=== PATIENT | female | born 1930 | race Caucasian/White ===

== ENCOUNTER → 2016-08-21 | Outpatient (CLI) | payer OTHER, MEDICARE ==
[~2016-08-21] MED LIST: ACET325T96 PO; ALBINS/ INH; ALBU0.08 INH; CALC600T PO; CALC600T37 PO; CALCTAB5 PO; CALCTAB65 PO; CEPH500C PO; CEPH500C2 PO; CHOL100010 PO; CHOL1CAP95 PO; CHOL2000 PO; CLOP1TAB15 PO; CYAN10005 PO; DILT1TAB50 PO; DILT300C PO; FLUT0.15 NAE; FLUT1INH7 INH; GABA-112 PO; GABA-113 PO; GABA1CAP5 PO; HYZ/50125 PO; LOSA100T2 PO; LVQ500 PO; MAGN400T6 PO; MONT1TAB3 PO; NTRGSL/4 SL; OMEP20CA9 PO; OXYC1TAB3 PO; PHN/100 PO; POTA-74 PO; PRD10 PO; VNTHFA/IN INH
--- NOTE | 2016-08-21 13:59 | MAMMOGRAPHY REPORT ---
BILATERAL DIGITAL SCREENING MAMMOGRAM WITH CAD: 08/21/2016 CLINICAL HISTORY: Routine screening. Patient has no complaints. TECHNIQUE: Current study was also evaluated with a Computer Aided Detection (CAD) system. Bilatera l CC and MLO views were obtained. COMPARISON: Comparison is made to exams dated: 11/13/2011 mammogram - [facility], , and 01/06/2007. BREAST COMPOSITION: The tissue of both breasts is almost entirely fatty. FINDINGS: No suspicious masses, calcifications, or areas of architectural distortion are noted in e ither breast. There has been no significant interval change compared to prior exams. Bilateral niurka gn vascular calcifications are again noted. IMPRESSION: ACR BI-RADS CATEGORY 2: BENIGN There is no mammographic evidence of malignancy. A 1 year screening mammogram is recommended. The p atient will receive written notification of the results. Approximately 10% of breast cancers are not detected with mammography. A negative mammographic repor t should not delay biopsy if a clinically suggestive mass is present. Rosaura Lainez M.D. ah/:08/21/2016 12:49:39 Teacher'S Aide: Loren Ladd, [facility] letter sent: Normal 1/2 BI-RADS Code: ACR BI-RADS Category 2: Benign
== END | disposition home or self-care (01) ==
LOC: C.MAMM 10:33
PROVIDERS: ATTEND Internal Medicine
DX: Z12.31 Encounter for screening mammogram for malignant neoplasm of breast (principal)

== ENCOUNTER 2016-09-29 07:42 | Emergency (ER) | payer OTHER, MEDICARE ==
[~2016-09-29] VITALS: Ht 157.5 cm; Wt 73.8 kg
[~2016-09-29 07:42] MED LIST changes: -ALBINS/ INH; -CALC600T PO; -CALC600T37 PO; -CALCTAB65 PO; -CEPH500C PO; -CEPH500C2 PO; -CHOL1CAP95 PO; -CHOL2000 PO; -DILT1TAB50 PO; -GABA1CAP5 PO; -HYZ/50125 PO; -LVQ500 PO; -MAGN400T6 PO; -OXYC1TAB3 PO; -PRD10 PO
[2016-09-29 07:52] VITALS: TEMP 36.5; Ht 157.5 cm; Wt 73.8 kg
--- NOTE | 2016-09-29 07:56 | EMERGENCY ROOM VISIT NOTE ---
History Report prepared by Kathrine: Erwin Spivey Under the Supervision of: Dr. Nicolas Navarro M.D. First contact with patient: 07:46 Chief Complaint: CHEST PAIN Stated Complaint: CHEST PAIN History of Present Illness The patient is an 85 year old female with a history of hypertension who presents to the Emergency Room via ambulance with complaints of constant chest pain beginning one hour prior to arrival. She currently rates her discomfort as a 7/10 in severity, but notes it was an 8/10 when the chest pain began. The patient associates chest pain that radiates down the right arm, resolved shortness of breath, resolved chills, nausea, and two episodes of vomiting with today's symptoms. She states she was given four baby aspirin in the ambulance. The patient denies a fever. 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 Was 8/10. Timing: constant Associated Symptoms: + SOB (resolved), + chest pain, + chills (resolved), + nausea, + vomiting, No fevers Note: Associated symptoms: chest pain that radiates down the right arm. Review of Systems All systems have been listed, reviewed, and are negative other than those previously mentioned. Please see Additional Medical History Sheet. Past Medical & Surgical Medical Problems: (1) Asthma (2) Bronchitis (3) CVA (4) Diabetes mellitus type 2 (5) Emphysema (6) Heart disease (7) Hyperlipidemia (8) Hypertensive disorder, systemic arterial (9) ICH (intracerebral hemorrhage) (10) Kidney stones (11) Peripheral vascular disease (12) Pneumonia (13) Right sided weakness (14) Vascular dementia Family History Diabetes mellitus FH: cancer FH: heart disease FHx: gallbladder disease Hypertension Social History Smoking Status: Never Smoker Alcohol Use: none Drug Use: none Marital Status: Housing Status: lives alone Occupation Status: retired Current/Historical Medications Scheduled Calcium (Calcium), 600 MG PO BID Cholecalciferol (Vitamin D3), Unknown Dose PO FRIDAY Clopidogrel (Plavix), 75 MG PO QAM Cyanocobalamin (Vitamin B-12), 1,000 MCG PO BID Diltiazem HCl Coated Beads (Diltiazem HCl ER), 240 MG PO QAM Fluticasone Furoate-Vilanterol (Breo Ellipta 200-25 Mcg/INH), 1 PUFF INH QAM Fluticasone Propionate (Nasal) (Flonase Allergy Relief), 2 SPRAYS [place] DAILY Gabapentin (Neurontin), 400 MG PO BID Hctz/Losartan (Hyzaar 12.5MG/50MG), 1 TAB PO QAM Magnesium Oxide (Mag-Ox), 400 MG PO DAILY Montelukast Sodium (Singulair), 10 MG PO QAM Nitroglycerin (Nitrostat), 0.4 MG SL PRN/UD Omeprazole (Prilosec), 20 MG PO BID Phenytoin Sodium (Dilantin), 100 MG PO TID Potassium Chloride (Potassium Chloride Er), 20 MEQ PO QAM Scheduled PRN Acetaminophen Tab (Tylenol), 650 MG PO Q6 PRN for Pain or Fever Albuterol Hfa (Ventolin Hfa), 2-4 PUFFS INH Q6H PRN for Shortness of Breath Albuterol Sulf (Proventil 0.083% 2.5MG/3ML), 2.5 MG INH [id number] PRN for SOB/ Wheezing Allergies Coded Allergies: Atorvastatin (Verified Allergy, Mild, UNSURE, 09/29/16) Ezetimibe (Verified Allergy, Mild, UNSURE, 09/29/16) Alendronate (Verified Allergy, Unknown, UNKN, 09/29/16) Benazepril (Verified Allergy, Unknown, UNSURE, 09/29/16) Clonidine (Verified Allergy, Unknown, UNSURE, 09/29/16) Ibandronic Acid (Verified Allergy, Unknown, UNKN, 09/29/16) Simvastatin (Verified Allergy, Unknown, OK TO TRY CRESTOR PER [id number], ) Physical Exam Vital Signs Date Time Temp Pulse Resp B/P Pulse Ox O2 Delivery O2 Flow Rate FiO2 09/29/16 12:12 92 16 164/99 98 09/29/16 11:46 92 16 165/89 97 Room Air 09/29/16 10:52 92 18 162/67 98 Nasal Cannula 2.0 09/29/16 10:04 93 18 173/76 97 Nasal Cannula 2.0 09/29/16 09:33 80 126/94 09/29/16 08:55 86 09/29/16 08:33 91 16 185/87 94 Room Air 09/29/16 07:59 98 Room Air 09/29/16 07:52 36.5 96 18 205/83 97 Room Air Physical Exam GENERAL: Patient awake, alert, oriented x 3. Patient follows commands. Patient does not appear toxic. Patient is adequately hydrated and well- nourished. SKIN: No erythema, pallor, cyanosis or rash HEENT: Normal head, pupils equal, reactive to light and accommodation. Oral cavity and posterior pharynx appear normal. Neck: Without adenopathy, no neck vein distention. LUNGS: Clear to auscultation. No wheezes, no rales, no rhonchi. HEART: No murmurs. No gallops. No rubs ABDOMEN: Obese. No masses, no rebound, no hepatomegaly or splenomegaly. EXTREMITIES: No signs of trauma. No pedal or pretibial edema. No calf or thigh tenderness. NEUROLOGIC: Cranial nerves II-XII within normal limits. No gross motor sensory function deficits. Medical Decision & Procedures ER Provider Diagnostic Interpretation: X ray results are stated below per my interpretation and the radiologist's interpretation. CHEST ONE VIEW PORTABLE CLINICAL HISTORY: chest pain dyspnea COMPARISON STUDY: 04/18/2016 FINDINGS: The bones soft tissues and hemidiaphragms are normal. The cardiomediastinal silhouette is normal. The lungs are clear. The pulmonary vasculature is normal. IMPRESSION: Negative chest. Electronically signed by: Davonte Chilel M.D. 09/29/2016 8:05 AM Laboratory Results 09/29/16 08:20 09/29/16 08:20 Test 09/29/16 08:20 09/29/16 10:23 Red Blood Count 4.42 M/uL (4.2-5.4) Mean Corpuscular Volume 82.4 fL (80-100) Mean Corpuscular Hemoglobin 27.8 pg (25-34) Mean Corpuscular Hemoglobin Concent 33.8 g/dl (32-36) RDW Standard Deviation 43.5 fL (36.4-46.3) RDW Coefficient of Variation 14.5 % (11.5-14.5) Mean Platelet Volume 9.3 fL (7.4-10.4) Anion Gap 10.0 mmol/L (3-11) Est Creatinine Clear Calc Drug Dose 59.8 ml/min Estimated GFR () 94.2 Estimated GFR (Non- 81.3 BUN/Creatinine Ratio 17.2 (10-20) Calcium Level 8.8 mg/dl (8.5-10.1) Digoxin Level 0.1 ng/ml (0.8-2.0) Bedside Troponin I 0.000 ng/ml (0-0.045) Laboratory results as stated above per my review. Medications Administered Medications (Trade) Dose Ordered Sig/Flavio Route Start Time Stop Time Status Last Admin Dose Admin Ondansetron HCl (Zofran Inj) 4 mg Q1HWA PRN IV 09/29/16 08:00 09/29/16 12:27 DC 09/29/16 08:20 4 MG Phenytoin Sodium (Dilantin Er Cap) 100 mg NOW STAT PO 09/29/16 08:50 09/29/16 08:51 DC 09/29/16 08:56 100 MG Nitroglycerin (Nitrostat Tab) 0.4 mg PRN PRN SL 09/29/16 10:00 09/29/16 12:27 DC 09/29/16 10:04 0.4 MG ECG Indication: chest pain Rate (beats per minute): 94 Rhythm: sinus rhythm Findings: PAC, no acute ischemic change, other (normal axis) ED Course 0748: Past medical records reviewed. The patient was evaluated in room B7. A complete history and physical examination was performed. 0800: Ordered Zofran Inj 4 mg IV. 0850: Ordered Dilantin Er Cap 100 mg PO. 0953: Reevaluated and updated the patient at this time. 1000: Ordered Nitrostat Tab 0.4 mg SL. 1150: Upon reevaluation, the patient appeared to have improvement of her symptoms. She states the nitroglycerin did not have an affect on her chest pain. The patient notes she has been coughing and believes she may have pulled something in her chest. I discussed today's findings with her. She verbalized agreement of the treatment plan. The patient was discharged home. Medical Decision I considered multiple diagnoses including myocardial infarction, chest wall pain , pericarditis, myocarditis, aortic emergencies, pulmonary embolism, congestive heart failure, GI causes, and other significant cardiopulmonary disorders. Multiple labs, EKG, imaging were obtained. Please see above. The patient has no evidence of congestive failure. She has no EKG changes. Troponins are 02. The patient did not get relief with nitroglycerin but the pain did eventually resolve. The patient relates that she has been coughing and believes that she may have pulled some muscles in her chest. I agree. The patient is safe to return home. She will continue her current medications and follow-up with her family physician. Impression Primary Impression: Chest wall pain Scribe Attestation The scribe's documentation has been prepared under my direction and personally reviewed by me in its entirety. I confirm that the note above accurately reflects all work, treatment, procedures, and medical decision making performed by me. Departure Information Dispostion Home / Self-Care Referrals Scar Parker M.D. (PCP) Forms HOME CARE DOCUMENTATION FORM, IMPORTANT VISIT INFORMATION Patient Instructions My [facility] Additional Instructions Continue all of your current medications as prescribed. Follow-up with your family physician within the next 10 days.
[2016-09-29 07:59] VITALS: O2SAT 98
[2016-09-29] MEDS ORDERED: ONDANSETRON INJ 2 MG/ML 2 ML VIAL IV PRN (08:00)
--- NOTE | 2016-09-29 08:07 | DIAGNOSTIC IMAGING REPORT ---
CHEST ONE VIEW PORTABLE CLINICAL HISTORY: chest pain dyspnea COMPARISON STUDY: 04/18/2016 FINDINGS: The bones soft tissues and hemidiaphragms are normal. The cardiomediastinal silhouette is normal. The lungs are clear. The pulmonary vasculature is normal. IMPRESSION: Negative chest. Electronically signed by: Davonte Chilel M.D. 09/29/2016 8:05 AM Dictated Date/Time: 09/29/2016 8:04 AM
[2016-09-29 08:37] LABS: HEMATOCRIT 36.4 % (37-47); MEAN CELL VOLUME 82.4 fL (80-100); MEAN CORPUSCULAR HEMOGLOBIN 27.8 pg (25-34); MEAN CORPUSCULAR HGB CONC 33.8 g/dl (32-36); MEAN PLATELET VOLUME 9.3 fL (7.4-10.4); PLATELET COUNT 356 K/uL (130-400); RED BLOOD COUNT 4.42 M/uL (4.2-5.4)
[2016-09-29] MEDS ORDERED: GABA1CAP5 PO (08:43)
[2016-09-29] MEDS ORDERED: ALBINS/ INH (08:43)
[2016-09-29] MEDS ORDERED: CHOL1CAP95 PO (08:43)
[2016-09-29] MEDS ORDERED: CALC600T37 PO (08:43)
[2016-09-29] MEDS ORDERED: HYZ/50125 PO (08:44)
[2016-09-29] MEDS ORDERED: MAGN400T6 PO (08:48)
[2016-09-29] MEDS ORDERED: PHENYTOIN SODIUM ER 100 MG CAP PO STA (08:50)
[2016-09-29 08:51] LABS: BUN/CREATININE RATIO 17.2 (10-20); CALCIUM 8.8 mg/dl (8.5-10.1); CREATININE 0.67 mg/dl (0.60-1.20); POTASSIUM 3.7 mmol/L (3.5-5.1)
[2016-09-29] MEDS ORDERED: DILT1TAB50 PO (09:41)
[2016-09-29] MEDS: NITROGLYCERIN 0.4 MG SL PER TAB CHARGE SL PRN ×2 (10:03→10:04)
[2016-09-29 12:12] VITALS: BP 164/99; PULSE 92; O2SAT 98
[2017-03-16] MEDS ORDERED: CEPH500C2 PO (09:38)
== END 2016-09-29 12:13 | disposition home or self-care (01) ==
LOC: EDBD 07:42 → C.EDB 07:44
DX: R07.89 Other chest pain (principal); I10 Essential (primary) hypertension; E78.5 Hyperlipidemia, unspecified; E11.9 Type 2 diabetes mellitus without complications; J45.909 Unspecified asthma, uncomplicated; I51.9 Heart disease, unspecified; J43.9 Emphysema, unspecified; I73.9 Peripheral vascular disease, unspecified; Z86.73 Personal history of transient ischemic attack (TIA), and cerebral infarction without residual deficits; Z87.442 Personal history of urinary calculi; Z79.02 Long term (current) use of antithrombotics/antiplatelets; Z79.899 Other long term (current) drug therapy

== ENCOUNTER → 2016-10-29 | Outpatient (CLI) | payer OTHER, MEDICARE ==
[~2016-10-29] MED LIST changes: +ACET-1101 PO; +ALBINS/ INH; -ALBU0.08 INH; +CALC600T PO; +CALC600T37 PO; -CALCTAB5 PO; +CALCTAB65 PO; +CEPH500C PO; +CEPH500C2 PO; -CHOL100010 PO; +CHOL1CAP95 PO; +CHOL2000 PO; +DILT1TAB50 PO; -DILT300C PO; -GABA-112 PO; -GABA-113 PO; +GABA1CAP5 PO; +HYZ/50125 PO; -LOSA100T2 PO; +LVQ500 PO; +MAGN400T6 PO; +OXYC1TAB3 PO; +PRD10 PO
[2016-10-29 17:37] LABS: HEMATOCRIT 38.4 % (37-47); MEAN CELL VOLUME 83.8 fL (80-100); MEAN CORPUSCULAR HEMOGLOBIN 27.1 pg (25-34); MEAN CORPUSCULAR HGB CONC 32.3 g/dl (32-36); MEAN PLATELET VOLUME 9.6 fL (7.4-10.4); PLATELET COUNT 417 K/uL (130-400); RED BLOOD COUNT 4.58 M/uL (4.2-5.4); WHITE BLOOD COUNT 13.05 K/uL (4.8-10.8)
[2016-10-29 17:53] LABS: BLOOD UREA NITROGEN 17 mg/dl (7-18); BUN/CREATININE RATIO 21.5 (10-20); CARBON DIOXIDE 33 mmol/L (21-32); CHLORIDE 102 mmol/L (98-107); CHOLESTEROL 242 mg/dl (0-200); CHOLESTEROL/HDL RATIO 2.7; CREATININE 0.81 mg/dl (0.60-1.20); GLUCOSE 142 mg/dl (70-99); HDL CHOLESTEROL 89 mg/dl; POTASSIUM 4.5 mmol/L (3.5-5.1); SODIUM 142 mmol/L (136-145)
[2016-10-29 18:04] LABS: ALB/GLOB RATIO 0.9 (0.9-2); ALKALINE PHOSPHATASE 148 U/L (45-117); ALT/SGPT 22 U/L (12-78); AST/SGOT 16 U/L (15-37); LDL CHOLESTEROL CALCULATED 115 mg/dl; TRIGLYCERIDES 192 mg/dl (0-150); VERY LOW DENSITY LIPOPROT CALC 38 mg/dl
[2016-10-30 06:18] LABS: ESTIMATED AVERAGE GLUCOSE 157 mg/dl; HA1C FLAG Normal (Normal)
== END | disposition home or self-care (01) ==
LOC: C.LABBFT 13:21
PROVIDERS: ATTEND Physician Assistant Medical
DX: D64.9 Anemia, unspecified (principal); E11.9 Type 2 diabetes mellitus without complications; E78.5 Hyperlipidemia, unspecified

== ENCOUNTER → 2016-12-18 | Outpatient (CLI) | payer OTHER, MEDICARE | END | disposition home or self-care (01) | LOC: C.RDSM 12-17 12:46 | PROVIDERS: ATTEND Orthopaedic Surgery Sports Medicine | DX: M17.0 Bilateral primary osteoarthritis of knee (principal) ==

== ENCOUNTER 2017-01-22 09:30 | Emergency (ER) | payer OTHER, MEDICARE ==
[~2017-01-22] VITALS: Ht 160 cm; Wt 72.6 kg
[~2017-01-22 09:30] MED LIST changes: -ACET-1101 PO; -CALC600T PO; -CALCTAB65 PO; -CEPH500C PO; -CEPH500C2 PO; -CHOL2000 PO; -LVQ500 PO; -OXYC1TAB3 PO; -PRD10 PO
[2017-01-22 09:35] VITALS: TEMP 36.6; Ht 160 cm; Wt 72.6 kg
[2017-01-22] MEDS ORDERED: ONDANSETRON INJ 2 MG/ML 2 ML VIAL IV STA (09:41)
[2017-01-22] MEDS ORDERED: SODIUM CHLORIDE 0.9% 500ML 500 ML IV STA (09:41)
[2017-01-22] MEDS ORDERED: FENTANYL CITRATE INJ 50 MCG/1 ML 2 ML VIAL IV ONE (09:45)
[2017-01-22 10:06] LABS: BASO % 0.6 %; BASO ABS # 0.06 K/uL (0-0.2); COMPLETE YES; HEMATOCRIT 38.7 % (37-47); IG% 0.4 %; LYMPH % 25.2 %; MEAN CELL VOLUME 83.2 fL (80-100); MEAN CORPUSCULAR HEMOGLOBIN 27.5 pg (25-34); MEAN CORPUSCULAR HGB CONC 33.1 g/dl (32-36); MEAN PLATELET VOLUME 9.3 fL (7.4-10.4); MONO % 12.7 %; NEUT % 59.1 %; PLATELET COUNT 376 K/uL (130-400); RED BLOOD COUNT 4.65 M/uL (4.2-5.4); WHITE BLOOD COUNT 10.31 K/uL (4.8-10.8)
--- NOTE | 2017-01-22 10:35 | DIAGNOSTIC IMAGING REPORT ---
PELVIS 1 OR 2 VIEW ROUTINE CLINICAL HISTORY: Pelvic pain status post trauma COMPARISON STUDY: 08/24/2013 FINDINGS: No fractures are visualized. The joint space of each hip appears relatively well preserved for age. Vascular calcifications are evident. There is no SI joint diastases. There is no symphysis diastases. IMPRESSION: No fractures identified. Electronically signed by: Wes Zelaya M.D. 01/22/2017 10:34 AM Dictated Date/Time: 01/22/2017 10:34 AM
--- NOTE | 2017-01-22 10:42 | DIAGNOSTIC IMAGING REPORT ---
THORACIC SPINE 3 VIEWS, LUMBAR SPINE 3 VIEWS HISTORY: upper lumbar paraspinal pain COMPARISON: Thoracic spine CT 06/19/2015. FINDINGS: There is no fracture. No subluxation. Mild degenerative disease throughout the thoracic spine. There are small following osteophytes within the thoracic spine. Paraspinal soft tissues appear unremarkable. Stable T12 vertebral body hemangioma. 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 Disc spaces within the lumbar spine are relatively preserved. Minimal S-shaped scoliosis of the thoracolumbar spine. The sacrum appears intact. IMPRESSION: No fracture or subluxation within the thoracic or lumbar spine spine. Electronically signed by: Gregorio Jason M.D. 01/22/2017 10:41 AM Dictated Date/Time: 01/22/2017 10:33 AM
[2017-01-22 11:16] LABS: PARTIAL THROMBOPLASTIN RATIO 0.9; PROTHROMBIN TIME (PATIENT) 10.6 SECONDS (9.0-12.0)
[2017-01-22 11:25] LABS: ALKALINE PHOSPHATASE 150 U/L (45-117); ALT/SGPT 21 U/L (12-78); BLOOD UREA NITROGEN 13 mg/dl (7-18); BUN/CREATININE RATIO 19.7 (10-20); CALCIUM 8.3 mg/dl (8.5-10.1); CARBON DIOXIDE 31 mmol/L (21-32); CHLORIDE 106 mmol/L (98-107); CREATININE 0.68 mg/dl (0.60-1.20); GLUCOSE 112 mg/dl (70-99)
[2017-01-22 11:30] LABS: POTASSIUM 4.1 mmol/L (3.5-5.1); SODIUM 143 mmol/L (136-145)
[2017-01-22 11:33] LABS: URINE APPEARANCE CLOUDY (CLEAR); URINE BILIRUBIN NEG (NEG); URINE COLOR YELLOW; URINE EPITHELIAL CELL AUTO >30 /lpf (0-5); URINE NITRITE POS (NEG); URINE PH 7.5 (4.5-7.5); URINE SPECIFIC GRAVITY 1.019 (1.000-1.030); UROBILINOGEN NEG (NEG); ZZUR CULT IF INDIC CLEAN CATCH YES
[2017-01-22 11:36] LABS: MANUAL MICROSCOPIC REQUIRED? NO; REVIEW REQ? YES
[2017-01-22 11:36] LABS: AST/SGOT 15 U/L (15-37)
[2017-01-22] MEDS ORDERED: CEPHALEXIN MONOHYDRATE 250 MG CAP PO ONE (12:15)
[2017-01-22 12:27] VITALS: BP 144/68
[2017-01-22] MEDS ORDERED: CEPH500C PO (12:50)
[2017-01-22] MEDS ORDERED: OXYC1TAB3 PO (12:50)
[2017-01-22 13:10] VITALS: PULSE 92; O2SAT 95
--- NOTE | 2017-01-22 16:03 | EMERGENCY ROOM VISIT NOTE ---
History Report prepared by Kathrine: Janie Harvey Under the Supervision of: Dr. Justin Anderson D.O. 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 She was on the toilet this morning and tried to get into her lift chair. She went to sit in the chair, but slid forward out of it and landed on the floor. She hit her lower back on the chair and is complaining of bilateral lower back pain that is worsened with movement. The patient denies hitting her head, LOC, neck pain, chest pain, abdominal pain, and any other injury. She has bilateral knee pain, but states that this is chronic. The patient is on Plavix. She was brought to the ED by ambulance. 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 A total of 10 systems reviewed and were otherwise negative. Past Medical & Surgical Medical Problems: (1) Asthma (2) Bronchitis (3) CVA (4) Diabetes mellitus type 2 (5) Emphysema (6) Heart disease (7) Hyperlipidemia (8) Hypertensive disorder, systemic arterial (9) ICH (intracerebral hemorrhage) (10) Kidney stones (11) Peripheral vascular disease (12) Pneumonia (13) Right sided weakness (14) Vascular dementia Family History Diabetes mellitus FH: cancer FH: heart disease FHx: gallbladder disease Hypertension Social History Smoking Status: Never Smoker Alcohol Use: none Drug Use: none Marital Status: Housing Status: lives alone Occupation Status: retired Current/Historical Medications Scheduled Calcium (Calcium), 600 MG PO BID Cephalexin Monohydrate (Keflex), 500 MG PO TID Cholecalciferol (Vitamin D3), Unknown Dose PO FRIDAY Clopidogrel (Plavix), 75 MG PO QAM Cyanocobalamin (Vitamin B-12), 1,000 MCG PO BID Diltiazem HCl Coated Beads (Diltiazem HCl ER), 240 MG PO QAM Fluticasone Furoate-Vilanterol (Breo Ellipta 200-25 Mcg/INH), 1 PUFF INH QAM Fluticasone Propionate (Nasal) (Flonase Allergy Relief), 2 SPRAYS [place] DAILY Gabapentin (Neurontin), 400 MG PO BID Hctz/Losartan (Hyzaar 12.5MG/50MG), 1 TAB PO QAM Magnesium Oxide (Mag-Ox), 400 MG PO DAILY Montelukast Sodium (Singulair), 10 MG PO QAM Nitroglycerin (Nitrostat), 0.4 MG SL PRN/UD Omeprazole (Prilosec), 20 MG PO BID Phenytoin Sodium (Dilantin), 100 MG PO TID Potassium Chloride (Potassium Chloride Er), 20 MEQ PO QAM Scheduled PRN Acetaminophen Tab (Tylenol), 650 MG PO Q6 PRN for Pain or Fever Albuterol Hfa (Ventolin Hfa), 2-4 PUFFS INH Q6H PRN for Shortness of Breath Albuterol Sulf (Proventil 0.083% 2.5MG/3ML), 2.5 MG INH [id number] PRN for SOB/ Wheezing Oxycodone Immediate Rel Tab (Roxicodone Ir), 5 MG PO Q6H PRN for Pain Allergies Coded Allergies: Atorvastatin (Verified Allergy, Mild, UNSURE, 01/22/17) Ezetimibe (Verified Allergy, Mild, UNSURE, 01/22/17) Alendronate (Verified Allergy, Unknown, UNKN, 01/22/17) Benazepril (Verified Allergy, Unknown, UNSURE, 01/22/17) Clonidine (Verified Allergy, Unknown, UNSURE, 01/22/17) Ibandronic Acid (Verified Allergy, Unknown, UNKN, 01/22/17) Simvastatin (Verified Allergy, Unknown, OK TO TRY CRESTOR PER [id number], ) Physical Exam Vital Signs Date Time Temp Pulse Resp B/P (MAP) Pulse Ox O2 Delivery O2 Flow Rate FiO2 01/22/17 13:10 92 16 95 01/22/17 12:27 86 18 144/68 94 Room Air 01/22/17 10:47 90 16 153/71 93 Room Air 01/22/17 09:35 36.6 98 20 171/56 98 Room Air Physical Exam GENERAL: alert, sitting up in bed, disheveled, chronically ill appearing, well nourished, no distress, non-toxic, soft-spoken. HEAD: normal cephalic, atraumatic EYE EXAM: normal conjunctiva, PERRL and EOM's grossly intact OROPHARYNX: no exudate, no erythema, lips, buccal mucosa, and tongue normal and mucous membranes are moist EARS: TMs clear b/l NECK: supple, no nuchal rigidity, no adenopathy, non-tender CHEST: stable to compression anteriorly and posteriorly LUNGS: clear to auscultation. Normal chest wall mechanics HEART: systolic ejection murmur, S1 normal and S2 normal ABDOMEN: abdomen soft, non-tender, normo-active bowel sounds, no masses, no rebound or guarding. PELVIS: stable to compression anteriorly and posteriorly BACK: acute reproducible tenderness in upper lumbar and perispinal region, no bruising, no step-offs, skin is intact. UPPER EXTREMITIES: full active and passive range of motion of all joints without tenderness to palpation LOWER EXTREMITIES: flexion at the knees with minimal discomfort in the left, old per patient. All other joints are nontender with range of motion NEURO EXAM: Normal sensorium, cranial nerves II-XII grossly intact, normal speech, no gross weakness of arms, no gross weakness of legs. GCS: 15. Medical Decision & Procedures ER Provider Diagnostic Interpretation: Radiology results as stated below per my review and the radiologist's interpretation: THORACIC SPINE 3 VIEWS, LUMBAR SPINE 3 VIEWS HISTORY: upper lumbar paraspinal pain COMPARISON: Thoracic spine CT 06/19/2015. FINDINGS: There is no fracture. No subluxation. Mild degenerative disease throughout the thoracic spine. There are small following osteophytes within the thoracic spine. Paraspinal soft tissues appear unremarkable. Stable T12 vertebral body hemangioma. 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 Disc spaces within the lumbar spine are relatively preserved. Minimal S-shaped scoliosis of the thoracolumbar spine. The sacrum appears intact. IMPRESSION: No fracture or subluxation within the thoracic or lumbar spine spine. Electronically signed by: Gregorio Jason M.D. 01/22/2017 10:41 AM Dictated Date/Time: 01/22/2017 10:33 AM THORACIC SPINE 3 VIEWS, LUMBAR SPINE 3 VIEWS HISTORY: upper lumbar paraspinal pain COMPARISON: Thoracic spine CT 06/19/2015. FINDINGS: There is no fracture. No subluxation. Mild degenerative disease throughout the thoracic spine. There are small following osteophytes within the thoracic spine. Paraspinal soft tissues appear unremarkable. Stable T12 vertebral body hemangioma. 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 Disc spaces within the lumbar spine are relatively preserved. Minimal S-shaped scoliosis of the thoracolumbar spine. The sacrum appears intact. IMPRESSION: No fracture or subluxation within the thoracic or lumbar spine spine. Electronically signed by: Gregorio Jason M.D. 01/22/2017 10:41 AM Dictated Date/Time: 01/22/2017 10:33 AM PELVIS 1 OR 2 VIEW ROUTINE CLINICAL HISTORY: Pelvic pain status post trauma COMPARISON STUDY: 08/24/2013 FINDINGS: No fractures are visualized. The joint space of each hip appears relatively well preserved for age. Vascular calcifications are evident. There is no SI joint diastases. There is no symphysis diastases. IMPRESSION: No fractures identified. Electronically signed by: Wes Zelaya M.D. 01/22/2017 10:34 AM Dictated Date/Time: 01/22/2017 10:34 AM Laboratory Results 01/22/17 09:55 Red Blood Count 4.65, Mean Corpuscular Volume 83.2, Mean Corpuscular Hemoglobin 27.5, Mean Corpuscular Hemoglobin Concent 33.1, Mean Platelet Volume 9.3, Neutrophils (%) (Auto) 59.1, Lymphocytes (%) (Auto) 25.2, Monocytes (%) (Auto) 12.7, Eosinophils (%) (Auto) 2.0, Basophils (%) (Auto) 0.6, Neutrophils # (Auto ) 6.09, Lymphocytes # (Auto) 2.60, Monocytes # (Auto) 1.31, Eosinophils # (Auto ) 0.21, Basophils # (Auto) 0.06 01/22/17 10:45 Test 01/22/17 09:55 01/22/17 10:45 01/22/17 11:15 White Blood Count 10.31 K/uL (4.8-10.8) Red Blood Count 4.65 M/uL (4.2-5.4) Hemoglobin 12.8 g/dL (12.0-16.0) Hematocrit 38.7 % (37-47) Mean Corpuscular Volume 83.2 fL (80-100) Mean Corpuscular Hemoglobin 27.5 pg (25-34) Mean Corpuscular Hemoglobin Concent 33.1 g/dl (32-36) Platelet Count 376 K/uL (130-400) Mean Platelet Volume 9.3 fL (7.4-10.4) Neutrophils (%) (Auto) 59.1 % Lymphocytes (%) (Auto) 25.2 % Monocytes (%) (Auto) 12.7 % Eosinophils (%) (Auto) 2.0 % Basophils (%) (Auto) 0.6 % Neutrophils # (Auto) 6.09 K/uL (1.4-6.5) Lymphocytes # (Auto) 2.60 K/uL (1.2-3.4) Monocytes # (Auto) 1.31 K/uL (0.11-0.59) Eosinophils # (Auto) 0.21 K/uL (0-0.5) Basophils # (Auto) 0.06 K/uL (0-0.2) RDW Standard Deviation 42.1 fL (36.4-46.3) RDW Coefficient of Variation 13.9 % (11.5-14.5) Immature Granulocyte % (Auto) 0.4 % Immature Granulocyte # (Auto) 0.04 K/uL (0.00-0.02) Prothrombin Time 10.6 SECONDS (9.0-12.0) Prothromb Time International Ratio 1.0 (0.9-1.1) Activated Partial Thromboplast Time 23.3 SECONDS (21.0-31.0) Partial Thromboplastin Ratio 0.9 Anion Gap 6.0 mmol/L (3-11) Est Creatinine Clear Calc Drug Dose 58.8 ml/min Estimated GFR () 93.1 Estimated GFR (Non- 80.3 BUN/Creatinine Ratio 19.7 (10-20) Calcium Level 8.3 mg/dl (8.5-10.1) Total Bilirubin 0.2 mg/dl (0.2-1) Direct Bilirubin < 0.1 mg/dl (0-0.2) Aspartate Amino Transf (AST/SGOT) 15 U/L (15-37) Alanine Aminotransferase (ALT/SGPT) 21 U/L (12-78) Alkaline Phosphatase 150 U/L (45-117) Total Protein 6.3 gm/dl (6.4-8.2) Albumin 2.9 gm/dl (3.4-5.0) Lipase 99 U/L (73-393) Phenytoin (Dilantin) Level 15.4 mcg/mL (10-20) Urine Color YELLOW Urine Appearance CLOUDY (CLEAR) Urine pH 7.5 (4.5-7.5) Urine Specific [place] 1.019 (1.000-1.030) Urine Protein NEG (NEG) Urine Glucose (UA) NEG (NEG) Urine Ketones NEG (NEG) Urine Occult Blood NEG (NEG) Urine Nitrite POS (NEG) Urine Bilirubin NEG (NEG) Urine Urobilinogen NEG (NEG) Urine Leukocyte Esterase MODERATE (NEG) Urine WBC (Auto) 5-10 /hpf (0-5) Urine RBC (Auto) 0-4 /hpf (0-4) Urine Hyaline Casts (Auto) 10-30 /lpf (0-5) Urine Epithelial Cells (Auto) >30 /lpf (0-5) Urine Bacteria (Auto) 4+ (NEG) Urine Renal Epithelial Cells /lpf (0-5) Laboratory results per my review. Medications Administered Medications (Trade) Dose Ordered Sig/Flavio Route Start Time Stop Time Status Last Admin Dose Admin Sodium Chloride 500 ml @ 999 mls/hr Q31M STAT IV 01/22/17 09:41 01/22/17 10:11 DC 01/22/17 10:07 999 MLS/HR Ondansetron HCl (Zofran Inj) 4 mg NOW STAT IV 01/22/17 09:41 01/22/17 09:43 DC 01/22/17 10:07 4 MG Fentanyl Citrate (Fentanyl Inj) 25 mcg NOW ONCE IV 01/22/17 09:45 01/22/17 09:46 DC 01/22/17 10:08 25 MCG Cephalexin Monohydrate (Keflex Cap) 500 mg NOW ONCE PO 01/22/17 12:15 01/22/17 12:16 DC 01/22/17 12:12 500 MG ED Course ED COURSE: Vital signs were reviewed and showed hypertensive. The patients medical record was reviewed The above diagnostic studies were performed and reviewed. ED treatments and interventions as stated above. 0933: The patient was evaluated in room A2. A complete history and physical examination was performed. 0941: Zofran 4 mg IV, NSS 500 ml @ 999 mls/hr IV 0945: Fentanyl 25 mcg IV 1131: I updated the patient at this time and she is feeling better. 1215: Keflex Cap 500 mg PO 1228: Upon reevaluation, the patient is resting comfortably. I discussed my findings with the patient and she understands and agrees with the treatment plan. Based on the patients age, coexisting illnesses, exam and lab findings the decision to treat as an outpatient was made. The patient remained stable while under my care. The patient appeared well at the time of discharge. Medical Decision Differential diagnoses include major intracranial, cervical, spinal, thoracic, abdominal, pelvic and neurologic injury. Fracture, contusion, sprain, strain, laceration, abrasions included as well. Medication Reconciliation: I attest that I have personally reviewed the patient' s current medication list. Blood pressure screening: Patient was found to have an elevated blood pressure and was referred to their primary doctor for recheck and further treatment. Urine cultures reviewed susceptible to E. Coli previously. Patient is an 86-year-old female who presents the ER following sliding out of her chair. She is complaining of minimal lower back pain which is located in the left lower paraspinal region. She was hypertensive. No head trauma. She has no other complaints. CBC along with BMP, LFTs, bilirubin or unremarkable. Phenytoin was normal. INR was negative. UA shows a UTI with nitrates, leuks and white cells. Patient has no symptoms. She is completely neurologically intact. X-rays of her thoracic and lumbar spine were negative. There is no bruising. She was able to ambulate with her walker. She was discharged with Keflex to follow-up with her PCP. Discussed with Pt concerning signs and symptoms to watch out for. Pt was instructed to follow up with their PCP and discussed with the patient their option to return to the ED at anytime for persistent or worsening symptoms. The appropriate anticipatory guidance and out- patient management, including indications for return to the emergency department , were explained at length to the patient and understood. Impression Primary Impression: UTI (urinary tract infection) Additional Impression: Fall Scribe Attestation The scribe's documentation has been prepared under my direction and personally reviewed by me in its entirety. I confirm that the note above accurately reflects all work, treatment, procedures, and medical decision making performed by me. Departure Information Dispostion Home / Self-Care Prescriptions Cephalexin Monohydrate (Keflex) 500 Mg Cap 500 MG PO TID for 7 Days, CAP Prov: Justin Anderson, DO 01/22/17 Oxycodone Immediate Rel Tab (ROXICODONE IR) 5 Mg Tab 5 MG PO Q6H Y for Pain, #10 TAB Prov: Justin Anderson, DO 01/22/17 Referrals Scar Parker M.D. (PCP) Forms HOME CARE DOCUMENTATION FORM, IMPORTANT VISIT INFORMATION Patient Instructions Back Pain - [facility], ED UTI Cystitis Female, My [facility] Additional Instructions Please follow up with your primary care doctor with in the next 24 hours. Any worsening of your symptoms, please return to the ED immediately. This includes fevers grade and 100.4, confusion, worsening pain, passing out, or any other concerning signs or symptoms from your standpoint. Please take antibiotics as prescribed. You were given medications during this visit that will inhibit your ability to drive, operate machinery and work. Please do NOT drive, operate machinery or work for the next 12hrs. You were also given a prescription for a narcotic/Oxy IR. While taking this medication you should also not drive, operate machinery and or work. Problem Qualifiers Primary Impression: UTI (urinary tract infection) Urinary tract infection type: acute cystitis Hematuria presence: without hematuria Qualified Codes: N30.00 - Acute cystitis without hematuria Additional Impression: Fall Encounter type: initial encounter Qualified Codes: W19.XXXA - Unspecified fall, initial encounter
--- NOTE | 2017-01-24 12:41 | Pharmacy Progress Note ---
ED Pharmacist Culture FollowUp Date of Service: Jan 24, 2017. Patient was sent home with a prescription for Keflex 500mg PO TID x 7 days, which should cover the e coli growing from the patient's URINE culture.
[2017-03-16] MEDS ORDERED: CEPH500C2 PO (09:38)
== END 2017-01-22 13:13 | disposition home or self-care (01) ==
LOC: EDBD 09:30 → C.EDA 09:33
DX: N30.00 Acute cystitis without hematuria (principal); W07.XXXA Fall from chair, initial encounter; J45.909 Unspecified asthma, uncomplicated; E11.51 Type 2 diabetes mellitus with diabetic peripheral angiopathy without gangrene; I10 Essential (primary) hypertension; F01.50 Vascular dementia, unspecified severity, without behavioral disturbance, psychotic disturbance, mood disturbance, and anxiety; J43.9 Emphysema, unspecified; Z87.442 Personal history of urinary calculi; Z86.73 Personal history of transient ischemic attack (TIA), and cerebral infarction without residual deficits; Z87.01 Personal history of pneumonia (recurrent); Z83.3 Family history of diabetes mellitus; Z82.49 Family history of ischemic heart disease and other diseases of the circulatory system; Z79.02 Long term (current) use of antithrombotics/antiplatelets

== ENCOUNTER 2017-01-31 23:15 | Inpatient (IN) | payer OTHER, MEDICARE ==
[~2017-01-31] VITALS: Ht 160 cm; Wt 71.4 kg
[~2017-01-31 23:15] MED LIST changes: +OXYC1TAB3 PO
[2017-01-31] MEDS ORDERED: CHOL2000 PO (23:41)
[2017-01-31] MEDS ORDERED: ALBUT/IPRATROP 3MG/0.5MG NEB 3 ML VIAL INH ONE (23:45)
[2017-01-31] MEDS ORDERED: CALCTAB65 PO (23:52)
[2017-01-31] MEDS ORDERED: ALBUT/IPRATROP 3MG/0.5MG NEB 3 ML VIAL INH STA (23:56)
[2017-02-01] VITALS (11 sets, daily range): BP systolic 130–151; BP diastolic 66–72; PULSE 80–103; TEMP 36.3–36.9; O2SAT 92–97; Ht 160 cm; Wt 71.4 kg
--- NOTE | 2017-02-01 00:03 | DIAGNOSTIC IMAGING REPORT ---
SINGLE VIEW CHEST CLINICAL HISTORY: Cough. COPD. FINDINGS: An AP, portable, upright chest radiograph is compared to study dated 09/29/2016 and correlated with chest CT dated 11/27/2014. The examination is degraded by portable technique and patient rotation. The cardiomediastinal silhouette is unremarkable. There is atherosclerotic calcification of the thoracic aorta. Chronic interstitial thickening is unchanged. Patchy airspace consolidation is suspected at the left lung base in the retrocardiac region. The right lung appears clear. No large pleural effusion or pneumothorax is seen. The skeletal structures are osteopenic. The bony thorax is grossly intact. IMPRESSION: 1. Suspect developing patchy airspace consolidation at the left lung base. Correlate clinically for evidence of pneumonia. Radiographic follow-up to resolution is recommended. 2. The right lung appears clear. Electronically signed by: Karsten Mccormick M.D. 02/01/2017 12:01 AM Dictated Date/Time: 01/31/2017 11:59 PM
[2017-02-01 00:21] LABS: BASO % 0.3 %; BASO ABS # 0.04 K/uL (0-0.2); COMPLETE YES; EOS % 3.1 %; HEMATOCRIT 37.8 % (37-47); IG% 0.5 %; LYMPH % 39.3 %; LYMPH ABS # 4.84 K/uL (1.2-3.4); MEAN CELL VOLUME 83.1 fL (80-100); MEAN CORPUSCULAR HEMOGLOBIN 26.8 pg (25-34); MEAN CORPUSCULAR HGB CONC 32.3 g/dl (32-36); MEAN PLATELET VOLUME 9.5 fL (7.4-10.4); NEUT % 44.8 %; PLATELET COUNT 391 K/uL (130-400); RED BLOOD COUNT 4.55 M/uL (4.2-5.4); WHITE BLOOD COUNT 12.31 K/uL (4.8-10.8)
[2017-02-01] MEDS ORDERED: CEFTRIAXONE SOD INJ 1 GM ADDVIAL IV STA (00:26)
[2017-02-01 00:36] LABS: ALT/SGPT 25 U/L (12-78); BLOOD UREA NITROGEN 16 mg/dl (7-18); BUN/CREATININE RATIO 19.1 (10-20); CALCIUM 8.9 mg/dl (8.5-10.1); CARBON DIOXIDE 30 mmol/L (21-32); CHLORIDE 102 mmol/L (98-107); CREATININE 0.82 mg/dl (0.60-1.20); GLUCOSE 191 mg/dl (70-99); MAGNESIUM 1.9 mg/dl (1.8-2.4); POTASSIUM 3.4 mmol/L (3.5-5.1); SODIUM 141 mmol/L (136-145)
[2017-02-01 00:41] LABS: ALKALINE PHOSPHATASE 156 U/L (45-117); AST/SGOT 20 U/L (15-37)
[2017-02-01 00:58] LABS: URINE APPEARANCE CLOUDY (CLEAR); URINE BILIRUBIN NEG (NEG); URINE COLOR YELLOW; URINE EPITHELIAL CELL AUTO >30 /lpf (0-5); URINE NITRITE POS (NEG); URINE SPECIFIC GRAVITY 1.028 (1.000-1.030); UROBILINOGEN NEG (NEG); ZZUR CULT IF INDIC CLEAN CATCH YES
[2017-02-01 01:06] LABS: MANUAL MICROSCOPIC REQUIRED? NO; REVIEW REQ? NO
--- NOTE | 2017-02-01 01:58 | History and Physical ---
History & Physical Date & Time of Service: Feb 01, 2017 at 01:51 Chief Complaint: COPD Primary Care Physician: Scar Parker M.D. History of Present Illness Source: patient, family This is an 85-year-old female with a history of CVA and R sided weakness, hypertension, type 2 diabetes and COPD - Presents with progressive SOB and a few episodes of hemoptysis, coughing up blood streaked sputum. She denies fevers, CP, N/V/D or diarrhea. She recently completed a course of Keflex for a UTI. Her 02 saturation was in the mid 80s on arrival. A CXR is consistent with a LLL PNM. Past Medical/Surgical History PAST MEDICAL HISTORY: 1. CVA with baseline of left-sided weakness. 2. COPD. 3. Type 2 diabetes. 4. CAD. 5. Hypertension. 6. Hyperlipidemia. 7. History of renal calculi. 8. Peripheral vascular disease. 9. Mild vascular dementia. 10. Admitted with suspected ICH 05/08/16 - diagnosis was not definitive Family History Diabetes mellitus FH: cancer FH: heart disease FHx: gallbladder disease Hypertension Social History Smoking Status: Never Smoker Drug Use: none Marital Status: Housing status: lives alone Occupational Status: retired Immunizations History of Influenza Vaccine: N/A Influenza Vaccine Date: Apr 15, 2012 History of Tetanus Vaccine?: Yes Tetanus Immunization Date: Mar 31, 2009 History of Pneumococcal: Yes Pneumococcal Date: Jan 14, 2012 History of Hepatitis B Vaccine: No Multi-Drug Resistant Organisms History of MDRO: No Allergies Coded Allergies: Atorvastatin (Verified Allergy, Mild, UNSURE, 01/22/17) Ezetimibe (Verified Allergy, Mild, UNSURE, 01/22/17) Alendronate (Verified Allergy, Unknown, UNKN, 01/22/17) Benazepril (Verified Allergy, Unknown, UNSURE, 01/22/17) Clonidine (Verified Allergy, Unknown, UNSURE, 01/22/17) Ibandronic Acid (Verified Allergy, Unknown, UNKN, 01/22/17) Simvastatin (Verified Allergy, Unknown, OK TO TRY CRESTOR PER [id number], ) Home Medications Scheduled Calcium Carbonate-Vitamin D (Calcium 500 + D), 1 TAB PO BID Cholecalciferol (Vitamin D3), 2,000 CAP PO WK Clopidogrel (Plavix), 75 MG PO QAM Cyanocobalamin (Vitamin B-12), 1,000 MCG PO BID Diltiazem HCl Coated Beads (Diltiazem HCl ER), 240 MG PO QAM Fluticasone Furoate-Vilanterol (Breo Ellipta 200-25 Mcg/INH), 1 PUFF INH QAM Fluticasone Propionate (Nasal) (Flonase Allergy Relief), 2 SPRAYS [place] DAILY Gabapentin (Neurontin), 400 MG PO BID Hctz/Losartan (Hyzaar 12.5MG/50MG), 1 TAB PO QAM Magnesium Oxide (Mag-Ox), 400 MG PO DAILY Montelukast Sodium (Singulair), 10 MG PO QAM Nitroglycerin (Nitrostat), 0.4 MG SL PRN/UD Omeprazole (Prilosec), 20 MG PO BID Phenytoin Sodium (Dilantin), 100 MG PO TID Potassium Chloride (Potassium Chloride Er), 20 MEQ PO QAM Scheduled PRN Acetaminophen Tab (Tylenol), 650 MG PO Q6 PRN for Pain or Fever Albuterol Hfa (Ventolin Hfa), 2-4 PUFFS INH Q6H PRN for Shortness of Breath Albuterol Sulf (Proventil 0.083% 2.5MG/3ML), 2.5 MG INH [id number] PRN for SOB/ Wheezing Review of Systems Constitutional: No fever, No chills, No sweats Eyes: No worsening of vision, No eye pain ENT: + problem reported (Difficulty speeking - states this occurs whith COPD exacerbations), No hearing loss, No unusual epistaxis, No nasal symptoms Respiratory: + cough, + sputum, + shortness of breath, + hemoptysis Cardiovascular: No chest pain, No orthopnea, No PND Abdomen: No pain, No nausea, No vomiting Musculoskeletal: No joint pain Genitourinary - Female: No dysuria, No urinary frequency, No urinary urgency Neurologic: No memory loss Psychiatric: No depression symptoms Endocrine: No fatigue Hematologic / Lymphatic: + abnormal bleeding/bruising Integumentary: No rash Allergic / Immunologic: No environmental allergies Physical Exam Vital Signs Date Time Temp Pulse Resp B/P (MAP) Pulse Ox O2 Delivery O2 Flow Rate FiO2 02/01/17 01:26 94 Nasal Cannula 2.0 02/01/17 01:25 89 02/01/17 01:15 82 27 90 02/01/17 01:00 86 25 92 02/01/17 00:45 95 95 02/01/17 00:30 84 24 92 02/01/17 00:15 81 11 99 02/01/17 00:00 82 19 93 01/31/17 23:45 83 17 95 01/31/17 23:30 97 32 96 01/31/17 23:27 85 01/31/17 23:22 98 Room Air 01/31/17 23:22 36.7 86 18 166/61 98 Room Air 01/31/17 23:21 98 Room Air 01/31/17 23:20 166/61 General Appearance: + pertinent finding (Elderly female - AAO x 2 - no distress - difficult to understand as her voice is very horse) Head: normocephalic, atraumatic Eyes: normal inspection ENT: normal ENT inspection, pharynx normal Neck: supple, no JVD Respiratory/Chest: chest non-tender, + decreased breath sounds (Very poor air movement) Cardiovascular: regular rate, rhythm, no edema, no gallop, no JVD Abdomen/GI: normal bowel sounds, non tender, soft Back: normal inspection, no CVA tenderness Extremities/Musculoskelatal: normal inspection, no calf tenderness, normal capillary refill, no pedal edema Neurologic/Psych: cardio clinician II-XII nml as tested Skin: normal color Diagnostics Laboratory Results Results Past 24 Hours Test 01/31/17 23:00 01/31/17 23:59 02/01/17 00:45 Range/Units White Blood Count 12.31 4.8-10.8 K/uL Red Blood Count 4.55 4.2-5.4 M/uL Hemoglobin 12.2 12.0-16.0 g/dL Hematocrit 37.8 37-47 % Mean Corpuscular Volume 83.1 80-100 fL Mean Corpuscular Hemoglobin 26.8 25-34 pg Mean Corpuscular Hemoglobin Concent 32.3 32-36 g/dl Platelet Count 391 130-400 K/uL Mean Platelet Volume 9.5 7.4-10.4 fL Neutrophils (%) (Auto) 44.8 % Lymphocytes (%) (Auto) 39.3 % Monocytes (%) (Auto) 12.0 % Eosinophils (%) (Auto) 3.1 % Basophils (%) (Auto) 0.3 % Neutrophils # (Auto) 5.51 1.4-6.5 K/uL Lymphocytes # (Auto) 4.84 1.2-3.4 K/uL Monocytes # (Auto) 1.48 0.11-0.59 K/uL Eosinophils # (Auto) 0.38 0-0.5 K/uL Basophils # (Auto) 0.04 0-0.2 K/uL RDW Standard Deviation 41.7 36.4-46.3 fL RDW Coefficient of Variation 13.9 11.5-14.5 % Immature Granulocyte % (Auto) 0.5 % Immature Granulocyte # (Auto) 0.06 0.00-0.02 K/uL Sodium Level 141 136-145 mmol/L Potassium Level 3.4 3.5-5.1 mmol/L Chloride Level 102 98-107 mmol/L Carbon Dioxide Level 30 21-32 mmol/L Anion Gap 9.0 3-11 mmol/L Blood Urea Nitrogen 16 7-18 mg/dl Creatinine 0.82 0.60-1.20 mg/dl Est Creatinine Clear Calc Drug Dose 48.7 ml/min Estimated GFR () 76.2 Estimated GFR (Non- 65.7 BUN/Creatinine Ratio 19.1 10-20 Random Glucose 191 70-99 mg/dl Calcium Level 8.9 8.5-10.1 mg/dl Magnesium Level 1.9 1.8-2.4 mg/dl Total Bilirubin 0.1 0.2-1 mg/dl Direct Bilirubin < 0.1 0-0.2 mg/dl Aspartate Amino Transf (AST/SGOT) 20 15-37 U/L Alanine Aminotransferase (ALT/SGPT) 25 12-78 U/L Alkaline Phosphatase 156 45-117 U/L Total Creatine Kinase 131 26-192 U/L Creatine Kinase MB 2.6 0.5-3.6 ng/ml Creatine Kinase MB Ratio 2.0 0-3.0 Total Protein 6.8 6.4-8.2 gm/dl Albumin 3.2 3.4-5.0 gm/dl Bedside Troponin I < 0.030 0-0.045 ng/ml Urine Color YELLOW Urine Appearance CLOUDY CLEAR Urine pH 5.0 4.5-7.5 Urine Specific [place] 1.028 1.000-1.030 Urine Protein NEG NEG Urine Glucose (UA) 2+ NEG Urine Ketones NEG NEG Urine Occult Blood 1+ NEG Urine Nitrite POS NEG Urine Bilirubin NEG NEG Urine Urobilinogen NEG NEG Urine Leukocyte Esterase TRACE NEG Urine WBC (Auto) 5-10 0-5 /hpf Urine RBC (Auto) 0-4 0-4 /hpf Urine Hyaline Casts (Auto) 1-5 0-5 /lpf Urine Epithelial Cells (Auto) >30 0-5 /lpf Urine Bacteria (Auto) 4+ NEG Microbiology Results 02/01/17 Urine Culture, Received Pending Diagnostic Radiology CXR 1. Suspect developing patchy airspace consolidation at the left lung base. Correlate clinically for evidence of pneumonia. Radiographic follow-up to resolution is recommended. 2. The right lung appears clear. Impression Assessment and Plan This is an 85-year-old female with a history of CVA and R sided weakness, hypertension, type 2 diabetes and COPD - Presents with progressive SOB and a few episodes of hemoptysis, coughing up blood streaked sputum. She denies fevers, CP, N/V/D or diarrhea. Her 02 saturation was in the mid 80s on arrival. A CXR is consistent with a LLL PNM. 1) Pneumonia and COPD exacerbation - pt placed of Ceftriaxone, Zithromax, Duonebs/Albuterol, Solumedrol 2) Hemoptysis - voice is also very horse although she states this can happen when her lung disease acts up. May be due to coughing and irritation. We have held Plavix for one day and would consult Pulmonary if this persists 3) Hx CVA - restart Plavix if hemoptysis subsides - She is statin intolerant 4) DM 2 - placed on SS due to steroid use 5) HTN - Cont HCTZ/Losartan, Diltiazem Full code - SCDs due to hemoptysis Total time for this admit including review of labs, meds, records, imaging - discussion with pt and ER attending - 39 min Level of Care Telemetry Resuscitation Status FULL RESUSCITATION VTE Prophylaxis Given or contraindicated: SCD's
[2017-02-01] MEDS ORDERED: POLYETHYLENE (MIRALAX) 17 GM PACK PO PRN (02:15)
[2017-02-01] MEDS ORDERED: NITROGLYCERIN 0.4 MG SL PER TAB CHARGE SL PRN (02:15)
[2017-02-01] MEDS ORDERED: MAGNESIUM HYDROXIDE SUSP 30 ML UDC PO PRN (02:15)
[2017-02-01] MEDS ORDERED: ALBUTEROL 0.083% NEBU SOLN 3 ML VIAL INH PRN (02:15)
[2017-02-01] MEDS ORDERED: ALUMINUM/MAGNESIUM/SIMETH (MAALOX MAX) 30 ML UDC PO PRN (02:15)
--- NOTE | 2017-02-01 02:40 | EMERGENCY ROOM VISIT NOTE ---
History Report prepared by Yvetteibhosea: Salvador Elkins Under the Supervision of: Dr. Lesa Travis M.D. 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 Patient states, "I just couldn't breath." Hx: COPD. History of Present Illness The patient is an 86 year old female with a history of COPD who presents to the Emergency Room with complaints of persistent shortness of breath that started about 1 hour prior to arrival. The patient also experienced hemoptysis shortly after the onset of her shortness of breath. She coughed up a small amount of thick blood into a tissue. The patient is on Plavix. She has not noticed any blood in her stools or urine. She notes that she feels like she is experiencing exacerbation of her COPD. The patient has a nebulizer at home which she did use today. The patient was in the ED last week diagnosed with a UTI. She finished her course of Keflex. 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 A total of 10 systems reviewed and were otherwise negative. Past Medical & Surgical Medical Problems: (1) Asthma (2) Bronchitis (3) CVA (4) Diabetes mellitus type 2 (5) Emphysema (6) Heart disease (7) Hyperlipidemia (8) Hypertensive disorder, systemic arterial (9) ICH (intracerebral hemorrhage) (10) Kidney stones (11) Peripheral vascular disease (12) Pneumonia (13) Right sided weakness (14) Vascular dementia Family History Diabetes mellitus FH: cancer FH: heart disease FHx: gallbladder disease Hypertension Social History Smoking Status: Never Smoker Alcohol Use: none Drug Use: none Marital Status: Housing Status: lives alone Occupation Status: retired Current/Historical Medications Scheduled Calcium Carbonate-Vitamin D (Calcium 500 + D), 1 TAB PO BID Cholecalciferol (Vitamin D3), 2,000 CAP PO WK Clopidogrel (Plavix), 75 MG PO QAM Cyanocobalamin (Vitamin B-12), 1,000 MCG PO BID Diltiazem HCl Coated Beads (Diltiazem HCl ER), 240 MG PO QAM Fluticasone Furoate-Vilanterol (Breo Ellipta 200-25 Mcg/INH), 1 PUFF INH QAM Fluticasone Propionate (Nasal) (Flonase Allergy Relief), 2 SPRAYS [place] DAILY Gabapentin (Neurontin), 400 MG PO BID Hctz/Losartan (Hyzaar 12.5MG/50MG), 1 TAB PO QAM Magnesium Oxide (Mag-Ox), 400 MG PO DAILY Montelukast Sodium (Singulair), 10 MG PO QAM Nitroglycerin (Nitrostat), 0.4 MG SL PRN/UD Omeprazole (Prilosec), 20 MG PO BID Phenytoin Sodium (Dilantin), 100 MG PO TID Potassium Chloride (Potassium Chloride Er), 20 MEQ PO QAM Scheduled PRN Acetaminophen Tab (Tylenol), 650 MG PO Q6 PRN for Pain or Fever Albuterol Hfa (Ventolin Hfa), 2-4 PUFFS INH Q6H PRN for Shortness of Breath Albuterol Sulf (Proventil 0.083% 2.5MG/3ML), 2.5 MG INH [id number] PRN for SOB/ Wheezing Allergies Coded Allergies: Atorvastatin (Verified Allergy, Mild, UNSURE, 01/22/17) Ezetimibe (Verified Allergy, Mild, UNSURE, 01/22/17) Alendronate (Verified Allergy, Unknown, UNKN, 01/22/17) Benazepril (Verified Allergy, Unknown, UNSURE, 01/22/17) Clonidine (Verified Allergy, Unknown, UNSURE, 01/22/17) Ibandronic Acid (Verified Allergy, Unknown, UNKN, 01/22/17) Simvastatin (Verified Allergy, Unknown, OK TO TRY CRESTOR PER [id number], ) Physical Exam Vital Signs Date Time Temp Pulse Resp B/P (MAP) Pulse Ox O2 Delivery O2 Flow Rate FiO2 02/01/17 01:26 94 Nasal Cannula 2.0 02/01/17 01:25 89 02/01/17 01:15 82 27 90 02/01/17 01:00 86 25 92 02/01/17 00:45 95 95 02/01/17 00:30 84 24 92 02/01/17 00:15 81 11 99 02/01/17 00:00 82 19 93 01/31/17 23:45 83 17 95 01/31/17 23:30 97 32 96 01/31/17 23:27 85 01/31/17 23:22 98 Room Air 01/31/17 23:22 36.7 86 18 166/61 98 Room Air 01/31/17 23:21 98 Room Air 01/31/17 23:20 166/61 Physical Exam Vital signs reviewed. General: Elderly, well-appearing female, in no significant distress. HEENT: No scleral icterus, PERRLA, neck supple. Atraumatic. Cardiovascular: Regular rate and rhythm, no extra sounds. Pulmonary: Faint scattered wheezing. Abdomen: Soft, nontender, nondistended, positive bowel sounds. Musculoskeletal: Atraumatic, no peripheral edema. Neurologic: Patient awake alert and oriented x 3, full strength in all 4 extremities. Cranial nerves 2 through 12 grossly intact. Skin: Warm, dry, no rash Medical Decision & Procedures ER Provider Diagnostic Interpretation: X-ray results as stated below per interpretation by me and the radiologist: SINGLE VIEW CHEST CLINICAL HISTORY: Cough. COPD. FINDINGS: An AP, portable, upright chest radiograph is compared to study dated 09/29/2016 and correlated with chest CT dated 11/27/2014. The examination is degraded by portable technique and patient rotation. The cardiomediastinal silhouette is unremarkable. There is atherosclerotic calcification of the thoracic aorta. Chronic interstitial thickening is unchanged. Patchy airspace consolidation is suspected at the left lung base in the retrocardiac region. The right lung appears clear. No large pleural effusion or pneumothorax is seen. The skeletal structures are osteopenic. The bony thorax is grossly intact. IMPRESSION: 1. Suspect developing patchy airspace consolidation at the left lung base. Correlate clinically for evidence of pneumonia. Radiographic follow-up to resolution is recommended. 2. The right lung appears clear. Electronically signed by: Karsten Mccormick M.D. 02/01/2017 12:01 AM Dictated Date/Time: 01/31/2017 11:59 PM Laboratory Results 01/31/17 23:00 Red Blood Count 4.55, Mean Corpuscular Volume 83.1, Mean Corpuscular Hemoglobin 26.8, Mean Corpuscular Hemoglobin Concent 32.3, Mean Platelet Volume 9.5, Neutrophils (%) (Auto) 44.8, Lymphocytes (%) (Auto) 39.3, Monocytes (%) (Auto) 12.0, Eosinophils (%) (Auto) 3.1, Basophils (%) (Auto) 0.3, Neutrophils # (Auto ) 5.51, Lymphocytes # (Auto) 4.84, Monocytes # (Auto) 1.48, Eosinophils # (Auto ) 0.38, Basophils # (Auto) 0.04 01/31/17 23:00 Test 01/31/17 23:00 01/31/17 23:59 02/01/17 00:45 White Blood Count 12.31 K/uL (4.8-10.8) Red Blood Count 4.55 M/uL (4.2-5.4) Hemoglobin 12.2 g/dL (12.0-16.0) Hematocrit 37.8 % (37-47) Mean Corpuscular Volume 83.1 fL (80-100) Mean Corpuscular Hemoglobin 26.8 pg (25-34) Mean Corpuscular Hemoglobin Concent 32.3 g/dl (32-36) Platelet Count 391 K/uL (130-400) Mean Platelet Volume 9.5 fL (7.4-10.4) Neutrophils (%) (Auto) 44.8 % Lymphocytes (%) (Auto) 39.3 % Monocytes (%) (Auto) 12.0 % Eosinophils (%) (Auto) 3.1 % Basophils (%) (Auto) 0.3 % Neutrophils # (Auto) 5.51 K/uL (1.4-6.5) Lymphocytes # (Auto) 4.84 K/uL (1.2-3.4) Monocytes # (Auto) 1.48 K/uL (0.11-0.59) Eosinophils # (Auto) 0.38 K/uL (0-0.5) Basophils # (Auto) 0.04 K/uL (0-0.2) RDW Standard Deviation 41.7 fL (36.4-46.3) RDW Coefficient of Variation 13.9 % (11.5-14.5) Immature Granulocyte % (Auto) 0.5 % Immature Granulocyte # (Auto) 0.06 K/uL (0.00-0.02) Anion Gap 9.0 mmol/L (3-11) Est Creatinine Clear Calc Drug Dose 48.7 ml/min Estimated GFR () 76.2 Estimated GFR (Non- 65.7 BUN/Creatinine Ratio 19.1 (10-20) Calcium Level 8.9 mg/dl (8.5-10.1) Magnesium Level 1.9 mg/dl (1.8-2.4) Total Bilirubin 0.1 mg/dl (0.2-1) Direct Bilirubin < 0.1 mg/dl (0-0.2) Aspartate Amino Transf (AST/SGOT) 20 U/L (15-37) Alanine Aminotransferase (ALT/SGPT) 25 U/L (12-78) Alkaline Phosphatase 156 U/L (45-117) Total Creatine Kinase 131 U/L (26-192) Creatine Kinase MB 2.6 ng/ml (0.5-3.6) Creatine Kinase MB Ratio 2.0 (0-3.0) Total Protein 6.8 gm/dl (6.4-8.2) Albumin 3.2 gm/dl (3.4-5.0) Bedside Troponin I < 0.030 ng/ml (0-0.045) Urine Color YELLOW Urine Appearance CLOUDY (CLEAR) Urine pH 5.0 (4.5-7.5) Urine Specific [place] 1.028 (1.000-1.030) Urine Protein NEG (NEG) Urine Glucose (UA) 2+ (NEG) Urine Ketones NEG (NEG) Urine Occult Blood 1+ (NEG) Urine Nitrite POS (NEG) Urine Bilirubin NEG (NEG) Urine Urobilinogen NEG (NEG) Urine Leukocyte Esterase TRACE (NEG) Urine WBC (Auto) 5-10 /hpf (0-5) Urine RBC (Auto) 0-4 /hpf (0-4) Urine Hyaline Casts (Auto) 1-5 /lpf (0-5) Urine Epithelial Cells (Auto) >30 /lpf (0-5) Urine Bacteria (Auto) 4+ (NEG) Laboratory results per my review. Medications Administered Medications (Trade) Dose Ordered Sig/Flavio Route Start Time Stop Time Status Last Admin Dose Admin Albuterol/ Ipratropium (Duoneb) 3 ml NOW STAT INH 01/31/17 23:56 01/31/17 23:57 DC 02/01/17 00:03 3 ML Ceftriaxone Sodium (Rocephin Inj) 1 gm NOW STAT IV 02/01/17 00:26 02/01/17 00:28 DC 02/01/17 00:47 1 GM ECG Indication: SOB/dyspnea Rate (beats per minute): 85 Rhythm: sinus rhythm Findings: nonspecific-ST abn, PAC, no acute ischemic change, other (previous inferior infarct) ED Course 234: Past medical records reviewed. The patient was evaluated in room C6. A complete history and physical examination was performed. 2345: DuoNeb 12 ml INH. 2356: DuoNeb 3 ml INH. 0026: Rocephin 1 gm IV. 0136: Discussed the findings with the patient. 0235: Discussed the case with Dr. Fitzpatrick, [facility] Hospitalist. The patient will be evaluated. Medical Decision Differential diagnosis: Etiologies such as infections, reactive airway disease, pneumonia, pneumothorax , COPD, CHF, cardiac ischemia, pulmonary embolism, musculoskeletal, gastrointestinal, as well as others were entertained. Blood Pressure Screening: Patient was found to have a slightly elevated blood pressure due to circumstances. Referred to hospitalist for further hypertension monitoring. Medication Reconciliation: I attest that I have personally reviewed the patient' s current medication list. Consults Time Called: 1400 Consulting Physician: Dr. Fitzpatrick, [facility] Hospitalist. Returned Call: [phone] The patient will be evaluated. Impression Primary Impression: Pneumonia Additional Impressions: COPD exacerbation Hemoptysis Scribe Attestation The scribe's documentation has been prepared under my direction and personally reviewed by me in its entirety. I confirm that the note above accurately reflects all work, treatment, procedures, and medical decision making performed by me. Departure Information Dispostion Being Evaluated By Hospitalist Referrals Scar Parker M.D. (PCP) Patient Instructions My [facility] Problem Qualifiers
[2017-02-01] MEDS: ALBUT/IPRATROP 3MG/0.5MG NEB 3 ML VIAL INH SCH ×4 (03:19→19:00)
[2017-02-01] MEDS ORDERED: GLUCOSE 40% GEL 15 GM TUBE PO PRN (05:15)
[2017-02-01] MEDS ORDERED: DEXTROSE 50% 50 ML SYR IV PRN (05:15)
[2017-02-01] MEDS ORDERED: GLUCOSE 10 TABS/TUBE PO PRN (05:15)
[2017-02-01] MEDS ORDERED: GLUCAGON FOR INJ 1 MG VIAL SQ PRN (05:15)
[2017-02-01] MEDS: AZITHROMYCIN IV 500 MG in DEXTROSE 5% 250ML 250 ML IV SCH (06:05)
[2017-02-01] MEDS: METHYLPREDNISOLONE IV 60 MG in SYRINGE 0 ML IV SCH ×4 (06:05→23:16)
[2017-02-01] MEDS: PANTOprazole SOD 40 MG TAB PO SCH ×2 (08:13→19:55)
[2017-02-01] MEDS: CALCIUM 600MG + VIT D 400 IU TAB PO SCH ×2 (08:13→19:54)
[2017-02-01] MEDS: LOSARTAN/HCTZ 50-12.5 EA TAB PO SCH (08:13)
[2017-02-01] MEDS: MAGNESIUM OXIDE 400 MG TAB PO SCH (08:14)
[2017-02-01] MEDS: PHENYTOIN SODIUM ER 100 MG CAP PO SCH ×3 (08:14→19:54)
[2017-02-01] MEDS: POTASSIUM CHLORIDE 20 MEQ TABCR PO SCH (08:14)
[2017-02-01] MEDS: MONTELUKAST SOD 10 MG TAB PO SCH (08:14)
[2017-02-01] MEDS: GABAPENTIN 400 MG CAP PO SCH ×2 (08:14→19:53)
[2017-02-01] MEDS: DILTIAZEM HCL 240 MG CAPCR PO SCH (08:20)
[2017-02-01] MEDS: INSULIN ASPART 100 UNITS/ML 3 ML PEN SC SCH ×4 (08:23→21:11)
[2017-02-01] MEDS ORDERED: FLUTICASONE PROPIONATE NA SPR 16 GM BTL NAE SCH (09:00)
[2017-02-01] MEDS: ACETAMINOPHEN 325 MG TAB PO PRN ×2 (09:38→19:54)
[2017-02-01] MEDS ORDERED: OPTIRAY 320 IV PRN (16:00)
--- NOTE | 2017-02-01 16:03 | Pulmonary Consultation ---
History General Date of Service: Feb 01, 2017. Stated Complaint: Copd Exacerbation, Pneumonia HPI The patient is a 86 year old female who presents to [facility] with complaints of Copd Exacerbation, Pneumonia. The patient's primary care provider is Scar Parker M.D.. The patient was admitted with the impression of pneumonia leading to hemoptysis. She says she had been feeling unwell yesterday but no fevers, no chills and no chest pain, then in the evening as she was preparing to go to bed she started coughing and then gave her pain in between her shoulder blades and in her chest and started coughing up then she saw blood about 2 teaspoonfuls of blood. She denies this ever happening to her before. She says she does have epistaxis at times but not this much and she has not had bloody vomitus or dark stools. The patient was on room air speaking in full sentences. She denies ever smoking but is an extensive second hand smpoke: parents and kids smoke. At this point in time she is no longer coughing or bringing up phlegm but there is some 'soreness in her back between the shoulder blades. She has been admitted with CX suggesting possible infiltrates in the LLL field. The patient had a CVA in the past and she ambulates some with a walker. She had no other complaints except for LE pain which is chronic no sweeling no muscle cramps no erythema in the joints. Review of Systems as per HPI no other complaints on 10 point ROS. Past Medical History Past Medical History: PAST MEDICAL HISTORY: 1. CVA with baseline of left-sided weakness. 2. COPD. 3. Type 2 diabetes. 4. CAD. 5. Hypertension. 6. Hyperlipidemia. 7. History of renal calculi. 8. Peripheral vascular disease. 9. Mild vascular dementia. 10. Admitted with suspected ICH 05/08/16 - diagnosis was not definitive Family History Diabetes mellitus FH: cancer FH: heart disease FHx: gallbladder disease Hypertension Social History Hx Tobacco Use In Past Year?: No Smoking Status: Never Smoker Marital status: Housing status: lives alone Occupational Status: retired Immunizations History of Influenza Vaccine: N/A Influenza Vaccine Date: Apr 15, 2012 History of Tetanus Vaccine?: Yes Tetanus Immunization Date: Mar 31, 2009 History of Pneumococcal: Yes Pneumococcal Date: Jan 14, 2012 History of Hepatitis B Vaccine: No History of MDRO History of MDRO: No Allergies Coded Allergies: Atorvastatin (Verified Allergy, Mild, UNSURE, 01/22/17) Ezetimibe (Verified Allergy, Mild, UNSURE, 01/22/17) Alendronate (Verified Allergy, Unknown, UNKN, 01/22/17) Benazepril (Verified Allergy, Unknown, UNSURE, 01/22/17) Clonidine (Verified Allergy, Unknown, UNSURE, 01/22/17) Ibandronic Acid (Verified Allergy, Unknown, UNKN, 01/22/17) Simvastatin (Verified Allergy, Unknown, OK TO TRY CRESTOR PER [id number], ) Current Medications Reported Home Medications Medications Dose Route/Sig Max Daily Dose Days Date Category Dose Instructions Calcium 500 + D (Calcium Carbonate-Vitamin D) 1 Tab Tab 1 Tab PO BID 01/31/17 Reported TAKE THIS MED EVERY FRIDAY//FRIDAY Vitamin D3 (Cholecalciferol) 2,000 Unit Cap 2,000 Cap PO WK 01/31/17 Reported EVERY FRIDAY Diltiazem HCl ER (Diltiazem HCl Coated Beads) 240 Mg Tab 240 Mg PO QAM 09/29/16 Reported Mag-Ox (Magnesium Oxide) 400 Mg Tab 400 Mg PO DAILY 09/29/16 Reported Hyzaar 12.5MG/50MG (HCTZ/Losartan Potassium) Tab 1 Tab PO QAM 09/29/16 Reported Neurontin (Gabapentin) 400 Mg Cap 400 Mg PO BID 09/29/16 Reported Proventil 0.083% 2.5MG/3ML (Albuterol Sulf) 2.5 Mg/3 Ml Nebu 2.5 Mg INH T2H-E5B PRN 09/29/16 Reported Ventolin Hfa (Albuterol) 200 Puffs/60159 Mcg Aers 2-4 Puffs INH Q6H PRN 07/01/16 Reported Breo Ellipta 200-25 Mcg/INH (Fluticasone Furoate-Vilanterol) 1 Inh Inh 1 Puff INH QAM 04/18/16 Reported Flonase Allergy Relief (Fluticasone Propionate (Nasal)) 50 Mcg/Act Spr 2 Sprays [place] DAILY 04/18/16 Reported Nitrostat (Nitroglycerin) 0.4 Mg Tab 0.4 Mg SL PRN/UD 04/18/16 Reported NEEDED FOR CHEST PAIN : ONE TABLET UNDER THE TONGUE EVERY 5 MINUTES UP TO 3 DOSES. Vitamin B-12 (Cyanocobalamin) 1,000 Mcg Tab 1,000 Mcg PO BID 10/17/15 Reported Tylenol (Acetaminophen) 325 Mg Tab 650 Mg PO Q6 PRN 07/11/15 Reported Dilantin (Phenytoin Sodium) 100 Mg Cap 100 Mg PO TID 03/21/14 Reported Prilosec (Omeprazole) 20 Mg Cap 20 Mg PO BID 03/21/14 Reported Singulair (Montelukast Sodium) 10 Mg Tab 10 Mg PO QAM 12/03/13 Reported Potassium Chloride Er (Potassium Chloride) 10 Meq Tab 20 Meq PO QAM 12/03/13 Reported Plavix (Clopidogrel Bisulfate) 75 Mg Tab 75 Mg PO QAM 03/31/11 Reported Physical Physical Exam Vital Signs: Date Time Temp Pulse Resp B/P (MAP) Pulse Ox O2 Delivery O2 Flow Rate FiO2 02/01/17 15:19 36.3 91 16 139/72 (94) 94 Room Air 02/01/17 14:13 80 16 97 Room Air 02/01/17 12:00 Room Air 02/01/17 11:43 36.4 103 20 151/72 (98) 95 02/01/17 08:00 Room Air 02/01/17 07:59 36.5 98 22 146/66 (92) 97 Room Air 02/01/17 07:20 88 16 97 Room Air 02/01/17 05:17 36.9 88 20 130/72 (91) 94 Room Air 02/01/17 04:40 96 Room Air 02/01/17 04:40 36.6 84 18 148/72 Room Air 02/01/17 03:19 99 18 94 Room Air 02/01/17 03:07 36.6 84 18 148/72 (97) 96 Nasal Cannula 2.0 02/01/17 02:33 82 23 149/62 95 02/01/17 02:15 89 23 149/58 96 Nasal Cannula 2.0 02/01/17 01:26 94 Nasal Cannula 2.0 02/01/17 01:25 89 02/01/17 01:15 82 27 90 02/01/17 01:00 86 25 92 02/01/17 00:45 95 95 02/01/17 00:30 84 24 92 02/01/17 00:15 81 11 99 02/01/17 00:00 82 19 93 01/31/17 23:45 83 17 95 01/31/17 23:30 97 32 96 01/31/17 23:27 85 01/31/17 23:22 98 Room Air 01/31/17 23:22 36.7 86 18 166/61 98 Room Air 01/31/17 23:21 98 Room Air 01/31/17 23:20 166/61 General Appearance: other (elderl lade but oriented and speaks in full coherent sentences) Head: NORMOCEPHALIC, ATRAUMATIC Eyes: PERRLA, SCLERAE NORMAL ENT: NORMAL THROAT EXAM Neck: NORMAL RANGE OF MOTION, NO TENDERNESS, TRACHEA MIDLINE, NO STRIDOR, SUPPLE Respiratory: BREATH SOUNDS NORMAL, other (no wheezes rhales crackles ronchi) Cardiovasular: REGULAR RATE/RHYTHM, NORMAL S1S2, NO MURMUR, other ( ) Abdomen: NON TENDER, NORMAL BOWEL SOUNDS, NO MASSES, NO GUARDING Back: NORMAL INSPECTION Upper Extremities: NO EDEMA Lower Extremities: NO EDEMA Pulses: carotid (R) (2+), carotid (L) (2+), dorsalis pedis (R) (1+), dorsalis pedis (L) (1+) Neuro: ALERT, ORIENTED x 3, other (RUE weakness at 4/5 and bilateral mild leg weakness at 4/5) Psychiatric: NORMAL AFFECT Diagnostics Labs Results Past 24 Hours Test 01/31/17 23:00 01/31/17 23:59 02/01/17 00:45 02/01/17 07:40 Range/Units White Blood Count 12.31 4.8-10.8 K/uL Red Blood Count 4.55 4.2-5.4 M/uL Hemoglobin 12.2 12.0-16.0 g/dL Hematocrit 37.8 37-47 % Mean Corpuscular Volume 83.1 80-100 fL Mean Corpuscular Hemoglobin 26.8 25-34 pg Mean Corpuscular Hemoglobin Concent 32.3 32-36 g/dl Platelet Count 391 130-400 K/uL Mean Platelet Volume 9.5 7.4-10.4 fL Neutrophils (%) (Auto) 44.8 % Lymphocytes (%) (Auto) 39.3 % Monocytes (%) (Auto) 12.0 % Eosinophils (%) (Auto) 3.1 % Basophils (%) (Auto) 0.3 % Neutrophils # (Auto) 5.51 1.4-6.5 K/uL Lymphocytes # (Auto) 4.84 1.2-3.4 K/uL Monocytes # (Auto) 1.48 0.11-0.59 K/uL Eosinophils # (Auto) 0.38 0-0.5 K/uL Basophils # (Auto) 0.04 0-0.2 K/uL RDW Standard Deviation 41.7 36.4-46.3 fL RDW Coefficient of Variation 13.9 11.5-14.5 % Immature Granulocyte % (Auto) 0.5 % Immature Granulocyte # (Auto) 0.06 0.00-0.02 K/uL Sodium Level 141 136-145 mmol/L Potassium Level 3.4 3.5-5.1 mmol/L Chloride Level 102 98-107 mmol/L Carbon Dioxide Level 30 21-32 mmol/L Anion Gap 9.0 3-11 mmol/L Blood Urea Nitrogen 16 7-18 mg/dl Creatinine 0.82 0.60-1.20 mg/dl Est Creatinine Clear Calc Drug Dose 48.7 ml/min Estimated GFR () 76.2 Estimated GFR (Non- 65.7 BUN/Creatinine Ratio 19.1 10-20 Random Glucose 191 70-99 mg/dl Calcium Level 8.9 8.5-10.1 mg/dl Magnesium Level 1.9 1.8-2.4 mg/dl Total Bilirubin 0.1 0.2-1 mg/dl Direct Bilirubin < 0.1 0-0.2 mg/dl Aspartate Amino Transf (AST/SGOT) 20 15-37 U/L Alanine Aminotransferase (ALT/SGPT) 25 12-78 U/L Alkaline Phosphatase 156 45-117 U/L Total Creatine Kinase 131 26-192 U/L Creatine Kinase MB 2.6 0.5-3.6 ng/ml Creatine Kinase MB Ratio 2.0 0-3.0 Total Protein 6.8 6.4-8.2 gm/dl Albumin 3.2 3.4-5.0 gm/dl Bedside Troponin I < 0.030 0-0.045 ng/ml Urine Color YELLOW Urine Appearance CLOUDY CLEAR Urine pH 5.0 4.5-7.5 Urine Specific [place] 1.028 1.000-1.030 Urine Protein NEG NEG Urine Glucose (UA) 2+ NEG Urine Ketones NEG NEG Urine Occult Blood 1+ NEG Urine Nitrite POS NEG Urine Bilirubin NEG NEG Urine Urobilinogen NEG NEG Urine Leukocyte Esterase TRACE NEG Urine WBC (Auto) 5-10 0-5 /hpf Urine RBC (Auto) 0-4 0-4 /hpf Urine Hyaline Casts (Auto) 1-5 0-5 /lpf Urine Epithelial Cells (Auto) >30 0-5 /lpf Urine Bacteria (Auto) 4+ NEG Bedside Glucose 299 70-90 mg/dl Test 02/01/17 11:40 Range/Units Bedside Glucose 245 70-90 mg/dl Microbiology Results 02/01/17 Urine Culture, Received Pending Diagnostic Radiology 1. Suspect developing patchy airspace consolidation at the left lung base. Correlate clinically for evidence of pneumonia. Radiographic follow-up to resolution is recommended. 2. The right lung appears clear. Impression Assessment and Plan 86 yo ladey with history of DM, CAD, HTN reported to have COPD (from second hand smoke!) the patient and her son say she has had asthma since age 22 and this may be fixed asthma at this point. She is admitted with hemoptysis possible pneumonia and shortness of breath likely due to COPD exacerbation. Patient feels better with inhalers, IV steroids and ceftriaxone with zithromax however, she is poorly ambulatory (uses walker) and the findings on the CXR do not suggest large lobar pneumonia or masses, The amount of hemoptysis she describes appears a little larger than what one could get from hacking to bronchitis or small pneumonia Would recommend to obtain a CT angiogram to rule out PE, this would also give us an idea on the parenchyma and whether there are lung lesions missed by CXR. Agree with ceftriaxone, zithromax, duoneb, solumedrol and singular for now. DV prophylaxis with SCD, If she continues to be hemoptysis free would recommend starting pharmacologic prophylaxis tomorrow. Defer non respiratory medical management to the primary team Thank you for this consult
--- NOTE | 2017-02-01 16:09 | Hospitalist Progress Note ---
Hospitalist Progress Note Date of Service Feb 01, 2017. (Aric Vazquez,P.A.) Subjective Pt evaluation today including: conversation w/ patient, physical exam, chart review, lab review, review of studies Pain: None PO Intake: Normal Voiding: no voiding problems Mrs. Gleason is an 86 year old white female with a history of Type 2 DM, prior CVA, CAD, HTN, Dyslipidemia, PAD, and COPD who was admitted acutely yesterday after presenting with Cough, Shortness of Breath, Wheezing, Sputum Production over the preceding 4 days followed by the development of Hemoptysis. CXR on admission confirms a LLL infiltrate consistent with pneumonia. Thus far she has been treated with IV Rocephin, IV Azithromycin, IV Solumedrol, and nebulizers -- and has had a good clinical response. She has less dyspnea and less wheezing. She is still coughing, but no further hemoptysis. She still has some pleuritic chest and posterior thoracic soreness -- likely secondary to cough and accessory muscle use. She denies any fever, chills, SHEPHERD, or stiff neck. She denies any angina pectoris. Additionally her SpO2 levels have stayed above 90%. (Aric Vazquez,P.A.) Medications Current Inpatient Medications Medications (Trade) Dose Ordered Sig/Flavio Route Start Time Stop Time Status Last Admin Dose Admin Azithromycin 500 mg/Dextrose 255 ml @ 125 mls/hr Q24H IV 02/01/17 06:00 02/08/17 05:59 02/01/17 06:05 125 MLS/HR Acetaminophen (Tylenol Tab) 650 mg Q4H PRN PO 02/01/17 02:15 03/03/17 02:14 02/01/17 09:38 650 MG Al Hydrox/Mg Hydrox/Simethicone (Maalox Max Susp) 15 ml Q4H PRN PO 02/01/17 02:15 03/03/17 02:14 Magnesium Hydroxide (Milk Of Magnesia Susp) 30 ml Q12H PRN PO 02/01/17 02:15 03/03/17 02:14 Ondansetron HCl (Zofran Inj) 4 mg Q6H PRN IV 02/01/17 02:15 03/03/17 02:14 Polyethylene (Miralax Powder Packet) 17 gm DAILY PRN PO 02/01/17 02:15 03/03/17 02:14 Albuterol/ Ipratropium (Duoneb) 3 ml Q6R INH 02/01/17 03:00 03/03/17 02:59 02/01/17 14:13 3 ML Albuterol Sulfate (Ventolin 0.083% 2.5MG/3ML Neb) 2.5 mg Q4H PRN INH 02/01/17 02:15 03/03/17 02:14 Ceftriaxone Sodium 1 gm/ Dextrose 50 ml @ 100 mls/hr Q24H IV 02/01/17 22:00 02/07/17 21:59 Fluticasone Propionate (Flonase Nasal [place]) 2 sprays DAILY [place] 02/01/17 09:00 03/03/17 08:59 02/01/17 08:16 2 SPRAYS Gabapentin (Neurontin Cap) 400 mg BID PO 02/01/17 09:00 03/03/17 08:59 02/01/17 08:14 400 MG HCTZ/Losartan Potassium (Hyzaar 50-12.5 Tab) 1 tab QAM PO 02/01/17 09:00 03/03/17 08:59 02/01/17 08:13 1 TAB Magnesium Oxide (Mag-Ox Tab) 400 mg DAILY PO 02/01/17 09:00 03/03/17 08:59 02/01/17 08:14 400 MG Montelukast Sodium (Singulair Tab) 10 mg QAM PO 02/01/17 09:00 03/03/17 08:59 02/01/17 08:14 10 MG Nitroglycerin (Nitrostat Tab) 0.4 mg Q5M PRN SL 02/01/17 02:15 03/03/17 02:14 Phenytoin Sodium (Dilantin Er Cap) 100 mg TID PO 02/01/17 09:00 03/03/17 08:59 02/01/17 15:03 100 MG Calcium/Vitamin D (Caltrate Plus Tab) 1 tab BID PO 02/01/17 09:00 03/03/17 08:59 02/01/17 08:13 1 TAB Cholecalciferol (Vitamin D Tab) 2,000 inter.unit Mo@0900 PO 02/03/17 09:00 03/05/17 08:59 Diltiazem HCl (Cardizem Cd Cap) 240 mg QAM PO 02/01/17 09:00 03/03/17 08:59 02/01/17 08:20 240 MG Miscellaneous Information (Order Awaiting Action) 1 ea QS N/A 02/01/17 08:00 03/03/17 07:59 Pantoprazole Sodium (Protonix Tab) 40 mg BID PO 02/01/17 09:00 03/03/17 08:59 02/01/17 08:13 40 MG Potassium Chloride (Klor-Con Tab) 20 meq QAM PO 02/01/17 09:00 03/03/17 08:59 02/01/17 08:14 20 MEQ Insulin Aspart (novoLOG ASPART) SLIDING SCALE G... ACHS SC 02/01/17 07:00 03/03/17 06:59 02/01/17 12:36 3 UNITS Methylprednisolone Sodium Succinate 60 mg/Syringe 0.96 ml @ 1.5 mls/min Q6H IV 02/01/17 06:00 03/03/17 05:59 02/01/17 12:33 1.5 MLS/MIN Glucose (Glucose 40% Gel) 15-30 GRAMS 15 GRAMS... UD PRN PO 02/01/17 05:15 03/03/17 05:14 Glucose (Glucose Chew Tab) 4-8 Tablets 4 Tabl... UD PRN PO 02/01/17 05:15 03/03/17 05:14 Dextrose (Dextrose 50% 50ML Syringe) 25-50ML OF 50% DW IV FOR... UD PRN IV 02/01/17 05:15 03/03/17 05:14 Glucagon (Glucagon Inj) 1 mg UD PRN SQ 02/01/17 05:15 03/03/17 05:14 (Aric Vazquez.,P.A.) Objective Vital Signs Date Time Temp Pulse Resp B/P (MAP) Pulse Ox O2 Delivery O2 Flow Rate FiO2 02/01/17 15:19 36.3 91 16 139/72 (94) 94 Room Air 02/01/17 14:13 80 16 97 Room Air 02/01/17 12:00 Room Air 02/01/17 11:43 36.4 103 20 151/72 (98) 95 02/01/17 08:00 Room Air 02/01/17 07:59 36.5 98 22 146/66 (92) 97 Room Air 02/01/17 07:20 88 16 97 Room Air 02/01/17 05:17 36.9 88 20 130/72 (91) 94 Room Air 02/01/17 04:40 96 Room Air 02/01/17 04:40 36.6 84 18 148/72 Room Air 02/01/17 03:19 99 18 94 Room Air 02/01/17 03:07 36.6 84 18 148/72 (97) 96 Nasal Cannula 2.0 02/01/17 02:33 82 23 149/62 95 02/01/17 02:15 89 23 149/58 96 Nasal Cannula 2.0 02/01/17 01:26 94 Nasal Cannula 2.0 02/01/17 01:25 89 02/01/17 01:15 82 27 90 02/01/17 01:00 86 25 92 02/01/17 00:45 95 95 02/01/17 00:30 84 24 92 02/01/17 00:15 81 11 99 02/01/17 00:00 82 19 93 01/31/17 23:45 83 17 95 01/31/17 23:30 97 32 96 01/31/17 23:27 85 01/31/17 23:22 98 Room Air 01/31/17 23:22 36.7 86 18 166/61 98 Room Air 01/31/17 23:21 98 Room Air 01/31/17 23:20 166/61 (Aric Vazquez.,P.A.) Physical Exam General Appearance: no apparent distress Eyes: PERRL, EOMI, sclerae normal Neck: supple, no adenopathy, no JVD, no carotid bruits Respiratory/Chest: no respiratory distress, + rales (Rales in left lower lung [place], otherwise there are scattered expiratory wheezes.) Cardiovascular: regular rate, rhythm, no edema, no gallop, no JVD, no murmur Abdomen: normal bowel sounds Extremities: non-tender, no pedal edema, no calf tenderness Neurologic/Psychiatric: alert, normal mood/affect, oriented x 3 Skin: warm/dry Lymphatic: no adenopathy (Aric Vazquez.,P.A.) Laboratory Results Last 24 Hours Test 01/31/17 23:00 01/31/17 23:59 02/01/17 00:45 02/01/17 07:40 White Blood Count 12.31 K/uL Red Blood Count 4.55 M/uL Hemoglobin 12.2 g/dL Hematocrit 37.8 % Mean Corpuscular Volume 83.1 fL Mean Corpuscular Hemoglobin 26.8 pg Mean Corpuscular Hemoglobin Concent 32.3 g/dl Platelet Count 391 K/uL Mean Platelet Volume 9.5 fL Neutrophils (%) (Auto) 44.8 % Lymphocytes (%) (Auto) 39.3 % Monocytes (%) (Auto) 12.0 % Eosinophils (%) (Auto) 3.1 % Basophils (%) (Auto) 0.3 % Neutrophils # (Auto) 5.51 K/uL Lymphocytes # (Auto) 4.84 K/uL Monocytes # (Auto) 1.48 K/uL Eosinophils # (Auto) 0.38 K/uL Basophils # (Auto) 0.04 K/uL RDW Standard Deviation 41.7 fL RDW Coefficient of Variation 13.9 % Immature Granulocyte % (Auto) 0.5 % Immature Granulocyte # (Auto) 0.06 K/uL Sodium Level 141 mmol/L Potassium Level 3.4 mmol/L Chloride Level 102 mmol/L Carbon Dioxide Level 30 mmol/L Anion Gap 9.0 mmol/L Blood Urea Nitrogen 16 mg/dl Creatinine 0.82 mg/dl Est Creatinine Clear Calc Drug Dose 48.7 ml/min Estimated GFR () 76.2 Estimated GFR (Non- 65.7 BUN/Creatinine Ratio 19.1 Random Glucose 191 mg/dl Calcium Level 8.9 mg/dl Magnesium Level 1.9 mg/dl Total Bilirubin 0.1 mg/dl Direct Bilirubin < 0.1 mg/dl Aspartate Amino Transf (AST/SGOT) 20 U/L Alanine Aminotransferase (ALT/SGPT) 25 U/L Alkaline Phosphatase 156 U/L Total Creatine Kinase 131 U/L Creatine Kinase MB 2.6 ng/ml Creatine Kinase MB Ratio 2.0 Total Protein 6.8 gm/dl Albumin 3.2 gm/dl Bedside Troponin I < 0.030 ng/ml Urine Color YELLOW Urine Appearance CLOUDY Urine pH 5.0 Urine Specific [place] 1.028 Urine Protein NEG Urine Glucose (UA) 2+ Urine Ketones NEG Urine Occult Blood 1+ Urine Nitrite POS Urine Bilirubin NEG Urine Urobilinogen NEG Urine Leukocyte Esterase TRACE Urine WBC (Auto) 5-10 /hpf Urine RBC (Auto) 0-4 /hpf Urine Hyaline Casts (Auto) 1-5 /lpf Urine Epithelial Cells (Auto) >30 /lpf Urine Bacteria (Auto) 4+ Bedside Glucose 299 mg/dl Test 02/01/17 11:40 Bedside Glucose 245 mg/dl (Aric Vazquez,P.A.) Assessment and Plan 1. COPD exacerbation, LLL Pneumonia -- Continue IV Rocephin. -- IV Azithromycin. -- IV Solumedrol. -- Continue nebulizer treatments. -- CT Scan has been ordered to r/o PE in light of hemoptysis. 2. CAD - Asx - continue current cardiac regimen. 3. HTN -- Continue same. 4. Dyslipidemia -- Continue statin therapy. 5. Type 2 DM -- Continue BSG checks, Novolog SSI. 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 Discussed with JUNIOR Vazquez and agree with findings and plan as documented in the note. Any exceptions or clarifications are listed here: Pt reports feeling much better than on admission. She had her CTA chest which was neg for dissection or PE, no PNA, but saw chronic peribronchial thickening consistent with reactive airway disease. She tells me that shortly before she coughed up the blood, she developed a bloody nose that was dripping onto her hands. This happens to her sometimes when she uses Flonase which she has recently gone back to using. VSS, NAD HEENT-no clot in nose, OP clear, no thrush RRR no mgr Lungs fairly clear but slightly diminished throughout Abd soft NT ND Ext no edema It seems she likely coughed up blood that dripped down into the posterior pharynx from her epistaxis. May have asymptomatic bacteriuria as well. Will continue abx for acute bronchitis given cough and symptoms. Continue IV steroids, nebs for asthma and COPD exacerbation But can likely discharge to home tomorrow. Will discuss with Pulmonology Documented By: Lisette Kaiser (Lisette Kaiser MD)
--- NOTE | 2017-02-01 18:51 | DIAGNOSTIC IMAGING REPORT ---
CT ANGIOGRAM OF THE CHEST CLINICAL HISTORY: Atypical chest pain. Back pain. COMPARISON STUDY: Chest x-ray dated 01/31/2017. Chest CT scans dated 11/27/2014 and 02/23/2008. TECHNIQUE: Following the IV administration of 94 cc of Optiray 320, CT angiogram of the chest was performed from the upper abdomen to the thoracic inlet utilizing the pulmonary embolus protocol. Images are reviewed in the axial, sagittal, and coronal planes. 3-D MIPS images are created and assessed. IV contrast was administered without complication. CT DOSE: 279.58 mGy.cm FINDINGS: Thyroid: Imaged portions of the thyroid gland are normal in size and attenuation. A 1.2 cm low-attenuation nodule is present in the right lobe. Thoracic aorta: There is atherosclerotic calcification of the thoracic aorta, which is normal in caliber and demonstrates standard 3-vessel arch anatomy. No dissection is seen. Pulmonary vasculature: The main pulmonary arteries are mildly dilated suggesting pulmonary artery hypertension. There are no filling defects identified in main, lobar, or segmental pulmonary branches to suggest pulmonary embolus. Heart: The heart is mildly enlarged and without pericardial effusion. The coronary arteries are densely calcified. Lungs and pleural spaces: There is no airspace consolidation or pleural effusion. Scarring versus atelectasis is present at both lung bases. There are scattered tiny calcified granulomas. Mild diffuse peribronchial thickening suggests reactive airway disease. The trachea and central airways are clear. A 4 mm groundglass nodule in the left lower lobe seen on image #112 is unchanged from 2008 and of doubtful significance. Mediastinum: There is no mediastinal lymphadenopathy. [place]: Clear. Axillae: There is no axillary lymphadenopathy. Upper abdomen: There is a small hiatal hernia. A 1.3 cm right adrenal adenoma is unchanged from studies. A large duodenal diverticulum is partially imaged. Calcified gallstones are noted. Skeletal structures: The skeletal structures are osteopenic. Degenerative change is seen throughout the thoracic spine. No lytic or blastic bony lesions are seen. A large hemangioma is noted in the body of T12. IMPRESSION: 1. There is no evidence of pulmonary embolus in the main, lobar, or segmental pulmonary arteries. 2. There is no airspace consolidation or pleural effusion. Mild diffuse peribronchial thickening suggests reactive airway disease. Clinical correlation will be required. 3. Cardiomegaly with evidence of pulmonary artery hypertension. 4. Additional findings as above. Electronically signed by: Karsten Mccormick M.D. 02/01/2017 6:50 PM Dictated Date/Time: 02/01/2017 6:43 PM
[2017-02-01] MEDS ORDERED: CEFTRIAXONE SOD INJ 1 GM in DEXTROSE 5% ADD-VANTAGE 50ML 50 ML IV SCH (22:00)
[2017-02-01] MEDS: ONDANSETRON INJ 2 MG/ML 2 ML VIAL IV PRN (23:15)
[2017-02-02] VITALS (14 sets, daily range): BP systolic 110–169; BP diastolic 57–81; PULSE 79–100; TEMP 36.3–36.9; O2SAT 91–97
[2017-02-02] MEDS: ALBUT/IPRATROP 3MG/0.5MG NEB 3 ML VIAL INH SCH ×4 (01:41→18:55)
[2017-02-02] MEDS: METHYLPREDNISOLONE IV 60 MG in SYRINGE 0 ML IV SCH (06:03)
[2017-02-02] MEDS: AZITHROMYCIN IV 500 MG in DEXTROSE 5% 250ML 250 ML IV SCH (06:04)
[2017-02-02 06:59] LABS: BASO ABS # 0.01 K/uL (0-0.2); COMPLETE YES; HEMATOCRIT 36.6 % (37-47); IG% 0.7 %; LYMPH % 9.8 %; LYMPH ABS # 2.26 K/uL (1.2-3.4); MEAN CELL VOLUME 82.8 fL (80-100); MEAN CORPUSCULAR HEMOGLOBIN 26.9 pg (25-34); MEAN CORPUSCULAR HGB CONC 32.5 g/dl (32-36); MEAN PLATELET VOLUME 9.4 fL (7.4-10.4); MONO % 6.7 %; NEUT % 82.8 %; PLATELET COUNT 390 K/uL (130-400); RED BLOOD COUNT 4.42 M/uL (4.2-5.4); WHITE BLOOD COUNT 23.06 K/uL (4.8-10.8)
[2017-02-02] MEDS: ONDANSETRON INJ 2 MG/ML 2 ML VIAL IV PRN ×2 (07:02→23:19)
[2017-02-02 07:17] LABS: BUN/CREATININE RATIO 25.8 (10-20); CREATININE 0.82 mg/dl (0.60-1.20); MAGNESIUM 2.2 mg/dl (1.8-2.4); POTASSIUM 3.7 mmol/L (3.5-5.1)
[2017-02-02 07:49] LABS: CALCIUM 9.3 mg/dl (8.5-10.1)
[2017-02-02] MEDS: ACETAMINOPHEN 325 MG TAB PO PRN (08:02)
[2017-02-02] MEDS: LOSARTAN/HCTZ 50-12.5 EA TAB PO SCH (08:03)
[2017-02-02] MEDS: PANTOprazole SOD 40 MG TAB PO SCH ×2 (08:04→21:04)
[2017-02-02] MEDS: DILTIAZEM HCL 240 MG CAPCR PO SCH (08:04)
[2017-02-02] MEDS: MONTELUKAST SOD 10 MG TAB PO SCH (08:05)
[2017-02-02] MEDS: GABAPENTIN 400 MG CAP PO SCH ×2 (08:05→21:04)
[2017-02-02] MEDS: MAGNESIUM OXIDE 400 MG TAB PO SCH (08:05)
[2017-02-02] MEDS: PHENYTOIN SODIUM ER 100 MG CAP PO SCH ×3 (08:05→21:04)
[2017-02-02] MEDS: CALCIUM 600MG + VIT D 400 IU TAB PO SCH ×2 (08:06→21:04)
[2017-02-02] MEDS: POTASSIUM CHLORIDE 20 MEQ TABCR PO SCH (08:27)
[2017-02-02] MEDS: INSULIN ASPART 100 UNITS/ML 3 ML PEN SC SCH ×4 (09:19→21:00)
[2017-02-02] MEDS ORDERED: ALUMINUM/MAGNESIUM SUSP 30 ML UDC PO PRN (10:15)
--- NOTE | 2017-02-02 10:45 | Hospitalist Progress Note ---
Hospitalist Progress Note Date of Service Feb 02, 2017. Subjective Pt evaluation today including: conversation w/ patient Pt said she was nauseated all night long, then this morning had fairly quick onset of a pounding headache. She was given some gingerale and then vomited a small amount. She was then given Zofran and felt better but still a little nauseated although then she ate breakfast. No further vomiting. She then took a Tylenol and said the headache is better but still a 5/10 in severity. No previous h/o headaches except she said when she is in the hospital she sometimes gets them. She usually tolerates po steroids but is unsure if she has had problems with IV steroids in the past. Denies chest pain or heartburn. Is still having some of the upper back midline pain but it is improved from yesterday. No hematemesis, no further hemoptysis, no epistaxis Says she is not ready to go home yet All Other Systems: Reviewed and Negative Objective Vital Signs Date Time Temp Pulse Resp B/P (MAP) Pulse Ox O2 Delivery O2 Flow Rate FiO2 02/02/17 07:55 36.5 100 20 133/66 (88) 91 Room Air 02/02/17 07:03 96 18 93 Room Air 02/02/17 04:00 Room Air 02/02/17 04:00 36.9 88 20 125/62 (83) 91 Room Air 02/02/17 01:41 84 14 94 Room Air 02/02/17 00:16 36.5 98 18 169/81 (110) 93 Room Air 02/02/17 00:01 Room Air 02/01/17 20:12 36.4 96 20 135/67 (89) 92 Room Air 02/01/17 20:00 Room Air 02/01/17 19:00 82 16 95 Room Air 02/01/17 16:00 Room Air 02/01/17 15:19 36.3 91 16 139/72 (94) 94 Room Air 02/01/17 14:13 80 16 97 Room Air 02/01/17 12:00 Room Air 02/01/17 11:43 36.4 103 20 151/72 (98) 95 Physical Exam General Appearance: WD/WN, no apparent distress Eyes: normal inspection, PERRL, EOMI, sclerae normal ENT: hearing grossly normal Neck: trachea midline Respiratory/Chest: lungs clear, normal breath sounds, no respiratory distress, no accessory muscle use Cardiovascular: regular rate, rhythm, no edema, no gallop, no murmur Abdomen: normal bowel sounds, non tender, soft Extremities: non-tender, normal inspection, no pedal edema, no calf tenderness Neurologic/Psychiatric: alert, normal mood/affect, oriented x 3 Skin: normal color, warm/dry, no rash Laboratory Results Last 24 Hours Test 02/01/17 11:40 02/01/17 16:54 02/01/17 20:28 02/02/17 06:16 Bedside Glucose 245 mg/dl 189 mg/dl 276 mg/dl White Blood Count 23.06 K/uL Red Blood Count 4.42 M/uL Hemoglobin 11.9 g/dL Hematocrit 36.6 % Mean Corpuscular Volume 82.8 fL Mean Corpuscular Hemoglobin 26.9 pg Mean Corpuscular Hemoglobin Concent 32.5 g/dl Platelet Count 390 K/uL Mean Platelet Volume 9.4 fL Neutrophils (%) (Auto) 82.8 % Lymphocytes (%) (Auto) 9.8 % Monocytes (%) (Auto) 6.7 % Eosinophils (%) (Auto) 0.0 % Basophils (%) (Auto) 0.0 % Neutrophils # (Auto) 19.09 K/uL Lymphocytes # (Auto) 2.26 K/uL Monocytes # (Auto) 1.55 K/uL Eosinophils # (Auto) 0.00 K/uL Basophils # (Auto) 0.01 K/uL RDW Standard Deviation 43.5 fL RDW Coefficient of Variation 14.3 % Immature Granulocyte % (Auto) 0.7 % Immature Granulocyte # (Auto) 0.15 K/uL Sodium Level 139 mmol/L Potassium Level 3.7 mmol/L Chloride Level 102 mmol/L Carbon Dioxide Level 29 mmol/L Anion Gap 8.0 mmol/L Blood Urea Nitrogen 21 mg/dl Creatinine 0.82 mg/dl Est Creatinine Clear Calc Drug Dose 48.4 ml/min Estimated GFR () 76.2 Estimated GFR (Non- 65.7 BUN/Creatinine Ratio 25.8 Random Glucose 226 mg/dl Calcium Level 9.3 mg/dl Magnesium Level 2.2 mg/dl Test 02/02/17 07:27 Bedside Glucose 250 mg/dl Assessment and Plan This is an 85-year-old female with a history of CVA and R sided weakness, hypertension, type 2 diabetes and asthma/COPD - Presents with progressive SOB and a few episodes of hemoptysis, coughing up blood streaked sputum. She denies fevers, CP, N/V/D or diarrhea. She c/o upper back midline pain and some chest pain. Her 02 saturation was in the mid 80s on arrival. A CXR is initially consistent with a LLL PNM. Acute bronchitis, Hemoptysis, Upper back pain, Pneumonia ruled out on CTA Chest , COPD/asthma exacerbation - pt placed of Ceftriaxone, Zithromax, Duonebs/ Albuterol,IV Solumedrol initially. CTA Chest neg for PE,dissection, no PNA but showed signs consistent with RAD, peribronchial cuffing. Hemoptysis likely related to epistaxis (from Flonase use) that occurred just prior to hemoptysis -- discontinue IV Rocephin and azithro due to absence of PNA -start Levaquin for acute bronchitis but also for UTI as below -- dc IV Solumedrol as lungs sound clear and may be contributing to shakiness and nausea/vomiting, start po prednisone tomorrow and taper down quickly -- Continue nebulizer treatments -dc'd Flonase -Plavix on hold but can likely restart if CT head negative and no further hemoptysis or epistaxis -appreciate any further Pulmonology recommendations N/V, Headache--> could be related to medication SE (IV steroids, azithro, Rocephin), but has h/o abnormality on MRI brain in past, h/o CVA. With new onset SHEPHERD, need to r/o ICH. Is resolving though with tylenol and Zofran but still concerning. No focal neuro deficits on exam -check CT head noncon now -antiemetics -continue PPI, add H2 jason -Maalox prn as most likely GI related Hx CVA - restart Plavix in future as above - She is statin intolerant DM 2 - HgbA1C 7.1% in 10/2016, pending this admission. -placed on SS due to steroid use but not on meds at home HTN - controlled here -Cont HCTZ/Losartan, Diltiazem UTI- unclear if asymptomatic bacteriuria, but given host of vague symptoms, should probably treat it. Will start Levaquin to cover for UTI and bronchitis as above. E. coli on Ur cx,sensitivity pending -complete 7 day course of Levaquin -f/u Ur cx sensitivity Proph- SCDs due to hemoptysis, new onset headache Dispo-Full Code Lives home alone PT/OT
[2017-02-02] MEDS: RANITIDINE IV 50 MG in DEXTROSE 5% 100ML 100 ML IV SCH ×2 (10:56→18:02)
--- NOTE | 2017-02-02 11:03 | DIAGNOSTIC IMAGING REPORT ---
HEAD CT NONCONTRAST CT DOSE: 537.48 mGy.cm HISTORY: Mental status change r/o ICH TECHNIQUE: Multiaxial CT images of the head were performed without the use of intravenous contrast. Comparison: 05/08/2016 Findings: The paranasal sinuses and mastoid air cells are clear. Chronic and age-related change. Linear calcification left cerebellum as well as right paraventricular region unaltered from the prior study. These are considered benign findings. No acute or interval process. No acute intracranial hemorrhage. Impression: Chronic and age-related change. No acute process. Electronically signed by: Davonte Chilel M.D. 02/02/2017 11:01 AM Dictated Date/Time: 02/02/2017 10:58 AM
[2017-02-02] MEDS: LEVOFLOXACIN / D5W 500 MG in PREMIXED IN D5W 100 ML IV SCH (12:29)
[2017-02-02] MEDS ORDERED: METHYLPREDNISOLONE IV 60 MG in SYRINGE 0 ML IV SCH (14:00)
--- NOTE | 2017-02-02 14:35 | Pulmonology Progress Note ---
Pulmonary Progress Note Date of Service Feb 02, 2017. Attending Dr. Yogesh Sotomayor The patient is a 86 year old female who presents to [facility] with complaints of Copd Exacerbation, Pneumonia. The patient's primary care provider is Scar Parker M.D.. The patient was admitted with the impression of pneumonia leading to hemoptysis. I asked for a CT angiogram as the infiltrative findings on the CXr really did not suggest she has a large pneumonia which would lead to hemoptysis. The CT showed no PE, no infiltrates or consolidations but findings of bronchitis. Her hemoptysis may either be due to that or to epistaxis which she gets every now and then. She says she is breathing well and is on RA. no further hemoptysis. Objective General Appearance: other (elderly lady but oriented and speaks in full coherent sentences) Head: NORMOCEPHALIC, ATRAUMATIC Eyes: PERRLA, SCLERAE NORMAL ENT: NORMAL THROAT EXAM Neck: NORMAL RANGE OF MOTION, NO TENDERNESS, TRACHEA MIDLINE, NO STRIDOR, SUPPLE Respiratory: no wheezes rhales crackles ronchi. CTA bilaterally. Cardiovasular: REGULAR RATE/RHYTHM, NORMAL S1S2, NO MURMUR, other ( ) Abdomen: NON TENDER, NORMAL BOWEL SOUNDS, NO MASSES, NO GUARDING Back: NORMAL INSPECTION Upper Extremities: NO EDEMA Lower Extremities: NO EDEMA Pulses: carotid (R) (2+), carotid (L) (2+), dorsalis pedis (R) (1+), dorsalis pedis (L) (1+) Neuro: ALERT, ORIENTED x 3, other (RUE weakness at 4/5 and bilateral mild leg weakness at 4/5) Psychiatric: NORMAL AFFECT Assessment & Plan 86 yo female with mild dementia admitted with hemoptysis likely related to epistaxis or bronchitis. In addition UA suggests UTI. Now she has leukocytosis which may be due to the steroids. Agree with NINO solumedrol and I would rapidly taper oral steroids off. Levaquin would cover both UTI and bronchitis unless UTI is due to ESBL E coli but she has no clear urinary symptoms and she has not behaved as septic. Would FU the urine culture and change antibiotics accordingly DVT prophylaxis with SC lovenox 30 mg a day. She is elderly and BW is 71 Kg. I would use the 30 mg SC daily. Alternatively heparin can be used. agree with gagandeep for now. Would suggest outpatient PFT. For someone who has not smoked it is unlikely to have COPD. She did have asthma since age 22 per her son and she may have chronic asthma or RAD. The she would need longterm inahled steroids and PRN IZABEL. Would defer further medical management at this point to the primary medical team. Please recall pulm PRN should there be any additional concerns. Data Medications: Current Inpatient Medications Medications (Trade) Dose Ordered Sig/Flavio Route Start Time Stop Time Status Last Admin Dose Admin Acetaminophen (Tylenol Tab) 650 mg Q4H PRN PO 02/01/17 02:15 03/03/17 02:14 02/02/17 08:02 650 MG Magnesium Hydroxide (Milk Of Magnesia Susp) 30 ml Q12H PRN PO 02/01/17 02:15 03/03/17 02:14 Ondansetron HCl (Zofran Inj) 4 mg Q6H PRN IV 02/01/17 02:15 03/03/17 02:14 02/02/17 07:02 4 MG Polyethylene (Miralax Powder Packet) 17 gm DAILY PRN PO 02/01/17 02:15 03/03/17 02:14 02/02/17 08:23 17 GM Albuterol/ Ipratropium (Duoneb) 3 ml Q6R INH 02/01/17 03:00 03/03/17 02:59 02/02/17 14:18 3 ML Albuterol Sulfate (Ventolin 0.083% 2.5MG/3ML Neb) 2.5 mg Q4H PRN INH 02/01/17 02:15 03/03/17 02:14 Gabapentin (Neurontin Cap) 400 mg BID PO 02/01/17 09:00 03/03/17 08:59 02/02/17 08:05 400 MG HCTZ/Losartan Potassium (Hyzaar 50-12.5 Tab) 1 tab QAM PO 02/01/17 09:00 03/03/17 08:59 02/02/17 08:03 1 TAB Magnesium Oxide (Mag-Ox Tab) 400 mg DAILY PO 02/01/17 09:00 03/03/17 08:59 02/02/17 08:05 400 MG Montelukast Sodium (Singulair Tab) 10 mg QAM PO 02/01/17 09:00 03/03/17 08:59 02/02/17 08:05 10 MG Nitroglycerin (Nitrostat Tab) 0.4 mg Q5M PRN SL 02/01/17 02:15 03/03/17 02:14 Phenytoin Sodium (Dilantin Er Cap) 100 mg TID PO 02/01/17 09:00 03/03/17 08:59 02/02/17 14:11 100 MG Calcium/Vitamin D (Caltrate Plus Tab) 1 tab BID PO 02/01/17 09:00 03/03/17 08:59 02/02/17 08:06 1 TAB Cholecalciferol (Vitamin D Tab) 2,000 inter.unit Mo@0900 PO 02/03/17 09:00 03/05/17 08:59 Diltiazem HCl (Cardizem Cd Cap) 240 mg QAM PO 02/01/17 09:00 03/03/17 08:59 02/02/17 08:04 240 MG Miscellaneous Information (Order Awaiting Action) 1 ea QS N/A 02/01/17 08:00 03/03/17 07:59 Pantoprazole Sodium (Protonix Tab) 40 mg BID PO 02/01/17 09:00 03/03/17 08:59 02/02/17 08:04 40 MG Potassium Chloride (Klor-Con Tab) 20 meq QAM PO 02/01/17 09:00 03/03/17 08:59 02/02/17 08:27 20 MEQ Insulin Aspart (novoLOG ASPART) SLIDING SCALE G... ACHS SC 02/01/17 07:00 03/03/17 06:59 02/02/17 12:42 10 UNITS Glucose (Glucose 40% Gel) 15-30 GRAMS 15 GRAMS... UD PRN PO 02/01/17 05:15 03/03/17 05:14 Glucose (Glucose Chew Tab) 4-8 Tablets 4 Tabl... UD PRN PO 02/01/17 05:15 03/03/17 05:14 Dextrose (Dextrose 50% 50ML Syringe) 25-50ML OF 50% DW IV FOR... UD PRN IV 02/01/17 05:15 03/03/17 05:14 Glucagon (Glucagon Inj) 1 mg UD PRN SQ 02/01/17 05:15 03/03/17 05:14 Ioversol (Optiray 320) 100 ml UD PRN IV 02/01/17 16:00 02/05/17 15:59 Ranitidine HCl 50 mg/Dextrose 102 ml @ 200 mls/hr Q8@0200,1000,1800 IV 02/02/17 10:30 03/04/17 10:29 02/02/17 10:56 200 MLS/HR Al Hydroxide/Mg Hydroxide (Maalox Susp) 30 ml Q6H PRN PO 02/02/17 10:15 03/04/17 10:14 Prednisone (PredniSONE TAB) 40 mg DAILY PO 02/03/17 09:00 03/05/17 08:59 Levofloxacin 500 mg/Prmx 100 ml @ 100 mls/hr DAILY@1200 IV 02/02/17 12:00 02/07/17 11:59 02/02/17 12:29 100 MLS/HR I & O: 24-Hour Column 02/03/17 08:00 Intake Total 630 ml Balance 630 ml Vital Signs: Date Time Temp Pulse Resp B/P (MAP) Pulse Ox O2 Delivery O2 Flow Rate FiO2 02/02/17 14:18 79 18 95 Room Air 02/02/17 11:56 36.5 88 20 110/57 (74) 97 Room Air 02/02/17 08:00 91 Room Air 02/02/17 08:00 Room Air 02/02/17 07:55 36.5 100 20 133/66 (88) 91 Room Air 02/02/17 07:03 96 18 93 Room Air 02/02/17 04:00 Room Air 02/02/17 04:00 36.9 88 20 125/62 (83) 91 Room Air 02/02/17 01:41 84 14 94 Room Air 02/02/17 00:16 36.5 98 18 169/81 (110) 93 Room Air 02/02/17 00:01 Room Air 02/01/17 20:12 36.4 96 20 135/67 (89) 92 Room Air 02/01/17 20:00 Room Air 02/01/17 19:00 82 16 95 Room Air 02/01/17 16:00 Room Air 02/01/17 15:19 36.3 91 16 139/72 (94) 94 Room Air Laboratory Results: Last 24 Hours Test 02/01/17 16:54 02/01/17 20:28 02/02/17 06:16 02/02/17 07:27 Bedside Glucose 189 mg/dl 276 mg/dl 250 mg/dl White Blood Count 23.06 K/uL Red Blood Count 4.42 M/uL Hemoglobin 11.9 g/dL Hematocrit 36.6 % Mean Corpuscular Volume 82.8 fL Mean Corpuscular Hemoglobin 26.9 pg Mean Corpuscular Hemoglobin Concent 32.5 g/dl Platelet Count 390 K/uL Mean Platelet Volume 9.4 fL Neutrophils (%) (Auto) 82.8 % Lymphocytes (%) (Auto) 9.8 % Monocytes (%) (Auto) 6.7 % Eosinophils (%) (Auto) 0.0 % Basophils (%) (Auto) 0.0 % Neutrophils # (Auto) 19.09 K/uL Lymphocytes # (Auto) 2.26 K/uL Monocytes # (Auto) 1.55 K/uL Eosinophils # (Auto) 0.00 K/uL Basophils # (Auto) 0.01 K/uL RDW Standard Deviation 43.5 fL RDW Coefficient of Variation 14.3 % Immature Granulocyte % (Auto) 0.7 % Immature Granulocyte # (Auto) 0.15 K/uL Sodium Level 139 mmol/L Potassium Level 3.7 mmol/L Chloride Level 102 mmol/L Carbon Dioxide Level 29 mmol/L Anion Gap 8.0 mmol/L Blood Urea Nitrogen 21 mg/dl Creatinine 0.82 mg/dl Est Creatinine Clear Calc Drug Dose 48.4 ml/min Estimated GFR () 76.2 Estimated GFR (Non- 65.7 BUN/Creatinine Ratio 25.8 Random Glucose 226 mg/dl Calcium Level 9.3 mg/dl Magnesium Level 2.2 mg/dl Test 02/02/17 11:32 Bedside Glucose 260 mg/dl
[2017-02-02] MEDS: ENOXAPARIN 30 MG/0.3 ML SYR SQ SCH (16:09)
[2017-02-03] VITALS (13 sets, daily range): BP systolic 114–166; BP diastolic 62–82; PULSE 70–96; TEMP 36.3–37; O2SAT 90–96
[2017-02-03] MEDS: ALBUT/IPRATROP 3MG/0.5MG NEB 3 ML VIAL INH SCH ×4 (02:02→20:18)
[2017-02-03] MEDS: RANITIDINE IV 50 MG in DEXTROSE 5% 100ML 100 ML IV SCH ×3 (02:08→17:29)
[2017-02-03] MEDS ORDERED: COUGH DROP (SUGAR FREE) LOZ 24 LOZ/1 BOX ONE (02:27)
[2017-02-03] MEDS ORDERED: NURSING DECISION MEDICATION ORDER SCH (02:30)
[2017-02-03] MEDS ORDERED: COUGH DROP (SUGAR FREE) LOZ 24 LOZ/1 BOX PO PRN (03:15)
[2017-02-03 07:17] LABS: ESTIMATED AVERAGE GLUCOSE 151 mg/dl; HA1C FLAG Normal (Normal)
[2017-02-03 07:25] LABS: BASO % 0.1 %; BASO ABS # 0.01 K/uL (0-0.2); COMPLETE YES; EOS % 0.1 %; HEMATOCRIT 37.7 % (37-47); IG% 0.8 %; LYMPH % 22.5 %; LYMPH ABS # 4.19 K/uL (1.2-3.4); MEAN CELL VOLUME 83.8 fL (80-100); MEAN CORPUSCULAR HEMOGLOBIN 27.6 pg (25-34); MEAN CORPUSCULAR HGB CONC 32.9 g/dl (32-36); MEAN PLATELET VOLUME 9.1 fL (7.4-10.4); MONO % 10.3 %; NEUT % 66.2 %; PLATELET COUNT 355 K/uL (130-400); WHITE BLOOD COUNT 18.63 K/uL (4.8-10.8)
[2017-02-03] MEDS: ONDANSETRON INJ 2 MG/ML 2 ML VIAL IV PRN ×3 (07:42→18:17)
[2017-02-03 08:03] LABS: CALCIUM 9.3 mg/dl (8.5-10.1); MAGNESIUM 2.1 mg/dl (1.8-2.4); POTASSIUM 3.8 mmol/L (3.5-5.1)
[2017-02-03] MEDS: POTASSIUM CHLORIDE 20 MEQ TABCR PO SCH (08:05)
[2017-02-03] MEDS: CALCIUM 600MG + VIT D 400 IU TAB PO SCH ×3 (08:05→21:10)
[2017-02-03] MEDS: LOSARTAN/HCTZ 50-12.5 EA TAB PO SCH (08:05)
[2017-02-03] MEDS: PHENYTOIN SODIUM ER 100 MG CAP PO SCH ×4 (08:05→21:11)
[2017-02-03] MEDS: MAGNESIUM OXIDE 400 MG TAB PO SCH (08:05)
[2017-02-03] MEDS: DILTIAZEM HCL 240 MG CAPCR PO SCH (08:06)
[2017-02-03] MEDS: PANTOprazole SOD 40 MG TAB PO SCH ×3 (08:06→21:12)
[2017-02-03] MEDS: MONTELUKAST SOD 10 MG TAB PO SCH (08:06)
[2017-02-03] MEDS: GABAPENTIN 400 MG CAP PO SCH ×3 (08:06→21:11)
[2017-02-03] MEDS: INSULIN ASPART 100 UNITS/ML 3 ML PEN SC SCH ×4 (08:42→21:00)
[2017-02-03] MEDS ORDERED: CHOLECALCIFEROL 1000 INTER.UNIT TAB PO SCH (09:00)
[2017-02-03] MEDS: LEVOFLOXACIN / D5W 500 MG in PREMIXED IN D5W 100 ML IV SCH (13:16)
[2017-02-03] MEDS: ENOXAPARIN 30 MG/0.3 ML SYR SQ SCH (15:43)
[2017-02-03] MEDS ORDERED: NURSING VERBAL MED ORDER ONE (18:15)
[2017-02-03] MEDS ORDERED: MILK AND MOLASSES ENEMA PR SCH (18:30)
--- NOTE | 2017-02-03 20:54 | Family Medicine Progress Note ---
Progress Note Date of Service Feb 03, 2017. Subjective Pt evaluation today including: conversation w/ patient, physical exam, chart review, lab review Pain: Denies Voiding: no voiding problems Patient was seen at the bed side. No acute event overnight. Patient continues to complain of nausea and vomiting. She is also constipated. Stated that she usually gets constipated whenever comes to the hospital. At home she has regular BM and denies taking any medicine. She said Zofran helped this morning with the nausea. Denies any other complaints. Constitutional: No fever, No weight loss Respiratory: No cough, No shortness of breath Cardiovascular: No chest pain Abdomen: + nausea, + vomiting, + constipation, No pain, No diarrhea Musculoskeletal: No muscle pain Skin: No rash Medications Current Inpatient Medications Medications (Trade) Dose Ordered Sig/Flavio Route Start Time Stop Time Status Last Admin Dose Admin Acetaminophen (Tylenol Tab) 650 mg Q4H PRN PO 02/01/17 02:15 03/03/17 02:14 02/02/17 08:02 650 MG Magnesium Hydroxide (Milk Of Magnesia Susp) 30 ml Q12H PRN PO 02/01/17 02:15 03/03/17 02:14 02/03/17 07:48 30 ML Ondansetron HCl (Zofran Inj) 4 mg Q6H PRN IV 02/01/17 02:15 03/03/17 02:14 02/03/17 18:17 4 MG Polyethylene (Miralax Powder Packet) 17 gm DAILY PRN PO 02/01/17 02:15 03/03/17 02:14 02/02/17 08:23 17 GM Albuterol/ Ipratropium (Duoneb) 3 ml Q6R INH 02/01/17 03:00 03/03/17 02:59 02/03/17 07:28 3 ML Albuterol Sulfate (Ventolin 0.083% 2.5MG/3ML Neb) 2.5 mg Q4H PRN INH 02/01/17 02:15 03/03/17 02:14 Gabapentin (Neurontin Cap) 400 mg BID PO 02/01/17 09:00 03/03/17 08:59 02/03/17 08:06 400 MG HCTZ/Losartan Potassium (Hyzaar 50-12.5 Tab) 1 tab QAM PO 02/01/17 09:00 03/03/17 08:59 02/03/17 08:05 1 TAB Magnesium Oxide (Mag-Ox Tab) 400 mg DAILY PO 02/01/17 09:00 03/03/17 08:59 02/03/17 08:05 400 MG Montelukast Sodium (Singulair Tab) 10 mg QAM PO 02/01/17 09:00 03/03/17 08:59 02/03/17 08:06 10 MG Nitroglycerin (Nitrostat Tab) 0.4 mg Q5M PRN SL 02/01/17 02:15 03/03/17 02:14 Phenytoin Sodium (Dilantin Er Cap) 100 mg TID PO 02/01/17 09:00 03/03/17 08:59 02/03/17 13:16 100 MG Calcium/Vitamin D (Caltrate Plus Tab) 1 tab BID PO 02/01/17 09:00 03/03/17 08:59 02/03/17 08:05 1 TAB Cholecalciferol (Vitamin D Tab) 2,000 inter.unit Mo@0900 PO 02/03/17 09:00 03/05/17 08:59 02/03/17 08:06 2,000 INTER.UNIT Diltiazem HCl (Cardizem Cd Cap) 240 mg QAM PO 02/01/17 09:00 03/03/17 08:59 02/03/17 08:06 240 MG Miscellaneous Information (Order Awaiting Action) 1 ea QS N/A 02/01/17 08:00 03/03/17 07:59 Pantoprazole Sodium (Protonix Tab) 40 mg BID PO 02/01/17 09:00 03/03/17 08:59 02/03/17 08:06 40 MG Potassium Chloride (Klor-Con Tab) 20 meq QAM PO 02/01/17 09:00 03/03/17 08:59 02/03/17 08:05 20 MEQ Insulin Aspart (novoLOG ASPART) SLIDING SCALE G... ACHS SC 02/01/17 07:00 03/03/17 06:59 02/03/17 17:37 2 UNITS Glucose (Glucose 40% Gel) 15-30 GRAMS 15 GRAMS... UD PRN PO 02/01/17 05:15 03/03/17 05:14 Glucose (Glucose Chew Tab) 4-8 Tablets 4 Tabl... UD PRN PO 02/01/17 05:15 03/03/17 05:14 Dextrose (Dextrose 50% 50ML Syringe) 25-50ML OF 50% DW IV FOR... UD PRN IV 02/01/17 05:15 03/03/17 05:14 Glucagon (Glucagon Inj) 1 mg UD PRN SQ 02/01/17 05:15 03/03/17 05:14 Ioversol (Optiray 320) 100 ml UD PRN IV 02/01/17 16:00 02/05/17 15:59 Ranitidine HCl 50 mg/Dextrose 102 ml @ 200 mls/hr Q8@0200,1000,1800 IV 02/02/17 10:30 03/04/17 10:29 02/03/17 17:29 200 MLS/HR Al Hydroxide/Mg Hydroxide (Maalox Susp) 30 ml Q6H PRN PO 02/02/17 10:15 03/04/17 10:14 02/03/17 19:42 30 ML Prednisone (PredniSONE TAB) 40 mg DAILY PO 02/03/17 09:00 03/05/17 08:59 02/03/17 08:05 40 MG Levofloxacin 500 mg/Prmx 100 ml @ 100 mls/hr DAILY@1200 IV 02/02/17 12:00 02/07/17 11:59 02/03/17 13:16 100 MLS/HR Enoxaparin Sodium (Lovenox Inj) 30 mg DAILY@1600 SQ 02/02/17 16:00 03/04/17 15:59 02/03/17 15:43 30 MG Menthol (Nice Christiano) 1 christiano PRN PRN PO 02/03/17 03:15 03/05/17 03:14 Clopidogrel Bisulfate (plAVix TAB) 75 mg QAM PO 02/04/17 09:00 03/06/17 08:59 Objective Vital Signs Date Time Temp Pulse Resp B/P (MAP) Pulse Ox O2 Delivery O2 Flow Rate FiO2 02/03/17 19:31 36.9 96 16 166/80 (108) 91 Room Air 02/03/17 19:15 37.0 70 18 162/82 (108) 95 Room Air 02/03/17 16:03 36.6 84 18 129/76 (93) 93 Room Air 02/03/17 16:00 95 Room Air 02/03/17 12:33 Room Air 02/03/17 11:42 36.3 82 18 135/62 (86) 95 Room Air 02/03/17 09:55 90 94 02/03/17 08:00 Room Air 02/03/17 07:46 36.3 79 18 114/68 (83) 95 Room Air 02/03/17 07:28 80 14 96 Room Air 02/03/17 04:00 91 Room Air 02/03/17 04:00 Room Air 02/03/17 04:00 36.4 86 16 119/68 (85) 91 Room Air 02/03/17 02:02 90 14 90 Room Air 02/03/17 00:01 Room Air 02/02/17 23:13 36.6 92 18 150/69 (96) 92 Room Air Physical Exam General Appearance: WD/WN, no apparent distress Neck: supple, trachea midline Respiratory/Chest: chest non-tender, lungs clear, normal breath sounds, no respiratory distress, no accessory muscle use Cardiovascular: regular rate, rhythm, no edema Abdomen: normal bowel sounds, non tender, soft Extremities: non-tender, no pedal edema Neurologic/Psychiatric: alert, normal mood/affect, oriented x 3 Skin: normal color, warm/dry, no rash Laboratory Results Results Past 24 Hours Test 02/02/17 21:00 02/03/17 07:15 02/03/17 07:16 02/03/17 08:01 Range/Units Bedside Glucose 136 115 70-90 mg/dl Sodium Level 140 136-145 mmol/L Potassium Level 3.8 3.5-5.1 mmol/L Chloride Level 103 98-107 mmol/L Carbon Dioxide Level 29 21-32 mmol/L Anion Gap 8.0 3-11 mmol/L Blood Urea Nitrogen 22 7-18 mg/dl Creatinine 1.00 0.60-1.20 mg/dl Est Creatinine Clear Calc Drug Dose 39.8 ml/min Estimated GFR () 59.9 Estimated GFR (Non- 51.7 BUN/Creatinine Ratio 22.0 10-20 Random Glucose 139 70-99 mg/dl Calcium Level 9.3 8.5-10.1 mg/dl Magnesium Level 2.1 1.8-2.4 mg/dl White Blood Count 18.63 4.8-10.8 K/uL Red Blood Count 4.50 4.2-5.4 M/uL Hemoglobin 12.4 12.0-16.0 g/dL Hematocrit 37.7 37-47 % Mean Corpuscular Volume 83.8 80-100 fL Mean Corpuscular Hemoglobin 27.6 25-34 pg Mean Corpuscular Hemoglobin Concent 32.9 32-36 g/dl Platelet Count 355 130-400 K/uL Mean Platelet Volume 9.1 7.4-10.4 fL Neutrophils (%) (Auto) 66.2 % Lymphocytes (%) (Auto) 22.5 % Monocytes (%) (Auto) 10.3 % Eosinophils (%) (Auto) 0.1 % Basophils (%) (Auto) 0.1 % Neutrophils # (Auto) 12.35 1.4-6.5 K/uL Lymphocytes # (Auto) 4.19 1.2-3.4 K/uL Monocytes # (Auto) 1.91 0.11-0.59 K/uL Eosinophils # (Auto) 0.02 0-0.5 K/uL Basophils # (Auto) 0.01 0-0.2 K/uL RDW Standard Deviation 44.1 36.4-46.3 fL RDW Coefficient of Variation 14.4 11.5-14.5 % Immature Granulocyte % (Auto) 0.8 % Immature Granulocyte # (Auto) 0.15 0.00-0.02 K/uL Test 02/03/17 11:54 02/03/17 16:51 02/03/17 20:39 Range/Units Bedside Glucose 157 194 150 70-90 mg/dl Assessment and Plan This is an 85-year-old female with a history of CVA and R sided weakness, hypertension, type 2 diabetes and asthma presents with progressive SOB and a few episodes of hemoptysis, coughing up blood streaked sputum. She denies fevers, CP, N/V/D or diarrhea. She c/o upper back midline pain and some chest pain. Her 02 saturation was in the mid 80s on arrival. A CXR is initially consistent with a LLL pneumonia but on chest CTA ruled out pneumonia. * Hemoptysis - Most likely 2/2 to bronchitis and/or epistaxis (from Flonase use) - Ruled out pneumonia on chest CTA. Also negative for PE and aortic dissection. 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 - Continue to appreciate pulmonology recommendation * Progressive SOB - resolved - Most likely 2/2 to acute bronchitis/asthma (hx of asthma)/component of RAD as shown in CTA. Patient very less likely has COPD given no hx of smoking. - Currently on RA, maintaining O2 and denies any SOB - Continue duoneb and albuterol prn - Dc IV solumedrol and started on PO prednisone on taper dose, decrease by 10mg daily - Continue with Levaquin 500mg - Pulmonology on board and continue to appreciate their recommendation * Acute Bronchitis - Patient was initially started on IV Rocephin and azithromycin but dc after confirming absence of pneumonia - Currently on taper dose of prednisone - Continue with Levaquin 500mg - Continue with neb treatment * Nausea/Vomiting/Constipation - CT of head is unremarkable - Patient states that she is usually constipated whenever she is in hospital and have BM when she goes home. N/V could be 2/2 constipation - Miralax and milk of mag for constipation. Consider enema if no success with the these medications. - Continue with Zofran 4mg q6h as needed - Continue with Protonix 40mg * Hx of CVA - restarted Plavix given normal CT of head - Statin intolerant * DM 2 - not on medication at home - HgbA1C 7.1% in 10/2016, this admission 6.9 - C/w SS due to steroid use but not on meds at home * HTN - Controlled - Cont HCTZ/Losartan, Diltiazem * UTI - Patient is asymptomatic - UCx grow E.Coli - Continue with Levaquin for today 7 days which will cover both UTI and bronchitis * DVT prophylaxis - Lovenox 30mg Code Status: Full code Dispo: Case management was consulted. Patient lives alone. PT/OT consulted. Reviewed: Pt Seen/Exam by Me History feeling nauseous. gets this way whenever constipated Constitutional: denies: fever Respiratory: negative: short of breath Cardiovascular: denies chest pain General Appearance: moderate distress (from nausea) Respiratory: lungs clear, no respiratory distress Cardiovascular: regular rate, rhythm Gastrointestinal: normal bowel sounds, non tender, soft Neurologic/Psychiatric: alert, oriented x 3 Skin Characteristics: warm/dry Assessment/Plan Resident Physician Supervision Note: I was present with Dr. Mackay in bedside. I verified the bowers history and physical, reviewed labs and image studies, discussed the case with the resident and agree with the findings and care plan.
[2017-02-04] VITALS (10 sets, daily range): BP systolic 95–155; BP diastolic 60–71; PULSE 70–85; TEMP 36.3–37.1; O2SAT 92–96
[2017-02-04] MEDS: RANITIDINE IV 50 MG in DEXTROSE 5% 100ML 100 ML IV SCH ×3 (02:09→17:38)
[2017-02-04] MEDS: ALBUT/IPRATROP 3MG/0.5MG NEB 3 ML VIAL INH SCH ×4 (02:15→19:05)
[2017-02-04 07:27] LABS: HEMATOCRIT 39.5 % (37-47); MEAN CELL VOLUME 83.9 fL (80-100); MEAN CORPUSCULAR HEMOGLOBIN 27.4 pg (25-34); MEAN CORPUSCULAR HGB CONC 32.7 g/dl (32-36); MEAN PLATELET VOLUME 9.3 fL (7.4-10.4); PLATELET COUNT 386 K/uL (130-400); RED BLOOD COUNT 4.71 M/uL (4.2-5.4); WHITE BLOOD COUNT 15.81 K/uL (4.8-10.8)
[2017-02-04 07:57] LABS: BUN/CREATININE RATIO 22.7 (10-20); CREATININE 0.85 mg/dl (0.60-1.20); POTASSIUM 3.7 mmol/L (3.5-5.1)
[2017-02-04] MEDS: INSULIN ASPART 100 UNITS/ML 3 ML PEN SC SCH ×4 (08:02→21:00)
[2017-02-04] MEDS: PHENYTOIN SODIUM ER 100 MG CAP PO SCH ×3 (08:03→21:07)
[2017-02-04] MEDS: CLOPIDOGREL BISULFATE 75 MG TAB PO SCH (08:03)
[2017-02-04] MEDS: MAGNESIUM OXIDE 400 MG TAB PO SCH (08:04)
[2017-02-04] MEDS: POTASSIUM CHLORIDE 20 MEQ TABCR PO SCH (08:05)
[2017-02-04] MEDS: MONTELUKAST SOD 10 MG TAB PO SCH (08:05)
[2017-02-04] MEDS: PANTOprazole SOD 40 MG TAB PO SCH ×2 (08:06→21:07)
[2017-02-04] MEDS: GABAPENTIN 400 MG CAP PO SCH ×2 (08:06→21:07)
[2017-02-04] MEDS: CALCIUM 600MG + VIT D 400 IU TAB PO SCH ×2 (08:07→21:08)
[2017-02-04] MEDS: LOSARTAN/HCTZ 50-12.5 EA TAB PO SCH (08:09)
[2017-02-04] MEDS: DILTIAZEM HCL 240 MG CAPCR PO SCH (08:09)
[2017-02-04] MEDS: LEVOFLOXACIN / D5W 500 MG in PREMIXED IN D5W 100 ML IV SCH (11:49)
[2017-02-04 13:03] LABS: CALCIUM 8.5 mg/dl (8.5-10.1)
[2017-02-04] MEDS: ENOXAPARIN 30 MG/0.3 ML SYR SQ SCH (16:29)
--- NOTE | 2017-02-04 19:19 | Family Medicine Progress Note ---
Progress Note Date of Service Feb 04, 2017. Subjective Pt evaluation today including: conversation w/ patient, physical exam, chart review, lab review Voiding: no voiding problems Patient was seen at the bedside. No acute event overnight. She was comfortably sitting on her chair. She states that she is feeling good today. Had BM, denies N/V, or abdominal pain. Constitutional: No fever, No weight loss Respiratory: No cough, No sputum, No wheezing, No shortness of breath, No dyspnea on exertion, No dyspnea at rest Cardiovascular: No chest pain, No edema Abdomen: No pain, No nausea, No vomiting, No diarrhea, No constipation, No GI bleeding Female : No dysuria Skin: No rash Medications Current Inpatient Medications Medications (Trade) Dose Ordered Sig/Flavio Route Start Time Stop Time Status Last Admin Dose Admin Acetaminophen (Tylenol Tab) 650 mg Q4H PRN PO 02/01/17 02:15 03/03/17 02:14 02/02/17 08:02 650 MG Magnesium Hydroxide (Milk Of Magnesia Susp) 30 ml Q12H PRN PO 02/01/17 02:15 03/03/17 02:14 02/03/17 07:48 30 ML Ondansetron HCl (Zofran Inj) 4 mg Q6H PRN IV 02/01/17 02:15 03/03/17 02:14 02/03/17 18:17 4 MG Polyethylene (Miralax Powder Packet) 17 gm DAILY PRN PO 02/01/17 02:15 03/03/17 02:14 02/02/17 08:23 17 GM Albuterol/ Ipratropium (Duoneb) 3 ml Q6R INH 02/01/17 03:00 03/03/17 02:59 02/04/17 14:20 3 ML Albuterol Sulfate (Ventolin 0.083% 2.5MG/3ML Neb) 2.5 mg Q4H PRN INH 02/01/17 02:15 03/03/17 02:14 Gabapentin (Neurontin Cap) 400 mg BID PO 02/01/17 09:00 03/03/17 08:59 02/04/17 08:06 400 MG HCTZ/Losartan Potassium (Hyzaar 50-12.5 Tab) 1 tab QAM PO 02/01/17 09:00 03/03/17 08:59 02/04/17 08:09 1 TAB Magnesium Oxide (Mag-Ox Tab) 400 mg DAILY PO 02/01/17 09:00 03/03/17 08:59 02/04/17 08:04 400 MG Montelukast Sodium (Singulair Tab) 10 mg QAM PO 02/01/17 09:00 03/03/17 08:59 02/04/17 08:05 10 MG Nitroglycerin (Nitrostat Tab) 0.4 mg Q5M PRN SL 02/01/17 02:15 03/03/17 02:14 Phenytoin Sodium (Dilantin Er Cap) 100 mg TID PO 02/01/17 09:00 03/03/17 08:59 02/04/17 14:05 100 MG Calcium/Vitamin D (Caltrate Plus Tab) 1 tab BID PO 02/01/17 09:00 03/03/17 08:59 02/04/17 08:07 1 TAB Cholecalciferol (Vitamin D Tab) 2,000 inter.unit Mo@0900 PO 02/03/17 09:00 03/05/17 08:59 02/03/17 08:06 2,000 INTER.UNIT Diltiazem HCl (Cardizem Cd Cap) 240 mg QAM PO 02/01/17 09:00 03/03/17 08:59 02/04/17 08:09 240 MG Miscellaneous Information (Order Awaiting Action) 1 ea QS N/A 02/01/17 08:00 03/03/17 07:59 Pantoprazole Sodium (Protonix Tab) 40 mg BID PO 02/01/17 09:00 03/03/17 08:59 02/04/17 08:06 40 MG Potassium Chloride (Klor-Con Tab) 20 meq QAM PO 02/01/17 09:00 03/03/17 08:59 02/04/17 08:05 20 MEQ Insulin Aspart (novoLOG ASPART) SLIDING SCALE G... ACHS SC 02/01/17 07:00 03/03/17 06:59 02/04/17 17:38 6 UNITS Glucose (Glucose 40% Gel) 15-30 GRAMS 15 GRAMS... UD PRN PO 02/01/17 05:15 03/03/17 05:14 Glucose (Glucose Chew Tab) 4-8 Tablets 4 Tabl... UD PRN PO 02/01/17 05:15 03/03/17 05:14 Dextrose (Dextrose 50% 50ML Syringe) 25-50ML OF 50% DW IV FOR... UD PRN IV 02/01/17 05:15 03/03/17 05:14 Glucagon (Glucagon Inj) 1 mg UD PRN SQ 02/01/17 05:15 03/03/17 05:14 Ioversol (Optiray 320) 100 ml UD PRN IV 02/01/17 16:00 02/05/17 15:59 Ranitidine HCl 50 mg/Dextrose 102 ml @ 200 mls/hr Q8@0200,1000,1800 IV 02/02/17 10:30 03/04/17 10:29 02/04/17 17:38 200 MLS/HR Al Hydroxide/Mg Hydroxide (Maalox Susp) 30 ml Q6H PRN PO 02/02/17 10:15 03/04/17 10:14 02/03/17 19:42 30 ML Levofloxacin 500 mg/Prmx 100 ml @ 100 mls/hr DAILY@1200 IV 02/02/17 12:00 02/07/17 11:59 02/04/17 11:49 100 MLS/HR Enoxaparin Sodium (Lovenox Inj) 30 mg DAILY@1600 SQ 02/02/17 16:00 03/04/17 15:59 02/04/17 16:29 30 MG Menthol (Nice Christiano) 1 christiano PRN PRN PO 02/03/17 03:15 03/05/17 03:14 Clopidogrel Bisulfate (plAVix TAB) 75 mg QAM PO 02/04/17 09:00 03/06/17 08:59 02/04/17 08:03 75 MG Prednisone (PredniSONE TAB) 30 mg Taper DAILY PO 02/04/17 09:00 02/07/17 08:59 02/04/17 08:03 30 MG Objective Vital Signs Date Time Temp Pulse Resp B/P (MAP) Pulse Ox O2 Delivery O2 Flow Rate FiO2 02/04/17 16:00 Room Air 02/04/17 15:11 36.5 83 16 102/60 (74) 93 Room Air 02/04/17 14:20 70 12 95 Room Air 02/04/17 12:00 Room Air 02/04/17 11:39 37.1 79 16 127/71 (89) 92 Room Air 02/04/17 07:37 Room Air 02/04/17 07:20 73 16 95 Room Air 02/04/17 07:04 36.6 81 16 95/61 (72) 95 Room Air 02/04/17 04:00 Room Air 02/04/17 03:05 36.8 80 18 155/71 (99) 93 Room Air 02/04/17 00:00 Room Air 02/03/17 23:41 37.0 92 18 144/78 (100) 92 Room Air 02/03/17 20:18 92 14 91 Room Air 02/03/17 20:00 96 Room Air 02/03/17 19:31 36.9 96 16 166/80 (108) 91 Room Air Physical Exam General Appearance: WD/WN, no apparent distress Neck: supple, trachea midline Respiratory/Chest: chest non-tender, lungs clear, normal breath sounds, no respiratory distress, no accessory muscle use Cardiovascular: regular rate, rhythm, no edema Abdomen: normal bowel sounds, non tender, soft Extremities: non-tender, no pedal edema, no calf tenderness Neurologic/Psychiatric: alert, normal mood/affect, oriented x 3 Skin: normal color, warm/dry, no rash Laboratory Results Results Past 24 Hours Test 02/03/17 20:39 02/04/17 06:37 02/04/17 07:39 02/04/17 11:25 Range/Units Bedside Glucose 150 122 219 70-90 mg/dl White Blood Count 15.81 4.8-10.8 K/uL Red Blood Count 4.71 4.2-5.4 M/uL Hemoglobin 12.9 12.0-16.0 g/dL Hematocrit 39.5 37-47 % Mean Corpuscular Volume 83.9 80-100 fL Mean Corpuscular Hemoglobin 27.4 25-34 pg Mean Corpuscular Hemoglobin Concent 32.7 32-36 g/dl RDW Standard Deviation 44.0 36.4-46.3 fL RDW Coefficient of Variation 14.2 11.5-14.5 % Platelet Count 386 130-400 K/uL Mean Platelet Volume 9.3 7.4-10.4 fL Sodium Level 140 136-145 mmol/L Potassium Level 3.7 3.5-5.1 mmol/L Chloride Level 102 98-107 mmol/L Carbon Dioxide Level 30 21-32 mmol/L Anion Gap 8.0 3-11 mmol/L Blood Urea Nitrogen 19 7-18 mg/dl Creatinine 0.85 0.60-1.20 mg/dl Est Creatinine Clear Calc Drug Dose 46.8 ml/min Estimated GFR () 72.9 Estimated GFR (Non- 62.9 BUN/Creatinine Ratio 22.7 10-20 Random Glucose 127 70-99 mg/dl Calcium Level 8.5 8.5-10.1 mg/dl Test 02/04/17 16:14 Range/Units Bedside Glucose 180 70-90 mg/dl Assessment and Plan This is an 85-year-old female with a history of CVA and R sided weakness, hypertension, type 2 diabetes and asthma presents with progressive SOB and a few episodes of hemoptysis, coughing up blood streaked sputum. A CXR is initially consistent with a LLL pneumonia but chest CTA ruled out pneumonia. She is clinically stable. * Hemoptysis - resolved - Most likely 2/2 to bronchitis and/or epistaxis (from Flonase use) - Ruled out pneumonia on chest CTA. Also negative for PE and aortic dissection. 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 - Continue to appreciate pulmonology recommendation * Progressive SOB - resolved - Most likely 2/2 to acute bronchitis/asthma (hx of asthma)/component of RAD as shown in CTA. Patient very less likely has COPD given no hx of smoking. - Currently on RA, maintaining O2 and denies any SOB - Continue duoneb and albuterol prn - Dc IV solumedrol and started on PO prednisone on taper dose, decrease by 10mg daily - Continue with Levaquin 500mg - Pulmonology on board and continue to appreciate their recommendation * Acute Bronchitis - Patient was initially started on IV Rocephin and azithromycin but dc after confirming absence of pneumonia - Currently on taper dose of prednisone - Continue with Levaquin 500mg, changed to PO (for total 7 days) - Continue with neb treatment * Nausea/Vomiting/Constipation - Resolved - CT of head is unremarkable - Patient had a BM and denies any N/V today - Miralax and milk of mag for constipation. Consider enema if no success with the these medications. - Continue with Zofran 4mg q6h as needed - Continue with Protonix 40mg, d/mark IV Ranitidine * Hx of CVA - restarted Plavix given normal CT of head - Statin intolerant * DM 2 - not on medication at home - HgbA1C 7.1% in 10/2016, this admission 6.9 - C/w SS due to steroid use but not on meds at home * HTN - Controlled - Cont HCTZ/Losartan, Diltiazem * UTI - Patient is asymptomatic - UCx grow E.Coli - Continue with Levaquin X7 days which will cover both UTI and bronchitis * DVT prophylaxis - Lovenox 30mg Code Status: Full code Dispo: Case management was consulted. Patient lives alone. PT/OT consulted. Plan to discharge tomorrow. Reviewed: Pt Seen/Exam by Me History had bowel movement last night. no further nausea. Constitutional: denies: fever Respiratory: negative: short of breath Cardiovascular: denies chest pain Gastrointestinal/Abdominal: negative: abdominal pain General Appearance: no apparent distress (sitting in chair and having lunch) Respiratory: lungs clear, no respiratory distress Cardiovascular: regular rate, rhythm Neurologic/Psychiatric: alert, oriented x 3 Skin Characteristics: warm/dry Assessment/Plan Resident Physician Supervision Note: I was present with Dr. Mackay in bedside. I verified the bowers history and physical, reviewed labs and image studies, discussed the case with the resident and agree with the findings and care plan.
[2017-02-05] VITALS: O2SAT 95
[2017-02-05 02:07] VITALS: PULSE 73; O2SAT 92
[2017-02-05] MEDS: ALBUT/IPRATROP 3MG/0.5MG NEB 3 ML VIAL INH SCH ×2 (02:07→07:35)
[2017-02-05 04:00] VITALS: BP 129/61; PULSE 77; TEMP 36.6; O2SAT 93; O2SAT 95
[2017-02-05 05:56] LABS: HEMATOCRIT 36.5 % (37-47); MEAN CELL VOLUME 83.3 fL (80-100); MEAN CORPUSCULAR HEMOGLOBIN 27.2 pg (25-34); MEAN CORPUSCULAR HGB CONC 32.6 g/dl (32-36); MEAN PLATELET VOLUME 9.1 fL (7.4-10.4); PLATELET COUNT 324 K/uL (130-400); RED BLOOD COUNT 4.38 M/uL (4.2-5.4); WHITE BLOOD COUNT 12.88 K/uL (4.8-10.8)
[2017-02-05 06:33] LABS: BUN/CREATININE RATIO 24.4 (10-20); CALCIUM 8.4 mg/dl (8.5-10.1); CREATININE 0.88 mg/dl (0.60-1.20); POTASSIUM 3.5 mmol/L (3.5-5.1)
[2017-02-05 07:35] VITALS: BP 113/67; PULSE 73; PULSE 81; TEMP 36.4; O2SAT 92; O2SAT 93
--- NOTE | 2017-02-05 07:42 | Discharge Instructions ---
Discharge Instructions Date of Service Feb 05, 2017. Admission Reason for Admission: Copd Exacerbation, Pneumonia Discharge Discharge Diagnosis / Problem: bronchitis Discharge Goals Goal(s): Decrease discomfort, Increase independence, Improve disease control Activity Recommendations Activity Limitations: resume your previous activity . Instructions / Follow-Up Instructions / Follow-Up Take the antibiotics Levaquin 500mg daily for 3 days Take Prednisone 10mg 1tab tomorrow Follow up with your primary doctor in 1-2 weeks. Current Hospital Diet Patient's current hospital diet: AHA Diet (Heart Healthy), Diabetes Type 2 Diet Discharge Diet Recommended Diet: Regular Diet Pending Studies Studies pending at discharge: no Laboratory Results Hemoglobin A1c Test 02/02/17 06:16 Range/Units Estimated Average Glucose 151 mg/dl Hemoglobin A1c 6.9 H 4.5-5.6 % Medical Emergencies . Who to Call and When: Medical Emergencies: If at any time you feel your situation is an emergency, please call 911 immediately. . Non-Emergent Contact Non-Emergency issues call your: Primary Care Provider . . "Provider Documentation" section prepared by Perry Mackay. . VTE Core Measure Inpt VTE Proph given/why not?: SCD's
[2017-02-05] MEDS: CALCIUM 600MG + VIT D 400 IU TAB PO SCH (07:52)
[2017-02-05] MEDS: POTASSIUM CHLORIDE 20 MEQ TABCR PO SCH (07:53)
[2017-02-05] MEDS: PHENYTOIN SODIUM ER 100 MG CAP PO SCH (07:53)
[2017-02-05] MEDS: PANTOprazole SOD 40 MG TAB PO SCH (07:53)
[2017-02-05] MEDS: DILTIAZEM HCL 240 MG CAPCR PO SCH (07:53)
[2017-02-05] MEDS: MAGNESIUM OXIDE 400 MG TAB PO SCH (07:53)
[2017-02-05] MEDS: GABAPENTIN 400 MG CAP PO SCH (07:53)
[2017-02-05] MEDS: LOSARTAN/HCTZ 50-12.5 EA TAB PO SCH (07:53)
[2017-02-05] MEDS: CLOPIDOGREL BISULFATE 75 MG TAB PO SCH (07:54)
[2017-02-05] MEDS: MONTELUKAST SOD 10 MG TAB PO SCH (07:54)
[2017-02-05] MEDS: INSULIN ASPART 100 UNITS/ML 3 ML PEN SC SCH (08:02)
[2017-02-05] MEDS ORDERED: PRD10 PO (08:21)
[2017-02-05] MEDS ORDERED: LVQ500 PO (08:21)
[2017-02-05 09:19] VITALS: BP 113/67; PULSE 73; TEMP 36.4; O2SAT 93
[2017-02-05] MEDS ORDERED: LEVOFLOXACIN 500 MG TAB PO SCH (11:00)
--- NOTE | 2017-02-05 12:30 | Discharge Summary ---
Discharge Summary Date of Service Feb 05, 2017. (Perry Mackay MD) Discharge Summary Admission Date: Feb 01, 2017 at 02:08 Discharge Date: Feb 05, 2017 Discharge Disposition: Home Principal Diagnosis: bronchitis Problems/Secondary Diagnoses: Reactive airway disease, UTI Immunizations: Have You Had Influenza Vaccine: N/A Influenza Vaccine Date: Apr 15, 2012 History of Tetanus Vaccine?: Yes Tetanus Immunization Date: Mar 31, 2009 History of Pneumococcal: Yes Pneumococcal Date: Jan 14, 2012 History of Hepatitis B Vaccine: No (Perry Mackay MD) Medication Reconciliation New Medications: Levofloxacin (Levofloxacin) 500 Mg Tab 500 MG PO DAILY@11 for 3 Days, #3 TAB Prednisone (Prednisone) 10 Mg Tab 10 MG PO DAILY for 1 Day, #1 TAB Continued Medications: Acetaminophen Tab (Tylenol) 325 Mg Tab 650 MG PO Q6 PRN for Pain or Fever, TAB Albuterol Hfa (Ventolin Hfa) 200 Puffs/66659 Mcg Aers 2-4 PUFFS INH Q6H PRN for Shortness of Breath, #1 INHALER Albuterol Sulf (Proventil 0.083% 2.5MG/3ML) 2.5 Mg/3 Ml Nebu 2.5 MG INH [id number] PRN for SOB/Wheezing, EA Calcium Carbonate-Vitamin D (Calcium 500 + D) 1 Tab Tab 1 TAB PO BID TAKE THIS MED EVERY FRIDAY//FRIDAY Cholecalciferol (Vitamin D3) 2,000 Unit Cap 2000 CAP PO WK, CAP EVERY FRIDAY Clopidogrel (Plavix) 75 Mg Tab 75 MG PO QAM Cyanocobalamin (Vitamin B-12) 1,000 Mcg Tab 1000 MCG PO BID Diltiazem HCl Coated Beads (Diltiazem HCl ER) 240 Mg Tab 240 MG PO QAM Fluticasone Furoate-Vilanterol (Breo Ellipta 200-25 Mcg/INH) 1 Inh Inh 1 PUFF INH QAM Fluticasone Propionate (Nasal) (Flonase Allergy Relief) 50 Mcg/Act Spr 2 SPRAYS [place] DAILY Gabapentin (Neurontin) 400 Mg Cap 400 MG PO BID, CAP Hctz/Losartan (Hyzaar 12.5MG/50MG) Tab 1 TAB PO QAM, TAB Magnesium Oxide (Mag-Ox) 400 Mg Tab 400 MG PO DAILY, TAB Montelukast Sodium (Singulair) 10 Mg Tab 10 MG PO QAM Nitroglycerin (Nitrostat) 0.4 Mg Tab 0.4 MG SL PRN/UD, #100 TAB 3 Refills NEEDED FOR CHEST PAIN : ONE TABLET UNDER THE TONGUE EVERY 5 MINUTES UP TO 3 DOSES. Omeprazole (Prilosec) 20 Mg Cap 20 MG PO BID Phenytoin Sodium (Dilantin) 100 Mg Cap 100 MG PO TID Potassium Chloride (Potassium Chloride Er) 10 Meq Tab 20 MEQ PO QAM Discharge Exam Review of Systems: Constitutional: No fever, No chills Respiratory: No cough, No sputum, No shortness of breath, No dyspnea on exertion Cardiovascular: No chest pain Abdomen: No pain, No nausea, No vomiting, No diarrhea, No constipation Musculoskeletal: No muscle pain Genitourinary - Female: No dysuria Integumentary: No rash Physical Exam: General Appearance: WD/WN, no apparent distress Neck: supple, trachea midline Respiratory/Chest: chest non-tender, lungs clear, normal breath sounds, no respiratory distress, no accessory muscle use Cardiovascular: regular rate, rhythm, no edema Abdomen / GI: normal bowel sounds, non tender, soft Extremities: no calf tenderness, no pedal edema Neurologic/Psychiatric: alert, normal mood/affect, oriented x 3 Skin: normal color, warm/dry, no rash (Perry Mackay MD) Review of Systems: Constitutional: No fever Respiratory: No shortness of breath, No hemoptysis Cardiovascular: No chest pain Abdomen: No pain, No nausea, No vomiting Physical Exam: General Appearance: no apparent distress Respiratory/Chest: lungs clear, no respiratory distress Cardiovascular: regular rate, rhythm Abdomen / GI: normal bowel sounds, non tender, soft Neurologic/Psychiatric: alert, oriented x 3 Skin: warm/dry (Brooklyn Maxwell M.D.) Hospital Course This is an 85-year-old female with a history of CVA and R sided weakness, hypertension, type 2 diabetes and asthma presents with progressive SOB and a few episodes of hemoptysis, coughing up blood streaked sputum. A CXR is initially consistent with a LLL pneumonia but chest CTA ruled out pneumonia. Patient was admitted on the Tele for further workup. * Hemoptysis - It is most likely secondary to bronchitis and/or epistaxis (from the Flonase use). Ruled out pneumonia on chest CTA. Also negative for PE and aortic dissection. 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 On discharge she denied hemoptysis. Patient has hx of asthma (RAD), which most likely contributed to her increased SOB along with bronchitis. Pulmonology was consulted. Patient was initially started on IV Rocephin and azithromycin but dc after confirming absence of pneumonia on CTA. She is very less likely has COPD given no smoking history per Pulmonology. Patient was started on duoneb treatment and albuterol as needed. Initially was started on IV steroid and then switched to PO steroid as her symptoms improved. She was also started on Levaquin for 7 days, which would cover both UTI and bronchitis. Also started on Protonix and ranitidine. Patient symptoms improved. On discharge she was given 3 days of Levaquin to complete the 7 days course. Patient had nausea and vomiting. CT of head was unremarkable. This was most likely secondary to constipation. She was given enema and after having BM her N/ V resolved. Total Time Spent: Less than 30 minutes This includes examination of the patient, discharge planning, medication reconciliation, and communication with other providers. (Perry Mackay MD) Resident Physician Supervision Note: I was present with Dr. Mackay in bedside. I verified the bowers history and physical , reviewed labs and image studies, discussed the case with the resident and agree with the findings and care plan. Total Time Spent: Greater than 30 minutes (35) (Brooklyn Maxwell M.D.) Discharge Instructions Please refer to the electronic Patient Visit Report (Discharge Instructions) for additional information. (Perry Mackay MD) Additional Copies To Scar Parker M.D.
[2017-03-16] MEDS ORDERED: CEPH500C2 PO (09:38)
== END 2017-02-05 11:47 | disposition home or self-care (01) | DRG 191 ==
LOC: EDBD 23:15 → C.EDC 23:16 → C.MED 02-01 02:08 → ENRESERV 02-01 02:26 → CANRESERV 02-01 02:26 → ENRESERV 02-01 02:29
PROVIDERS: ADMIT Internal Medicine; ATTEND Family Medicine
DX: J44.1 Chronic obstructive pulmonary disease with (acute) exacerbation (principal); N39.0 Urinary tract infection, site not specified; R04.2 Hemoptysis; E11.9 Type 2 diabetes mellitus without complications; E78.5 Hyperlipidemia, unspecified; A49.8 Other bacterial infections of unspecified site; I73.9 Peripheral vascular disease, unspecified; J45.909 Unspecified asthma, uncomplicated; Z86.73 Personal history of transient ischemic attack (TIA), and cerebral infarction without residual deficits

== ENCOUNTER → 2017-03-03 | Outpatient (CLI) | payer OTHER, MEDICARE ==
[~2017-03-03] MED LIST changes: +ACET-1101 PO; +CALC600T PO; -CALC600T37 PO; +CALCTAB65 PO; +CEPH500C2 PO; -CHOL1CAP95 PO; +CHOL2000 PO; +LVQ500 PO; -OXYC1TAB3 PO; +PRD10 PO
[2017-03-03 17:30] LABS: BASO % 0.4 %; BASO ABS # 0.04 K/uL (0-0.2); COMPLETE YES; EOS % 1.3 %; HEMATOCRIT 39.2 % (37-47); IG% 0.6 %; LYMPH % 28.3 %; LYMPH ABS # 3.15 K/uL (1.2-3.4); MEAN CELL VOLUME 83.6 fL (80-100); MEAN CORPUSCULAR HEMOGLOBIN 26.4 pg (25-34); MEAN CORPUSCULAR HGB CONC 31.6 g/dl (32-36); MEAN PLATELET VOLUME 9.2 fL (7.4-10.4); MONO % 13.6 %; NEUT % 55.8 %; PLATELET COUNT 478 K/uL (130-400); RED BLOOD COUNT 4.69 M/uL (4.2-5.4); WHITE BLOOD COUNT 11.14 K/uL (4.8-10.8)
[2017-03-03 17:42] LABS: ALT/SGPT 24 U/L (12-78); AST/SGOT 20 U/L (15-37); BLOOD UREA NITROGEN 12 mg/dl (7-18); BUN/CREATININE RATIO 17.2 (10-20); CALCIUM 9.8 mg/dl (8.5-10.1); CARBON DIOXIDE 29 mmol/L (21-32); CHLORIDE 101 mmol/L (98-107); CREATININE 0.71 mg/dl (0.60-1.20); GLUCOSE 96 mg/dl (70-99); POTASSIUM 3.4 mmol/L (3.5-5.1); SODIUM 139 mmol/L (136-145)
[2017-03-03 17:44] LABS: ALB/GLOB RATIO 0.9 (0.9-2); ALKALINE PHOSPHATASE 155 U/L (45-117)
[2017-03-04 06:03] LABS: ESTIMATED AVERAGE GLUCOSE 154 mg/dl; HA1C FLAG Normal (Normal)
== END | disposition home or self-care (01) ==
LOC: C.LABBFT 12:37
PROVIDERS: ATTEND Internal Medicine
DX: G62.9 Polyneuropathy, unspecified (principal); E55.9 Vitamin D deficiency, unspecified; E11.9 Type 2 diabetes mellitus without complications

== ENCOUNTER 2017-03-14 16:40 | Observation (INO) | payer OTHER, MEDICARE ==
[~2017-03-14] VITALS: Ht 160 cm; Wt 72.1 kg
[~2017-03-14 16:40] MED LIST changes: -ACET-1101 PO; -CALC600T PO; -CEPH500C2 PO
--- NOTE | 2017-03-14 17:12 | EMERGENCY ROOM VISIT NOTE ---
History Report prepared by Kathrine: Cheng Hussein Under the Supervision of: Dr. Jake Patel D.O. First contact with patient: 16:54 Chief Complaint: STROKE SYMPTOMS Stated Complaint: STROKE SX History of Present Illness The patient is a 86 year old female who presents to the Emergency Room with complaints of stroke like symptoms that began this morning. At this time, the patient began to feel weak. She had more weakness on her right side than her left side. Her weakness has resolved at this time. However, the patient states she cannot turn her head to the left secondary to her left sided neck and shoulder pain. She rates her pain an 8/10 in severity. She denies any chest pain , abdominal pain, and leg pain. She denies any falls or trauma. Source of History: patient Onset: This morning Position: other (global) Symptom Intensity: minimal Quality: other (Weakness) Timing: resolved Associated Symptoms: + neck pain, No chest pain, No abdominal pain Note: She is having left shoulder pain. She denies any leg pain. Review of Systems See HPI for pertinent positives & negatives. A total of 10 systems reviewed and were otherwise negative. Past Medical & Surgical Medical Problems: (1) Asthma (2) Bronchitis (3) CVA (4) Diabetes mellitus type 2 (5) Emphysema (6) Heart disease (7) Hyperlipidemia (8) Hypertensive disorder, systemic arterial (9) ICH (intracerebral hemorrhage) (10) Kidney stones (11) Peripheral vascular disease (12) Pneumonia (13) Right sided weakness (14) Vascular dementia Family History Diabetes mellitus FH: cancer FH: heart disease FHx: gallbladder disease Hypertension Social History Smoking Status: Never Smoker Alcohol Use: none Drug Use: none Marital Status: Housing Status: lives alone Occupation Status: retired Current/Historical Medications Scheduled Calcium Carbonate (Calcium 600), 1 TAB PO TID Cholecalciferol (Vitamin D3), 2,000 CAP PO WK Clopidogrel (Plavix), 75 MG PO QAM Cyanocobalamin (Vitamin B-12), 1,000 MCG PO BID Diltiazem HCl Coated Beads (Diltiazem HCl ER), 240 MG PO QAM Fluticasone Furoate-Vilanterol (Breo Ellipta 200-25 Mcg/INH), 1 PUFF INH QAM Fluticasone Propionate (Nasal) (Flonase Allergy Relief), 2 SPRAYS [place] DAILY Gabapentin (Neurontin), 400 MG PO BID Hctz/Losartan (Hyzaar 12.5MG/50MG), 1 TAB PO QAM Levofloxacin (Levofloxacin), 500 MG PO DAILY@11 Magnesium Oxide (Mag-Ox), 400 MG PO DAILY Montelukast Sodium (Singulair), 10 MG PO QAM Nitroglycerin (Nitrostat), 0.4 MG SL PRN/UD Omeprazole (Prilosec), 20 MG PO BID Phenytoin Sodium (Dilantin), 100 MG PO TID Potassium Chloride (Potassium Chloride Er), 20 MEQ PO QAM Prednisone (Prednisone), 10 MG PO DAILY Scheduled PRN Acetaminophen Tab (Tylenol), 650 MG PO Q6 PRN for Pain or Fever Albuterol Hfa (Ventolin Hfa), 2-4 PUFFS INH Q6H PRN for Shortness of Breath Albuterol Sulf (Proventil 0.083% 2.5MG/3ML), 2.5 MG INH [id number] PRN for SOB/ Wheezing Allergies Coded Allergies: Atorvastatin (Verified Allergy, Mild, UNSURE, 03/14/17) Ezetimibe (Verified Allergy, Mild, UNSURE, 03/14/17) Alendronate (Verified Allergy, Unknown, UNKN, 03/14/17) Benazepril (Verified Allergy, Unknown, UNSURE, 03/14/17) Clonidine (Verified Allergy, Unknown, UNSURE, 03/14/17) Ibandronic Acid (Verified Allergy, Unknown, UNKN, 03/14/17) Simvastatin (Verified Allergy, Unknown, OK TO TRY CRESTOR PER [id number], ) Physical Exam Vital Signs Date Time Temp Pulse Resp B/P (MAP) Pulse Ox O2 Delivery O2 Flow Rate FiO2 03/14/17 20:00 76 16 108/52 96 Room Air 03/14/17 19:00 66 16 130/58 96 Nasal Cannula 2.0 03/14/17 18:21 80 14 143/83 95 Room Air 03/14/17 16:50 79 03/14/17 16:49 94 Room Air 03/14/17 16:49 36.8 90 18 147/67 95 Room Air Physical Exam GENERAL: Patient is awake, alert, and in no acute distress. Patient is resting comfortably and showing no signs of anxiety. Voice is quiet but speech was understandable. EYES: The conjunctivae are clear. The pupils are round and reactive. EARS, NOSE, MOUTH AND THROAT: The nose is without any evidence of any deformity. Mucous membranes are moist tongue is midline NECK: Tenderness in the left trapezius muscle. ROM limited secondary to pain in the area. No anterior or posterior tenderness. RESPIRATORY: Normal respiratory effort is noted there is no evidence of wheezing rhonchi or rales CARDIOVASCULAR: Regular rate and rhythm noted there no murmurs rubs or gallops normal S1 normal S2 GASTROINTESTINAL: The abdomen is soft. Bowel sounds are present in all quadrants. Abdomen is nontender MUSCULOSKELETAL/EXTREMITIES: There is no evidence of gross deformity full range of motion is noted in the hips and shoulders SKIN: There is no obvious evidence of any rash. There are no petechiae, pallor or cyanosis noted. NEUROLOGIC: Patient is awake alert and oriented x3. Strength is diminished but symmetric. Medical Decision & Procedures ER Provider Diagnostic Interpretation: Radiology results as stated below per my review and radiologist interpretation: HEAD CT NONCONTRAST CT DOSE: 922.74 mGy.cm HISTORY: EVALUATE ALTERED MENTAL STATUS/WEAKNESS TECHNIQUE: Multiaxial CT images of the head were performed without the use of intravenous contrast. Automated exposure control was utilized for this study. A dose lowering technique was utilized adhering to the principles of ALARA. Comparison: Head CT 02/02/2017. Findings: The paranasal sinuses and mastoid air cells are clear. The calvarium and skull base are intact. There is no mass, hematoma, midline shift, acute infarct. White matter hypodensity is nonspecific but suggestive of microvascular ischemic change. The ventricles and sulci demonstrate mild age-related involutional changes. Old bilateral basal ganglia lacunar infarcts are again noted. Impression: No significant change compared to the prior study. No acute intracranial abnormality. Electronically signed by: Gregorio Jason M.D. 03/14/2017 5:48 PM Dictated Date/Time: 03/14/2017 5:45 PM CHEST ONE VIEW PORTABLE HISTORY: EVALUATE ALTERED MENTAL STATUS/WEAKNESS COMPARISON: Chest 01/31/2017. FINDINGS: The right lung remains clear. The heart is normal in size. No pleural effusions. No pneumothorax. Linear density at the left lung base persist. IMPRESSION: No change in the left basilar linear densities. This favors atelectasis. However, a pneumonia could also have a similar appearance. Electronically signed by: Gregorio Jason M.D. 03/14/2017 5:39 PM Dictated Date/Time: 03/14/2017 5:[address] DOSE: HISTORY: Left-sided neck pain. TECHNIQUE: Multiaxial CT images of the cervical spine were performed and reformatted in the sagittal and coronal plane without the use of contrast. A dose lowering technique was utilized adhering to the principles of ALARA. COMPARISON: Cervical spine CT 10/24/2015. FINDINGS: No fractures. No subluxation. Prevertebral soft tissues and the C1-C2 interval are intact. No pneumothorax. The C2-C3 facets remain fused. IMPRESSION: No fractures within the cervical spine. Electronically signed by: Gregorio Jason M.D. 03/14/2017 6:01 PM Dictated Date/Time: 03/14/2017 5:57 PM Laboratory Results 03/14/17 18:23 Red Blood Count 4.50, Mean Corpuscular Volume 81.3, Mean Corpuscular Hemoglobin 27.1, Mean Corpuscular Hemoglobin Concent 33.3, Mean Platelet Volume 9.0, Neutrophils (%) (Auto) 63.7, Lymphocytes (%) (Auto) 21.7, Monocytes (%) (Auto) 13.1, Eosinophils (%) (Auto) 0.7, Basophils (%) (Auto) 0.3, Neutrophils # (Auto ) 10.10, Lymphocytes # (Auto) 3.43, Monocytes # (Auto) 2.07, Eosinophils # (Auto ) 0.11, Basophils # (Auto) 0.04 03/14/17 18:23 Test 03/14/17 17:05 03/14/17 17:35 03/14/17 18:23 Bedside Glucose 125 mg/dl (70-90) Urine Color YELLOW Urine Appearance CLEAR (CLEAR) Urine pH 8.0 (4.5-7.5) Urine Specific [place] 1.012 (1.000-1.030) Urine Protein NEG (NEG) Urine Glucose (UA) NEG (NEG) Urine Ketones NEG (NEG) Urine Occult Blood TRACE (NEG) Urine Nitrite NEG (NEG) Urine Bilirubin NEG (NEG) Urine Urobilinogen NEG (NEG) Urine Leukocyte Esterase MODERATE (NEG) Urine WBC (Auto) >30 /hpf (0-5) Urine RBC (Auto) 0-4 /hpf (0-4) Urine Hyaline Casts (Auto) 1-5 /lpf (0-5) Urine Epithelial Cells (Auto) 20-30 /lpf (0-5) Urine Bacteria (Auto) 4+ (NEG) White Blood Count 15.83 K/uL (4.8-10.8) Red Blood Count 4.50 M/uL (4.2-5.4) Hemoglobin 12.2 g/dL (12.0-16.0) Hematocrit 36.6 % (37-47) Mean Corpuscular Volume 81.3 fL (80-100) Mean Corpuscular Hemoglobin 27.1 pg (25-34) Mean Corpuscular Hemoglobin Concent 33.3 g/dl (32-36) Platelet Count 417 K/uL (130-400) Mean Platelet Volume 9.0 fL (7.4-10.4) Neutrophils (%) (Auto) 63.7 % Lymphocytes (%) (Auto) 21.7 % Monocytes (%) (Auto) 13.1 % Eosinophils (%) (Auto) 0.7 % Basophils (%) (Auto) 0.3 % Neutrophils # (Auto) 10.10 K/uL (1.4-6.5) Lymphocytes # (Auto) 3.43 K/uL (1.2-3.4) Monocytes # (Auto) 2.07 K/uL (0.11-0.59) Eosinophils # (Auto) 0.11 K/uL (0-0.5) Basophils # (Auto) 0.04 K/uL (0-0.2) RDW Standard Deviation 42.0 fL (36.4-46.3) RDW Coefficient of Variation 14.1 % (11.5-14.5) Immature Granulocyte % (Auto) 0.5 % Immature Granulocyte # (Auto) 0.08 K/uL (0.00-0.02) Prothrombin Time 10.6 SECONDS (9.0-12.0) Prothromb Time International Ratio 1.0 (0.9-1.1) Activated Partial Thromboplast Time 24.8 SECONDS (21.0-31.0) Partial Thromboplastin Ratio 1.0 Anion Gap 8.0 mmol/L (3-11) Est Creatinine Clear Calc Drug Dose 66.4 ml/min Estimated GFR () 97.0 Estimated GFR (Non- 83.7 BUN/Creatinine Ratio 16.6 (10-20) Calcium Level 8.9 mg/dl (8.5-10.1) Phosphorus Level 3.0 mg/dl (2.5-4.9) Magnesium Level 1.9 mg/dl (1.8-2.4) Total Bilirubin 0.3 mg/dl (0.2-1) Direct Bilirubin < 0.1 mg/dl (0-0.2) Aspartate Amino Transf (AST/SGOT) 12 U/L (15-37) Alanine Aminotransferase (ALT/SGPT) 19 U/L (12-78) Alkaline Phosphatase 150 U/L (45-117) Total Creatine Kinase 65 U/L (26-192) Creatine Kinase MB 1.1 ng/ml (0.5-3.6) Creatine Kinase MB Ratio 1.7 (0-3.0) Troponin I < 0.015 ng/ml (0-0.045) Total Protein 6.4 gm/dl (6.4-8.2) Albumin 2.9 gm/dl (3.4-5.0) Thyroid Stimulating Hormone (TSH) 0.531 uIu/ml (0.300-4.500) Phenytoin (Dilantin) Level 16.3 mcg/mL (10-20) Laboratory results per my review. Medications Administered Medications (Trade) Dose Ordered Sig/Flavio Route Start Time Stop Time Status Last Admin Dose Admin Ceftriaxone Sodium (Rocephin Inj) 1 gm NOW STAT IV 03/14/17 18:01 03/14/17 18:02 DC 03/14/17 18:23 1 GM Morphine Sulfate (MoRPHine SULFATE INJ) 4 mg Q15M PRN IV 03/14/17 18:15 03/28/17 18:14 03/14/17 18:23 4 MG Ondansetron HCl (Zofran Inj) 4 mg NOW STAT IV 03/14/17 18:15 03/14/17 18:16 DC 03/14/17 18:23 4 MG ECG Indication: weakness Rate (beats per minute): 84 Rhythm: normal sinus Findings: no ectopy, other (No acute ST segment abnormalities) Comparison ECG Date: 11 January 2017 Change: no significant change ED Course 1654: The patient was evaluated in room A2. A complete history and physical examination were performed. 1800: Ordered Rocephin Inj 1 gm IV 1814: Ordered Zofran Inj 4 mg IV, Morphine Sulfate 4 mg IV 2019: Upon reevaluation, the patient is resting. I discussed results and treatment plan with her. She verbalizes agreement and understanding. I spoke with Dr. Fitzpatrick of the [facility]. The patient will be evaluated for further management and care. Medical Decision Differential diagnosis: Etiologies such as metabolic, infection, hypo/hyperglycemia, electrolyte abnormalities, cardiac sources, intracerebral event, toxicologic, neurologic, as well as others were entertained. Nursing notes reviewed. The patient is an 86-year-old female who presented to the emergency department for possible stroke. The patient describes unilateral weakness which began earlier in the day. The symptoms resolved. The patient continues to have left neck and upper back pain but also feels that she has generalized weakness. I discussed the patient's laboratory and radiographic studies with her. She appears to have signs of urinary tract infection on urinalysis. She was treated with IV fluids IV antibiotics. I discussed her case with the on-call [facility] hospitalist. They've agreed to evaluate the patient in the emergency apartment for further management and disposition. Medication Reconcilliation Current Medication List: was personally reviewed by me Blood Pressure Screening Patient's blood pressure: Elevated blood pressure Blood pressure disposition: Elevated BP felt to be situational Consults Time Called: 2014 Consulting Physician: Dr. Fitzpatrick - [facility] Returned Call: 2019 I discussed the patient's case with him. The patient will be evaluated for further management. Impression Primary Impression: TIA (transient ischemic attack) Additional Impressions: Weakness UTI (urinary tract infection) Neck pain Elevated WBC count Scribe Attestation The scribe's documentation has been prepared under my direction and personally reviewed by me in its entirety. I confirm that the note above accurately reflects all work, treatment, procedures, and medical decision making performed by me. Departure Information Dispostion Being Evaluated By Hospitalist Scar Monterroso M.D. (PCP) Patient Instructions My [facility] Problem Qualifiers Primary Impression: TIA (transient ischemic attack) Transient cerebral ischemia type: unspecified Qualified Codes: G45.9 - Transient cerebral ischemic attack, unspecified
--- NOTE | 2017-03-14 17:40 | DIAGNOSTIC IMAGING REPORT ---
CHEST ONE VIEW PORTABLE HISTORY: EVALUATE ALTERED MENTAL STATUS/WEAKNESS COMPARISON: Chest 01/31/2017. FINDINGS: The right lung remains clear. The heart is normal in size. No pleural effusions. No pneumothorax. Linear density at the left lung base persist. IMPRESSION: No change in the left basilar linear densities. This favors atelectasis. However, a pneumonia could also have a similar appearance. Electronically signed by: Gregorio Jason M.D. 03/14/2017 5:39 PM Dictated Date/Time: 03/14/2017 5:37 PM
[2017-03-14 17:47] LABS: URINE APPEARANCE CLEAR (CLEAR); URINE BILIRUBIN NEG (NEG); URINE COLOR YELLOW; URINE EPITHELIAL CELL AUTO 20-30 /lpf (0-5); URINE NITRITE NEG (NEG); URINE SPECIFIC GRAVITY 1.012 (1.000-1.030); UROBILINOGEN NEG (NEG)
--- NOTE | 2017-03-14 17:49 | DIAGNOSTIC IMAGING REPORT ---
HEAD CT NONCONTRAST CT DOSE: 922.74 mGy.cm HISTORY: EVALUATE ALTERED MENTAL STATUS/WEAKNESS TECHNIQUE: Multiaxial CT images of the head were performed without the use of intravenous contrast. Automated exposure control was utilized for this study. A dose lowering technique was utilized adhering to the principles of ALARA. Comparison: Head CT 02/02/2017. Findings: The paranasal sinuses and mastoid air cells are clear. The calvarium and skull base are intact. There is no mass, hematoma, midline shift, acute infarct. White matter hypodensity is nonspecific but suggestive of microvascular ischemic change. The ventricles and sulci demonstrate mild age-related involutional changes. Old bilateral basal ganglia lacunar infarcts are again noted. Impression: No significant change compared to the prior study. No acute intracranial abnormality. Electronically signed by: Gregorio Jason M.D. 03/14/2017 5:48 PM Dictated Date/Time: 03/14/2017 5:45 PM
[2017-03-14] MEDS ORDERED: CALC600T PO (17:50)
[2017-03-14 17:51] LABS: MANUAL MICROSCOPIC REQUIRED? NO; REVIEW REQ? NO
[2017-03-14] MEDS ORDERED: CEFTRIAXONE SOD INJ 1 GM ADDVIAL IV STA (18:01)
--- NOTE | 2017-03-14 18:02 | DIAGNOSTIC IMAGING REPORT ---
CERVICAL SPINE CT CT DOSE: HISTORY: Left-sided neck pain. TECHNIQUE: Multiaxial CT images of the cervical spine were performed and reformatted in the sagittal and coronal plane without the use of contrast. A dose lowering technique was utilized adhering to the principles of ALARA. COMPARISON: Cervical spine CT 10/24/2015. FINDINGS: No fractures. No subluxation. Prevertebral soft tissues and the C1-C2 interval are intact. No pneumothorax. The C2-C3 facets remain fused. IMPRESSION: No fractures within the cervical spine. Electronically signed by: Gregorio Jason M.D. 03/14/2017 6:01 PM Dictated Date/Time: 03/14/2017 5:57 PM
[2017-03-14] MEDS ORDERED: ONDANSETRON INJ 2 MG/ML 2 ML VIAL IV STA (18:15)
[2017-03-14] MEDS: MoRPHine SULFATE 4 MG/ML 1 ML CARP\\VIAL IV PRN ×2 (18:23→21:12)
[2017-03-14 18:44] LABS: PROTHROMBIN TIME (PATIENT) 10.6 SECONDS (9.0-12.0)
[2017-03-14 18:52] LABS: ALT/SGPT 19 U/L (12-78); AST/SGOT 12 U/L (15-37); BLOOD UREA NITROGEN 10 mg/dl (7-18); BUN/CREATININE RATIO 16.6 (10-20); CALCIUM 8.9 mg/dl (8.5-10.1); CARBON DIOXIDE 27 mmol/L (21-32); CHLORIDE 104 mmol/L (98-107); GLUCOSE 130 mg/dl (70-99); MAGNESIUM 1.9 mg/dl (1.8-2.4); POTASSIUM 3.9 mmol/L (3.5-5.1); SODIUM 139 mmol/L (136-145)
[2017-03-14 19:00] LABS: ALKALINE PHOSPHATASE 150 U/L (45-117); CKMB/CK RATIO 1.7 (0-3.0); THYROID STIMULATING HORMONE 0.531 uIu/ml (0.300-4.500)
[2017-03-14 19:04] LABS: BASO % 0.3 %; BASO ABS # 0.04 K/uL (0-0.2); COMPLETE YES; EOS % 0.7 %; HEMATOCRIT 36.6 % (37-47); IG% 0.5 %; LYMPH % 21.7 %; LYMPH ABS # 3.43 K/uL (1.2-3.4); MEAN CELL VOLUME 81.3 fL (80-100); MEAN CORPUSCULAR HEMOGLOBIN 27.1 pg (25-34); MEAN CORPUSCULAR HGB CONC 33.3 g/dl (32-36); MONO % 13.1 %; NEUT % 63.7 %; PLATELET COUNT 417 K/uL (130-400); WHITE BLOOD COUNT 15.83 K/uL (4.8-10.8)
[2017-03-14] MEDS ORDERED: SODIUM CHLORIDE 0.9% 500ML 500 ML IV STA (20:36)
[2017-03-14] MEDS ORDERED: ALUMINUM/MAGNESIUM/SIMETH (MAALOX MAX) 30 ML UDC PO PRN (22:30)
[2017-03-14] MEDS ORDERED: MAGNESIUM HYDROXIDE SUSP 30 ML UDC PO PRN (22:30)
[2017-03-14] MEDS ORDERED: ONDANSETRON INJ 2 MG/ML 2 ML VIAL IV PRN (22:30)
[2017-03-14] MEDS ORDERED: ALBUTEROL HFA 8 GM INHALER INH PRN (22:30)
[2017-03-14] MEDS ORDERED: POLYETHYLENE (MIRALAX) 17 GM PACK PO PRN (22:30)
[2017-03-14] MEDS ORDERED: ALBUTEROL 0.083% NEBU SOLN 3 ML VIAL INH PRN (22:30)
--- NOTE | 2017-03-14 23:12 | History and Physical ---
History & Physical Date & Time of Service: Mar 14, 2017 at 22:51 Chief Complaint: Stroke Sx Primary Care Physician: Scar Parker M.D. History of Present Illness Source: patient The patient is an 86 year old female with a previous history of TIA, COPD, Type 2 Diabetes and Seizure disorder otherwise unspecified, who presents today ED for neck pain and weakness. She states that she woke up this morning and noted a left neck pain and radiated to her shoulder. She describes it as an aching pain, worse with turning her neck to the left. She denies any falls or hurting her neck while sleeping. She also reports a generalized sense of weakness but feels it may have been worse on the left side as well. She denies aphasia or difficulty with comprehension. She has no new symptoms of numbness or paresthesia in the extremities. In addition, she reports having urinary frequency without dysuria. She reports that her appetite has been slightly down. However, she reports no other worsening symptoms. She has had no fevers, chills or sweats, and she has not had any chest pain or shortness of breath (beyond her usual COPD). She had a CT of her head in the ED which was negative. She also had a CT of her neck which was negative for acute fracture. She was seen in April 2016 for waxing/waning right-sided weakness that was though to not be stroke-related. Past Medical/Surgical History Medical Problems: (1) Asthma Status: Chronic (2) Bronchitis Status: Resolved (3) CVA Status: Chronic (4) Diabetes mellitus type 2 Status: Chronic (5) Emphysema Status: Chronic (6) Heart disease Status: Chronic (7) Hyperlipidemia Status: Chronic (8) Hypertensive disorder, systemic arterial Status: Chronic (9) Kidney stones Status: Chronic (10) Peripheral vascular disease Status: Chronic (11) Pneumonia Status: Resolved (12) Vascular dementia Status: Chronic Family History Diabetes mellitus FH: cancer FH: heart disease FHx: gallbladder disease Hypertension Social History Smoking Status: Never Smoker Smokeless Tobacco Use: No Alcohol Use: none Drug Use: none Marital Status: Housing status: lives alone Occupational Status: retired Immunizations History of Influenza Vaccine: N/A Influenza Vaccine Date: Apr 15, 2012 History of Tetanus Vaccine?: Yes Tetanus Immunization Date: Mar 31, 2009 History of Pneumococcal: Yes Pneumococcal Date: Jan 14, 2012 History of Hepatitis B Vaccine: No Multi-Drug Resistant Organisms History of MDRO: No Allergies Coded Allergies: Atorvastatin (Verified Allergy, Mild, UNSURE, 03/14/17) Ezetimibe (Verified Allergy, Mild, UNSURE, 03/14/17) Alendronate (Verified Allergy, Unknown, UNKN, 03/14/17) Benazepril (Verified Allergy, Unknown, UNSURE, 03/14/17) Clonidine (Verified Allergy, Unknown, UNSURE, 03/14/17) Ibandronic Acid (Verified Allergy, Unknown, UNKN, 03/14/17) Simvastatin (Verified Allergy, Unknown, OK TO TRY CRESTOR PER [id number], ) Home Medications Scheduled Calcium Carbonate (Calcium 600), 1 TAB PO TID Cholecalciferol (Vitamin D3), 2,000 CAP PO WK Clopidogrel (Plavix), 75 MG PO QAM Cyanocobalamin (Vitamin B-12), 1,000 MCG PO BID Diltiazem HCl Coated Beads (Diltiazem HCl ER), 240 MG PO QAM Fluticasone Furoate-Vilanterol (Breo Ellipta 200-25 Mcg/INH), 1 PUFF INH QAM Fluticasone Propionate (Nasal) (Flonase Allergy Relief), 2 SPRAYS [place] DAILY Gabapentin (Neurontin), 400 MG PO BID Hctz/Losartan (Hyzaar 12.5MG/50MG), 1 TAB PO QAM Levofloxacin (Levofloxacin), 500 MG PO DAILY@11 Magnesium Oxide (Mag-Ox), 400 MG PO DAILY Montelukast Sodium (Singulair), 10 MG PO QAM Nitroglycerin (Nitrostat), 0.4 MG SL PRN/UD Omeprazole (Prilosec), 20 MG PO BID Phenytoin Sodium (Dilantin), 100 MG PO TID Potassium Chloride (Potassium Chloride Er), 20 MEQ PO QAM Prednisone (Prednisone), 10 MG PO DAILY Scheduled PRN Acetaminophen Tab (Tylenol), 650 MG PO Q6 PRN for Pain or Fever Albuterol Hfa (Ventolin Hfa), 2-4 PUFFS INH Q6H PRN for Shortness of Breath Albuterol Sulf (Proventil 0.083% 2.5MG/3ML), 2.5 MG INH [id number] PRN for SOB/ Wheezing Review of Systems A 10 point review of systems was negative unless stated above. Physical Exam Vital Signs Date Time Temp Pulse Resp B/P (MAP) Pulse Ox O2 Delivery O2 Flow Rate FiO2 03/14/17 22:15 65 16 140/66 96 Nasal Cannula 2.0 03/14/17 21:35 74 03/14/17 21:13 74 18 111/72 97 Nasal Cannula 2.0 03/14/17 20:00 76 16 108/52 96 Room Air 03/14/17 19:00 66 16 130/58 96 Nasal Cannula 2.0 03/14/17 18:21 80 14 143/83 95 Room Air 03/14/17 16:50 79 03/14/17 16:49 94 Room Air 03/14/17 16:49 36.8 90 18 147/67 95 Room Air General Appearance: WD/WN, no apparent distress Head: normocephalic, atraumatic Eyes: normal inspection, EOMI ENT: hearing grossly normal, pharynx normal Neck: + pertinent finding (left paraspinal cervical spine tenderness with reduce left sided ROM) Respiratory/Chest: lungs clear, no respiratory distress Cardiovascular: regular rate, rhythm, no gallop, no murmur Abdomen/GI: normal bowel sounds, non tender, soft Back: no CVA tenderness, no muscle spasm Extremities/Musculoskelatal: no calf tenderness, no pedal edema Neurologic/Psych: alert, normal mood/affect, oriented x 3 Skin: normal color, warm/dry, no rash Lymphatic: no adenopathy Diagnostics Laboratory Results Results Past 24 Hours Test 03/14/17 17:05 03/14/17 17:35 03/14/17 18:23 Range/Units Bedside Glucose 125 70-90 mg/dl Urine Color YELLOW Urine Appearance CLEAR CLEAR Urine pH 8.0 4.5-7.5 Urine Specific [place] 1.012 1.000-1.030 Urine Protein NEG NEG Urine Glucose (UA) NEG NEG Urine Ketones NEG NEG Urine Occult Blood TRACE NEG Urine Nitrite NEG NEG Urine Bilirubin NEG NEG Urine Urobilinogen NEG NEG Urine Leukocyte Esterase MODERATE NEG Urine WBC (Auto) >30 0-5 /hpf Urine RBC (Auto) 0-4 0-4 /hpf Urine Hyaline Casts (Auto) 1-5 0-5 /lpf Urine Epithelial Cells (Auto) 20-30 0-5 /lpf Urine Bacteria (Auto) 4+ NEG White Blood Count 15.83 4.8-10.8 K/uL Red Blood Count 4.50 4.2-5.4 M/uL Hemoglobin 12.2 12.0-16.0 g/dL Hematocrit 36.6 37-47 % Mean Corpuscular Volume 81.3 80-100 fL Mean Corpuscular Hemoglobin 27.1 25-34 pg Mean Corpuscular Hemoglobin Concent 33.3 32-36 g/dl Platelet Count 417 130-400 K/uL Mean Platelet Volume 9.0 7.4-10.4 fL Neutrophils (%) (Auto) 63.7 % Lymphocytes (%) (Auto) 21.7 % Monocytes (%) (Auto) 13.1 % Eosinophils (%) (Auto) 0.7 % Basophils (%) (Auto) 0.3 % Neutrophils # (Auto) 10.10 1.4-6.5 K/uL Lymphocytes # (Auto) 3.43 1.2-3.4 K/uL Monocytes # (Auto) 2.07 0.11-0.59 K/uL Eosinophils # (Auto) 0.11 0-0.5 K/uL Basophils # (Auto) 0.04 0-0.2 K/uL RDW Standard Deviation 42.0 36.4-46.3 fL RDW Coefficient of Variation 14.1 11.5-14.5 % Immature Granulocyte % (Auto) 0.5 % Immature Granulocyte # (Auto) 0.08 0.00-0.02 K/uL Prothrombin Time 10.6 9.0-12.0 SECONDS Prothromb Time International Ratio 1.0 0.9-1.1 Activated Partial Thromboplast Time 24.8 21.0-31.0 SECONDS Partial Thromboplastin Ratio 1.0 Sodium Level 139 136-145 mmol/L Potassium Level 3.9 3.5-5.1 mmol/L Chloride Level 104 98-107 mmol/L Carbon Dioxide Level 27 21-32 mmol/L Anion Gap 8.0 3-11 mmol/L Blood Urea Nitrogen 10 7-18 mg/dl Creatinine 0.60 0.60-1.20 mg/dl Est Creatinine Clear Calc Drug Dose 66.4 ml/min Estimated GFR () 97.0 Estimated GFR (Non- 83.7 BUN/Creatinine Ratio 16.6 10-20 Random Glucose 130 70-99 mg/dl Calcium Level 8.9 8.5-10.1 mg/dl Phosphorus Level 3.0 2.5-4.9 mg/dl Magnesium Level 1.9 1.8-2.4 mg/dl Total Bilirubin 0.3 0.2-1 mg/dl Direct Bilirubin < 0.1 0-0.2 mg/dl Aspartate Amino Transf (AST/SGOT) 12 15-37 U/L Alanine Aminotransferase (ALT/SGPT) 19 12-78 U/L Alkaline Phosphatase 150 45-117 U/L Total Creatine Kinase 65 26-192 U/L Creatine Kinase MB 1.1 0.5-3.6 ng/ml Creatine Kinase MB Ratio 1.7 0-3.0 Troponin I < 0.015 0-0.045 ng/ml Total Protein 6.4 6.4-8.2 gm/dl Albumin 2.9 3.4-5.0 gm/dl Thyroid Stimulating Hormone (TSH) 0.531 0.300-4.500 uIu/ml Phenytoin (Dilantin) Level 16.3 10-20 mcg/mL Microbiology Results 03/14/17 Urine Culture, Received Pending Diagnostic Radiology [~ rep ct add3]] HEAD CT NONCONTRAST CT DOSE: 922.74 mGy.cm HISTORY: EVALUATE ALTERED MENTAL STATUS/WEAKNESS TECHNIQUE: Multiaxial CT images of the head were performed without the use of intravenous contrast. Automated exposure control was utilized for this study. A dose lowering technique was utilized adhering to the principles of ALARA. Comparison: Head CT 02/02/2017. Findings: The paranasal sinuses and mastoid air cells are clear. The calvarium and skull base are intact. There is no mass, hematoma, midline shift, acute infarct. White matter hypodensity is nonspecific but suggestive of microvascular ischemic change. The ventricles and sulci demonstrate mild age-related involutional changes. Old bilateral basal ganglia lacunar infarcts are again noted. Impression: No significant change compared to the prior study. No acute intracranial abnormality. [~ rep ct add3]] CERVICAL SPINE CT CT DOSE: HISTORY: Left-sided neck pain. TECHNIQUE: Multiaxial CT images of the cervical spine were performed and reformatted in the sagittal and coronal plane without the use of contrast. A dose lowering technique was utilized adhering to the principles of ALARA. COMPARISON: Cervical spine CT 10/24/2015. FINDINGS: No fractures. No subluxation. Prevertebral soft tissues and the C1-C2 interval are intact. No pneumothorax. The C2-C3 facets remain fused. IMPRESSION: No fractures within the cervical spine. Electronically signed by: Gregorio Jason M.D. 03/14/2017 6:01 PM CHEST ONE VIEW PORTABLE HISTORY: EVALUATE ALTERED MENTAL STATUS/WEAKNESS COMPARISON: Chest 01/31/2017. FINDINGS: The right lung remains clear. The heart is normal in size. No pleural effusions. No pneumothorax. Linear density at the left lung base persist. IMPRESSION: No change in the left basilar linear densities. This favors atelectasis. However, a pneumonia could also have a similar appearance. EKG Poor data quality, interpretation may be adversely affected Normal sinus rhythm Normal ECG When compared with ECG of 31-JAN-2017 23:21, Premature atrial complexes are no longer Present Confirmed by HERON SHRESTHA ([id number]) on 03/14/2017 5:17:32 PM Impression Assessment and Plan 86 year old female with generalized weakness and history of urinary frequency. It is unlikely that this is a CVA-related phenomena in my opinion so we will not pursue additional work-up at this time. Our plan for her is as follows Urinary Tract Infection - Urine culture pending Has previously grown pensensitive E. coli on cultures - Start Rocephin IV daily - Will begin hydrating the patient with NSS at 100 ml/hr Left Cervical Neck Sprain - CT negative for acute fracture of c-spine - Heat and cold packs - Tylenol PRN Weakness - Likely related to UTI; will treat as above - OT and PT evaluations ordered COPD - No acute hypoxia - Continue Breo - Continue Montelukast - Continue Prednisone tabs - Continue Ventolin inhaler and nebs PRN for SOB/Wheezing Type 2 Diabetes Mellitus - Insulin SSI - AC/HS Seizure Disorder Otherwise unspecified - Continue Dilantin History of TIA - Continue Clopidogrel DVT Prophylaxis - SCD - Lovenox Code Status - DNR - Son is patient's substitute decision-maker Disposition - Med/Surg - OT/PT orders placed Resident Physician Supervision Note: I was present with Dr. Remy during the history and exam. I discussed the case with the resident and agree with the findings and plan as documented in the note. Any exceptions or clarifications are listed here: 86 y/o F Hx TIA, DM2, seizures - presenting with gen weakness and neck/back pain - weakness is generalized although she stated to the ER MD that she may have been weaker on the L AM There is no clear description of CVA-like symptoms OE AAO x 2.5 S1,2 R CTAB NT, ND No CCE P: Pt will be provided with IVF - treated with antbiotics for a UTI and will assess for DC AM with PT/OT Above discussed with pt and resident Documented By: Sudarshan Fitzpatrick Level of Care Med/Surg VTE Prophylaxis VTE Risk Assessment Done? Y/N: Yes Risk Level: Moderate Given or contraindicated: Enoxaparin (Lovenox)SQ
[2017-03-14] MEDS ORDERED: GLUCAGON FOR INJ 1 MG VIAL SQ PRN (23:15)
[2017-03-14] MEDS ORDERED: DEXTROSE 50% 50 ML SYR IV PRN (23:15)
[2017-03-14] MEDS ORDERED: GLUCOSE 10 TABS/TUBE PO PRN (23:15)
[2017-03-14] MEDS ORDERED: GLUCOSE 40% GEL 15 GM TUBE PO PRN (23:15)
[2017-03-14 23:45] VITALS: BP 180/73; PULSE 89; TEMP 36.9; O2SAT 98; Ht 160 cm; Wt 72.1 kg
[2017-03-14] MEDS: SODIUM CHLORIDE 0.9% 1000ML 1,000 ML IV SCH (23:48)
[2017-03-15] VITALS (9 sets, daily range): BP systolic 117–135; BP diastolic 57–71; PULSE 70–87; TEMP 36.4–37; O2SAT 94–98
[2017-03-15] MEDS: ACETAMINOPHEN 325 MG TAB PO PRN ×2 (03:11→13:00)
[2017-03-15] MEDS ORDERED: IV FLUIDS COMPLETED PRN (04:15)
[2017-03-15 06:29] LABS: HEMATOCRIT 35.5 % (37-47); MEAN CELL VOLUME 83.1 fL (80-100); MEAN CORPUSCULAR HEMOGLOBIN 26.2 pg (25-34); MEAN CORPUSCULAR HGB CONC 31.5 g/dl (32-36); MEAN PLATELET VOLUME 8.7 fL (7.4-10.4); PLATELET COUNT 359 K/uL (130-400); RED BLOOD COUNT 4.27 M/uL (4.2-5.4); WHITE BLOOD COUNT 11.23 K/uL (4.8-10.8)
[2017-03-15 07:06] LABS: BUN/CREATININE RATIO 18.5 (10-20); CALCIUM 8.2 mg/dl (8.5-10.1); CREATININE 0.71 mg/dl (0.60-1.20); POTASSIUM 3.8 mmol/L (3.5-5.1)
[2017-03-15] MEDS: PHENYTOIN SODIUM ER 100 MG CAP PO SCH ×3 (09:02→21:18)
[2017-03-15] MEDS: MAGNESIUM OXIDE 400 MG TAB PO SCH (09:02)
[2017-03-15] MEDS: CYANOCOBALAMIN 500 MCG TAB (VIT B-12) PO SCH ×2 (09:02→21:18)
[2017-03-15] MEDS: CLOPIDOGREL BISULFATE 75 MG TAB PO SCH (09:03)
[2017-03-15] MEDS: POTASSIUM CHLORIDE 20 MEQ TABCR PO SCH (09:03)
[2017-03-15] MEDS: GABAPENTIN 400 MG CAP PO SCH ×2 (09:03→21:17)
[2017-03-15] MEDS: CALCIUM 600MG + VIT D 400 IU TAB PO SCH ×3 (09:04→21:17)
[2017-03-15] MEDS: DILTIAZEM HCL 240 MG CAPCR PO SCH (09:04)
[2017-03-15] MEDS: LOSARTAN/HCTZ 50-12.5 EA TAB PO SCH (09:04)
[2017-03-15] MEDS: PANTOprazole SOD 40 MG TAB PO SCH ×2 (09:04→21:17)
[2017-03-15] MEDS: ENOXAPARIN 40 MG/0.4 ML SYR SQ SCH (09:05)
[2017-03-15] MEDS: FLUTICASONE PROPIONATE NA SPR 16 GM BTL NAE SCH (09:05)
[2017-03-15] MEDS: INSULIN ASPART 100 UNITS/ML 3 ML PEN SC SCH ×4 (09:07→21:00)
[2017-03-15] MEDS: SODIUM CHLORIDE 0.9% 1000ML 1,000 ML IV SCH (09:16)
--- NOTE | 2017-03-15 10:30 | Progress Note ---
Subjective Date of Service: Mar 15, 2017. Subjective Pt evaluation today including: conversation w/ patient, physical exam, chart review, lab review, review of inpatient medication list neck feeling better urinary sx feeling better still fairly weak, notes taht family not home today awaiting PT/OT assessments as well notes no sob, doesn't normally wear O2 Problem List Medical Problems: (1) Abdominal pain Status: Acute (2) Chest wall pain Status: Acute (3) Elevated WBC count Status: Acute (4) Fecal retention Status: Acute (5) Headache Status: Acute (6) Hemoptysis Status: Acute (7) Hypertension Status: Acute (8) Hypomagnesemia Status: Acute (9) Intracranial hemorrhage Status: Acute (10) Neck pain Status: Acute (11) Neck pain Status: Acute (12) Neck pain Status: Acute (13) Right upper quadrant abdominal pain Status: Acute (14) Seizure Status: Acute (15) TIA (transient ischemic attack) Status: Acute (16) UTI (urinary tract infection) Status: Acute (17) UTI (urinary tract infection) Status: Acute (18) UTI (urinary tract infection) Status: Acute (19) Weakness Status: Acute (20) Weakness Status: Acute Review of Systems all other ROS otherwise negative except for as above Objective Vital Signs Date Time Temp Pulse Resp B/P (MAP) Pulse Ox O2 Delivery O2 Flow Rate FiO2 03/15/17 09:20 76 121/67 (85) 03/15/17 08:01 36.8 70 18 117/66 (83) 98 Nasal Cannula 2.0 03/15/17 04:32 36.8 71 18 133/67 (89) 96 2.0 03/14/17 23:45 36.9 89 20 180/73 98 Nasal Cannula 2.0 03/14/17 22:15 65 16 140/66 96 Nasal Cannula 2.0 03/14/17 21:35 74 03/14/17 21:13 74 18 111/72 97 Nasal Cannula 2.0 03/14/17 20:00 76 16 108/52 96 Room Air 03/14/17 19:00 66 16 130/58 96 Nasal Cannula 2.0 03/14/17 18:21 80 14 143/83 95 Room Air 03/14/17 16:50 79 03/14/17 16:49 94 Room Air 03/14/17 16:49 36.8 90 18 147/67 95 Room Air Physical Exam General Appearance: no apparent distress Eyes: EOMI ENT: hearing grossly normal Neck: trachea midline Respiratory/Chest: no respiratory distress, no accessory muscle use Extremities: normal range of motion Neurologic/Psychiatric: automatic blocker II-XII nml as tested, alert, normal mood/affect Skin: normal color, warm/dry Laboratory Results Last 24 Hours Test 03/14/17 17:05 03/14/17 17:35 03/14/17 18:23 03/15/17 06:04 Bedside Glucose 125 mg/dl Urine Color YELLOW Urine Appearance CLEAR Urine pH 8.0 Urine Specific [place] 1.012 Urine Protein NEG Urine Glucose (UA) NEG Urine Ketones NEG Urine Occult Blood TRACE Urine Nitrite NEG Urine Bilirubin NEG Urine Urobilinogen NEG Urine Leukocyte Esterase MODERATE Urine WBC (Auto) >30 /hpf Urine RBC (Auto) 0-4 /hpf Urine Hyaline Casts (Auto) 1-5 /lpf Urine Epithelial Cells (Auto) 20-30 /lpf Urine Bacteria (Auto) 4+ White Blood Count 15.83 K/uL 11.23 K/uL Red Blood Count 4.50 M/uL 4.27 M/uL Hemoglobin 12.2 g/dL 11.2 g/dL Hematocrit 36.6 % 35.5 % Mean Corpuscular Volume 81.3 fL 83.1 fL Mean Corpuscular Hemoglobin 27.1 pg 26.2 pg Mean Corpuscular Hemoglobin Concent 33.3 g/dl 31.5 g/dl Platelet Count 417 K/uL 359 K/uL Mean Platelet Volume 9.0 fL 8.7 fL Neutrophils (%) (Auto) 63.7 % Lymphocytes (%) (Auto) 21.7 % Monocytes (%) (Auto) 13.1 % Eosinophils (%) (Auto) 0.7 % Basophils (%) (Auto) 0.3 % Neutrophils # (Auto) 10.10 K/uL Lymphocytes # (Auto) 3.43 K/uL Monocytes # (Auto) 2.07 K/uL Eosinophils # (Auto) 0.11 K/uL Basophils # (Auto) 0.04 K/uL RDW Standard Deviation 42.0 fL 43.3 fL RDW Coefficient of Variation 14.1 % 14.2 % Immature Granulocyte % (Auto) 0.5 % Immature Granulocyte # (Auto) 0.08 K/uL Prothrombin Time 10.6 SECONDS Prothromb Time International Ratio 1.0 Activated Partial Thromboplast Time 24.8 SECONDS Partial Thromboplastin Ratio 1.0 Sodium Level 139 mmol/L 141 mmol/L Potassium Level 3.9 mmol/L 3.8 mmol/L Chloride Level 104 mmol/L 106 mmol/L Carbon Dioxide Level 27 mmol/L 28 mmol/L Anion Gap 8.0 mmol/L 7.0 mmol/L Blood Urea Nitrogen 10 mg/dl 13 mg/dl Creatinine 0.60 mg/dl 0.71 mg/dl Est Creatinine Clear Calc Drug Dose 66.4 ml/min 56.1 ml/min Estimated GFR () 97.0 90.7 Estimated GFR (Non- 83.7 78.2 BUN/Creatinine Ratio 16.6 18.5 Random Glucose 130 mg/dl 132 mg/dl Calcium Level 8.9 mg/dl 8.2 mg/dl Phosphorus Level 3.0 mg/dl Magnesium Level 1.9 mg/dl Total Bilirubin 0.3 mg/dl Direct Bilirubin < 0.1 mg/dl Aspartate Amino Transf (AST/SGOT) 12 U/L Alanine Aminotransferase (ALT/SGPT) 19 U/L Alkaline Phosphatase 150 U/L Total Creatine Kinase 65 U/L Creatine Kinase MB 1.1 ng/ml Creatine Kinase MB Ratio 1.7 Troponin I < 0.015 ng/ml Total Protein 6.4 gm/dl Albumin 2.9 gm/dl Thyroid Stimulating Hormone (TSH) 0.531 uIu/ml Phenytoin (Dilantin) Level 16.3 mcg/mL Test 03/15/17 07:48 Bedside Glucose 104 mg/dl Assessment and Plan Urinary Tract Infection - culture growing gram negative rods - continue ceftriaxone pending final ID&S Left Cervical Neck Sprain - improved - no specific treatment further - given reassuring bone/disc w/u if recurs would eval for benefit of OMT Weakness - UTI related, ?other - encourage activity as tolerated, PT/OT evals pending - lives at home alone but sounds like she has supportive family COPD - doesn't wear home O2, no sx today - if can't wean O2 then may need to eval/manage for mild exacerbation as cause of weakness, but seems unlikely - Continue Breo - Continue Montelukast - Continue Prednisone tabs as per home regimen - Continue Ventolin inhaler and nebs PRN for SOB/Wheezing Type 2 Diabetes Mellitus - Insulin SSI - AC/HS - sugars thus far reasoanble Seizure Disorder Otherwise unspecified - Continue Dilantin History of TIA - Continue Clopidogrel DVT Prophylaxis - SCD - Lovenox Code Status - DNR - Son is patient's substitute decision-maker Disposition - pending further progress and input from PT/OT, hopefully home
[2017-03-15] MEDS ORDERED: CEFTRIAXONE SOD INJ 1 GM in DEXTROSE 5% ADD-VANTAGE 50ML 50 ML IV SCH (18:00)
[2017-03-15] MEDS ORDERED: MONTELUKAST SOD 10 MG TAB PO SCH (21:00)
[2017-03-16 06:39] LABS: HEMATOCRIT 33.4 % (37-47); MEAN CELL VOLUME 82.3 fL (80-100); MEAN CORPUSCULAR HEMOGLOBIN 26.4 pg (25-34); PLATELET COUNT 314 K/uL (130-400); RED BLOOD COUNT 4.06 M/uL (4.2-5.4); WHITE BLOOD COUNT 9.18 K/uL (4.8-10.8)
[2017-03-16 07:14] LABS: BUN/CREATININE RATIO 16.9 (10-20); CALCIUM 8.9 mg/dl (8.5-10.1); CREATININE 0.64 mg/dl (0.60-1.20); POTASSIUM 3.7 mmol/L (3.5-5.1)
[2017-03-16 07:30] VITALS: BP 129/65; PULSE 69; TEMP 36.5; O2SAT 93
[2017-03-16] MEDS: GABAPENTIN 400 MG CAP PO SCH (08:33)
[2017-03-16] MEDS: PANTOprazole SOD 40 MG TAB PO SCH (08:33)
[2017-03-16] MEDS: PHENYTOIN SODIUM ER 100 MG CAP PO SCH (08:33)
[2017-03-16] MEDS: CYANOCOBALAMIN 500 MCG TAB (VIT B-12) PO SCH (08:33)
[2017-03-16] MEDS: CLOPIDOGREL BISULFATE 75 MG TAB PO SCH (08:33)
[2017-03-16] MEDS: CALCIUM 600MG + VIT D 400 IU TAB PO SCH (08:33)
[2017-03-16] MEDS: MAGNESIUM OXIDE 400 MG TAB PO SCH (08:34)
[2017-03-16] MEDS: DILTIAZEM HCL 240 MG CAPCR PO SCH (08:34)
[2017-03-16] MEDS: POTASSIUM CHLORIDE 20 MEQ TABCR PO SCH (08:34)
[2017-03-16] MEDS: LOSARTAN/HCTZ 50-12.5 EA TAB PO SCH (08:34)
[2017-03-16] MEDS: ENOXAPARIN 40 MG/0.4 ML SYR SQ SCH (08:34)
[2017-03-16] MEDS: FLUTICASONE PROPIONATE NA SPR 16 GM BTL NAE SCH (08:37)
[2017-03-16] MEDS: INSULIN ASPART 100 UNITS/ML 3 ML PEN SC SCH ×2 (08:40→11:00)
[2017-03-16] MEDS: ACETAMINOPHEN 325 MG TAB PO PRN (08:58)
[2017-03-16] MEDS ORDERED: CEPH500C2 PO (09:38)
--- NOTE | 2017-03-16 09:41 | Discharge Instructions ---
Discharge Instructions Date of Service Mar 16, 2017. Admission Reason for Admission: Generalized Weakness, Uti Discharge Discharge Diagnosis / Problem: weakness, urinary tract infection Discharge Goals Goal(s): Diagnostic testing, Therapeutic intervention Activity Recommendations Activity Limitations: resume your previous activity . Instructions / Follow-Up Instructions / Follow-Up your urine culture showed a bacteria called klebsiella. while common for urinary tract infections, it is known for being a bit of a nasty bug - so it's likely that the UTI is a big reason for why you were feeling so weak. fortunately it's sensitive to all antibiotics, so while it can be nasty, it should be easy to treat. we'll finish out a course of treatment with keflex ( cephalexin) for 12 more doses - your next dose should be afternoon today, then again at bedtime tonight. it has been sent electronically to your pharmacy -we'll ask our team to get you set up with Dr Parker or one of the PA's at his office for this coming week as a recheck Current Hospital Diet Patient's current hospital diet: Diabetes Type 2 Diet Discharge Diet Recommended Diet: Diabetes Type 2 Diet Pending Studies Studies pending at discharge: no Laboratory Results Hemoglobin A1c Test 03/03/17 12:44 Range/Units Estimated Average Glucose 154 mg/dl Hemoglobin A1c 7.0 H 4.5-5.6 % Medical Emergencies . Who to Call and When: Medical Emergencies: If at any time you feel your situation is an emergency, please call 911 immediately. . Non-Emergent Contact Non-Emergency issues call your: Primary Care Provider . . "Provider Documentation" section prepared by Justin Inman. . VTE Core Measure Inpt VTE Proph given/why not?: Enoxaparin (Lovenox)SQ
[2017-03-16 10:34] VITALS: BP 129/65; PULSE 69; TEMP 36.5; O2SAT 93
--- NOTE | 2017-03-16 17:12 | Discharge Summary ---
Discharge Summary Date of Service Mar 16, 2017. Discharge Summary Admission Date: Mar 14, 2017 at 22:25 Discharge Date: Mar 16, 2017 Discharge Disposition: Home Principal Diagnosis: UTI, weakness Immunizations: Have You Had Influenza Vaccine: N/A Influenza Vaccine Date: Apr 15, 2012 History of Tetanus Vaccine?: Yes Tetanus Immunization Date: Mar 31, 2009 History of Pneumococcal: Yes Pneumococcal Date: Jan 14, 2012 History of Hepatitis B Vaccine: No Procedures: CERVICAL SPINE CT CT DOSE: HISTORY: Left-sided neck pain. TECHNIQUE: Multiaxial CT images of the cervical spine were performed and reformatted in the sagittal and coronal plane without the use of contrast. A dose lowering technique was utilized adhering to the principles of ALARA. COMPARISON: Cervical spine CT 10/24/2015. FINDINGS: No fractures. No subluxation. Prevertebral soft tissues and the C1-C2 interval are intact. No pneumothorax. The C2-C3 facets remain fused. IMPRESSION: No fractures within the cervical spine. Electronically signed by: Gregorio Jason M.D. 03/14/2017 6:01 PM Dictated Date/Time: 03/14/2017 5:57 PM CHEST ONE VIEW PORTABLE HISTORY: EVALUATE ALTERED MENTAL STATUS/WEAKNESS COMPARISON: Chest 01/31/2017. FINDINGS: The right lung remains clear. The heart is normal in size. No pleural effusions. No pneumothorax. Linear density at the left lung base persist. IMPRESSION: No change in the left basilar linear densities. This favors atelectasis. However, a pneumonia could also have a similar appearance. Electronically signed by: Gregorio Jason M.D. 03/14/2017 5:39 PM Dictated Date/Time: 03/14/2017 5:[address] NONCONTRAST CT DOSE: 922.74 mGy.cm HISTORY: EVALUATE ALTERED MENTAL STATUS/WEAKNESS TECHNIQUE: Multiaxial CT images of the head were performed without the use of intravenous contrast. Automated exposure control was utilized for this study. A dose lowering technique was utilized adhering to the principles of ALARA. Comparison: Head CT 02/02/2017. Findings: The paranasal sinuses and mastoid air cells are clear. The calvarium and skull base are intact. There is no mass, hematoma, midline shift, acute infarct. White matter hypodensity is nonspecific but suggestive of microvascular ischemic change. The ventricles and sulci demonstrate mild age-related involutional changes. Old bilateral basal ganglia lacunar infarcts are again noted. Impression: No significant change compared to the prior study. No acute intracranial abnormality. Electronically signed by: Gregorio Jason M.D. 03/14/2017 5:48 PM Last Resulted CBC 03/16/17 06:07 Last Resulted BMP 03/16/17 06:07 Medication Reconciliation New Medications: Cephalexin Monohydrate (Keflex) 500 Mg Cap 500 MG PO TID, #12 CAP Continued Medications: Acetaminophen Tab (Tylenol) 325 Mg Tab 650 MG PO Q6 PRN for Pain or Fever, TAB Albuterol Hfa (Ventolin Hfa) 200 Puffs/39574 Mcg Aers 2-4 PUFFS INH Q6H PRN for Shortness of Breath, #1 INHALER Albuterol Sulf (Proventil 0.083% 2.5MG/3ML) 2.5 Mg/3 Ml Nebu 2.5 MG INH [id number] PRN for SOB/Wheezing, EA Calcium Carbonate (Calcium 600) 600 Mg Tab 1 TAB PO TID Cholecalciferol (Vitamin D3) 2,000 Unit Cap 2000 CAP PO WK, CAP EVERY FRIDAY Clopidogrel (Plavix) 75 Mg Tab 75 MG PO QAM Cyanocobalamin (Vitamin B-12) 1,000 Mcg Tab 1000 MCG PO BID Diltiazem HCl Coated Beads (Diltiazem HCl ER) 240 Mg Tab 240 MG PO QAM Fluticasone Furoate-Vilanterol (Breo Ellipta 200-25 Mcg/INH) 1 Inh Inh 1 PUFF INH QAM Fluticasone Propionate (Nasal) (Flonase Allergy Relief) 50 Mcg/Act Spr 2 SPRAYS [place] DAILY Gabapentin (Neurontin) 400 Mg Cap 400 MG PO BID, CAP Hctz/Losartan (Hyzaar 12.5MG/50MG) Tab 1 TAB PO QAM, TAB Magnesium Oxide (Mag-Ox) 400 Mg Tab 400 MG PO DAILY, TAB Montelukast Sodium (Singulair) 10 Mg Tab 10 MG PO QAM Nitroglycerin (Nitrostat) 0.4 Mg Tab 0.4 MG SL PRN/UD, #100 TAB 3 Refills NEEDED FOR CHEST PAIN : ONE TABLET UNDER THE TONGUE EVERY 5 MINUTES UP TO 3 DOSES. 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 she declines any further evaluation/PT/OT as she would decline SNF/rehab - home w family support COPD - Continue Breo - Continue Montelukast - Continue Prednisone tabs as per home regimen - Continue Ventolin inhaler and nebs PRN for SOB/Wheezing Type 2 Diabetes Mellitus - home regimen Seizure Disorder Otherwise unspecified - Continue Dilantin History of TIA - Continue Clopidogrel DVT Prophylaxis - SCD - Lovenox Code Status - DNR - Son is patient's substitute decision-maker Disposition - stable for home Total Time Spent: Less than 30 minutes This includes examination of the patient, discharge planning, medication reconciliation, and communication with other providers. Discharge Instructions Please refer to the electronic Patient Visit Report (Discharge Instructions) for additional information. Follow-Up PCP later this week Additional Copies To Scar Parker M.D.
[2017-03-17] MEDS ORDERED: CHOLECALCIFEROL 1000 INTER.UNIT TAB PO SCH (09:00)
== END 2017-03-16 11:15 | disposition home or self-care (01) ==
LOC: EDBD 16:40 → C.EDA 16:41 → C.MED 22:25 → ENRESERV 22:32
PROVIDERS: ADMIT Student in an Organized Health Care Education/Training Program; ATTEND Family Medicine
DX: N39.0 Urinary tract infection, site not specified (principal); R53.1 Weakness; M54.2 Cervicalgia; Z86.73 Personal history of transient ischemic attack (TIA), and cerebral infarction without residual deficits; J44.9 Chronic obstructive pulmonary disease, unspecified; E11.9 Type 2 diabetes mellitus without complications; R56.9 Unspecified convulsions; F01.50 Vascular dementia, unspecified severity, without behavioral disturbance, psychotic disturbance, mood disturbance, and anxiety; E78.5 Hyperlipidemia, unspecified; I10 Essential (primary) hypertension; Z87.442 Personal history of urinary calculi; Z87.01 Personal history of pneumonia (recurrent); Z83.3 Family history of diabetes mellitus; Z82.49 Family history of ischemic heart disease and other diseases of the circulatory system; Z79.02 Long term (current) use of antithrombotics/antiplatelets; Z79.52 Long term (current) use of systemic steroids; S13.9XXA Sprain of joints and ligaments of unspecified parts of neck, initial encounter; X58.XXXA Exposure to other specified factors, initial encounter; Z66 Do not resuscitate

== ENCOUNTER 2017-03-25 21:51 | Emergency (ER) | payer OTHER, MEDICARE ==
[~2017-03-25] VITALS: Ht 160 cm; Wt 73.1 kg
[~2017-03-25 21:51] MED LIST changes: +CALC600T PO; -CALCTAB65 PO; +CEPH500C2 PO; -LVQ500 PO
[2017-03-25 21:55] VITALS: TEMP 36.9; Ht 160 cm; Wt 73.1 kg
[2017-03-25] MEDS ORDERED: ONDANSETRON INJ 2 MG/ML 2 ML VIAL IV STA (22:02)
[2017-03-25] MEDS ORDERED: MoRPHine SULFATE 4 MG/ML 1 ML CARP\\VIAL IV STA (22:02)
[2017-03-25 22:09] LABS: BASO % 0.2 %; BASO ABS # 0.03 K/uL (0-0.2); COMPLETE YES; EOS % 2.7 %; HEMATOCRIT 36.2 % (37-47); IG% 0.7 %; LYMPH % 34.3 %; LYMPH ABS # 4.52 K/uL (1.2-3.4); MEAN CELL VOLUME 83.6 fL (80-100); MEAN CORPUSCULAR HGB CONC 32.3 g/dl (32-36); MEAN PLATELET VOLUME 8.8 fL (7.4-10.4); MONO % 11.3 %; NEUT % 50.8 %; PLATELET COUNT 440 K/uL (130-400); RED BLOOD COUNT 4.33 M/uL (4.2-5.4); WHITE BLOOD COUNT 13.18 K/uL (4.8-10.8)
[2017-03-25 22:11] VITALS: O2SAT 94
[2017-03-25 22:16] LABS: BUN/CREATININE RATIO 19.5 (10-20); CALCIUM 9.1 mg/dl (8.5-10.1); CREATININE 0.75 mg/dl (0.60-1.20); POTASSIUM 3.9 mmol/L (3.5-5.1)
[2017-03-25 22:20] LABS: INR 0.9 (0.9-1.1); PARTIAL THROMBOPLASTIN RATIO 0.9
[2017-03-26] MEDS ORDERED: OPTIRAY 320 IV PRN (00:30)
[2017-03-26 01:30] VITALS: BP 124/63
--- NOTE | 2017-03-26 01:40 | EMERGENCY ROOM VISIT NOTE ---
History Report prepared by Kathrine: Cheng Hussein Under the Supervision of: Dr. Raji Zambrano M.D. First contact with patient: 21:55 Stated Complaint: AB PAIN History of Present Illness The patient is a 86 year old female who presents to the Emergency Room with complaints of sharp left sided chest pain that began this morning, 12 hours ago. She rates her pain an 8/10 in severity. At this time, she saw her PCP for a faint pain in the same area. She was told that if it got any worse, she should call for an ambulance. Her pain was faint most of the day, but recently worsened. She is short of breath secondary to the pain. She has a nonproductive cough as well. She denies any fevers, back pain, swelling in her legs, or pain in her legs. She has never had a pulmonary embolism. She does have a cardiac history. Source of History: patient Onset: 12 hours ago Position: chest (left) Symptom Intensity: 8/10 Quality: sharp Timing: worsening Associated Symptoms: + cough, + SOB, No fevers, No back pain Note: She denies any swelling in her legs or pain in her legs. Review of Systems See HPI for pertinent positives & negatives. A total of 10 systems reviewed and were otherwise negative. Past Medical & Surgical Medical Problems: (1) Asthma (2) Bronchitis (3) CVA (4) Diabetes mellitus type 2 (5) Emphysema (6) Generalized weakness (7) Heart disease (8) Hyperlipidemia (9) Hypertensive disorder, systemic arterial (10) ICH (intracerebral hemorrhage) (11) Kidney stones (12) Peripheral vascular disease (13) Pneumonia (14) Right sided weakness (15) Vascular dementia Family History Diabetes mellitus FH: cancer FH: heart disease FHx: gallbladder disease Hypertension Social History Smoking Status: Never Smoker Alcohol Use: none Drug Use: none Marital Status: Housing Status: lives alone Occupation Status: retired Current/Historical Medications Scheduled Calcium Carbonate (Calcium 600), 1 TAB PO TID Cephalexin Monohydrate (Keflex), 500 MG PO TID Cholecalciferol (Vitamin D3), 2,000 CAP PO WK Clopidogrel (Plavix), 75 MG PO QAM Cyanocobalamin (Vitamin B-12), 1,000 MCG PO BID Diltiazem HCl Coated Beads (Diltiazem HCl ER), 240 MG PO QAM Fluticasone Furoate-Vilanterol (Breo Ellipta 200-25 Mcg/INH), 1 PUFF INH QAM Fluticasone Propionate (Nasal) (Flonase Allergy Relief), 2 SPRAYS [place] DAILY Gabapentin (Neurontin), 400 MG PO BID Hctz/Losartan (Hyzaar 12.5MG/50MG), 1 TAB PO QAM Magnesium Oxide (Mag-Ox), 400 MG PO DAILY Montelukast Sodium (Singulair), 10 MG PO QAM Nitroglycerin (Nitrostat), 0.4 MG SL PRN/UD Omeprazole (Prilosec), 20 MG PO BID Phenytoin Sodium (Dilantin), 100 MG PO TID Potassium Chloride (Potassium Chloride Er), 20 MEQ PO QAM Prednisone (Prednisone), 10 MG PO DAILY Scheduled PRN Acetaminophen Tab (Tylenol), 650 MG PO Q6 PRN for Pain or Fever Albuterol Hfa (Ventolin Hfa), 2-4 PUFFS INH Q6H PRN for Shortness of Breath Albuterol Sulf (Proventil 0.083% 2.5MG/3ML), 2.5 MG INH [id number] PRN for SOB/ Wheezing Allergies Coded Allergies: Atorvastatin (Verified Allergy, Mild, UNSURE, 03/25/17) Ezetimibe (Verified Allergy, Mild, UNSURE, 03/25/17) Alendronate (Verified Allergy, Unknown, UNKN, 03/25/17) Benazepril (Verified Allergy, Unknown, UNSURE, 03/25/17) Clonidine (Verified Allergy, Unknown, UNSURE, 03/25/17) Ibandronic Acid (Verified Allergy, Unknown, UNKN, 03/25/17) Simvastatin (Verified Allergy, Unknown, OK TO TRY CRESTOR PER [id number], ) Physical Exam Vital Signs Date Time Temp Pulse Resp B/P (MAP) Pulse Ox O2 Delivery O2 Flow Rate FiO2 03/26/17 00:37 81 18 130/59 92 Room Air 03/25/17 22:41 72 18 134/66 94 Room Air 03/25/17 22:11 94 Room Air 03/25/17 22:03 87 03/25/17 21:55 36.9 97 18 158/83 95 Room Air Physical Exam Constitutional: Vital signs reviewed. Eyes: Pupils are equal round reactive to light. Conjunctiva are noninjected. ENT: Pharynx is clear without erythema or exudate. Mucous membranes are moist. Neck supple without meningeal signs. Respiratory: Clear to auscultation bilaterally. Breath sounds are equal bilaterally. Cardiovascular: Regular rate and rhythm. No rubs or gallops. GI: Soft, nondistended and nontender. Bowel sounds are present. Musculoskeletal: No peripheral edema. No lower extremity tenderness. Left sided rib tenderness. No crepitus. Integumentary: No cyanosis. Neurological: The patient is awake and alert. No focal deficits. Psychiatric: Normal affect. Medical Decision & Procedures ER Provider Diagnostic Interpretation: Radiology results as stated below per my review and the radiologist's interpretation: Chest and rib x-rays per my interpretation shows no evidence of pneumothorax, infiltrate or pneumonia. No rib fractures are noted. CT CHEST With Contrast: Comparison: 02/01/17 No evidence of pulmonary embolism. No thoracic aortic aneurysm or dissection. Peripheral, subsegmental groundglass and linear lung densities, likely representing atelectasis. Stable 4 mm groundglass nodule left lower lobe. Atherosclerotic calcifications. Heart is not enlarged. Osseous structures are stable. Radiologist: Manuel Montes De Oca MD Laboratory Results 03/25/17 21:42 Red Blood Count 4.33, Mean Corpuscular Volume 83.6, Mean Corpuscular Hemoglobin 27.0, Mean Corpuscular Hemoglobin Concent 32.3, Mean Platelet Volume 8.8, Neutrophils (%) (Auto) 50.8, Lymphocytes (%) (Auto) 34.3, Monocytes (%) (Auto) 11.3, Eosinophils (%) (Auto) 2.7, Basophils (%) (Auto) 0.2, Neutrophils # (Auto ) 6.70, Lymphocytes # (Auto) 4.52, Monocytes # (Auto) 1.49, Eosinophils # (Auto ) 0.35, Basophils # (Auto) 0.03 03/25/17 21:42 Test 03/25/17 21:42 03/25/17 22:15 White Blood Count 13.18 K/uL (4.8-10.8) Red Blood Count 4.33 M/uL (4.2-5.4) Hemoglobin 11.7 g/dL (12.0-16.0) Hematocrit 36.2 % (37-47) Mean Corpuscular Volume 83.6 fL (80-100) Mean Corpuscular Hemoglobin 27.0 pg (25-34) Mean Corpuscular Hemoglobin Concent 32.3 g/dl (32-36) Platelet Count 440 K/uL (130-400) Mean Platelet Volume 8.8 fL (7.4-10.4) Neutrophils (%) (Auto) 50.8 % Lymphocytes (%) (Auto) 34.3 % Monocytes (%) (Auto) 11.3 % Eosinophils (%) (Auto) 2.7 % Basophils (%) (Auto) 0.2 % Neutrophils # (Auto) 6.70 K/uL (1.4-6.5) Lymphocytes # (Auto) 4.52 K/uL (1.2-3.4) Monocytes # (Auto) 1.49 K/uL (0.11-0.59) Eosinophils # (Auto) 0.35 K/uL (0-0.5) Basophils # (Auto) 0.03 K/uL (0-0.2) RDW Standard Deviation 44.8 fL (36.4-46.3) RDW Coefficient of Variation 14.6 % (11.5-14.5) Immature Granulocyte % (Auto) 0.7 % Immature Granulocyte # (Auto) 0.09 K/uL (0.00-0.02) Prothrombin Time 10.0 SECONDS (9.0-12.0) Prothromb Time International Ratio 0.9 (0.9-1.1) Activated Partial Thromboplast Time 22.9 SECONDS (21.0-31.0) Partial Thromboplastin Ratio 0.9 Anion Gap 6.0 mmol/L (3-11) Est Creatinine Clear Calc Drug Dose 53.5 ml/min Estimated GFR () 84.8 Estimated GFR (Non- 73.2 BUN/Creatinine Ratio 19.5 (10-20) Calcium Level 9.1 mg/dl (8.5-10.1) Bedside Troponin I < 0.030 ng/ml (0-0.045) Laboratory results as reviewed by me. Medications Administered Medications (Trade) Dose Ordered Sig/Flavio Route Start Time Stop Time Status Last Admin Dose Admin Morphine Sulfate (MoRPHine SULFATE INJ) 4 mg NOW STAT IV 03/25/17 22:02 03/25/17 22:03 DC 03/25/17 22:37 4 MG Ondansetron HCl (Zofran Inj) 4 mg NOW STAT IV 03/25/17 22:02 03/25/17 22:03 DC 03/25/17 22:37 4 MG ECG Indication: chest pain Rate (beats per minute): 81 Rhythm: normal sinus Findings: no acute ischemic change, no ectopy, other (Low voltage QRS) Comparison ECG Date: 14 Mar 2017 Change: no significant change (Other than the low voltage QRS) ED Course 2154: The patient was evaluated in room B3. A complete history and physical exam was performed. 2201: Ordered Zofran Inj 4 mg IV, Morphine Sulfate 4 mg IV 2356: The patient is feeling much better. She agrees to a CT chest to rule out a PE. 0131: Upon reevaluation, the patient appeared to have improvement of her symptoms. I discussed tonight's findings with her. She verbalized agreement of the treatment plan. She was discharged home. Medical Decision This is an 86-year-old female presents with left-sided chest pain. Differential diagnosis includes pneumonia, pneumothorax, rib fracture, pulmonary embolism, cardiac, strain, pleurisy. I did perform a limited focused review of portions of the patient's old chart on the electronic medical record. The patient was treated as an inpatient on March 14 for a UTI and weakness. She was discharged on Keflex. I did evaluate the patient as noted above. The patient is presenting with left- sided chest pain starting this morning. She states it is sharp and worse with movement. Her chest pain is reproducible on palpation. She does complain of some shortness of breath. She was just recently hospitalized. IV access was established. The patient was placed on a continuous childcare administrator. I did treat her with IV morphine and Zofran. I did order and personally review the patient's 12-lead EKG and chest/rib x-ray as described above. I did order and review the patient's blood work as noted in the electronic medical record. Troponin is negative. I did reassess patient. Her chest pain is significantly improved. I was concerned about PE given her chest pain, shortness breath and recent hospitalization. She did agree to a CT scan. I did order a CT of the chest. I did review the images myself as well as the radiology report as described above. This CT did not demonstrate any evidence of pulmonary embolism. The patient is comfortable at this time. She was advised follow closely with her doctor. She was discharged in good condition. Medication Reconcilliation Current Medication List: was personally reviewed by me Blood Pressure Screening Patient's blood pressure: Elevated blood pressure Blood pressure disposition: Elevated BP felt to be situational Impression Primary Impression: Left sided chest pain Scribe Attestation The scribe's documentation has been prepared under my direct and personally reviewed by me in its entirety. I confirm that the note above accurately reflects all work, treatment, procedures, and medical decision making performed by me. Departure Information Dispostion Home / Self-Care Referrals Scar Parker M.D. (PCP) Forms HOME CARE DOCUMENTATION FORM, IMPORTANT VISIT INFORMATION Patient Instructions ED Chest Pain Atypical Unkn Cause, My [facility] Additional Instructions You have been examined and treated today on an emergency basis only. This is not a substitute for, or an effort to provide, complete comprehensive medical care. It is impossible to recognize and treat all injuries or illnesses in a single emergency department visit. It is therefore important that you follow up closely with your physician. Call as soon as possible for an appointment. Return for worsening symptoms or if you develop fever, vomiting, profuse sweating, difficulty breathing or any other concerning symptoms.
[2017-03-26 02:14] VITALS: PULSE 71; O2SAT 93
--- NOTE | 2017-03-26 07:10 | DIAGNOSTIC IMAGING REPORT ---
AP CHEST WITH LEFT-SIDED RIB SERIES CLINICAL HISTORY: Left-sided chest wall pain. FINDINGS: An AP upright chest radiograph with 4 additional views from a left-sided rib series is compared to study dated 03/14/2017. The AP view is significantly degraded by patient rotation. The heart is mildly enlarged and there is atherosclerotic calcification of the thoracic aorta. The pulmonary vasculature is noncongested. Chronic interstitial thickening is similar to previous. Bibasilar atelectasis is noted. There is no airspace consolidation typical for pneumonia. No large pleural effusion or pneumothorax is seen. The skeletal structures are osteopenic. There is no radiographic evidence of left-sided rib fracture on the rib series. The remainder of the bony thorax is grossly intact. Degenerative changes noted in the thoracic spine. IMPRESSION: 1. No acute cardiopulmonary abnormality. 2. There is no radiographic evidence of left-sided rib fracture as clinically queried. Electronically signed by: Karsten Mccormick M.D. 03/26/2017 7:08 AM Dictated Date/Time: 03/26/2017 7:06 AM
--- NOTE | 2017-03-26 07:23 | DIAGNOSTIC IMAGING REPORT ---
(CHEST FOR PE) ANGIO WITH CLINICAL HISTORY: 86 years-old Female presenting with chest pain, clinical concern for pulmonary embolus. TECHNIQUE: Multidetector CT angiography of the chest was performed after administration of intravenous contrast. 3-D volumetric and maximum intensity projection (MIP) images were subsequently reconstructed for review. IV contrast: 85 mL of Optiray 320. A dose lowering technique was used consistent with the principles of ALARA (as low as reasonably achievable). COMPARISON: 02/01/2017. CT DOSE (mGy.cm): The estimated cumulative dose is 272.71 mGy.cm. FINDINGS: Manager Customer Service topogram: Unremarkable. Pulmonary vasculature: The study is adequate for assessment of the pulmonary vascular tree. No filling defect within the pulmonary arteries to suggest embolus. Main pulmonary artery not enlarged. No flattening of the interventricular septum. No intracardiac filling defect. Remaining chest: On soft tissue windows, normal thyroid and thoracic inlet. Enlarged low density left axillary nodule measuring 19 x 11 mm, previously 18 x 11 mm, not significantly changed, possibly lymph node or cyst. No other enlarged lymph nodes. Atherosclerosis of the aortic arch and descending thoracic aorta. Heart top normal in size. Aortic valve and coronary artery calcification. No pericardial or pleural effusion. Few gallstones may be present. On lung windows, dependent groundglass opacities likely atelectasis. Left upper lobe groundglass nodule measuring 8 mm (series 4 image 155), new from prior. Additional smaller groundglass nodule adjacent to the left major fissure in the left lower lobe again measures 3 to 4 mm (series 4 image 105). Mild bronchial wall thickening most pronounced in the lower lobes. On bone windows, degenerative changes of the thoracic spine. IMPRESSION: 1. No evidence of pulmonary embolus. 2. Minimal dependent atelectasis. 3. Mild bronchial wall thickening possibly representing bronchitis/bronchiolitis. 4. Interval development of an 8 mm groundglass nodule in the left upper lobe. Follow-up per Fleischner Society 2017 recommendations below. Please refer to below summary of Fleischner Society 2017 recommendations for follow-up of incidental CT nodules (Bryon Rosales et al. Guidelines for management of incidental pulmonary nodules detected on CT images: From the Fleischner Society 2017. Radiology 2017; 284: 228-243.) SOLID NODULES Single nodule; size <6 mm * Low risk patients: No routine follow-up * High risk patients: Optional CT at 12 months Single nodule; size 6-8 mm * Low risk patients: CT at 6-12 months, then consider CT at 18-24 months * High risk patients: CT at 6-12 months, then at 18-24 months Single nodule; size >8 mm * Either low or high risk patients: Considered CT at 3 months, PET/CT, or tissue sampling Multiple nodules; size <6 mm * Low risk patients: No routine follow up * High risk patients: Optional CT at 12 months Multiple nodules; size 6-8 mm * Low risk patients: CT at 3-6 months, then consider CT at 18-24 months * High risk patients: CT at 3-6 months, then at 18-24 months Multiple nodules; size >8 mm * Low risk patients: CT at 3-6 months, then consider at 18-24 months * High risk patients: CT at 3-6 months, then at 18-24 months Note: These guidelines apply to incidental nodules. These guidelines did not apply to patients younger than 35 years, immunocompromised patients, or patients with cancer. * Low risk patients: Minimal or absent history of smoking and/or other known risk factors * High risk patients: History of smoking, exposure to other carcinogens, emphysema, fibrosis, upper lobe location, family history of lung cancer, etc. * If a nodule up to 8 mm is partly solid or is ground glass further follow-up is required after 24 months to exclude possible slow growing adenocarcinoma SUBSOLID NODULES Single ground-glass nodule * Nodule size < 6 mm: No routine follow-up * Nodule size > or = 6 mm: CT at 6-12 months to confirm persistence, then CT every 2 years until 5 years Single part-solid nodule * Nodule size < 6 mm: No routine follow-up * Nodules size > or = 6 mm: CT at 3-6 months to confirm persistence. If unchanged and solid component remains < 6 mm, annual CT should be performed for 5 years Multiple nodules * Nodule size < 6 mm: CT at 3-6 months. If stable, consider CT at 2 and 4 years. * Nodules size > or = 6 mm: CT at 3-6 months. Subsequent management based on the most suspicious nodule(s) Electronically signed by: Ryne Toledo M.D. 03/26/2017 7:21 AM Dictated Date/Time: 03/26/2017 7:13 AM
== END 2017-03-26 02:10 | disposition home or self-care (01) ==
LOC: EDBD 21:51 → C.EDB 21:52
DX: R07.9 Chest pain, unspecified (principal); R06.02 Shortness of breath; R05 Cough; J45.909 Unspecified asthma, uncomplicated; E11.9 Type 2 diabetes mellitus without complications; E78.5 Hyperlipidemia, unspecified; I10 Essential (primary) hypertension; I73.9 Peripheral vascular disease, unspecified; F01.50 Vascular dementia, unspecified severity, without behavioral disturbance, psychotic disturbance, mood disturbance, and anxiety; Z86.73 Personal history of transient ischemic attack (TIA), and cerebral infarction without residual deficits; Z87.442 Personal history of urinary calculi; Z83.3 Family history of diabetes mellitus; Z82.49 Family history of ischemic heart disease and other diseases of the circulatory system

== ENCOUNTER → 2017-05-15 | Day surgery (SDC) | payer OTHER, MEDICARE ==
[2017-04-24 08:19] VITALS: Ht 160 cm; Wt 71.8 kg
[~2017-05-15] VITALS: Ht 160 cm; Wt 71.8 kg
[~2017-05-15] MED LIST changes: -CEPH500C2 PO; +LIDOCAINE HCL 1% MPF 5 ML VIAL ONE; -PRD10 PO; +SODIUM CHLORIDE 0.9% INJ 10 ML VIAL ONE
--- NOTE | 2017-05-15 13:58 | History & Physical Bridge - SC ---
H&P Re-Evaluation Bridge Note: I have examined the patient, reviewed the History & Physical and in the interval since the performance of the History & Physical I have noted the following changes of clinical significance: No changes noted
[2017-05-15 14:30] VITALS: TEMP 37.2
--- NOTE | 2017-05-15 14:38 | Discharge Instructions ---
Discharge Instructions Date of Service May 15, 2017. Visit Reason for Visit: Lumbar Radiculopathy Discharge Discharge Diagnosis / Problem: low back and leg pain Discharge Goals Goal(s): Decrease discomfort, Improve function Activity Recommendations Activity Limitations: resume your previous activity Anesthesia . Post Anesthesia Instructions: If you have had General Anesthesia or IV Sedation: * Do not drive today. * Resume driving when surgeon permits. * Do not make important decisions or sign legal documents today. * Call surgeon for: 1. Temperature elevations greater than 101 degrees F. 2. Uncontrollable pain. 3. Excessive bleeding. 4. Persistent nausea and vomiting. 5. Medication intolerance (nausea, vomiting or rash). * For nausea and vomiting use only clear liquids such as: tea, soda, bouillon until nausea subsides, then gradually increase diet as tolerated. * If you have any concerns or questions, call your surgeon's office. If physician is unavailable and it is an emergency, call 911 or go to the nearest emergency room. . Diet Recommendations Recommended Home Diet: resume previous diet Procedures Procedures Performed: Caudal Epidural Sterid Injection Pending Studies Studies pending at discharge: no Medical Emergencies . Who to Call and When: Medical Emergencies: If at any time you feel your situation is an emergency, please call 911 immediately. . Non-Emergent Contact Non-Emergency issues call your: Specialist . . "Provider Documentation" section prepared by Bronson Ferrer. .
[2017-05-15 14:47] VITALS: BP 129/80; PULSE 86; O2SAT 98
--- NOTE | 2017-05-15 14:49 | OPERATIVE REPORT ---
DATE OF OPERATION: 05/15/2017 PREOPERATIVE DIAGNOSIS: Lumbar spinal stenosis with neurogenic claudication. POSTOPERATIVE DIAGNOSIS: Same. PROCEDURE: Caudal epidural steroid injection under fluoroscopic guidance. INDICATIONS: The patient is an 86-year-old white female who has had bilateral lower extremity radiculopathy that has been responsive to caudal epidural injections, most recently done in July 2016, was 9 months ago; however, her pain is starting to return and become problematic to her. She presents today for a caudal epidural steroid injection to provide her with improvement of the radicular pain down both legs. PHYSICAL EXAMINATION: Pleasant female seated comfortably. She has no focal motor or sensory deficits of her lower extremities. Negative seated straight leg raises. CONSENT: Verbal and written consent was obtained from the patient and risks include, but are not limited to epidural abscess and allergic reaction. The patient wishes to proceed. DESCRIPTION OF PROCEDURE: The patient was taken back to the special procedures room of the [facility]. She was maintained in a prone position. Backside was cleansed with Betadine x3 and a dry sterile dressing was applied. Fluoroscope was used to identify sacral hiatus and overlying skin was anesthetized with 2.5 mL of lidocaine 1% with a 25-gauge 1-1/2 inch needle. A 25-gauge 3-1/2 inch spinal needle was then directed under fluoroscopic guidance into the sacral hiatus and into the canal. She then underwent injection after negative aspiration of 40 mg of Depo-Medrol and 4 mL of preservative free sodium chloride. Injection was well tolerated. DISPOSITION: 1. The patient was taken out into the discharge recovery area, where she will be discharged home once discharge criteria have been met. 2. Follow up in the [facility] office in 2-4 weeks. I attest to the content of the Intraoperative Record and any orders documented therein. Any exception s are noted below.
== END | disposition home or self-care (01) ==
LOC: X.SURG 13:22
PROVIDERS: ATTEND Physical Medicine & Rehabilitation
DX: M48.062 Spinal stenosis, lumbar region with neurogenic claudication (principal); Z79.02 Long term (current) use of antithrombotics/antiplatelets

== ENCOUNTER 2017-05-22 08:05 | Emergency (ER) | payer OTHER, MEDICARE ==
[~2017-05-22] VITALS: Ht 160 cm; Wt 72.0 kg
[~2017-05-22 08:05] MED LIST changes: -LIDOCAINE HCL 1% MPF 5 ML VIAL ONE; -SODIUM CHLORIDE 0.9% INJ 10 ML VIAL ONE
[2017-05-22 08:10] VITALS: Ht 160 cm; Wt 72.0 kg
[2017-05-22] MEDS ORDERED: HYDROmorphone INJ 0.5 MG/0.5 ML SYR IV STA (08:15)
[2017-05-22] MEDS ORDERED: ONDANSETRON INJ 2 MG/ML 2 ML VIAL IV STA (08:15)
[2017-05-22 08:19] VITALS: O2SAT 96
--- NOTE | 2017-05-22 08:31 | EMERGENCY ROOM VISIT NOTE ---
History Report prepared by Kathrine: Janie Harvey Under the Supervision of: Dr. Hayden Merritt M.D. First contact with patient: 08:08 Chief Complaint: BACK PAIN Stated Complaint: BACK PAIN History of Present Illness The patient is a 86 year old female who presents to the Emergency Room with complaints of constant lower back pain secondary to a fall occurring [employer]. The patient was standing at her kitchen sink and fell, hitting her right lower back. She is now experiencing pain that she rates as an 8/10 is severity. The patient denies hitting her head or LOC. She does have a headache. She has been experiencing blurry vision since her fall. She was brought to the ED by ambulance for further evaluation. She denies hip pain and abdominal pain. The patient had an epidural in her lower back on 05/15/17. Source of History: patient Onset: [employer] Position: back (lower) Symptom Intensity: 8/10 Timing: constant Modifying Factors (Worsening): other (fall) Associated Symptoms: + headache, No LOC, No abdominal pain Note: Pt has blurry vision. Review of Systems See HPI for pertinent positives & negatives. A total of 10 systems reviewed and were otherwise negative. Past Medical & Surgical Medical Problems: (1) Asthma (2) Bronchitis (3) CVA (4) Diabetes mellitus type 2 (5) Emphysema (6) Generalized weakness (7) Heart disease (8) Hyperlipidemia (9) Hypertensive disorder, systemic arterial (10) ICH (intracerebral hemorrhage) (11) Kidney stones (12) Peripheral vascular disease (13) Pneumonia (14) Right sided weakness (15) Vascular dementia Family History Diabetes mellitus FH: cancer FH: heart disease FHx: gallbladder disease Hypertension Social History Smoking Status: Never Smoker Alcohol Use: none Drug Use: none Marital Status: Housing Status: lives alone Occupation Status: retired Current/Historical Medications Scheduled Calcium Carbonate (Calcium 600), 1 TAB PO TID Cholecalciferol (Vitamin D3), 2,000 CAP PO WK Clopidogrel (Plavix), 75 MG PO QAM Cyanocobalamin (Vitamin B-12), 1,000 MCG PO BID Diltiazem HCl Coated Beads (Diltiazem HCl ER), 240 MG PO QAM Fluticasone Furoate-Vilanterol (Breo Ellipta 200-25 Mcg/INH), 1 PUFF INH QAM Fluticasone Propionate (Nasal) (Flonase Allergy Relief), 2 SPRAYS [place] DAILY Gabapentin (Neurontin), 400 MG PO BID Hctz/Losartan (Hyzaar 12.5MG/50MG), 1 TAB PO QAM Magnesium Oxide (Mag-Ox), 400 MG PO QAM Montelukast Sodium (Singulair), 10 MG PO QAM Nitroglycerin (Nitrostat), 0.4 MG SL PRN/UD Omeprazole (Prilosec), 20 MG PO BID Phenytoin Sodium (Dilantin), 100 MG PO TID Potassium Chloride (Potassium Chloride Er), 20 MEQ PO QAM Scheduled PRN Acetaminophen Tab (Tylenol), 650 MG PO Q6 PRN for Pain or Fever Acetaminophen W/ Codeine (Tylenol W/Codeine #3), 1 TAB PO Q6H PRN for Pain Albuterol Hfa (Ventolin Hfa), 2-4 PUFFS INH Q6H PRN for Shortness of Breath Albuterol Sulf (Proventil 0.083% 2.5MG/3ML), 2.5 MG INH [id number] PRN for SOB/ Wheezing Allergies Coded Allergies: Atorvastatin (Verified Allergy, Mild, UNSURE, 05/22/17) Ezetimibe (Verified Allergy, Mild, UNSURE, 05/22/17) Alendronate (Verified Allergy, Unknown, UNKN, 05/22/17) Benazepril (Verified Allergy, Unknown, UNSURE, 05/22/17) Clonidine (Verified Allergy, Unknown, UNSURE, 05/22/17) Ibandronic Acid (Verified Allergy, Unknown, UNKN, 05/22/17) Simvastatin (Verified Allergy, Unknown, OK TO TRY CRESTOR PER [id number], 05/22/17) Physical Exam Vital Signs Date Time Temp Pulse Resp B/P (MAP) Pulse Ox O2 Delivery O2 Flow Rate FiO2 05/22/17 10:39 84 16 152/80 98 Room Air 05/22/17 09:30 79 18 150/91 95 Room Air 05/22/17 09:13 80 05/22/17 08:19 96 Room Air 05/22/17 08:10 36.9 84 20 169/66 96 Room Air Physical Exam GENERAL: Patient is a healthy-appearing well-nourished 86 year old female HEAD: Normocephalic atraumatic EYES: Ocular movements intact pupils equal and react to light OROPHARYNX mucous membranes are moist no exudates present no erythema or edema present NECK: Supple no nuchal rigidity CHEST: Good equal expansion LUNGS: Clear and equal to auscultation CARDIAC: Normal S1 and S2 ABDOMEN: Soft nontender no guarding BACK: No CVA tenderness. Patient is c/o at the L5/S1 area. PELVIS: Good ROM of the left hip and right hip, free from pain. EXTREMITIES: No pain upon palpation normal muscle strength in all groups no clubbing cyanosis or edema NEURO: Patient is following commands and answering questions appropriately. Alert and oriented x3 Cranial Nerves 2-12 grossly intact Medical Decision & Procedures ER Provider Diagnostic Interpretation: Radiology results as stated below per my review and radiologist interpretation: CT SCAN OF THE BONY PELVIS WITHOUT IV CONTRAST CLINICAL HISTORY: Fall from standing. COMPARISON STUDY: Pelvic CT dated 03/11/2016 and pelvic x-ray dated 01/22/2017. TECHNIQUE: CT scan of the bony pelvis is performed from the pelvic inlet to the proximal femora. Images are reviewed in the axial, sagittal, coronal planes. IV contrast was not administered for this examination. A dose lowering technique was utilized adhering to the principles of ALARA. FINDINGS: The skeletal structures are osteopenic. No fracture is seen in the hips or bony pelvis. There is arthritic change present in the hips. Sclerotic degenerative change with vacuum phenomenon is seen in the sacroiliac joints. Lumbosacral spondylosis is partially imaged. There is a hemangioma noted in the body of L3. No lytic or blastic lesions are seen. There is generalized atrophy of the regional musculature. No soft tissue or intramuscular hematoma is identified. There is advanced atherosclerotic calcification of the iliac and common femoral arteries. The bladder is decompressed and grossly unremarkable. The uterus is surgically absent. No adnexal lesion is seen. There is no pelvic sidewall or inguinal lymphadenopathy. The visualized loops of small bowel and colon are normal in appearance. A normal appendix is identified. IMPRESSION: 1. No fracture is seen involving the hips or bony pelvis. 2. Osteopenia and arthritic change as above Electronically signed by: Karsten Mccormick M.D. 05/22/2017 10:28 AM Dictated Date/Time: 05/22/2017 9:[address] DOSE: 2688.08 mGy.cm HISTORY: Pt c/o L5 pain s/p fall TECHNIQUE: Multiaxial CT images of the lumbar spine were performed and reformatted in the sagittal and coronal plane without the use of contrast. A dose lowering technique was utilized adhering to the principles of ALARA. COMPARISON: Lumbar spine 01/22/2017. Lumbar spine CT 06/19/2015. FINDINGS: No fractures. No subluxation. Paraspinal soft tissues are unremarkable. Mild central canal narrowing at L4-L5 and L5-S1 due to small disc bulges and ligamentum and facet hypertrophy. Mild to moderate facet degenerative changes within the lower lumbar spine. The visualized sacrum appears intact. Vertebral body hemangioma at T12. Disc spaces are preserved for age. IMPRESSION: No fractures within the lumbar spine. Electronically signed by: Gregorio Jason M.D. 05/22/2017 9:09 AM Dictated Date/Time: 05/22/2017 9:[address] HEAD WITHOUT CONTRAST (CT) CLINICAL HISTORY: Head pain. Head trauma. COMPARISON STUDY: March 14, 2017 TECHNIQUE: Axial CT of the brain is performed from the vertex to the skull base. IV contrast was not administered for this examination. A dose lowering technique was utilized adhering to the principles of ALARA. CT DOSE: FINDINGS: No intra or extra-axial mass lesions are visualized. There is no CT evidence of acute cortical infarction. There is no evidence of midline shift. There is no acute hemorrhage. No calvarial fractures are visualized. There are patchy white matter hypodensities likely on a small vessel basis. Old lacunar infarcts are again evident. There is no evidence of pathologic ventricular dilatation. There is no evidence of acute sinusitis IMPRESSION: No acute intracranial findings Electronically signed by: Wes Zelaya M.D. 05/22/2017 9:02 AM Dictated Date/Time: 05/22/2017 9:[address] OF THE CERVICAL SPINE CLINICAL HISTORY: Neck pain status post trauma COMPARISON STUDY: 03/14/2017 CT DOSE: 235.97 mGy.cm TECHNIQUE: CT scan of the cervical spine was performed from the skull base to the thoracic inlet. Images are reviewed in the axial, sagittal, and coronal planes. IV contrast was not administered for this examination. A dose lowering technique was utilized adhering to the principles of ALARA. FINDINGS: The visualized portions of the lung apices reveal no evidence of pneumothorax. The prevertebral soft tissues are normal. No fractures or subluxations are visualized. There are multilevel degenerative changes IMPRESSION: No evidence of acute fracture or traumatic subluxation. Electronically signed by: Wes Zelaya M.D. 05/22/2017 9:04 AM Dictated Date/Time: 05/22/2017 9:02 AM Laboratory Results 05/22/17 08:30 Red Blood Count 4.45, Mean Corpuscular Volume 81.8, Mean Corpuscular Hemoglobin 26.5, Mean Corpuscular Hemoglobin Concent 32.4, Mean Platelet Volume 8.9, Neutrophils (%) (Auto) 56.4, Lymphocytes (%) (Auto) 30.0, Monocytes (%) (Auto) 11.0, Eosinophils (%) (Auto) 1.5, Basophils (%) (Auto) 0.5, Neutrophils # (Auto ) 5.87, Lymphocytes # (Auto) 3.12, Monocytes # (Auto) 1.14, Eosinophils # (Auto ) 0.16, Basophils # (Auto) 0.05 05/22/17 08:30 Test 05/22/17 08:30 05/22/17 08:34 05/22/17 09:25 White Blood Count 10.40 K/uL (4.8-10.8) Red Blood Count 4.45 M/uL (4.2-5.4) Hemoglobin 11.8 g/dL (12.0-16.0) Hematocrit 36.4 % (37-47) Mean Corpuscular Volume 81.8 fL (80-100) Mean Corpuscular Hemoglobin 26.5 pg (25-34) Mean Corpuscular Hemoglobin Concent 32.4 g/dl (32-36) Platelet Count 379 K/uL (130-400) Mean Platelet Volume 8.9 fL (7.4-10.4) Neutrophils (%) (Auto) 56.4 % Lymphocytes (%) (Auto) 30.0 % Monocytes (%) (Auto) 11.0 % Eosinophils (%) (Auto) 1.5 % Basophils (%) (Auto) 0.5 % Neutrophils # (Auto) 5.87 K/uL (1.4-6.5) Lymphocytes # (Auto) 3.12 K/uL (1.2-3.4) Monocytes # (Auto) 1.14 K/uL (0.11-0.59) Eosinophils # (Auto) 0.16 K/uL (0-0.5) Basophils # (Auto) 0.05 K/uL (0-0.2) RDW Standard Deviation 43.0 fL (36.4-46.3) RDW Coefficient of Variation 14.3 % (11.5-14.5) Immature Granulocyte % (Auto) 0.6 % Immature Granulocyte # (Auto) 0.06 K/uL (0.00-0.02) Prothrombin Time 10.6 SECONDS (9.0-12.0) Prothromb Time International Ratio 1.0 (0.9-1.1) Anion Gap 7.0 mmol/L (3-11) Est Creatinine Clear Calc Drug Dose 54.5 ml/min Estimated GFR () 87.7 Estimated GFR (Non- 75.6 BUN/Creatinine Ratio 24.4 (10-20) Calcium Level 9.0 mg/dl (8.5-10.1) Total Bilirubin 0.2 mg/dl (0.2-1) Direct Bilirubin < 0.1 mg/dl (0-0.2) Aspartate Amino Transf (AST/SGOT) 16 U/L (15-37) Alanine Aminotransferase (ALT/SGPT) 22 U/L (12-78) Alkaline Phosphatase 158 U/L (45-117) Total Protein 7.0 gm/dl (6.4-8.2) Albumin 3.3 gm/dl (3.4-5.0) Bedside Glucose 116 mg/dl (70-90) Urine Color YELLOW Urine Appearance TURBID (CLEAR) Urine pH 8.0 (4.5-7.5) Urine Specific [place] 1.020 (1.000-1.030) Urine Protein NEG (NEG) Urine Glucose (UA) NEG (NEG) Urine Ketones NEG (NEG) Urine Occult Blood NEG (NEG) Urine Nitrite NEG (NEG) Urine Bilirubin NEG (NEG) Urine Urobilinogen NEG (NEG) Urine Leukocyte Esterase MODERATE (NEG) Urine WBC (Auto) >30 /hpf (0-5) Urine RBC (Auto) 0-4 /hpf (0-4) Urine Hyaline Casts (Auto) 1-5 /lpf (0-5) Urine Epithelial Cells (Auto) >30 /lpf (0-5) Urine Bacteria (Auto) NEG (NEG) Labs reviewed by ED physician. Medications Administered Medications (Trade) Dose Ordered Sig/Flavio Route Start Time Stop Time Status Last Admin Dose Admin Hydromorphone HCl (Dilaudid Inj) 0.25 mg NOW STAT IV 05/22/17 08:15 05/22/17 08:18 DC 05/22/17 08:35 0.25 MG Ondansetron HCl (Zofran Inj) 4 mg NOW STAT IV 05/22/17 08:15 05/22/17 08:18 DC 05/22/17 08:34 4 MG ED Course 0808: Past medical records reviewed. The patient was evaluated in room A12B. A complete history and physical examination was performed. 0815: Zofran 4 mg IV, Dilaudid 0.25 mg IV 1029: I reassessed the patient at this time. She is feeling better and resting comfortably. I discussed the results and treatment plan with the patient. I answered all pertaining questions that she had. She expressed understanding and verbalized agreement. The patient will be discharged home. Medical Decision Differential diagnosis: Etiologies such as musculoskeletal, disc herniation, fracture, aortic disease, metastatic disease, cord compression, discitis, infection, renal colic, gastrointestinal, acute exacerbation of chronic back pain, sciatica, cauda equina, as well as others were entertained. This is an 86-year-old female who presents emergency department complaining of low back pain after a fall. The patient has had similar back pain in the past. Based on the patient's complaint she was sent for CAT scan of the head as well as spine as well as lower spine and pelvis. The patient does not have any evidence of fracture. The patient was given Dilaudid for her pain. Based on the findings I felt that the patient can be ablated around the emergency department. She did this well and I feel can be safely discharged home. Patient was in agreement with the treatment plan. Medication Reconcilliation Current Medication List: was personally reviewed by me Blood Pressure Screening Patient's blood pressure: Elevated blood pressure Blood pressure disposition: Referred to PCP Impression Primary Impression: Fall Additional Impression: Back pain Scribe Attestation The scribe's documentation has been prepared under my direction and personally reviewed by me in its entirety. I confirm that the note above accurately reflects all work, treatment, procedures, and medical decision making performed by me. Departure Information Dispostion Home / Self-Care Prescriptions Acetaminophen W/ Codeine (TYLENOL W/CODEINE #3) 1 Tab Tab 1 TAB PO Q6H Y for Pain for 7 Days, #14 TAB Prov: Hayden Merritt MD 05/22/17 Referrals Scar Parker M.D. (PCP) Bronson Patiño D.O. Forms HOME CARE DOCUMENTATION FORM, IMPORTANT VISIT INFORMATION Patient Instructions Back Pain - [facility], ED Fall Dizziness Weakn Balance, ED Low Back Pain Injury, My [facility] Additional Instructions Follow up with DR Patiño's office for continued pain You were found to have an elevated blood pressure today (>120 sytolic or >90 diastolic). Per medicare guidelines, you need to follow up with this blood pressure screening with your Primary Care Physician (PCP). For a new PCP call [phone]. You received narcotic or benzodiazepene medication while in the emergency room today. This is an addictive medication that may cause drowziness as well as constipation. Do not drive, operate heavy machinery, or drink alcohol under the influence of this medication. Take 600 mg Ibuprofen every 6 hours Take Tylenol 3 for breakthrough pain You have been examined and treated today on an emergency basis only. This is not a substitute for, or an effort to provide, complete comprehensive medical care. It is impossible to recognize and treat all injuries or illnesses in a single emergency department visit. It is therefore important that you follow up closely with Dr Parker. Call as soon as possible for an appointment. Thank you for your time and consideration. I look forward to speaking with you again soon. Please don't hesitate to call us if you have any questions. Problem Qualifiers Primary Impression: Fall Encounter type: initial encounter Qualified Codes: W19.XXXA - Unspecified fall, initial encounter Additional Impression: Back pain Back pain location: low back pain Chronicity: acute Back pain laterality: midline Sciatica presence: without sciatica Qualified Codes: M54.5 - Low back pain
[2017-05-22 08:55] LABS: BASO % 0.5 %; BASO ABS # 0.05 K/uL (0-0.2); COMPLETE YES; EOS % 1.5 %; HEMATOCRIT 36.4 % (37-47); IG% 0.6 %; LYMPH ABS # 3.12 K/uL (1.2-3.4); MEAN CELL VOLUME 81.8 fL (80-100); MEAN CORPUSCULAR HEMOGLOBIN 26.5 pg (25-34); MEAN CORPUSCULAR HGB CONC 32.4 g/dl (32-36); MEAN PLATELET VOLUME 8.9 fL (7.4-10.4); NEUT % 56.4 %; PLATELET COUNT 379 K/uL (130-400); RED BLOOD COUNT 4.45 M/uL (4.2-5.4)
--- NOTE | 2017-05-22 09:04 | DIAGNOSTIC IMAGING REPORT ---
CT HEAD WITHOUT CONTRAST (CT) CLINICAL HISTORY: Head pain. Head trauma. COMPARISON STUDY: March 14, 2017 TECHNIQUE: Axial CT of the brain is performed from the vertex to the skull base. IV contrast was not administered for this examination. A dose lowering technique was utilized adhering to the principles of ALARA. CT DOSE: FINDINGS: No intra or extra-axial mass lesions are visualized. There is no CT evidence of acute cortical infarction. There is no evidence of midline shift. There is no acute hemorrhage. No calvarial fractures are visualized. There are patchy white matter hypodensities likely on a small vessel basis. Old lacunar infarcts are again evident. There is no evidence of pathologic ventricular dilatation. There is no evidence of acute sinusitis IMPRESSION: No acute intracranial findings Electronically signed by: Wes Zelaya M.D. 05/22/2017 9:02 AM Dictated Date/Time: 05/22/2017 9:01 AM
[2017-05-22 09:05] LABS: PROTHROMBIN TIME (PATIENT) 10.6 SECONDS (9.0-12.0)
--- NOTE | 2017-05-22 09:05 | DIAGNOSTIC IMAGING REPORT ---
CT OF THE CERVICAL SPINE CLINICAL HISTORY: Neck pain status post trauma COMPARISON STUDY: 03/14/2017 CT DOSE: 235.97 mGy.cm TECHNIQUE: CT scan of the cervical spine was performed from the skull base to the thoracic inlet. Images are reviewed in the axial, sagittal, and coronal planes. IV contrast was not administered for this examination. A dose lowering technique was utilized adhering to the principles of ALARA. FINDINGS: The visualized portions of the lung apices reveal no evidence of pneumothorax. The prevertebral soft tissues are normal. No fractures or subluxations are visualized. There are multilevel degenerative changes IMPRESSION: No evidence of acute fracture or traumatic subluxation. Electronically signed by: Wes Zelaya M.D. 05/22/2017 9:04 AM Dictated Date/Time: 05/22/2017 9:02 AM
--- NOTE | 2017-05-22 09:11 | DIAGNOSTIC IMAGING REPORT ---
LUMBAR SPINE CT CT DOSE: 2688.08 mGy.cm HISTORY: Pt c/o L5 pain s/p fall TECHNIQUE: Multiaxial CT images of the lumbar spine were performed and reformatted in the sagittal and coronal plane without the use of contrast. A dose lowering technique was utilized adhering to the principles of ALARA. COMPARISON: Lumbar spine 01/22/2017. Lumbar spine CT 06/19/2015. FINDINGS: No fractures. No subluxation. Paraspinal soft tissues are unremarkable. Mild central canal narrowing at L4-L5 and L5-S1 due to small disc bulges and ligamentum and facet hypertrophy. Mild to moderate facet degenerative changes within the lower lumbar spine. The visualized sacrum appears intact. Vertebral body hemangioma at T12. Disc spaces are preserved for age. IMPRESSION: No fractures within the lumbar spine. Electronically signed by: Gregorio Jason M.D. 05/22/2017 9:09 AM Dictated Date/Time: 05/22/2017 9:03 AM
[2017-05-22 09:16] LABS: ALT/SGPT 22 U/L (12-78); BLOOD UREA NITROGEN 18 mg/dl (7-18); BUN/CREATININE RATIO 24.4 (10-20); CARBON DIOXIDE 30 mmol/L (21-32); CHLORIDE 104 mmol/L (98-107); CREATININE 0.73 mg/dl (0.60-1.20); GLUCOSE 119 mg/dl (70-99); POTASSIUM 3.6 mmol/L (3.5-5.1); SODIUM 140 mmol/L (136-145)
[2017-05-22 09:18] LABS: ALKALINE PHOSPHATASE 158 U/L (45-117); AST/SGOT 16 U/L (15-37)
[2017-05-22 09:52] LABS: URINE APPEARANCE TURBID (CLEAR); URINE BILIRUBIN NEG (NEG); URINE COLOR YELLOW; URINE EPITHELIAL CELL AUTO >30 /lpf (0-5); URINE NITRITE NEG (NEG); UROBILINOGEN NEG (NEG)
[2017-05-22 09:54] LABS: MANUAL MICROSCOPIC REQUIRED? NO; REVIEW REQ? NO
--- NOTE | 2017-05-22 10:29 | DIAGNOSTIC IMAGING REPORT ---
CT SCAN OF THE BONY PELVIS WITHOUT IV CONTRAST CLINICAL HISTORY: Fall from standing. COMPARISON STUDY: Pelvic CT dated 03/11/2016 and pelvic x-ray dated 01/22/2017. TECHNIQUE: CT scan of the bony pelvis is performed from the pelvic inlet to the proximal femora. Images are reviewed in the axial, sagittal, coronal planes. IV contrast was not administered for this examination. A dose lowering technique was utilized adhering to the principles of ALARA. FINDINGS: The skeletal structures are osteopenic. No fracture is seen in the hips or bony pelvis. There is arthritic change present in the hips. Sclerotic degenerative change with vacuum phenomenon is seen in the sacroiliac joints. Lumbosacral spondylosis is partially imaged. There is a hemangioma noted in the body of L3. No lytic or blastic lesions are seen. There is generalized atrophy of the regional musculature. No soft tissue or intramuscular hematoma is identified. There is advanced atherosclerotic calcification of the iliac and common femoral arteries. The bladder is decompressed and grossly unremarkable. The uterus is surgically absent. No adnexal lesion is seen. There is no pelvic sidewall or inguinal lymphadenopathy. The visualized loops of small bowel and colon are normal in appearance. A normal appendix is identified. IMPRESSION: 1. No fracture is seen involving the hips or bony pelvis. 2. Osteopenia and arthritic change as above Electronically signed by: Karsten Mccormick M.D. 05/22/2017 10:28 AM Dictated Date/Time: 05/22/2017 9:03 AM
[2017-05-22] MEDS ORDERED: ACET-1101 PO (10:36)
[2017-05-22 12:17] VITALS: BP 152/80; PULSE 84; TEMP 36.9; O2SAT 98
== END 2017-05-22 12:18 | disposition home or self-care (01) ==
LOC: EDBD 08:05 → C.EDA 08:07
DX: M54.5 Low back pain (principal); W18.09XA Striking against other object with subsequent fall, initial encounter; I10 Essential (primary) hypertension; E78.5 Hyperlipidemia, unspecified; E11.9 Type 2 diabetes mellitus without complications; I51.9 Heart disease, unspecified; I73.9 Peripheral vascular disease, unspecified; J45.909 Unspecified asthma, uncomplicated; J43.9 Emphysema, unspecified; Z87.440 Personal history of urinary (tract) infections; Z86.73 Personal history of transient ischemic attack (TIA), and cerebral infarction without residual deficits; Z79.899 Other long term (current) drug therapy; Z83.3 Family history of diabetes mellitus; Z80.9 Family history of malignant neoplasm, unspecified; Z82.49 Family history of ischemic heart disease and other diseases of the circulatory system; Z83.79 Family history of other diseases of the digestive system

== ENCOUNTER → 2017-07-22 | Outpatient (CLI) | payer OTHER, MEDICARE ==
[2017-07-22 17:46] LABS: URINE APPEARANCE CLOUDY (CLEAR); URINE BILIRUBIN NEG (NEG); URINE COLOR YELLOW; URINE NITRITE POS (NEG); URINE PH 6.5 (4.5-7.5); URINE SPECIFIC GRAVITY 1.022 (1.000-1.030); UROBILINOGEN NEG (NEG)
[2017-07-22 18:10] LABS: MANUAL MICROSCOPIC REQUIRED? NO; REVIEW REQ? YES
== END | disposition home or self-care (01) ==
LOC: C.LABBFT 13:31
PROVIDERS: ATTEND Physician Assistant Medical
DX: R31.9 Hematuria, unspecified (principal)

== ENCOUNTER 2017-07-27 04:15 | Emergency (ER) | payer OTHER, MEDICARE ==
[~2017-07-27] VITALS: Ht 160 cm; Wt 72.7 kg
[2017-07-27 04:18] VITALS: TEMP 36.4; Ht 160 cm; Wt 72.7 kg
--- NOTE | 2017-07-27 04:33 | EMERGENCY ROOM VISIT NOTE ---
History Report prepared by Kathrine: Mela Chua Under the Supervision of: Dr. Zulay West D.O. First contact with patient: 04:18 Chief Complaint: SHORTNESS OF BREATH Stated Complaint: Sob, Back pain Nursing Triage Summary: Pt c/o waking up this morning with SOB, wheezing and cough. Pt arrives via ALS with duoneb done. Pt states she feels better since nebulizer. History of Present Illness The patient is a 86 year old female who presents to the Emergency Room with complaints of shortness of breath beginning this morning. The patient also reports having a cough, sore throat, and back pain beginning this morning . The patient denies having fevers, lower extremity swelling, nausea, vomiting, diarrhea, and chest pain. She denies being around anyone sick. She also denies any recent falls or injuries. The patient reports a history of walking pneumonia and states that she got her flu shot this year. The patient denies a history of heart problems. The patient states that she has COPD and that she uses breathing treatments. She states that she did use them today but that they did not help her too much. Source of History: patient Onset: this morning Position: other (global) Quality: other (shortness of breath ) Associated Symptoms: + sorethroat, + cough, + back pain, No fevers, No chest pain, No nausea, No vomiting, No diarrhea Review of Systems See HPI for pertinent positives & negatives. A total of 10 systems reviewed and were otherwise negative. Past Medical & Surgical Medical Problems: (1) Asthma (2) Bronchitis (3) CVA (4) Diabetes mellitus type 2 (5) Emphysema (6) Generalized weakness (7) Heart disease (8) Hyperlipidemia (9) Hypertensive disorder, systemic arterial (10) ICH (intracerebral hemorrhage) (11) Kidney stones (12) Peripheral vascular disease (13) Pneumonia (14) Right sided weakness (15) Vascular dementia Family History Diabetes mellitus FH: cancer FH: heart disease FHx: gallbladder disease Hypertension Social History Smoking Status: Never Smoker Alcohol Use: none Drug Use: none Marital Status: Housing Status: lives alone Occupation Status: retired Current/Historical Medications Scheduled Benzonatate (Tessalon Perles), 100 MG PO Q8 Calcium Carbonate (Calcium 600), 1 TAB PO TID Cholecalciferol (Vitamin D3), 2,000 CAP PO WK Clopidogrel (Plavix), 75 MG PO QAM Cyanocobalamin (Vitamin B-12), 1,000 MCG PO BID Diltiazem HCl Coated Beads (Diltiazem HCl ER), 240 MG PO QAM Fluticasone Furoate-Vilanterol (Breo Ellipta 200-25 Mcg/INH), 1 PUFF INH QAM Fluticasone Propionate (Nasal) (Flonase Allergy Relief), 2 SPRAYS [place] DAILY Gabapentin (Neurontin), 400 MG PO BID Hctz/Losartan (Hyzaar 12.5MG/50MG), 1 TAB PO QAM Levofloxacin (Levaquin), 1 TAB PO DAILY Lidocaine (Lidoderm Patch 5%), 1 PATCH TD DAILY Magnesium Oxide (Mag-Ox), 400 MG PO QAM Montelukast Sodium (Singulair), 10 MG PO QAM Nitroglycerin (Nitrostat), 0.4 MG SL PRN/UD Omeprazole (Prilosec), 20 MG PO BID Phenytoin Sodium (Dilantin), 100 MG PO TID Potassium Chloride (Potassium Chloride Er), 20 MEQ PO QAM Prednisone (Prednisone Tab), 0 PO DAILY Scheduled PRN Acetaminophen Tab (Tylenol), 650 MG PO Q6 PRN for Pain or Fever Albuterol Hfa (Ventolin Hfa), 2-4 PUFFS INH Q6H PRN for Shortness of Breath Albuterol Sulf (Proventil 0.083% 2.5MG/3ML), 2.5 MG INH [id number] PRN for SOB/ Wheezing Allergies Coded Allergies: Atorvastatin (Verified Allergy, Mild, UNSURE, 05/22/17) Ezetimibe (Verified Allergy, Mild, UNSURE, 05/22/17) Alendronate (Verified Allergy, Unknown, UNKN, 05/22/17) Benazepril (Verified Allergy, Unknown, UNSURE, 05/22/17) Clonidine (Verified Allergy, Unknown, UNSURE, 05/22/17) Ibandronic Acid (Verified Allergy, Unknown, UNKN, 05/22/17) Simvastatin (Verified Allergy, Unknown, OK TO TRY CRESTOR PER [id number], 05/22/17) Physical Exam Vital Signs Date Time Temp Pulse Resp B/P (MAP) Pulse Ox O2 Delivery O2 Flow Rate FiO2 07/27/17 08:59 20 172/98 95 07/27/17 07:49 95 07/27/17 07:42 95 20 138/93 95 Room Air 07/27/17 06:17 94 Room Air 07/27/17 06:17 96 22 140/76 94 Room Air 07/27/17 05:15 99 25 139/70 95 Room Air 07/27/17 04:45 107 26 143/112 93 Room Air 07/27/17 04:23 95 Room Air 07/27/17 04:23 101 07/27/17 04:18 36.4 102 20 175/91 98 Nebulizer Physical Exam GENERAL: alert, uncomfortable appearing, well nourished, no distress, non-toxic EYE EXAM: normal conjunctiva, PERRL and EOM's grossly intact OROPHARYNX: no exudate, no erythema, lips, buccal mucosa, and tongue normal and mucous membranes are moist. Edentulous NECK: supple, no nuchal rigidity, no adenopathy, non-tender LUNGS: Decreased breath sounds bilaterally. No wheezes, rhonchi, or rales. HEART: no murmurs, S1 normal and S2 normal ABDOMEN: abdomen soft, non-tender, normo-active bowel sounds, no masses, no rebound or guarding. BACK: Back is symmetrical on inspection and there is no deformity, no CVA tenderness. Tenderness to palpation along thoracic spine. Obvious kyphosis. SKIN: no rashes and no bruising UPPER EXTREMITIES: upper extremities are grossly normal. LOWER EXTREMITIES: No pitting edema. NEURO EXAM: Normal sensorium, cranial nerves II-XII grossly intact, normal speech, no gross weakness of arms, no gross weakness of legs. Medical Decision & Procedures ER Provider Diagnostic Interpretation: Radiology results have been interpreted by the radiologist and reviewed by me. THORACIC SPINE 3 VIEWS ROUTINE CLINICAL HISTORY: 86 years-old Female presenting with back pain. TECHNIQUE: 3 views of the thoracic spine were obtained. COMPARISON: 01/22/2017. FINDINGS: Mild right dextrocurvature of the thoracic spine similar to prior exam. Multilevel degenerative changes. Allowing for scoliosis, no convincing evidence of vertebral body height loss. Heterogeneity of the lower thoracic vertebral bodies similar to prior exam and may relate to the presence of degenerative change. Vertebral bodies overall maintain grossly normal height and alignment. Intervertebral discs with degenerative change and somewhat calcification. The lower cervical spine is grossly normal. Atherosclerosis. IMPRESSION: No convincing evidence of an acute compression deformity in the thoracic spine. Multilevel degenerative change. If there is continuing clinical concern for acute osseous injury, cross-sectional imaging could be obtained. Electronically signed by: Ryne Toledo M.D. 07/27/2017 5:55 AM Dictated Date/Time: 07/27/2017 5:52 AM CHEST 2 VIEWS ROUTINE CLINICAL HISTORY: 86 years-old Female presenting with cough. TECHNIQUE: PA and lateral views of the chest were obtained. COMPARISON: 03/14/[address] from 03/26/2017. FINDINGS: Atherosclerosis of aortic arch. Cardiac silhouette normal in size. Minimal left basilar opacity decreased from prior. No new focal infiltrate. The previously noted groundglass nodule on CT from 03/26/2017 is not radiographically apparent in the left upper lobe. No pleural effusion or pneumothorax. Degenerative changes of the thoracic spine. Upper abdomen normal. IMPRESSION: 1. Improved aeration at the left lung base. No acute cardiopulmonary disease. Electronically signed by: Ryne Toledo M.D. 07/27/2017 5:56 AM Dictated Date/Time: 07/27/2017 5:55 AM THORACIC SPINE WITHOUT CLINICAL HISTORY: 86 years-old Female presenting with back pain and shortness of breath. TECHNIQUE: Multidetector CT of the thoracic spine was performed without the use of intravenous contrast. IV contrast: None. A dose lowering technique was used consistent with the principles of ALARA (as low as reasonably achievable). COMPARISON: 06/19/2015. CT DOSE (mGy.cm): The estimated cumulative dose is 643.61 mGy.cm. FINDINGS: [employer] topogram: Unremarkable. Mild dextrocurvature of the thoracic spine. Slightly exaggerated thoracic kyphosis. Vertebral bodies otherwise maintain normal height and alignment. Intervertebral disc height loss maintained although multiple disc osteophyte complexes are noted most prominently at T3-4 with posterior bony spurring mildly narrowing the spinal canal at this level. No significant osseous neural foraminal narrowing. Lucent lesion in the C7 vertebral body most likely represents a hemangioma. Similar lesion noted at T2, T3, and elsewhere. No acute fracture or subluxation. Paraspinal soft tissues normal. Atherosclerosis, aortic valve and coronary artery calcification and mild cardiomegaly noted. Visualized portion of the lungs clear. Duodenal diverticulum also noted. IMPRESSION: No acute osseous injury of the thoracic spine. Focal degenerative change at T3-4 resulting in mild narrowing of the spinal canal. No neural foraminal narrowing. Electronically signed by: Ryne Toledo M.D. 07/27/2017 7:24 AM Dictated Date/Time: 07/27/2017 7:20 AM Laboratory Results 07/27/17 05:16 Red Blood Count 4.35, Mean Corpuscular Volume 82.3, Mean Corpuscular Hemoglobin 27.1, Mean Corpuscular Hemoglobin Concent 33.0, Mean Platelet Volume 8.6, Neutrophils (%) (Auto) 42.9, Lymphocytes (%) (Auto) 33.0, Monocytes (%) (Auto) 20.4, Eosinophils (%) (Auto) 2.6, Basophils (%) (Auto) 0.6, Neutrophils # (Auto ) 4.21, Lymphocytes # (Auto) 3.24, Monocytes # (Auto) 2.01, Eosinophils # (Auto ) 0.26, Basophils # (Auto) 0.06 07/27/17 05:16 Test 07/27/17 05:16 07/27/17 05:42 07/27/17 05:55 White Blood Count 9.83 K/uL (4.8-10.8) Red Blood Count 4.35 M/uL (4.2-5.4) Hemoglobin 11.8 g/dL (12.0-16.0) Hematocrit 35.8 % (37-47) Mean Corpuscular Volume 82.3 fL (80-100) Mean Corpuscular Hemoglobin 27.1 pg (25-34) Mean Corpuscular Hemoglobin Concent 33.0 g/dl (32-36) Platelet Count 306 K/uL (130-400) Mean Platelet Volume 8.6 fL (7.4-10.4) Neutrophils (%) (Auto) 42.9 % Lymphocytes (%) (Auto) 33.0 % Monocytes (%) (Auto) 20.4 % Eosinophils (%) (Auto) 2.6 % Basophils (%) (Auto) 0.6 % Neutrophils # (Auto) 4.21 K/uL (1.4-6.5) Lymphocytes # (Auto) 3.24 K/uL (1.2-3.4) Monocytes # (Auto) 2.01 K/uL (0.11-0.59) Eosinophils # (Auto) 0.26 K/uL (0-0.5) Basophils # (Auto) 0.06 K/uL (0-0.2) RDW Standard Deviation 43.3 fL (36.4-46.3) RDW Coefficient of Variation 14.4 % (11.5-14.5) Immature Granulocyte % (Auto) 0.5 % Immature Granulocyte # (Auto) 0.05 K/uL (0.00-0.02) Prothrombin Time 10.7 SECONDS (9.0-12.0) Prothromb Time International Ratio 1.0 (0.9-1.1) D-Dimer 490 ug/L FEU (0-500) Anion Gap 6.0 mmol/L (3-11) Est Creatinine Clear Calc Drug Dose 58.8 ml/min Estimated GFR () 93.1 Estimated GFR (Non- 80.3 BUN/Creatinine Ratio 14.7 (10-20) Lactic Acid Level 1.5 mmol/L (0.4-2.0) Calcium Level 8.3 mg/dl (8.5-10.1) Total Bilirubin 0.2 mg/dl (0.2-1) Aspartate Amino Transf (AST/SGOT) 12 U/L (15-37) Alanine Aminotransferase (ALT/SGPT) 17 U/L (12-78) Alkaline Phosphatase 138 U/L (45-117) Troponin I < 0.015 ng/ml (0-0.045) Pro-B-Type Natriuretic Peptide 170 pg/ml (0-1800) Total Protein 6.4 gm/dl (6.4-8.2) Albumin 2.8 gm/dl (3.4-5.0) Globulin 3.6 gm/dl (2.5-4.0) Albumin/Globulin Ratio 0.8 (0.9-2) Influenza Type A Antigen Neg for Influ A (NEG) Influenza Type B Antigen Neg for Influ B (NEG) Urine Color YELLOW Urine Appearance CLEAR (CLEAR) Urine pH 5.0 (4.5-7.5) Urine Specific [place] 1.018 (1.000-1.030) Urine Protein NEG (NEG) Urine Glucose (UA) NEG (NEG) Urine Ketones NEG (NEG) Urine Occult Blood 1+ (NEG) Urine Nitrite NEG (NEG) Urine Bilirubin NEG (NEG) Urine Urobilinogen NEG (NEG) Urine Leukocyte Esterase MODERATE (NEG) Urine WBC (Auto) 10-30 /hpf (0-5) Urine RBC (Auto) 0-4 /hpf (0-4) Urine Hyaline Casts (Auto) 1-5 /lpf (0-5) Urine Epithelial Cells (Auto) >30 /lpf (0-5) Urine Bacteria (Auto) NEG (NEG) Date/Time Source Procedure Growth Status 07/27/17 05:55 Urine , Clean Catch Urine Culture - Final THREE TYPES OF ORGANSIMS PRESENT, ALL... Complete Laboratory results per my review. Medications Administered Medications (Trade) Dose Ordered Sig/Flavio Route Start Time Stop Time Status Last Admin Dose Admin Lidocaine (Lidoderm Patch 5%) 1 patch NOW STAT TD 07/27/17 04:57 07/27/17 05:00 DC 07/27/17 06:58 1 PATCH Fentanyl Citrate (Fentanyl Inj) 50 mcg NOW STAT IV 07/27/17 04:57 07/27/17 05:00 DC 07/27/17 05:16 50 MCG Benzonatate (Tessalon Perles Cap) 100 mg NOW ONCE PO 07/27/17 05:00 07/27/17 05:01 DC 07/27/17 05:15 100 MG Levofloxacin (Levaquin Tab) 750 mg NOW STAT PO 07/27/17 07:31 07/27/17 07:32 DC 07/27/17 07:41 750 MG Methylprednisolone Sodium Succinate (Solu-Medrol IV) 40 mg STK-MED ONCE .ROUTE 07/27/17 07:32 07/27/17 07:33 DC 07/27/17 07:34 60 MG Ondansetron HCl (Zofran Inj) 4 mg NOW STAT IV 07/27/17 08:13 07/27/17 08:14 DC 07/27/17 08:21 4 MG ECG Indication: SOB/dyspnea Rate (beats per minute): 100 Rhythm: sinus tachycardia Findings: nonspecific-ST abn (V4, V5), no ectopy, other (normal axis, normal intervals, no acute elevation, artifact noted) ED Course 0430: The patient was evaluated in room A2. A complete history and physical exam was performed. 0457: Ordered Fentanyl Inj 50 mcg IV, Lidocaine 1 patch TD. 0500: Ordered Benzonatate 100 mg PO. 0706: I reassessed the patient and she is feeling much better. Medical Decision Differential diagnosis: Etiologies such as musculoskeletal, disc herniation, fracture, aortic disease, metastatic disease, cord compression, discitis, infection, renal colic, gastrointestinal, acute exacerbation of chronic back pain, sciatica, cauda equina, as well as others were entertained. Pt well appearing here despite complaints. Likely COPD exacerbation, no evidence of focal infiltrate, not hypoxic, VS stable. Back pain chronic, however exacerbated by coughing. Findings on imaging likely chronic. No evidence of cardiac etiology, trop negative after >8 hours of pain/sob. Doubt dissection, pe, tamponade, effusion, pneumothorax. No evidence of neuro deficits or weakness related to back pain. Pt ambulated here with steady gait and no hypoxia. Tolerated po well and stated she felt improved. Discussed f/u with PCP, sx to watch/return for, she verbalized understanding and was agreeable with plan. UA suboptimal specimen, antibiotic would hopefully cover if evolving infection. Medication Reconcilliation Current Medication List: was personally reviewed by me Blood Pressure Screening Patient's blood pressure: Elevated blood pressure Blood pressure disposition: Elevated BP felt to be situational Impression Primary Impression: Bronchitis Additional Impressions: COPD exacerbation Back pain Scribe Attestation The scribe's documentation has been prepared under my direction and personally reviewed by me in its entirety. I confirm that the note above accurately reflects all work, treatment, procedures, and medical decision making performed by me. Departure Information Dispostion Home / Self-Care Prescriptions Prednisone (Prednisone Tab) 20 Mg Tab 0 PO DAILY, #7 TAB 2 TABS DAILY FOR 2 DAYS, THEN 1 TAB DAILY FOR 2 DAYS, THEN 1/2 TAB DAILY FOR 2 DAYS. Prov: Zulay West, DO 07/27/17 Levofloxacin (LEVAQUIN) 750 Mg Tab 1 TAB PO DAILY for 5 Days, #4 TAB Prov: Zulay West, DO 07/27/17 Lidocaine (Lidoderm Patch 5%) 1 Ea Tdsy 1 PATCH TD DAILY for Pain, #1 BOX Prov: Zulay West, DO 07/27/17 Benzonatate (Tessalon Perles) 100 Mg Cap 100 MG PO Q8 for Cough, #30 CAP Prov: Zulay West, DO 07/27/17 Referrals Scar Parker M.D. (PCP) Patient Instructions My [facility] Additional Instructions Please take your regular medications as prescribed. You may use the pain patch daily and remove it in the evening. You may otherwise use tylenol or ibuprofen for pain. Please take the antibiotics and steroids as prescribed. Please use your inhaler or nebulizer up to every 4 hours as needed for shortness of breath/ wheezing. If you feel it doesn't help, you feel you need to use it more than every 4 hours, or you have worsening trouble breathing, develop fevers, are coughing up blood, develop chest pain, vomiting, or you have any other new or concerning symptoms, please return to the emergency room. Problem Qualifiers Additional Impressions: Back pain Back pain location: thoracic back pain Chronicity: acute Back pain laterality: midline Qualified Codes: M54.6 - Pain in thoracic spine
[2017-07-27] MEDS ORDERED: FENTANYL CITRATE INJ 50 MCG/1 ML 2 ML VIAL IV STA (04:57)
[2017-07-27] MEDS ORDERED: LIDODERM (LIDOCAINE) PATCH 5% TD STA (04:57)
[2017-07-27] MEDS ORDERED: BENZONATATE 100MG CAP PO ONE (05:00)
[2017-07-27 05:25] LABS: BASO % 0.6 %; BASO ABS # 0.06 K/uL (0-0.2); COMPLETE YES; EOS % 2.6 %; HEMATOCRIT 35.8 % (37-47); IG% 0.5 %; LYMPH ABS # 3.24 K/uL (1.2-3.4); MEAN CELL VOLUME 82.3 fL (80-100); MEAN CORPUSCULAR HEMOGLOBIN 27.1 pg (25-34); MEAN PLATELET VOLUME 8.6 fL (7.4-10.4); MONO % 20.4 %; NEUT % 42.9 %; PLATELET COUNT 306 K/uL (130-400); RED BLOOD COUNT 4.35 M/uL (4.2-5.4); WHITE BLOOD COUNT 9.83 K/uL (4.8-10.8)
[2017-07-27 05:43] LABS: ALT/SGPT 17 U/L (12-78); AST/SGOT 12 U/L (15-37); BLOOD UREA NITROGEN 10 mg/dl (7-18); BUN/CREATININE RATIO 14.7 (10-20); CALCIUM 8.3 mg/dl (8.5-10.1); CARBON DIOXIDE 26 mmol/L (21-32); CHLORIDE 103 mmol/L (98-107); CREATININE 0.68 mg/dl (0.60-1.20); GLUCOSE 157 mg/dl (70-99); POTASSIUM 3.4 mmol/L (3.5-5.1); SODIUM 135 mmol/L (136-145)
[2017-07-27 05:48] LABS: ALB/GLOB RATIO 0.8 (0.9-2); ALKALINE PHOSPHATASE 138 U/L (45-117)
[2017-07-27 05:54] LABS: PROTHROMBIN TIME (PATIENT) 10.7 SECONDS (9.0-12.0)
--- NOTE | 2017-07-27 05:56 | DIAGNOSTIC IMAGING REPORT ---
THORACIC SPINE 3 VIEWS ROUTINE CLINICAL HISTORY: 86 years-old Female presenting with back pain. TECHNIQUE: 3 views of the thoracic spine were obtained. COMPARISON: 01/22/2017. FINDINGS: Mild right dextrocurvature of the thoracic spine similar to prior exam. Multilevel degenerative changes. Allowing for scoliosis, no convincing evidence of vertebral body height loss. Heterogeneity of the lower thoracic vertebral bodies similar to prior exam and may relate to the presence of degenerative change. Vertebral bodies overall maintain grossly normal height and alignment. Intervertebral discs with degenerative change and somewhat calcification. The lower cervical spine is grossly normal. Atherosclerosis. IMPRESSION: No convincing evidence of an acute compression deformity in the thoracic spine. Multilevel degenerative change. If there is continuing clinical concern for acute osseous injury, cross-sectional imaging could be obtained. Electronically signed by: Ryne Toledo M.D. 07/27/2017 5:55 AM Dictated Date/Time: 07/27/2017 5:52 AM
--- NOTE | 2017-07-27 05:58 | DIAGNOSTIC IMAGING REPORT ---
CHEST 2 VIEWS ROUTINE CLINICAL HISTORY: 86 years-old Female presenting with cough. TECHNIQUE: PA and lateral views of the chest were obtained. COMPARISON: 03/14/[address] from 03/26/2017. FINDINGS: Atherosclerosis of aortic arch. Cardiac silhouette normal in size. Minimal left basilar opacity decreased from prior. No new focal infiltrate. The previously noted groundglass nodule on CT from 03/26/2017 is not radiographically apparent in the left upper lobe. No pleural effusion or pneumothorax. Degenerative changes of the thoracic spine. Upper abdomen normal. IMPRESSION: 1. Improved aeration at the left lung base. No acute cardiopulmonary disease. Electronically signed by: Ryne Toledo M.D. 07/27/2017 5:56 AM Dictated Date/Time: 07/27/2017 5:55 AM
[2017-07-27 06:17] VITALS: O2SAT 94
[2017-07-27] MEDS ORDERED: METHYLPREDNISOLONE IV 60 MG in SYRINGE 0 ML IV STA (07:23)
--- NOTE | 2017-07-27 07:26 | DIAGNOSTIC IMAGING REPORT ---
THORACIC SPINE WITHOUT CLINICAL HISTORY: 86 years-old Female presenting with back pain and shortness of breath. TECHNIQUE: Multidetector CT of the thoracic spine was performed without the use of intravenous contrast. IV contrast: None. A dose lowering technique was used consistent with the principles of ALARA (as low as reasonably achievable). COMPARISON: 06/19/2015. CT DOSE (mGy.cm): The estimated cumulative dose is 643.61 mGy.cm. FINDINGS: [employer] topogram: Unremarkable. Mild dextrocurvature of the thoracic spine. Slightly exaggerated thoracic kyphosis. Vertebral bodies otherwise maintain normal height and alignment. Intervertebral disc height loss maintained although multiple disc osteophyte complexes are noted most prominently at T3-4 with posterior bony spurring mildly narrowing the spinal canal at this level. No significant osseous neural foraminal narrowing. Lucent lesion in the C7 vertebral body most likely represents a hemangioma. Similar lesion noted at T2, T3, and elsewhere. No acute fracture or subluxation. Paraspinal soft tissues normal. Atherosclerosis, aortic valve and coronary artery calcification and mild cardiomegaly noted. Visualized portion of the lungs clear. Duodenal diverticulum also noted. IMPRESSION: No acute osseous injury of the thoracic spine. Focal degenerative change at T3-4 resulting in mild narrowing of the spinal canal. No neural foraminal narrowing. Electronically signed by: Ryne Toledo M.D. 07/27/2017 7:24 AM Dictated Date/Time: 07/27/2017 7:20 AM
[2017-07-27] MEDS ORDERED: LEVOFLOXACIN 250 MG TAB PO STA (07:31)
[2017-07-27 07:42] VITALS: PULSE 95
[2017-07-27] MEDS ORDERED: PRED20TA2 PO (08:00)
[2017-07-27] MEDS ORDERED: BENZ100C84 PO (08:00)
[2017-07-27] MEDS ORDERED: LEVO750T23 PO (08:00)
[2017-07-27] MEDS ORDERED: NF656 TD (08:00)
[2017-07-27] MEDS ORDERED: ONDANSETRON INJ 2 MG/ML 2 ML VIAL IV STA (08:13)
[2017-07-27 08:59] VITALS: BP 172/98; O2SAT 95
[2017-07-27 11:00] LABS: URINE APPEARANCE CLEAR (CLEAR); URINE BILIRUBIN NEG (NEG); URINE COLOR YELLOW; URINE EPITHELIAL CELL AUTO >30 /lpf (0-5); URINE NITRITE NEG (NEG); URINE SPECIFIC GRAVITY 1.018 (1.000-1.030); UROBILINOGEN NEG (NEG); ZZUR CULT IF INDIC CLEAN CATCH YES
[2017-07-27 11:01] LABS: MANUAL MICROSCOPIC REQUIRED? NO; REVIEW REQ? NO
== END 2017-07-27 09:00 | disposition home or self-care (01) ==
LOC: EDBD 04:15 → C.EDA 04:17
DX: J44.1 Chronic obstructive pulmonary disease with (acute) exacerbation (principal); J40 Bronchitis, not specified as acute or chronic; M54.9 Dorsalgia, unspecified; J45.909 Unspecified asthma, uncomplicated; E11.9 Type 2 diabetes mellitus without complications; E78.5 Hyperlipidemia, unspecified; I10 Essential (primary) hypertension; I73.9 Peripheral vascular disease, unspecified; Z86.73 Personal history of transient ischemic attack (TIA), and cerebral infarction without residual deficits; Z87.442 Personal history of urinary calculi; Z79.899 Other long term (current) drug therapy; Z88.8 Allergy status to other drugs, medicaments and biological substances; Z83.3 Family history of diabetes mellitus; Z80.9 Family history of malignant neoplasm, unspecified; Z82.49 Family history of ischemic heart disease and other diseases of the circulatory system; Z83.79 Family history of other diseases of the digestive system

== ENCOUNTER 2017-07-29 16:06 | Inpatient (IN) | payer OTHER, MEDICARE ==
[~2017-07-29] VITALS: Ht 160 cm; Wt 70.4 kg
[~2017-07-29 16:06] MED LIST changes: +BENZ100C84 PO; +LEVO750T23 PO; +NF656 TD; +PRED20TA2 PO
[2017-07-29 17:38] VITALS: BP 150/71; PULSE 94; TEMP 36.6; O2SAT 96
[2017-07-29] MEDS ORDERED: ONDANSETRON INJ 2 MG/ML 2 ML VIAL IV PRN (17:45)
[2017-07-29] MEDS ORDERED: ACETAMINOPHEN 325 MG TAB PO PRN (17:45)
[2017-07-29 17:46] VITALS: O2SAT 96; Ht 160 cm; Wt 70.4 kg
[2017-07-29] MEDS ORDERED: AZITHROMYCIN 250 MG TAB PO ONE (18:00)
[2017-07-29 18:18] LABS: MEAN CORPUSCULAR HEMOGLOBIN 27.1 pg (25-34); MEAN PLATELET VOLUME 8.6 fL (7.4-10.4); PLATELET COUNT 313 K/uL (130-400); RED BLOOD COUNT 4.39 M/uL (4.2-5.4); WHITE BLOOD COUNT 7.79 K/uL (4.8-10.8)
--- NOTE | 2017-07-29 18:19 | DIAGNOSTIC IMAGING REPORT ---
CHEST ONE VIEW PORTABLE CLINICAL HISTORY: Dyspnea, COPD exacerbation. COMPARISON STUDY: Chest CT March 26, 2017 and chest radiograph July 27, 2017. FINDINGS: Lung volumes are normal. There is no pneumothorax or pleural effusion. Pulmonary vascularity is normal. Mild left basilar opacity likely reflects atelectasis. There is no consolidation to suggest pneumonia. Cardiomediastinal silhouette is stable. The appearance of the chest is unchanged. IMPRESSION: No acute cardiopulmonary findings. Electronically signed by: Mahesh Chew M.D. 07/29/2017 6:18 PM Dictated Date/Time: 07/29/2017 6:17 PM
[2017-07-29 18:56] LABS: BLOOD UREA NITROGEN 15 mg/dl (7-18); BUN/CREATININE RATIO 18.8 (10-20); CALCIUM 8.5 mg/dl (8.5-10.1); CARBON DIOXIDE 28 mmol/L (21-32); CHLORIDE 105 mmol/L (98-107); GLUCOSE 133 mg/dl (70-99); POTASSIUM 3.9 mmol/L (3.5-5.1); SODIUM 139 mmol/L (136-145)
[2017-07-29] MEDS ORDERED: GUAIFENESIN/CODEINE 200MG/20MG 10ML UDC PO PRN (19:15)
--- NOTE | 2017-07-29 19:22 | History and Physical ---
History & Physical Date & Time of Service: Jul 29, 2017 at 18:55 Chief Complaint: Copd Exacerbation Primary Care Physician: Scar Parker M.D. History of Present Illness Ms. Gleason presents today for failed treatment of COPD exacerbation. She had been to the emergency department over a week ago for complaints of sob and was sent home with antibiotics however she continued to worsen and presented to her pcp today who sent her here as a direct admission. She has been wheezing with a non productive cough, sob, and pain across her mid chest when she coughs. She denies n/v/d, she has been eating and drinking well. ROS Constitutional: no chills, aches, sweats, febrile briefly a few days ago Respiratory: see HPI Cardiac: no palpitations, edema, orthopnea or lightheadedness GI: no abdominal pain, nausea, vomiting, diarrhea or constipation : no dysuria or hesitancy Extremities: no joint pain or weakness Skin: no rash All other systems reviewed and negative Past Medical/Surgical History Medical Problems: (1) Asthma Status: Chronic (2) Bronchitis Status: Resolved (3) CVA Status: Chronic (4) Diabetes mellitus type 2 Status: Chronic (5) Emphysema Status: Chronic (6) Heart disease Status: Chronic (7) Hyperlipidemia Status: Chronic (8) Hypertensive disorder, systemic arterial Status: Chronic (9) Kidney stones Status: Chronic (10) Peripheral vascular disease Status: Chronic (11) Pneumonia Status: Resolved (12) Vascular dementia Status: Chronic Family History Diabetes mellitus FH: cancer FH: heart disease FHx: gallbladder disease Hypertension Social History Smoking Status: Never Smoker Smokeless Tobacco Use: No Alcohol Use: none Drug Use: none Marital Status: Housing status: lives alone Occupational Status: retired Immunizations History of Influenza Vaccine: Yes Influenza Vaccine Date: Apr 15, 2012 History of Tetanus Vaccine?: Yes Tetanus Immunization Date: Mar 31, 2009 History of Pneumococcal: Yes Pneumococcal Date: Jan 14, 2012 History of Hepatitis B Vaccine: No Multi-Drug Resistant Organisms History of MDRO: No Allergies Coded Allergies: Atorvastatin (Verified Allergy, Mild, UNSURE, 05/22/17) Ezetimibe (Verified Allergy, Mild, UNSURE, 05/22/17) Alendronate (Verified Allergy, Unknown, UNKN, 05/22/17) Benazepril (Verified Allergy, Unknown, UNSURE, 05/22/17) Clonidine (Verified Allergy, Unknown, UNSURE, 05/22/17) Ibandronic Acid (Verified Allergy, Unknown, UNKN, 05/22/17) Simvastatin (Verified Allergy, Unknown, OK TO TRY CRESTOR PER [id number], 05/22/17) Home Medications Scheduled Benzonatate (Tessalon Perles), 100 MG PO Q8 Calcium Carbonate (Calcium 600), 1 TAB PO TID Cholecalciferol (Vitamin D3), 2,000 CAP PO WK Clopidogrel (Plavix), 75 MG PO QAM Cyanocobalamin (Vitamin B-12), 1,000 MCG PO BID Diltiazem HCl Coated Beads (Diltiazem HCl ER), 240 MG PO QAM Fluticasone Furoate-Vilanterol (Breo Ellipta 200-25 Mcg/INH), 1 PUFF INH QAM Fluticasone Propionate (Nasal) (Flonase Allergy Relief), 2 SPRAYS [place] DAILY Gabapentin (Neurontin), 400 MG PO BID Hctz/Losartan (Hyzaar 12.5MG/50MG), 1 TAB PO QAM Levofloxacin (Levaquin), 1 TAB PO DAILY Lidocaine (Lidoderm Patch 5%), 1 PATCH TD DAILY Magnesium Oxide (Mag-Ox), 400 MG PO QAM Montelukast Sodium (Singulair), 10 MG PO QAM Nitroglycerin (Nitrostat), 0.4 MG SL PRN/UD Omeprazole (Prilosec), 20 MG PO BID Phenytoin Sodium (Dilantin), 100 MG PO TID Potassium Chloride (Potassium Chloride Er), 20 MEQ PO QAM Scheduled PRN Acetaminophen Tab (Tylenol), 650 MG PO Q6 PRN for Pain or Fever Albuterol Hfa (Ventolin Hfa), 2-4 PUFFS INH Q6H PRN for Shortness of Breath Albuterol Sulf (Proventil 0.083% 2.5MG/3ML), 2.5 MG INH P2G-[id number] PRN for SOB/ Wheezing Physical Exam Vital Signs Date Time Temp Pulse Resp B/P (MAP) Pulse Ox O2 Delivery O2 Flow Rate FiO2 07/29/17 17:46 96 Room Air 07/29/17 17:38 36.6 94 20 150/71 (97) 96 Room Air General: no distress Eyes: normal inspection, PERLL Respiratory: chest non tender, expiratory wheezes bilaterally throughout, no respiratory distress, no accessory muscle use Cardiac: regular rate and rhythm, no rub or gallop, no murmur, no edema, no jvd GI/: active bowel sounds, no abd pain or tenderness, soft, non distended Extremities: normal range of motion, normal strength, non tender Neuro/Psych: alert and oriented x 3, normal mood and affect Skin: normal color, dry Diagnostics Laboratory Results Results Past 24 Hours Test 07/29/17 18:01 Range/Units White Blood Count 7.79 4.8-10.8 K/uL Red Blood Count 4.39 4.2-5.4 M/uL Hemoglobin 11.9 12.0-16.0 g/dL Hematocrit 36.0 37-47 % Mean Corpuscular Volume 82.0 80-100 fL Mean Corpuscular Hemoglobin 27.1 25-34 pg Platelet Count 313 130-400 K/uL Mean Platelet Volume 8.6 7.4-10.4 fL RDW Standard Deviation 43.1 36.4-46.3 fL RDW Coefficient of Variation 14.5 11.5-14.5 % Diagnostic Radiology CHEST ONE VIEW PORTABLE CLINICAL HISTORY: Dyspnea, COPD exacerbation. COMPARISON STUDY: Chest CT March 26, 2017 and chest radiograph July 27, 2017. FINDINGS: Lung volumes are normal. There is no pneumothorax or pleural effusion. Pulmonary vascularity is normal. Mild left basilar opacity likely reflects atelectasis. There is no consolidation to suggest pneumonia. Cardiomediastinal silhouette is stable. The appearance of the chest is unchanged. IMPRESSION: No acute cardiopulmonary findings. Impression Assessment and Plan Ms. Gleason is an 86 year old woman here for COPD exacerbation COPD exacerbation - admit med/surg - failed Levaquin outpatient - start azithromycin and Rocephin - 40 mg iv solumedrol bid - duonebs qid - Robitussin AC for cough - patient has been unable to sleep due to coughing - continue Singulair DM II - ss to cover for sugars while on Solu-medrol - bsgs ac&hs HTN - continue Hyzaar, diltiazem Hx CVA - continue plavix Seizure history - continue gabapentin, Dilantin Advanced Directives Existing Living Will: No Existing Power of Wad Blanking Press Adjuster: No Resuscitation Status FULL NO MECH VENTILATION VTE Prophylaxis VTE Risk Assessment Done? Y/N: Yes Risk Level: High Given or contraindicated: Enoxaparin (Lovenox)SQ Social Service Consult >80 yr.& Lives Alone
[2017-07-29 19:30] VITALS: PULSE 81; O2SAT 94
[2017-07-29] MEDS: ALBUT/IPRATROP 3MG/0.5MG NEB 3 ML VIAL INH SCH (19:30)
[2017-07-29] MEDS ORDERED: DEXTROSE 50% 50 ML SYR IV PRN (19:45)
[2017-07-29] MEDS ORDERED: GLUCAGON FOR INJ 1 MG VIAL SQ PRN (19:45)
[2017-07-29] MEDS ORDERED: GLUCOSE 10 TABS/TUBE PO PRN (19:45)
[2017-07-29] MEDS ORDERED: GLUCOSE 40% GEL 15 GM TUBE PO PRN (19:45)
[2017-07-29] MEDS: METHYLPREDNISOLONE IV 40 MG in SYRINGE 0 ML IV SCH (19:47)
[2017-07-29] MEDS: CEFTRIAXONE SOD INJ 1,000 MG in DEXTROSE 5% 50ML 50 ML IV SCH (19:47)
[2017-07-29 20:23] LABS: MEAN CORPUSCULAR HGB CONC 33.1 g/dl (32-36)
[2017-07-29 20:25] LABS: BASO ABS # 0.13 K/uL (0-0.2); BASOPHIL % 1.7 %; COMPLETE YES; EOSINOPHIL % 3.5 %; LYMPHOCYTE % 53.9 %; NEUTROPHILS % 29.6 %
[2017-07-29] MEDS: ENOXAPARIN 40 MG/0.4 ML SYR SQ SCH (20:55)
[2017-07-29] MEDS: CALCIUM 600MG + VIT D 400 IU TAB PO SCH (20:56)
[2017-07-29] MEDS: CYANOCOBALAMIN 500 MCG TAB (VIT B-12) PO SCH (20:56)
[2017-07-29] MEDS: GABAPENTIN 400 MG CAP PO SCH (20:56)
[2017-07-29] MEDS: PANTOprazole SOD 40 MG TAB PO SCH (20:57)
[2017-07-29] MEDS: PHENYTOIN SODIUM ER 100 MG CAP PO SCH (20:57)
[2017-07-29] MEDS: INSULIN ASPART 100 UNITS/ML 3 ML PEN SC SCH (21:07)
[2017-07-29 23:37] VITALS: BP 141/59; PULSE 86; TEMP 36.9; O2SAT 93
[2017-07-30] VITALS (7 sets, daily range): BP systolic 123–127; BP diastolic 67–68; PULSE 80–88; TEMP 36.4–36.5; O2SAT 95–98
[2017-07-30 06:27] LABS: BASO % 0.2 %; BASO ABS # 0.02 K/uL (0-0.2); COMPLETE YES; HEMATOCRIT 36.5 % (37-47); LYMPH % 31.2 %; MEAN CELL VOLUME 81.7 fL (80-100); MEAN CORPUSCULAR HEMOGLOBIN 26.8 pg (25-34); MEAN CORPUSCULAR HGB CONC 32.9 g/dl (32-36); MEAN PLATELET VOLUME 8.5 fL (7.4-10.4); MONO % 12.2 %; NEUT % 55.4 %; PLATELET COUNT 357 K/uL (130-400); RED BLOOD COUNT 4.47 M/uL (4.2-5.4); WHITE BLOOD COUNT 8.01 K/uL (4.8-10.8)
[2017-07-30] MEDS: INSULIN ASPART 100 UNITS/ML 3 ML PEN SC SCH ×4 (06:30→20:53)
[2017-07-30 06:43] LABS: BUN/CREATININE RATIO 18.1 (10-20); CALCIUM 8.3 mg/dl (8.5-10.1); CREATININE 0.77 mg/dl (0.60-1.20); MAGNESIUM 2.1 mg/dl (1.8-2.4); POTASSIUM 4.2 mmol/L (3.5-5.1)
[2017-07-30] MEDS: ALBUT/IPRATROP 3MG/0.5MG NEB 3 ML VIAL INH SCH ×4 (07:22→19:22)
[2017-07-30] MEDS: PHENYTOIN SODIUM ER 100 MG CAP PO SCH ×3 (07:51→20:49)
[2017-07-30] MEDS: METHYLPREDNISOLONE IV 40 MG in SYRINGE 0 ML IV SCH ×2 (07:51→20:47)
[2017-07-30] MEDS: LOSARTAN/HCTZ 50-12.5 EA TAB PO SCH (07:52)
[2017-07-30] MEDS: MAGNESIUM OXIDE 400 MG TAB PO SCH (07:52)
[2017-07-30] MEDS: CALCIUM 600MG + VIT D 400 IU TAB PO SCH ×3 (07:53→20:47)
[2017-07-30] MEDS: MONTELUKAST SOD 10 MG TAB PO SCH (07:53)
[2017-07-30] MEDS: POTASSIUM CHLORIDE 20 MEQ TABCR PO SCH (07:53)
[2017-07-30] MEDS: PANTOprazole SOD 40 MG TAB PO SCH ×2 (07:54→20:48)
[2017-07-30] MEDS: AZITHROMYCIN 250 MG TAB PO SCH (07:54)
[2017-07-30] MEDS: GABAPENTIN 400 MG CAP PO SCH ×2 (07:54→20:48)
[2017-07-30] MEDS: CYANOCOBALAMIN 500 MCG TAB (VIT B-12) PO SCH ×2 (07:54→20:47)
[2017-07-30] MEDS: DILTIAZEM HCL 120 MG ER CAP PO SCH (07:55)
[2017-07-30] MEDS: CLOPIDOGREL BISULFATE 75 MG TAB PO SCH (08:01)
--- NOTE | 2017-07-30 08:32 | Hospitalist Progress Note ---
Hospitalist Progress Note Date of Service Jul 30, 2017. Subjective Pt evaluation today including: conversation w/ patient, physical exam, chart review, lab review, review of studies Pain: None PO Intake: Good Voiding: no voiding problems The patient was seen and examined this morning. Pt reports doing much better this morning, she got adequate sleep last night since taking the Robitussin with codeine in it. She reports her cough is much improved and her breathing is nearly back to 100% normal. She reports having lost a bit of weight within the past year and that her PCP noted she should not loose any more; current weight =151 lbs. Denies knowing how much weight she has lost overall. Her appetite has decreased. She admits to early satiety. No issues with swallowing, food getting stuck or indigestion with eating. Pt is requesting something for her bowels during admission because she has gotten constipated during admissions in the past. ROS: 6 point ROS reviewed, all others reviewed and negative. Objective Vital Signs Date Time Temp Pulse Resp B/P (MAP) Pulse Ox O2 Delivery O2 Flow Rate FiO2 07/30/17 07:42 36.5 88 20 127/68 (87) 95 Room Air 07/30/17 07:22 81 18 96 Room Air 07/30/17 00:00 Room Air 07/29/17 23:37 36.9 86 18 141/59 (86) 93 Room Air 07/29/17 20:00 Room Air 07/29/17 19:30 81 18 94 Room Air 07/29/17 17:46 96 Room Air 07/29/17 17:38 36.6 94 20 150/71 (97) 96 Room Air Physical Exam General Appearance: WD/WN, no apparent distress Eyes: PERRL, EOMI ENT: hearing grossly normal, pharynx normal, + pertinent finding (MMM) Neck: supple, no JVD Respiratory/Chest: chest non-tender, no respiratory distress, no accessory muscle use, + pertinent finding (+ expiratory wheeze heard best in the LLL and RML, on RA) Cardiovascular: regular rate, rhythm, no murmur Abdomen: normal bowel sounds, non tender, soft Extremities: non-tender, no pedal edema, no calf tenderness Neurologic/Psychiatric: alert, normal mood/affect, oriented x 3 Skin: normal color, warm/dry Laboratory Results Last 24 Hours Test 07/29/17 18:01 07/29/17 21:04 07/30/17 06:10 07/30/17 07:18 White Blood Count 7.79 K/uL 8.01 K/uL Red Blood Count 4.39 M/uL 4.47 M/uL Hemoglobin 11.9 g/dL 12.0 g/dL Hematocrit 36.0 % 36.5 % Mean Corpuscular Volume 82.0 fL 81.7 fL Mean Corpuscular Hemoglobin 27.1 pg 26.8 pg Mean Corpuscular Hemoglobin Concent 33.1 g/dl 32.9 g/dl Platelet Count 313 K/uL 357 K/uL Mean Platelet Volume 8.6 fL 8.5 fL RDW Standard Deviation 43.1 fL 42.7 fL RDW Coefficient of Variation 14.5 % 14.3 % Neutrophils % (Manual) 29.6 % Lymphocytes % (Manual) 53.9 % Monocytes % (Manual) 11.3 % Eosinophils % (Manual) 3.5 % Basophils % (Manual) 1.7 % Neutrophils # (Manual) 2.31 K/uL Total Absolute Neutrophils 2.31 K/uL Lymphocytes # (Manual) 4.20 K/uL Total Absolute Lymphocytes 4.20 K/uL Monocytes # (Manual) 0.88 K/uL Eosinophils # (Manual) 0.27 K/uL Basophils # (Manual) 0.13 K/uL Red Blood Cell Morphology Unremarkable Sodium Level 139 mmol/L 137 mmol/L Potassium Level 3.9 mmol/L 4.2 mmol/L Chloride Level 105 mmol/L 104 mmol/L Carbon Dioxide Level 28 mmol/L 27 mmol/L Anion Gap 6.0 mmol/L 6.0 mmol/L Blood Urea Nitrogen 15 mg/dl 14 mg/dl Creatinine 0.80 mg/dl 0.77 mg/dl Estimated GFR () 78.5 82.2 Estimated GFR (Non- 67.7 70.9 BUN/Creatinine Ratio 18.8 18.1 Random Glucose 133 mg/dl 139 mg/dl Calcium Level 8.5 mg/dl 8.3 mg/dl Bedside Glucose 176 mg/dl 125 mg/dl Neutrophils (%) (Auto) 55.4 % Lymphocytes (%) (Auto) 31.2 % Monocytes (%) (Auto) 12.2 % Eosinophils (%) (Auto) 0.0 % Basophils (%) (Auto) 0.2 % Neutrophils # (Auto) 4.43 K/uL Lymphocytes # (Auto) 2.50 K/uL Monocytes # (Auto) 0.98 K/uL Eosinophils # (Auto) 0.00 K/uL Basophils # (Auto) 0.02 K/uL Immature Granulocyte % (Auto) 1.0 % Immature Granulocyte # (Auto) 0.08 K/uL Est Creatinine Clear Calc Drug Dose 51.2 ml/min Magnesium Level 2.1 mg/dl Assessment and Plan Ms. Gleason is an 86 year old woman here for COPD exacerbation COPD exacerbation - admit med[facility]surg [facility] start azithromycin and Rocephin - day # 2 - 40 mg iv solumedrol bid - continue for now - can decrease tomorrow - duonebs qid - Robitussin AC for cough - patient had great relief from this overnight - continue - continue Singulair DM II - ss to cover for sugars while on Solu-medrol - bsgs ac&hs HTN - continue Hyzaar, diltiazem Hx CVA - continue plavix Seizure history - continue gabapentin, Dilantin Hx of constipation - Daily bowel regimen ordered CODE STATUS: Full, no mechanical ventilation Disposition: From home, lives alone, has an adopted daughter who spends most of the day with her. PT/OT to see
[2017-07-30] MEDS: POLYETHYLENE (MIRALAX) 17 GM PACK PO SCH (10:30)
[2017-07-30] MEDS ORDERED: POLYETHYLENE (MIRALAX) 17 GM PACK ONE (11:20)
[2017-07-30] MEDS: BISACODYL 5 MG TABEC PO SCH (11:23)
[2017-07-30 12:39] LABS: ESTIMATED AVERAGE GLUCOSE 148 mg/dl; HA1C FLAG Normal (Normal)
[2017-07-30] MEDS: CEFTRIAXONE SOD INJ 1,000 MG in DEXTROSE 5% 50ML 50 ML IV SCH (20:47)
[2017-07-30] MEDS: ENOXAPARIN 40 MG/0.4 ML SYR SQ SCH (20:50)
[2017-07-31] MEDS: ALBUT/IPRATROP 3MG/0.5MG NEB 3 ML VIAL INH SCH ×2 (07:03→11:18)
[2017-07-31 07:04] VITALS: PULSE 76; O2SAT 97
[2017-07-31 07:14] LABS: BASO % 0.2 %; BASO ABS # 0.02 K/uL (0-0.2); COMPLETE YES; HEMATOCRIT 38.6 % (37-47); IG% 1.3 %; LYMPH % 21.1 %; LYMPH ABS # 2.47 K/uL (1.2-3.4); MEAN CELL VOLUME 81.1 fL (80-100); MEAN CORPUSCULAR HEMOGLOBIN 26.9 pg (25-34); MEAN CORPUSCULAR HGB CONC 33.2 g/dl (32-36); MEAN PLATELET VOLUME 8.8 fL (7.4-10.4); MONO % 7.7 %; NEUT % 69.7 %; PLATELET COUNT 433 K/uL (130-400); RED BLOOD COUNT 4.76 M/uL (4.2-5.4)
[2017-07-31 07:36] VITALS: BP 118/66; PULSE 92; TEMP 36.4; O2SAT 96
[2017-07-31 07:42] LABS: BUN/CREATININE RATIO 23.2 (10-20); CALCIUM 9.4 mg/dl (8.5-10.1); CREATININE 0.84 mg/dl (0.60-1.20); POTASSIUM 4.1 mmol/L (3.5-5.1)
[2017-07-31] MEDS: PHENYTOIN SODIUM ER 100 MG CAP PO SCH ×2 (08:11→13:13)
[2017-07-31] MEDS: METHYLPREDNISOLONE IV 40 MG in SYRINGE 0 ML IV SCH (08:11)
[2017-07-31] MEDS: GABAPENTIN 400 MG CAP PO SCH (08:12)
[2017-07-31] MEDS: POLYETHYLENE (MIRALAX) 17 GM PACK PO SCH (08:12)
[2017-07-31] MEDS: CALCIUM 600MG + VIT D 400 IU TAB PO SCH ×2 (08:12→13:13)
[2017-07-31] MEDS: MONTELUKAST SOD 10 MG TAB PO SCH (08:12)
[2017-07-31] MEDS: CLOPIDOGREL BISULFATE 75 MG TAB PO SCH (08:12)
[2017-07-31] MEDS: CYANOCOBALAMIN 500 MCG TAB (VIT B-12) PO SCH (08:12)
[2017-07-31] MEDS: PANTOprazole SOD 40 MG TAB PO SCH (08:12)
[2017-07-31] MEDS: AZITHROMYCIN 250 MG TAB PO SCH (08:13)
[2017-07-31] MEDS: LOSARTAN/HCTZ 50-12.5 EA TAB PO SCH (08:13)
[2017-07-31] MEDS: MAGNESIUM OXIDE 400 MG TAB PO SCH (08:13)
[2017-07-31] MEDS: POTASSIUM CHLORIDE 20 MEQ TABCR PO SCH (08:13)
[2017-07-31] MEDS: DILTIAZEM HCL 120 MG ER CAP PO SCH (08:13)
[2017-07-31] MEDS: BISACODYL 5 MG TABEC PO SCH (08:13)
[2017-07-31] MEDS: INSULIN ASPART 100 UNITS/ML 3 ML PEN SC SCH ×2 (08:20→12:20)
--- NOTE | 2017-07-31 10:48 | Discharge Instructions ---
Discharge Instructions Date of Service Jul 31, 2017. Admission Reason for Admission: Copd Exacerbation Discharge Discharge Diagnosis / Problem: COPD exacerbation Discharge Goals Goal(s): Decrease discomfort, Improve function, Increase independence, Improve disease control Activity Recommendations Activity Limitations: resume your previous activity Lifting Limitations: no more than 10 pounds Exercise/Sports Limitations: rest today, gradually increase as tolerated Shower/Bathe: no limitations (with assistance) Driving or Machine Use: Do Not Drive . Instructions / Follow-Up Instructions / Follow-Up You were admitted to [facility] with COPD exacerbation and diagnosed with the same. During your stay here you were treated with supportive care including breathing treatments and intravenous steroids. Medications: You have been given a prescription for a prednisone taper, continue taking as follows: Take 60 mg daily x 2 days 40 mg daily x 2 days 20 mg daily x 2 days then stop. Last dose of prednisone on 08/06 Continue taking azithromycin 500 mg x 2 more day. Continue taking your other medications as prescribed. Appointments: Follow up with your Primary Care Provider within 1 week. Current Hospital Diet Patient's current hospital diet: AHA Diet (Heart Healthy) Discharge Diet Recommended Diet: AHA Diet (Heart Healthy) Pending Studies Studies pending at discharge: no Laboratory Results Hemoglobin A1c Test 07/30/17 06:10 Range/Units Estimated Average Glucose 148 mg/dl Hemoglobin A1c 6.8 H 4.5-5.6 % Medical Emergencies . Who to Call and When: Medical Emergencies: If at any time you feel your situation is an emergency, please call 911 immediately. . Non-Emergent Contact Non-Emergency issues call your: Primary Care Provider Call Non-Emergent contact if: you have a fever, temperature is above 100.5, your pain is not controlled, your pain is worsening, your pain is unusual for you, your pain is concerning you, you have any medication questions . Past History Medical & Surgical History: (1) COPD exacerbation . "Provider Documentation" section prepared by Cristela Crystal. . VTE Core Measure Inpt VTE Proph given/why not?: Enoxaparin (Lovenox)SQ
[2017-07-31 11:19] VITALS: PULSE 74; O2SAT 97
[2017-07-31] MEDS ORDERED: AZIT-57 PO (11:50)
[2017-07-31] MEDS ORDERED: DLC5 PO (11:50)
[2017-07-31] MEDS ORDERED: PRED20TA PO (11:50)
--- NOTE | 2017-07-31 11:52 | Discharge Summary ---
Discharge Summary Date of Service Jul 31, 2017. Discharge Summary Admission Date: Jul 29, 2017 at 16:46 Discharge Date: Jul 31, 2017 Discharge Disposition: Home Principal Diagnosis: COPD exacerbation Problems/Secondary Diagnoses: COPD exacerbation DM II HTN Hx CVA on plavix Seizure history Hx of constipation Immunizations: Have You Had Influenza Vaccine: Yes Influenza Vaccine Date: Apr 15, 2012 History of Tetanus Vaccine?: Yes Tetanus Immunization Date: Mar 31, 2009 History of Pneumococcal: Yes Pneumococcal Date: Jan 14, 2012 History of Hepatitis B Vaccine: No Procedures: CHEST ONE VIEW PORTABLE CLINICAL HISTORY: Dyspnea, COPD exacerbation. COMPARISON STUDY: Chest CT March 26, 2017 and chest radiograph July 27, 2017. FINDINGS: Lung volumes are normal. There is no pneumothorax or pleural effusion. Pulmonary vascularity is normal. Mild left basilar opacity likely reflects atelectasis. There is no consolidation to suggest pneumonia. Cardiomediastinal silhouette is stable. The appearance of the chest is unchanged. IMPRESSION: No acute cardiopulmonary findings. Electronically signed by: Mahesh Chew M.D. 07/29/2017 6:18 PM Dictated Date/Time: 07/29/2017 6:17 PM The status of this report is Signed. Consultations: none Medication Reconciliation New Medications: Prednisone (Prednisone) 20 Mg Tab 1 TAB PO UD for 6 Days, #12 TAB Take 60 mg (3 tabs) x 2 days, 40 mg (2 tabs) x 2 days, then 20 mg (1 tab) x 2 days then stop- Last dose on 08/06. Azithromycin (Azithromycin) 250 Mg Tab 500 MG PO QAM for 2 Days, #4 TAB Finish antibiotic on 08/02 Bisacodyl (Bisacodyl EC) 5 Mg Tabec 5 MG PO DAILY for 14 Days, #14 TAB Guaifenesin/Codeine (Robitussin-Ac Syrup) Syrp 10 ML PO Q6H PRN for Cough for 14 Days, #1 BTL Continued Medications: Acetaminophen Tab (Tylenol) 325 Mg Tab 650 MG PO Q6 PRN for Pain or Fever, TAB Albuterol Hfa (Ventolin Hfa) 200 Puffs/26685 Mcg Aers 2-4 PUFFS INH Q6H PRN for Shortness of Breath, #1 INHALER Albuterol Sulf (Proventil 0.083% 2.5MG/3ML) 2.5 Mg/3 Ml Nebu 2.5 MG INH [id number] PRN for SOB/Wheezing, EA Benzonatate (Tessalon Perles) 100 Mg Cap 100 MG PO Q8 for Cough, #30 CAP Calcium Carbonate (Calcium 600) 600 Mg Tab 1 TAB PO TID Cholecalciferol (Vitamin D3) 2,000 Unit Cap 2000 CAP PO WK, CAP EVERY FRIDAY Clopidogrel (Plavix) 75 Mg Tab 75 MG PO QAM Cyanocobalamin (Vitamin B-12) 1,000 Mcg Tab 1000 MCG PO BID Diltiazem HCl Coated Beads (Diltiazem HCl ER) 240 Mg Tab 240 MG PO QAM Fluticasone Furoate-Vilanterol (Breo Ellipta 200-25 Mcg/INH) 1 Inh Inh 1 PUFF INH QAM Fluticasone Propionate (Nasal) (Flonase Allergy Relief) 50 Mcg/Act Spr 2 SPRAYS [place] DAILY Gabapentin (Neurontin) 400 Mg Cap 400 MG PO BID, CAP Hctz/Losartan (Hyzaar 12.5MG/50MG) Tab 1 TAB PO QAM, TAB Lidocaine (Lidoderm Patch 5%) 1 Ea Tdsy 1 PATCH TD DAILY for Pain, #1 BOX Magnesium Oxide (Mag-Ox) 400 Mg Tab 400 MG PO QAM, TAB Montelukast Sodium (Singulair) 10 Mg Tab 10 MG PO QAM Nitroglycerin (Nitrostat) 0.4 Mg Tab 0.4 MG SL PRN/UD, #100 TAB 3 Refills NEEDED FOR CHEST PAIN : ONE TABLET UNDER THE TONGUE EVERY 5 MINUTES UP TO 3 DOSES. Omeprazole (Prilosec) 20 Mg Cap 20 MG PO BID Phenytoin Sodium (Dilantin) 100 Mg Cap 100 MG PO TID Potassium Chloride (Potassium Chloride Er) 10 Meq Tab 20 MEQ PO QAM Discontinued Medications: Levofloxacin (Levaquin) 750 Mg Tab 1 TAB PO DAILY for 5 Days, #4 TAB Discharge Exam The patient was seen and examined this morning. Pt reports doing very well, she has no issues with breathing and denies any wheezing. She has been ambulating about the room without difficulty and denies any GOEL. Pt reports feeling ready to go home. Discussion regarding prednisone taper and antibiotics were held and all her questions and concerns were answered. Review of Systems: Constitutional: No fever, No chills, No sweats, No fatigue Eyes: No redness, No diplopia ENT: No nasal symptoms, No sore throat Respiratory: No cough, No sputum, No wheezing, No shortness of breath, No dyspnea on exertion Cardiovascular: No chest pain, No edema Abdomen: + constipation (moved small amount of stool today), No pain, No nausea, No vomiting, No diarrhea Musculoskeletal: No joint pain, No swelling Neurologic: No memory loss, No numbness/tingling Psychiatric: No depression symptoms, No anxiety Endocrine: No fatigue Integumentary: No rash, No itch Physical Exam: General Appearance: WD/WN, no apparent distress Eyes: PERRL, EOMI ENT: hearing grossly normal, pharynx normal Neck: supple, no JVD Respiratory/Chest: chest non-tender, lungs clear, no respiratory distress, no accessory muscle use Cardiovascular: regular rate, rhythm, no murmur Abdomen / GI: normal bowel sounds, non tender, soft Extremities: normal inspection, no calf tenderness, no pedal edema Neurologic/Psychiatric: alert, normal mood/affect, oriented x 3 Skin: normal color, warm/dry Hospital Course History of Present Illness Ms. Gleason presents today for failed treatment of COPD exacerbation. She had been to the emergency department over a week ago for complaints of sob and was sent home with antibiotics however she continued to worsen and presented to her pcp today who sent her here as a direct admission. She has been wheezing with a non productive cough, sob, and pain across her mid chest when she coughs. She denies n/v/d, she has been eating and drinking well. Physical Exam General: no distress Eyes: normal inspection, PERLL Respiratory: chest non tender, expiratory wheezes bilaterally throughout, no respiratory distress, no accessory muscle use Cardiac: regular rate and rhythm, no rub or gallop, no murmur, no edema, no jvd GI/: active bowel sounds, no abd pain or tenderness, soft, non distended Extremities: normal range of motion, normal strength, non tender Neuro/Psych: alert and oriented x 3, normal mood and affect Skin: normal color, dry Hospital Course: Ms. Gleason is an 86 year old woman here for COPD exacerbation and was treated with intravenous steroids and antibiotics. Her symptoms greatly improved. She was discharge home with PCP follow up within 1-2 weeks. COPD exacerbation - admit med/surg - failed Levaquin outpatient - was on azithromycin and rocephin during hospital stay. Continue on 2 more days of azithromycin upon discharge. - 40 mg iv solumedrol bid - transitioned to PO prednisone: Taper over next 6 days: 60 mg x 2 days, 40 mg x 2 days, then 20 mg x 2 days and stop. - duonebs qid improved breathing during hospitalization - Robitussin AC for cough - patient had great relief from this overnight - continue - continue Singulair DM II - ss to cover for sugars while on Solu-medrol - bsgs ac&hs HTN - continue Hyzaar, diltiazem Hx CVA - continue plavix Seizure history - continue gabapentin, Dilantin Hx of constipation - Daily bowel regimen ordered CODE STATUS: Full, no mechanical ventilation Disposition: From home, lives alone, has an adopted daughter who spends most of the day with her. OT cleared for home. Total Time Spent: Greater than 30 minutes This includes examination of the patient, discharge planning, medication reconciliation, and communication with other providers. Discharge Instructions Please refer to the electronic Patient Visit Report (Discharge Instructions) for additional information. Follow-Up Follow up with your Primary Care Provider within 1-2 weeks. Additional Copies To Scar Parker M.D.
[2017-07-31 12:30] VITALS: BP 118/66; PULSE 74; TEMP 36.4; O2SAT 97
[2017-07-31] MEDS ORDERED: GUAISYP4 PO (13:32)
== END 2017-07-31 13:36 | disposition home or self-care (01) | DRG 192 ==
LOC: C.MS2W 16:46
PROVIDERS: ADMIT Internal Medicine; ATTEND Hospitalist
DX: J44.1 Chronic obstructive pulmonary disease with (acute) exacerbation (principal); E11.9 Type 2 diabetes mellitus without complications; I10 Essential (primary) hypertension; G40.909 Epilepsy, unspecified, not intractable, without status epilepticus; Z86.73 Personal history of transient ischemic attack (TIA), and cerebral infarction without residual deficits; Z86.69 Personal history of other diseases of the nervous system and sense organs; Z87.19 Personal history of other diseases of the digestive system; Z79.02 Long term (current) use of antithrombotics/antiplatelets; Z79.51 Long term (current) use of inhaled steroids; Z79.899 Other long term (current) drug therapy; Z83.3 Family history of diabetes mellitus; Z82.49 Family history of ischemic heart disease and other diseases of the circulatory system

== ENCOUNTER → 2017-08-18 | Outpatient (CLI) | payer OTHER, MEDICARE ==
[~2017-08-18] MED LIST changes: +AZIT-57 PO; +DLC5 PO; +GUAISYP4 PO; -LEVO750T23 PO; -PRED20TA2 PO
== END | disposition home or self-care (01) ==
LOC: C.LABBFT 14:33
PROVIDERS: ATTEND Physician Assistant Medical
DX: R30.0 Dysuria (principal)

== ENCOUNTER → 2017-09-18 | Outpatient (CLI) | payer OTHER, MEDICARE ==
[~2017-09-18] MED LIST changes: +ACET-1693 PO; -ACET325T96 PO; +GABA-1220 PO; -GABA1CAP5 PO
[2017-09-18 17:40] LABS: ALBUMIN 3.2 gm/dl (3.4-5.0); ALT/SGPT 22 U/L (12-78); AST/SGOT 14 U/L (15-37); BLOOD UREA NITROGEN 15 mg/dl (7-18); CALCIUM 9.1 mg/dl (8.5-10.1); CARBON DIOXIDE 29 mmol/L (21-32); CHOLESTEROL 227 mg/dl (0-200); CREATININE 0.67 mg/dl (0.60-1.20); GLUCOSE 97 mg/dl (70-99); POTASSIUM 3.9 mmol/L (3.5-5.1); SODIUM 138 mmol/L (136-145)
[2017-09-18 17:43] LABS: ALKALINE PHOSPHATASE 167 U/L (45-117); LDL CHOLESTEROL CALCULATED 117 mg/dl
[2017-09-18 18:24] LABS: HEMOGLOBIN A1C 6.8 % (4.5-5.6)
== END | disposition home or self-care (01) ==
LOC: C.LABBFT 14:36
PROVIDERS: ATTEND Physician Assistant Medical
DX: E11.9 Type 2 diabetes mellitus without complications (principal); R91.1 Solitary pulmonary nodule; I65.29 Occlusion and stenosis of unspecified carotid artery; E55.9 Vitamin D deficiency, unspecified

== ENCOUNTER 2017-10-19 10:52 | Emergency (ER) | payer OTHER, MEDICARE ==
[~2017-10-19] VITALS: Ht 157.5 cm; Wt 76.0 kg
[2017-10-19 10:59] VITALS: TEMP 36.8; Ht 157.5 cm; Wt 76.0 kg
[2017-10-19] MEDS ORDERED: MoRPHine SULFATE 4 MG/ML 1 ML CARP\\VIAL IV STA (11:15)
[2017-10-19] MEDS ORDERED: DIPHTHERIA/TETANUS/PERTUSSIS 0.5 ML SYR/VIAL IM. ONE ×2 (11:15→15:00)
[2017-10-19] MEDS ORDERED: SODIUM CHLORIDE 0.9% 1000ML 1,000 ML IV STA (11:15)
[2017-10-19] MEDS ORDERED: ONDANSETRON INJ 2 MG/ML 2 ML VIAL IV STA (11:15)
--- NOTE | 2017-10-19 11:39 | EMERGENCY ROOM VISIT NOTE ---
History Report prepared by Kathrine: Nia Grijalva Under the Supervision of: Dr. Raphael Llamas M.D. First contact with patient: 11:02 Chief Complaint: FALL Stated Complaint: FALL History of Present Illness The patient is a 86 year old female who presents to the Emergency Room with complaints of an episode of a fall occurring just prior to arrival. The patient was being picked up by a a friend for quaker this morning and when she walked outside she lost her balance and fell. Per nursing, the patient was on the ground for about 30 minutes before she was found. The patient lives at home alone. The patient notes lower back pain but she denies any neck pain, abdominal pain, hip pain, or hitting her head. The patient is on Plavix. The patient has a history of COPD and hypertension. Source of History: patient Onset: just prior to arrival Position: other (generalized) Quality: other (fall) Timing: other (episode) Associated Symptoms: + back pain, No neck pain, No abdominal pain Review of Systems See HPI for pertinent positives and negatives. A total of ten systems were reviewed and were otherwise negative. Past Medical & Surgical Medical Problems: (1) Asthma (2) Bronchitis (3) CVA (4) Diabetes mellitus type 2 (5) Emphysema (6) Generalized weakness (7) Heart disease (8) Hyperlipidemia (9) Hypertensive disorder, systemic arterial (10) ICH (intracerebral hemorrhage) (11) Kidney stones (12) Peripheral vascular disease (13) Pneumonia (14) Right sided weakness (15) Vascular dementia Family History Diabetes mellitus FH: cancer FH: heart disease FHx: gallbladder disease Hypertension Social History Smoking Status: Never Smoker Alcohol Use: none Drug Use: none Marital Status: Housing Status: lives alone Occupation Status: retired Current/Historical Medications Scheduled Calcium Carbonate (Calcium 600), 1 TAB PO BID Cholecalciferol (Vitamin D3), 2,000 MG PO WK Clopidogrel (Plavix), 75 MG PO QAM Cyanocobalamin (Vitamin B-12), 1,000 MCG PO BID Diltiazem HCl Coated Beads (Diltiazem HCl ER), 240 MG PO QAM Fluticasone Furoate-Vilanterol (Breo Ellipta 200-25 Mcg/INH), 1 PUFF INH QAM Fluticasone Propionate (Nasal) (Flonase Allergy Relief), 2 SPRAYS [place] DAILY Gabapentin (Neurontin), 400 MG PO BID Hctz/Losartan (Hyzaar 12.5MG/50MG), 1 TAB PO QAM Magnesium Oxide (Mag-Ox), 400 MG PO QAM Montelukast Sodium (Singulair), 10 MG PO QAM Nitroglycerin (Nitrostat), 0.4 MG SL PRN/UD Omeprazole (Prilosec), 20 MG PO BID Phenytoin Sodium (Dilantin), 100 MG PO TID Potassium Chloride (Potassium Chloride Er), 20 MEQ PO QAM Scheduled PRN Acetaminophen Tab (Tylenol), 650 MG PO Q6 PRN for Pain or Fever Acetaminophen/Codeine (Tylenol W/Codeine #3), 1 TABS PO QID PRN for Pain Albuterol Hfa (Ventolin Hfa), 2-4 PUFFS INH Q6H PRN for Shortness of Breath Albuterol Sulf (Proventil 0.083% 2.5MG/3ML), 2.5 MG INH [id number] PRN for SOB/ Wheezing Allergies Coded Allergies: Atorvastatin (Verified Allergy, Mild, UNSURE, 05/22/17) Ezetimibe (Verified Allergy, Mild, UNSURE, 05/22/17) Alendronate (Verified Allergy, Unknown, UNKN, 05/22/17) Benazepril (Verified Allergy, Unknown, UNSURE, 05/22/17) Clonidine (Verified Allergy, Unknown, UNSURE, 05/22/17) Ibandronic Acid (Verified Allergy, Unknown, UNKN, 05/22/17) Simvastatin (Verified Allergy, Unknown, OK TO TRY CRESTOR PER [id number], 05/22/17) Physical Exam Vital Signs Date Time Temp Pulse Resp B/P (MAP) Pulse Ox O2 Delivery O2 Flow Rate FiO2 10/19/17 15:25 87 156/83 95 10/19/17 13:02 82 151/62 95 10/19/17 10:59 36.8 95 189/86 97 Room Air Physical Exam Physical Exam GENERAL: She is oriented to person, place, and time. She appears well- developed and well-nourished. She does not appear distressed. ____ HENT: Exam performed. Head: Normocephalic and atraumatic. Right Ear: External ear normal. No mastoid tenderness. Left Ear: External ear normal. No mastoid tenderness. Mouth/Throat: The oropharynx is clear and moist. No trismus in the jaw. No dental abscesses or uvula swelling. No oropharyngeal exudate or tonsillar abscesses. ____ EYES: Conjunctivae and EOM are normal. Pupils are equal, round, and reactive to light. Right eye exhibits no discharge. Left eye exhibits no discharge. No scleral icterus. ____ NECK: Normal range of motion. Neck supple. No JVD present. No spinous process tenderness present. No carotid bruit present. No rigidity. No tracheal deviation and normal range of motion present. No Brudzinski's sign and no Kernig 's sign noted. ____ CV: Normal rate, regular rhythm, normal heart sounds and intact distal pulses. There is no peripheral edema. Palpable radial pulses bue. ____ PULM/CHEST: Effort normal and breath sounds normal. No respiratory distress. No stridor. She has no wheezes. She has no rales. Chest Wall: She exhibits no tenderness. ____ ABD: The abdomen is soft. Bowel sounds are normal. She has no distension. No mass is present. There is no tenderness. There is no rebound, no guarding, no Elizabeth's sign and no tenderness at McBurney's point. Rovsig negative MUSC/SKEL: Pain on palpation of L-spine no pain on palpation of C or T-spine. Abrasion left knee. Pain and ecchymosis of L proximal humerus. Normal range of motion. LYMPH: No cervical adenopathy. ____ NEURO: She is alert and oriented to person, place, and time. She has normal strength. No cranial nerve deficit or sensory deficit. Coordination and gait normal. GCS eye subscore is 4. GCS verbal subscore is 5. GCS motor subscore is 6. Cerebellar tests wnl. ____ SKIN: Skin is warm and dry. She is not diaphoretic. ____ PSYCH: She has a normal mood and affect. Her behavior is normal. Judgment and thought content normal. ____ Medical Decision & Procedures ER Provider Diagnostic Interpretation: Radiology results as stated below per my review and radiologist interpretation: CT OF THE CERVICAL SPINE FINDINGS: The visualized portions of the lung apices reveal no evidence of pneumothorax. There is a suspected multinodular thyroid gland The prevertebral soft tissues are normal. No fractures or subluxations are visualized. There are multilevel degenerative changes. There is fusion of the posterior elements the C2-3 level. IMPRESSION: No evidence of acute fracture or traumatic subluxation. Electronically signed by: Wes Zelaya M.D. CT HEAD WITHOUT CONTRAST (CT) FINDINGS: No intra or extra-axial mass lesions are visualized. There is no CT evidence of acute cortical infarction. There is no evidence of midline shift. There is no acute hemorrhage. No calvarial fractures are visualized. There are patchy white matter hypodensities likely on a small vessel basis. There is no evidence of pathologic ventricular dilatation. There is scattered basal ganglia lacunar infarcts. There is no evidence of acute sinusitis IMPRESSION: No acute intracranial findings Electronically signed by: Wes Zelaya M.D. CHEST ONE VIEW PORTABLE FINDINGS: The heart is at the upper limits of normal in size. There is no failure. There is no focal pulmonary consolidation. There are no pleural effusions. There is no pneumothorax. There is minor left basilar atelectasis/scarring.[ IMPRESSION: No active disease in the chest. Electronically signed by: Hasmukh Rizzo HUMERUS MIN 2 VIEWS ROUTINE DISCUSSION: No acute fractures or dislocations are visualized. IMPRESSION: No fractures identified. Electronically signed by: Hasmukh Rizzo KNEE 4 OR MORE VIEWS DISCUSSION: The bones are osteopenic. There is 27 mm osteochondroma arising from the proximal metaphysis of the distal left femur medially. There is chondrocalcinosis. There are vascular calcifications. No acute fractures or dislocations are visualized. IMPRESSION: 1. No acute fractures 2. Distal femoral osteochondroma Electronically signed by: Hasmukh Rizzo-SPINE MIN 4 VIEWS ROUTINE FINDINGS: The bones are osteopenic. No fractures or subluxations are visualized. Incidental note is made of vascular calcifications. There is no pathologic bowel dilatation. IMPRESSION: No fractures or dislocations identified. Electronically signed by: Wes Zelaya M.D. PELVIS 1 OR 2 VIEW ROUTINE FINDINGS: There are vascular calcifications present. No fractures or dislocations are visualized. There is no SI joint diastases. There is no symphysis diastases. IMPRESSION: No fractures identified. Electronically signed by: Wes Zelaya M.D. L SHOULDER MIN 2 VIEWS ROUTINE DISCUSSION: No fractures or dislocations are visualized. IMPRESSION: No fractures or dislocations identified. Electronically signed by: Wes Zelaya M.D. Laboratory Results 10/19/17 11:38 Red Blood Count 4.75, Mean Corpuscular Volume 80.6, Mean Corpuscular Hemoglobin 26.7, Mean Corpuscular Hemoglobin Concent 33.2, Mean Platelet Volume 8.6, Neutrophils (%) (Auto) 62.9, Lymphocytes (%) (Auto) 23.6, Monocytes (%) (Auto) 11.0, Eosinophils (%) (Auto) 1.8, Basophils (%) (Auto) 0.3, Neutrophils # (Auto ) 6.04, Lymphocytes # (Auto) 2.27, Monocytes # (Auto) 1.06, Eosinophils # (Auto ) 0.17, Basophils # (Auto) 0.03 10/19/17 11:38 Test 10/19/17 11:38 White Blood Count 9.61 K/uL (4.8-10.8) Red Blood Count 4.75 M/uL (4.2-5.4) Hemoglobin 12.7 g/dL (12.0-16.0) Hematocrit 38.3 % (37-47) Mean Corpuscular Volume 80.6 fL (80-100) Mean Corpuscular Hemoglobin 26.7 pg (25-34) Mean Corpuscular Hemoglobin Concent 33.2 g/dl (32-36) Platelet Count 342 K/uL (130-400) Mean Platelet Volume 8.6 fL (7.4-10.4) Neutrophils (%) (Auto) 62.9 % Lymphocytes (%) (Auto) 23.6 % Monocytes (%) (Auto) 11.0 % Eosinophils (%) (Auto) 1.8 % Basophils (%) (Auto) 0.3 % Neutrophils # (Auto) 6.04 K/uL (1.4-6.5) Lymphocytes # (Auto) 2.27 K/uL (1.2-3.4) Monocytes # (Auto) 1.06 K/uL (0.11-0.59) Eosinophils # (Auto) 0.17 K/uL (0-0.5) Basophils # (Auto) 0.03 K/uL (0-0.2) RDW Standard Deviation 42.2 fL (36.4-46.3) RDW Coefficient of Variation 14.4 % (11.5-14.5) Immature Granulocyte % (Auto) 0.4 % Immature Granulocyte # (Auto) 0.04 K/uL (0.00-0.02) Prothrombin Time 10.5 SECONDS (9.0-12.0) Prothromb Time International Ratio 1.0 (0.9-1.1) Activated Partial Thromboplast Time 23.9 SECONDS (21.0-31.0) Partial Thromboplastin Ratio 0.9 Anion Gap 9.0 mmol/L (3-11) Est Creatinine Clear Calc Drug Dose 52.6 ml/min Estimated GFR () 83.5 Estimated GFR (Non- 72.0 BUN/Creatinine Ratio 17.0 (10-20) Calcium Level 8.9 mg/dl (8.5-10.1) Total Creatine Kinase 71 U/L (26-192) Laboratory results reviewed by me Medications Administered Medications (Trade) Dose Ordered Sig/Flavio Route Start Time Stop Time Status Last Admin Dose Admin Sodium Chloride 1,000 ml @ 100 mls/hr Q10H STAT IV 10/19/17 11:15 10/19/17 15:44 DC 10/19/17 11:15 100 MLS/HR Morphine Sulfate (MoRPHine SULFATE INJ) 4 mg NOW STAT IV 10/19/17 11:15 10/19/17 11:21 DC 10/19/17 11:44 4 MG Ondansetron HCl (Zofran Inj) 4 mg NOW STAT IV 10/19/17 11:15 10/19/17 11:21 DC 10/19/17 11:44 4 MG Acetaminophen/ Codeine Phosphate (Tylenol w/ Codeine #3 Tab) 1 tab NOW ONCE PO 10/19/17 14:00 10/19/17 14:01 DC 10/19/17 14:06 1 TAB Diphtheria/ Pertussis/Tetanus Vacc (Adacel Inj) 0.5 ml ONCE ONCE IM. 10/19/17 15:00 10/19/17 15:01 DC 10/19/17 14:53 0.5 ML Procedure Bedside FAST exam performed with ultrasound. Views were obtained in the hepatorenal subxyphoid splenorenal and suprapubic windows. No free fluid in the abdomen. No pericardial tamponade. ECG Per My Interpretation Indication: other (trauma) Rate (beats per minute): 94 Rhythm: sinus rhythm Findings: other (DC,QRS, QTC within normal limits, no ST elevation or ST depression, baseline artifact) ED Course 1111: The patient was evaluated in room C10. A complete history and physical exam was performed. 1115: Ordered Zofran Inj 4 mg IV, Morphine Sulfate 4 mg IV, Adacel Inj 0.5 ml IM , Sodium Chloride 1000 ml @ 100 mls/hr IV. 1400: Ordered Acetaminophen/Codeine Phosphate 1 tab PO. 1405: Vitals stable, imaging and labs within normal limits. Patient will be discharged with friend at bedside who will drive her home. The patient will be discharges with analgesia. DISCHARGE - Plan of care discussed with patient and questions answered. The patient was given both verbal and printed discharge instructions. The patient verbalized understanding and ability to comply. The patient is to seek outpatient follow up as noted in the discharge instructions. The patient verbalized understanding and ability to comply. The patient is discharged in stable condition. The patient was instructed to return for worsening symptoms. Medical Decision Vitals stable, imaging and labs within normal limits. Patient will be discharged with friend at bedside who will drive her home. The patient will be discharges with analgesia. DISCHARGE - Plan of care discussed with patient and questions answered. The patient was given both verbal and printed discharge instructions. The patient verbalized understanding and ability to comply. The patient is to seek outpatient follow up as noted in the discharge instructions. The patient verbalized understanding and ability to comply. The patient is discharged in stable condition. The patient was instructed to return for worsening symptoms. Medication Reconcilliation Current Medication List: was personally reviewed by me Blood Pressure Screening Patient's blood pressure: Normal blood pressure Impression Primary Impression: Fall Scribe Attestation The scribe's documentation has been prepared under my direction and personally reviewed by me in its entirety. I confirm that the note above accurately reflects all work, treatment, procedures, and medical decision making performed by me. The chart was completed utilizing [employer] voice recognition software. Grammatical errors, random word insertions, pronoun errors, and incomplete sentences are an occasional consequence of this system due to software limitations, ambient noise, and hardware issues. Any formal questions or concerns about the content, text, or information contained within the body of this dictation should be directly addressed to the physician for clarification. Departure Information Dispostion Home / Self-Care Prescriptions Acetaminophen/Codeine (Tylenol W/Codeine #3) 300 Mg/30 Mg Tab 1 TABS PO QID Y for Pain, #14 TAB Prov: Raphael Llamas M.D. 10/19/17 Referrals Scar Parker M.D. (PCP) Forms HOME CARE DOCUMENTATION FORM, IMPORTANT VISIT INFORMATION Patient Instructions Falls [facility] Home, [facility] Problem Qualifiers Primary Impression: Fall Encounter type: initial encounter Qualified Codes: W19.XXXA - Unspecified fall, initial encounter
[2017-10-19 11:48] LABS: BASO % 0.3 %; BASO ABS # 0.03 K/uL (0-0.2); EOS % 1.8 %; EOS ABS # 0.17 K/uL (0-0.5); HEMATOCRIT 38.3 % (37-47); HEMOGLOBIN 12.7 g/dL (12.0-16.0); IG# 0.04 K/uL (0.00-0.02); LYMPH % 23.6 %; LYMPH ABS # 2.27 K/uL (1.2-3.4); MEAN CELL VOLUME 80.6 fL (80-100); MEAN CORPUSCULAR HEMOGLOBIN 26.7 pg (25-34); MEAN CORPUSCULAR HGB CONC 33.2 g/dl (32-36); MEAN PLATELET VOLUME 8.6 fL (7.4-10.4); MONO ABS # 1.06 K/uL (0.11-0.59); NEUT % 62.9 %; NEUT ABS # 6.04 K/uL (1.4-6.5); PLATELET COUNT 342 K/uL (130-400); RED CELL DISTRIBUTION WIDTH CV 14.4 % (11.5-14.5); RED CELL DISTRIBUTION WIDTH SD 42.2 fL (36.4-46.3); WHITE BLOOD COUNT 9.61 K/uL (4.8-10.8)
[2017-10-19 11:58] LABS: PTT PATIENT 23.9 SECONDS (21.0-31.0)
[2017-10-19 12:08] LABS: CALCIUM 8.9 mg/dl (8.5-10.1); CREATININE 0.76 mg/dl (0.60-1.20); POTASSIUM 3.7 mmol/L (3.5-5.1)
--- NOTE | 2017-10-19 12:09 | DIAGNOSTIC IMAGING REPORT ---
CT HEAD WITHOUT CONTRAST (CT) CLINICAL HISTORY: Head pain status post trauma COMPARISON STUDY: 05/22/2017 TECHNIQUE: Axial CT of the brain is performed from the vertex to the skull base. IV contrast was not administered for this examination. A dose lowering technique was utilized adhering to the principles of ALARA. CT DOSE: FINDINGS: No intra or extra-axial mass lesions are visualized. There is no CT evidence of acute cortical infarction. There is no evidence of midline shift. There is no acute hemorrhage. No calvarial fractures are visualized. There are patchy white matter hypodensities likely on a small vessel basis. There is no evidence of pathologic ventricular dilatation. There is scattered basal ganglia lacunar infarcts. There is no evidence of acute sinusitis IMPRESSION: No acute intracranial findings Electronically signed by: Wes Zelaya M.D. 10/19/2017 12:08 PM Dictated Date/Time: 10/19/2017 12:07 PM
--- NOTE | 2017-10-19 12:13 | DIAGNOSTIC IMAGING REPORT ---
CT OF THE CERVICAL SPINE CLINICAL HISTORY: Neck pain status post trauma COMPARISON STUDY: May 2017 CT DOSE: 1051.76 mGy.cm TECHNIQUE: CT scan of the cervical spine was performed from the skull base to the thoracic inlet. Images are reviewed in the axial, sagittal, and coronal planes. IV contrast was not administered for this examination. A dose lowering technique was utilized adhering to the principles of ALARA. FINDINGS: The visualized portions of the lung apices reveal no evidence of pneumothorax. There is a suspected multinodular thyroid gland The prevertebral soft tissues are normal. No fractures or subluxations are visualized. There are multilevel degenerative changes. There is fusion of the posterior elements the C2-3 level. IMPRESSION: No evidence of acute fracture or traumatic subluxation. Electronically signed by: Wes Zelaya M.D. 10/19/2017 12:12 PM Dictated Date/Time: 10/19/2017 12:10 PM
--- NOTE | 2017-10-19 13:03 | DIAGNOSTIC IMAGING REPORT ---
L-SPINE MIN 4 VIEWS ROUTINE CLINICAL HISTORY: Back pain status post trauma COMPARISON STUDY: January 22, 2017 FINDINGS: The bones are osteopenic. No fractures or subluxations are visualized. Incidental note is made of vascular calcifications. There is no pathologic bowel dilatation. IMPRESSION: No fractures or dislocations identified. Electronically signed by: Wes Zelaya M.D. 10/19/2017 1:01 PM Dictated Date/Time: 10/19/2017 12:54 PM
--- NOTE | 2017-10-19 13:03 | DIAGNOSTIC IMAGING REPORT ---
L SHOULDER MIN 2 VIEWS ROUTINE CLINICAL HISTORY: Left shoulder pain status post trauma COMPARISON: None. DISCUSSION: No fractures or dislocations are visualized. IMPRESSION: No fractures or dislocations identified. Electronically signed by: Wes Zelaya M.D. 10/19/2017 1:02 PM Dictated Date/Time: 10/19/2017 12:55 PM
--- NOTE | 2017-10-19 13:04 | DIAGNOSTIC IMAGING REPORT ---
PELVIS 1 OR 2 VIEW ROUTINE CLINICAL HISTORY: Pelvic pain status post trauma COMPARISON STUDY: 01/22/2017 FINDINGS: There are vascular calcifications present. No fractures or dislocations are visualized. There is no SI joint diastases. There is no symphysis diastases. IMPRESSION: No fractures identified. Electronically signed by: Wes Zelaya M.D. 10/19/2017 1:02 PM Dictated Date/Time: 10/19/2017 12:53 PM
--- NOTE | 2017-10-19 13:05 | DIAGNOSTIC IMAGING REPORT ---
L KNEE 4 OR MORE VIEWS CLINICAL HISTORY: Left knee pain status post trauma COMPARISON: None. DISCUSSION: The bones are osteopenic. There is 27 mm osteochondroma arising from the proximal metaphysis of the distal left femur medially. There is chondrocalcinosis. There are vascular calcifications. No acute fractures or dislocations are visualized. IMPRESSION: 1. No acute fractures 2. Distal femoral osteochondroma Electronically signed by: Wes Zelaya M.D. 10/19/2017 1:04 PM Dictated Date/Time: 10/19/2017 1:02 PM
--- NOTE | 2017-10-19 13:06 | DIAGNOSTIC IMAGING REPORT ---
L HUMERUS MIN 2 VIEWS ROUTINE CLINICAL HISTORY: Left humeral pain status post trauma COMPARISON: None. DISCUSSION: No acute fractures or dislocations are visualized. IMPRESSION: No fractures identified. Electronically signed by: Wes Zelaya M.D. 10/19/2017 1:04 PM Dictated Date/Time: 10/19/2017 1:04 PM
--- NOTE | 2017-10-19 13:07 | DIAGNOSTIC IMAGING REPORT ---
CHEST ONE VIEW PORTABLE CLINICAL HISTORY: Pain status post trauma COMPARISON STUDY: 07/29/2017 FINDINGS: The heart is at the upper limits of normal in size. There is no failure. There is no focal pulmonary consolidation. There are no pleural effusions. There is no pneumothorax. There is minor left basilar atelectasis/scarring.[ IMPRESSION: No active disease in the chest. Electronically signed by: Wes Zelaya M.D. 10/19/2017 1:05 PM Dictated Date/Time: 10/19/2017 1:05 PM
[2017-10-19] MEDS ORDERED: ACET-749 PO (13:54)
[2017-10-19] MEDS ORDERED: ACETAMINOPHEN/CODEINE 300/30MG TAB PO ONE (14:00)
[2017-10-19 15:25] VITALS: BP 156/83; PULSE 87; O2SAT 95
== END 2017-10-19 15:27 | disposition home or self-care (01) ==
LOC: EDBD 10:52 → C.EDC 10:52
DX: M54.5 Low back pain (principal); S80.212A Abrasion, left knee, initial encounter; W01.0XXA Fall on same level from slipping, tripping and stumbling without subsequent striking against object, initial encounter; Z23 Encounter for immunization; J44.9 Chronic obstructive pulmonary disease, unspecified; I10 Essential (primary) hypertension; J45.909 Unspecified asthma, uncomplicated; E78.5 Hyperlipidemia, unspecified; Z79.51 Long term (current) use of inhaled steroids; Z91.048 Other nonmedicinal substance allergy status; Z88.8 Allergy status to other drugs, medicaments and biological substances; Z83.79 Family history of other diseases of the digestive system; Z83.3 Family history of diabetes mellitus; Z82.49 Family history of ischemic heart disease and other diseases of the circulatory system

== ENCOUNTER → 2017-11-05 | Outpatient (CLI) | payer OTHER, MEDICARE ==
[~2017-11-05] MED LIST changes: +ACET-749 PO; -AZIT-57 PO; -BENZ100C84 PO; -DLC5 PO; -GUAISYP4 PO; -NF656 TD; +OPTIRAY 320 IV PRN
--- NOTE | 2017-11-05 09:51 | DIAGNOSTIC IMAGING REPORT ---
CT (CHEST) THORAX WITH CLINICAL HISTORY: 86 years-old Female presenting with R91.1 Pulmonary nodule6 month follow-[id number]. TECHNIQUE: Multidetector CT imaging of the chest was performed after the administration of intravenous contrast. IV contrast: 92 mL of Optiray 320. A dose lowering technique was used consistent with the principles of ALARA (as low as reasonably achievable). COMPARISON: 03/26/2017. CT DOSE (mGy.cm): The estimated cumulative dose is 349.01 mGycm. FINDINGS: Environmental Officer topogram: Unremarkable. On soft tissue windows, fat-containing well-defined thyroid nodule in the right lobe. Borderline enlarged left axillary lymph node measures 8 mm in the short axis, unchanged from prior. No pathologically enlarged lymph nodes by CT size criteria. Atherosclerosis of the aorta. Calcification of the main pulmonary artery wall could suggest pulmonary hypertension or prior thrombus. Top normal heart size. Coronary artery calcification. No pericardial or pleural effusion. Mild pancreatic parenchymal atrophy. Few gallstones suggested. Subcentimeter fat-containing lesion in the right adrenal gland. On lung windows, interval resolution of the previously noted groundglass nodule in the left upper lobe, which is likely on an infectious or inflammatory basis. New groundglass nodule in the posterior right upper lobe measuring 8 mm (series 4 image 122) disease, which was a prior area of more diffuse groundglass opacity. Minimal dependent changes likely atelectasis. Punctate solid nodule in the posterior right upper lobe (series 4 image 75), unchanged. Mild mosaic attenuation suggest small airways disease. Mild bronchial wall thickening. Central airways patent. On bone windows, degenerative changes of the spine. IMPRESSION: 1. Interval resolution of the previously noted groundglass nodular opacity in the left upper lobe, which is likely on an infectious or inflammatory basis. New apparent groundglass nodularity in the posterior right upper lobe, which is in a region of previously noted more diffuse groundglass opacity. This is felt unlikely to represent a focal groundglass nodule and rather interval evolution of prior pneumonitis. 2. Mild bronchial wall thickening suggest bronchitis. 3. Calcification of the main pulmonary artery wall could suggest pulmonary hypertension or prior thrombus. 4. 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 5. 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 6. Suspected cholelithiasis. Electronically signed by: Ryne Toledo M.D. 11/05/2017 9:50 AM Dictated Date/Time: 11/05/2017 9:39 AM
[2017-11-05 12:49] LABS: BLOOD UREA NITROGEN 14 mg/dl (7-18); CREATININE 0.62 mg/dl (0.60-1.20)
== END | disposition home or self-care (01) ==
LOC: C.CTS 09:09
PROVIDERS: ATTEND Physician Assistant Medical
DX: E11.9 Type 2 diabetes mellitus without complications (principal); R91.1 Solitary pulmonary nodule

== ENCOUNTER 2017-11-10 09:22 | Observation (INO) | payer OTHER, MEDICARE ==
[~2017-11-10] VITALS: Ht 162.6 cm; Wt 76.0 kg
[~2017-11-10 09:22] MED LIST changes: -OPTIRAY 320 IV PRN
[2017-11-10] MEDS ORDERED: SODIUM CHLORIDE 0.9% 500ML 500 ML IV STA (09:39)
[2017-11-10] MEDS ORDERED: ASPIRIN 81 MG CHEW PO STA (09:40)
[2017-11-10] MEDS ORDERED: NITROGLYCERIN 0.4 MG SL PER TAB CHARGE SL PRN ×2 (09:45→12:00)
[2017-11-10 10:03] LABS: BASO % 0.4 %; BASO ABS # 0.04 K/uL (0-0.2); EOS % 1.4 %; EOS ABS # 0.13 K/uL (0-0.5); HEMATOCRIT 34.4 % (37-47); HEMOGLOBIN 11.3 g/dL (12.0-16.0); IG# 0.05 K/uL (0.00-0.02); LYMPH % 43.8 %; LYMPH ABS # 4.15 K/uL (1.2-3.4); MEAN CELL VOLUME 81.9 fL (80-100); MEAN CORPUSCULAR HEMOGLOBIN 26.9 pg (25-34); MEAN CORPUSCULAR HGB CONC 32.8 g/dl (32-36); MEAN PLATELET VOLUME 8.9 fL (7.4-10.4); MONO % 11.1 %; MONO ABS # 1.05 K/uL (0.11-0.59); NEUT % 42.8 %; NEUT ABS # 4.06 K/uL (1.4-6.5); PLATELET COUNT 294 K/uL (130-400); RED CELL DISTRIBUTION WIDTH CV 14.5 % (11.5-14.5); RED CELL DISTRIBUTION WIDTH SD 43.4 fL (36.4-46.3); WHITE BLOOD COUNT 9.48 K/uL (4.8-10.8)
[2017-11-10 10:19] LABS: BLOOD UREA NITROGEN 17 mg/dl (7-18); CALCIUM 8.7 mg/dl (8.5-10.1); CARBON DIOXIDE 27 mmol/L (21-32); CREATININE 0.93 mg/dl (0.60-1.20); GLUCOSE 179 mg/dl (70-99); POTASSIUM 3.7 mmol/L (3.5-5.1); SODIUM 139 mmol/L (136-145)
[2017-11-10 10:24] LABS: CKMB 1.2 ng/ml (0.5-3.6)
--- NOTE | 2017-11-10 10:26 | DIAGNOSTIC IMAGING REPORT ---
CHEST ONE VIEW PORTABLE CLINICAL HISTORY: 86 years-old Female presenting with Chest Pain. TECHNIQUE: PA view of the chest was obtained. COMPARISON: 10/19/[address] from 11/05/2017.. FINDINGS: Atherosclerosis of the aortic arch. Cardiac silhouette normal in size. Bandlike opacity at the left lung base, unchanged. No new focal opacity. No large effusion or pneumothorax. Degenerative changes of the thoracic spine. Upper abdomen normal. IMPRESSION: 1. Stable left basilar atelectasis or scarring. No convincing evidence of acute cardiopulmonary disease. Electronically signed by: Ryne Toledo M.D. 11/10/2017 10:24 AM Dictated Date/Time: 11/10/2017 10:22 AM
--- NOTE | 2017-11-10 10:29 | DIAGNOSTIC IMAGING REPORT ---
THORACIC SPINE 3 VIEWS ROUTINE CLINICAL HISTORY: 86 years-old Female presenting with back pain . TECHNIQUE: 3 views of the thoracic spine were obtained. COMPARISON: CT and radiograph from 07/27/2017. FINDINGS: Minimal dextrocurvature of the mid to lower thoracic spine. Vertebral bodies maintain normal height and alignment. Intervertebral disc heights preserved though disc osteophyte complexes noted at many of the levels. The upper thoracic spine is not well visualized due to overlapping osseous structures. Allowing for this, no evidence of a compression deformity. No gross osseous neural foraminal narrowing. Extensive atherosclerosis evident. IMPRESSION: No radiographic evidence of a compression deformity. Multilevel degenerative changes as seen on prior CT. Electronically signed by: Ryne Toledo M.D. 11/10/2017 10:27 AM Dictated Date/Time: 11/10/2017 10:26 AM
[2017-11-10] MEDS ORDERED: ALBUTEROL 0.083% NEBU SOLN 3 ML VIAL INH STA (10:33)
[2017-11-10] MEDS ORDERED: ACETAMINOPHEN 325 MG TAB PO PRN (12:00)
[2017-11-10] MEDS ORDERED: MoRPHine SULFATE 2 MG/ML CARP IV PRN (12:00)
[2017-11-10] MEDS ORDERED: POLYETHYLENE (MIRALAX) 17 GM PACK PO PRN (12:00)
[2017-11-10] MEDS ORDERED: ONDANSETRON INJ 2 MG/ML 2 ML VIAL IV PRN (12:00)
[2017-11-10] MEDS ORDERED: ALUMINUM/MAGNESIUM/SIMETH (MAALOX MAX) 30 ML UDC PO PRN (12:00)
--- NOTE | 2017-11-10 12:23 | History and Physical ---
History & Physical Date & Time of Service: Nov 10, 2017 at 12:11 Chief Complaint: shortness of breath and chest pain Primary Care Physician: Scar Parker M.D. History of Present Illness Source: patient patient presented to ED with complaints of chest pain, left sided. Non radiating. Associated with SOB. No nausea, vomiting, diarrhea. No fever or chills. No diaphoresis. Occurred around 0700 while walking to kitchen. Nitro x 3 with no relief. Son brought to ED. Was evaluated in ED. EKG with no acute ST changes. Trop normal, CXR with no acute process. Still with some mild pain. Will be placed in observation. Hospitalists. Past Medical/Surgical History Medical Problems: (11) Chest pain (12) Chest pain (13) Chest wall pain (16) CVA (17) Diabetes mellitus type 2 (23) Generalized weakness (26) Heart disease (29) Hyperlipidemia (30) Hypertension Family History Diabetes mellitus FH: cancer FH: heart disease FHx: gallbladder disease Hypertension reviewed, noncontributory Social History non smoker although exposed to second hand smoke Smoking Status: Never Smoker Smokeless Tobacco Use: No Alcohol Use: none Drug Use: none Marital Status: single, Housing status: lives alone Occupational Status: retired Immunizations History of Influenza Vaccine: Yes Influenza Vaccine Date: Apr 15, 2012 History of Tetanus Vaccine?: Yes Tetanus Immunization Date: Mar 31, 2009 History of Pneumococcal: Yes Pneumococcal Date: Jan 14, 2012 History of Hepatitis B Vaccine: No Allergies Coded Allergies: Atorvastatin (Verified Allergy, Mild, UNSURE, 11/10/17) Ezetimibe (Verified Allergy, Mild, UNSURE, 11/10/17) Alendronate (Verified Allergy, Unknown, UNKN, 11/10/17) Benazepril (Verified Allergy, Unknown, UNSURE, 11/10/17) Clonidine (Verified Allergy, Unknown, UNSURE, 11/10/17) Ibandronic Acid (Verified Allergy, Unknown, UNKN, 11/10/17) Simvastatin (Verified Allergy, Unknown, OK TO TRY CRESTOR PER [id number], ) Home Medications Scheduled Calcium Carbonate (Calcium 600), 1 TAB PO BID Cholecalciferol (Vitamin D3), 2,000 MG PO WK Clopidogrel (Plavix), 75 MG PO QAM Cyanocobalamin (Vitamin B-12), 1,000 MCG PO BID Diltiazem HCl Coated Beads (Diltiazem HCl ER), 240 MG PO QAM Fluticasone Furoate-Vilanterol (Breo Ellipta 200-25 Mcg/INH), 1 PUFF INH QAM Fluticasone Propionate (Nasal) (Flonase Allergy Relief), 2 SPRAYS [place] DAILY Gabapentin (Neurontin), 400 MG PO BID Hctz/Losartan (Hyzaar 12.5MG/50MG), 1 TAB PO QAM Magnesium Oxide (Mag-Ox), 400 MG PO QAM Montelukast Sodium (Singulair), 10 MG PO QAM Nitroglycerin (Nitrostat), 0.4 MG SL PRN/UD Omeprazole (Prilosec), 20 MG PO BID Phenytoin Sodium (Dilantin), 100 MG PO TID Potassium Chloride (Potassium Chloride Er), 20 MEQ PO QAM Scheduled PRN Acetaminophen Tab (Tylenol), 650 MG PO Q6 PRN for Pain or Fever Albuterol Hfa (Ventolin Hfa), 2-4 PUFFS INH Q6H PRN for Shortness of Breath Albuterol Sulf (Proventil 0.083% 2.5MG/3ML), 2.5 MG INH [id number] PRN for SOB/ Wheezing Review of Systems Constitutional: No fever, No chills, No sweats, No weight loss, No weakness, No fatigue, No problem reported Eyes: No worsening of vision, No eye pain, No redness, No discharge, No diplopia, No problem reported Respiratory: + shortness of breath Cardiovascular: + chest pain Abdomen: No pain, No nausea, No vomiting, No diarrhea, No constipation, No GI bleeding, No problem reported Musculoskeletal: + problem reported (back pain) Genitourinary - Female: No dysuria, No urinary frequency, No urinary urgency, No urinary incontinence, No urinary retention, No hematuria, No dysmenorrhea, No menorrhagia, No metrorrhagia, No rash, No vaginal bleeding, No vaginal discharge, No vaginal itching, No vulvodynia, No , No problem reported Neurologic: + weakness (general) Psychiatric: No depression symptoms, No anhedonism, No anxiety, No insomnia, No substance abuse, No problem reported Endocrine: No fatigue, No excessive thirst, No excessive urination, No problem reported Integumentary: No rash, No itch, No new/changing skin lesions, No color change , No bleeding, No problem reported Allergic / Immunologic: No environmental allergies, No seasonal allergies, No pet sensitivities, No food allergies, No hives, No frequent infections, No poor healing, No prolonged convalescence, No problem reported Physical Exam Vital Signs Date Time Temp Pulse Resp B/P (MAP) Pulse Ox O2 Delivery O2 Flow Rate FiO2 11/10/17 11:22 90 18 104/64 95 Room Air 11/10/17 09:33 93 11/10/17 09:32 36.3 90 18 151/78 96 Room Air 11/10/17 09:32 96 Room Air General Appearance: WD/WN, no apparent distress Head: normocephalic, atraumatic Eyes: normal inspection, PERRL, EOMI ENT: normal ENT inspection Neck: supple, no JVD Respiratory/Chest: chest non-tender, lungs clear, normal breath sounds, no respiratory distress Cardiovascular: regular rate, rhythm, no edema, no murmur Abdomen/GI: normal bowel sounds, non tender, soft, no organomegaly, no pulsatile mass Back: normal inspection, no CVA tenderness Extremities/Musculoskelatal: normal inspection, no calf tenderness, no pedal edema Neurologic/Psych: no motor/sensory deficits, alert, oriented x 3 Skin: normal color, warm/dry, no rash Diagnostics Laboratory Results Results Past 24 Hours Test 11/10/17 09:50 Range/Units White Blood Count 9.48 4.8-10.8 K/uL Red Blood Count 4.20 4.2-5.4 M/uL Hemoglobin 11.3 12.0-16.0 g/dL Hematocrit 34.4 37-47 % Mean Corpuscular Volume 81.9 80-100 fL Mean Corpuscular Hemoglobin 26.9 25-34 pg Mean Corpuscular Hemoglobin Concent 32.8 32-36 g/dl Platelet Count 294 130-400 K/uL Mean Platelet Volume 8.9 7.4-10.4 fL Neutrophils (%) (Auto) 42.8 % Lymphocytes (%) (Auto) 43.8 % Monocytes (%) (Auto) 11.1 % Eosinophils (%) (Auto) 1.4 % Basophils (%) (Auto) 0.4 % Neutrophils # (Auto) 4.06 1.4-6.5 K/uL Lymphocytes # (Auto) 4.15 1.2-3.4 K/uL Monocytes # (Auto) 1.05 0.11-0.59 K/uL Eosinophils # (Auto) 0.13 0-0.5 K/uL Basophils # (Auto) 0.04 0-0.2 K/uL RDW Standard Deviation 43.4 36.4-46.3 fL RDW Coefficient of Variation 14.5 11.5-14.5 % Immature Granulocyte % (Auto) 0.5 % Immature Granulocyte # (Auto) 0.05 0.00-0.02 K/uL D-Dimer 380 0-500 ug/L FEU Sodium Level 139 136-145 mmol/L Potassium Level 3.7 3.5-5.1 mmol/L Chloride Level 105 98-107 mmol/L Carbon Dioxide Level 27 21-32 mmol/L Anion Gap 7.0 3-11 mmol/L Blood Urea Nitrogen 17 7-18 mg/dl Creatinine 0.93 0.60-1.20 mg/dl Est Creatinine Clear Calc Drug Dose 45.0 ml/min Estimated GFR () 65.4 Estimated GFR (Non- 56.4 BUN/Creatinine Ratio 18.1 10-20 Random Glucose 179 70-99 mg/dl Calcium Level 8.7 8.5-10.1 mg/dl Total Creatine Kinase 52 26-192 U/L Creatine Kinase MB 1.2 0.5-3.6 ng/ml Creatine Kinase MB Ratio 2.3 0-3.0 Troponin I < 0.015 0-0.045 ng/ml Diagnostic Radiology CHEST ONE VIEW PORTABLE CLINICAL HISTORY: 86 years-old Female presenting with Chest Pain. TECHNIQUE: PA view of the chest was obtained. COMPARISON: 10/19/[address] from 11/05/2017.. FINDINGS: Atherosclerosis of the aortic arch. Cardiac silhouette normal in size. Bandlike opacity at the left lung base, unchanged. No new focal opacity. No large effusion or pneumothorax. Degenerative changes of the thoracic spine. Upper abdomen normal. IMPRESSION: 1. Stable left basilar atelectasis or scarring. No convincing evidence of acute cardiopulmonary disease. CXR normal Normal EKG Impression Assessment and Plan 1. chest pain - r/o acute coronary syndrome - tele, consult cards - cycle troponins, stress test in AM 2. Shortness of breath with history of COPD - lungs clear - likely cardiac related. Not requiring oxygen. PRN Nebs 3. Prior CVA - continue plavix 4. seizure disorder - cont gabapentin and dilantin 5. HTN - cont home meds 6. full code 7. DVT prophylaxis - scd, karla, heparin 8. ELS one midnight. Resuscitation Status VTE Prophylaxis Will order VTE Prophylaxis: Yes Social Service Consult >80 yr.& Lives Alone
[2017-11-10 12:54] VITALS: BP 164/74; PULSE 82; TEMP 36.6; O2SAT 95; Ht 162.6 cm; Wt 76.0 kg
[2017-11-10] MEDS: PHENYTOIN SODIUM ER 100 MG CAP PO SCH ×2 (15:52→21:01)
[2017-11-10] MEDS: BREO ELLIPTA: ORDER AWAITING ACTION SCH ×2 (15:52→21:01)
[2017-11-10] MEDS ORDERED: IV FLUIDS COMPLETED PRN (16:00)
[2017-11-10 16:01] VITALS: O2SAT 98
--- NOTE | 2017-11-10 16:13 | EMERGENCY ROOM VISIT NOTE ---
History Report prepared by Kathrine: Nia Grijalva Under the Supervision of: Dr. Justin Anderson D.O. First contact with patient: 09:31 Chief Complaint: SHORTNESS OF BREATH Stated Complaint: RESPIRATORY/LETHARGIC/COUGH/CHEST SORENESS History of Present Illness The patient is a 86 year old female who presents to the Emergency Room with complaints of constant shortness of breath beginning this morning. The patient has a history of asthma and COPD. She denies any history of heart failure. The patient reports she was in the hospital two weeks ago. She reports intermittent chest pain for the past couple of months. She denies any modifying or worsening factors. She reports her chest pain has been constant since yesterday. She also reports intermittent back pain beginning a couple months ago. The patient lives at home alone and is in the process of being placed at [facility].The patient notes a nonproductive cough for past couple months. Pt denies headache, change in vision, fevers, arm pain, runny nose, nausea, vomiting, diarrhea, pain with urination, and melena. Source of History: patient Onset: this morning Position: other (generalized) Quality: other (shortness of breath) Timing: constant Associated Symptoms: + chest pain, + SOB, + back pain, No fevers, No nausea , No vomiting, No diarrhea, No urinary symptoms Review of Systems See HPI for pertinent positives & negatives. A total of 10 systems reviewed and were otherwise negative. 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, systemic arterial (11) ICH (intracerebral hemorrhage) (12) Kidney stones (13) Peripheral vascular disease (14) Pneumonia (15) Right sided weakness (16) Vascular dementia Family History Diabetes mellitus FH: cancer FH: heart disease FHx: gallbladder disease Hypertension Social History Smoking Status: Never Smoker Alcohol Use: none Drug Use: none Marital Status: Housing Status: lives alone Occupation Status: retired Current/Historical Medications Scheduled Calcium Carbonate (Calcium 600), 1 TAB PO BID Cholecalciferol (Vitamin D3), 2,000 MG PO WK Clopidogrel (Plavix), 75 MG PO QAM Cyanocobalamin (Vitamin B-12), 1,000 MCG PO BID Diltiazem HCl Coated Beads (Diltiazem HCl ER), 240 MG PO QAM Fluticasone Furoate-Vilanterol (Breo Ellipta 200-25 Mcg/INH), 1 PUFF INH QAM Fluticasone Propionate (Nasal) (Flonase Allergy Relief), 2 SPRAYS [place] DAILY Gabapentin (Neurontin), 400 MG PO BID Hctz/Losartan (Hyzaar 12.5MG/50MG), 1 TAB PO QAM Magnesium Oxide (Mag-Ox), 400 MG PO QAM Montelukast Sodium (Singulair), 10 MG PO QAM Nitroglycerin (Nitrostat), 0.4 MG SL PRN/UD Omeprazole (Prilosec), 20 MG PO BID Phenytoin Sodium (Dilantin), 100 MG PO TID Potassium Chloride (Potassium Chloride Er), 20 MEQ PO QAM Scheduled PRN Acetaminophen Tab (Tylenol), 650 MG PO Q6 PRN for Pain or Fever Albuterol Hfa (Ventolin Hfa), 2-4 PUFFS INH Q6H PRN for Shortness of Breath Albuterol Sulf (Proventil 0.083% 2.5MG/3ML), 2.5 MG INH [id number] PRN for SOB/ Wheezing Allergies Coded Allergies: Atorvastatin (Verified Allergy, Mild, UNSURE, 11/10/17) Ezetimibe (Verified Allergy, Mild, UNSURE, 11/10/17) Alendronate (Verified Allergy, Unknown, UNKN, 11/10/17) Benazepril (Verified Allergy, Unknown, UNSURE, 11/10/17) Clonidine (Verified Allergy, Unknown, UNSURE, 11/10/17) Ibandronic Acid (Verified Allergy, Unknown, UNKN, 11/10/17) Simvastatin (Verified Allergy, Unknown, OK TO TRY CRESTOR PER [id number], ) Physical Exam Vital Signs Date Time Temp Pulse Resp B/P (MAP) Pulse Ox O2 Delivery O2 Flow Rate FiO2 11/10/17 11:22 90 18 104/64 95 Room Air 11/10/17 09:33 93 11/10/17 09:32 36.3 90 18 151/78 96 Room Air 11/10/17 09:32 96 Room Air Physical Exam GENERAL: Laying in bed, alert, chronically ill and disheveled appearing, well nourished, no distress, non-toxic EYE EXAM: normal conjunctiva. OROPHARYNX: no exudate, no erythema, lips, buccal mucosa, and tongue normal and mucous membranes are moist NECK: supple, no nuchal rigidity, no adenopathy, non-tender. No JVD. LUNGS: Clear to auscultation. Normal chest wall mechanics HEART: no murmurs, S1 normal and S2 normal ABDOMEN: abdomen soft, non-tender, normo-active bowel sounds, no masses, no rebound or guarding. BACK: Back is symmetrical on inspection and there is no deformity, no midline tenderness, no CVA tenderness. Acute reproducible tenderness in upper thoracic area. SKIN: no rashes and no bruising UPPER EXTREMITIES: upper extremities are grossly normal. LOWER EXTREMITIES: No pitting edema. Calves equal bilaterally. NEURO EXAM: Normal sensorium, cranial nerves II-XII grossly intact, normal speech, no gross weakness of arms, no gross weakness of legs. Medical Decision & Procedures ER Provider Diagnostic Interpretation: Radiology results as stated below per my review and the radiologist's interpretation: THORACIC SPINE 3 VIEWS ROUTINE FINDINGS: Minimal dextrocurvature of the mid to lower thoracic spine. Vertebral bodies maintain normal height and alignment. Intervertebral disc heights preserved though disc osteophyte complexes noted at many of the levels. The upper thoracic spine is not well visualized due to overlapping osseous structures. Allowing for this, no evidence of a compression deformity. No gross osseous neural foraminal narrowing. Extensive atherosclerosis evident. IMPRESSION: No radiographic evidence of a compression deformity. Multilevel degenerative changes as seen on prior CT. Electronically signed by: Ryne Toledo M.D. CHEST ONE VIEW PORTABLE FINDINGS: Atherosclerosis of the aortic arch. Cardiac silhouette normal in size. Bandlike opacity at the left lung base, unchanged. No new focal opacity. No large effusion or pneumothorax. Degenerative changes of the thoracic spine. Upper abdomen normal. IMPRESSION: 1. Stable left basilar atelectasis or scarring. No convincing evidence of acute cardiopulmonary disease. Electronically signed by: Ryne Toledo M.D. Laboratory Results 11/10/17 09:50 Red Blood Count 4.20, Mean Corpuscular Volume 81.9, Mean Corpuscular Hemoglobin 26.9, Mean Corpuscular Hemoglobin Concent 32.8, Mean Platelet Volume 8.9, Neutrophils (%) (Auto) 42.8, Lymphocytes (%) (Auto) 43.8, Monocytes (%) (Auto) 11.1, Eosinophils (%) (Auto) 1.4, Basophils (%) (Auto) 0.4, Neutrophils # (Auto ) 4.06, Lymphocytes # (Auto) 4.15, Monocytes # (Auto) 1.05, Eosinophils # (Auto ) 0.13, Basophils # (Auto) 0.04 11/10/17 09:50 Test 11/10/17 09:50 White Blood Count 9.48 K/uL (4.8-10.8) Red Blood Count 4.20 M/uL (4.2-5.4) Hemoglobin 11.3 g/dL (12.0-16.0) Hematocrit 34.4 % (37-47) Mean Corpuscular Volume 81.9 fL (80-100) Mean Corpuscular Hemoglobin 26.9 pg (25-34) Mean Corpuscular Hemoglobin Concent 32.8 g/dl (32-36) Platelet Count 294 K/uL (130-400) Mean Platelet Volume 8.9 fL (7.4-10.4) Neutrophils (%) (Auto) 42.8 % Lymphocytes (%) (Auto) 43.8 % Monocytes (%) (Auto) 11.1 % Eosinophils (%) (Auto) 1.4 % Basophils (%) (Auto) 0.4 % Neutrophils # (Auto) 4.06 K/uL (1.4-6.5) Lymphocytes # (Auto) 4.15 K/uL (1.2-3.4) Monocytes # (Auto) 1.05 K/uL (0.11-0.59) Eosinophils # (Auto) 0.13 K/uL (0-0.5) Basophils # (Auto) 0.04 K/uL (0-0.2) RDW Standard Deviation 43.4 fL (36.4-46.3) RDW Coefficient of Variation 14.5 % (11.5-14.5) Immature Granulocyte % (Auto) 0.5 % Immature Granulocyte # (Auto) 0.05 K/uL (0.00-0.02) D-Dimer 380 ug/L FEU (0-500) Anion Gap 7.0 mmol/L (3-11) Est Creatinine Clear Calc Drug Dose 45.0 ml/min Estimated GFR () 65.4 Estimated GFR (Non- 56.4 BUN/Creatinine Ratio 18.1 (10-20) Calcium Level 8.7 mg/dl (8.5-10.1) Total Creatine Kinase 52 U/L (26-192) Creatine Kinase MB 1.2 ng/ml (0.5-3.6) Creatine Kinase MB Ratio 2.3 (0-3.0) Troponin I < 0.015 ng/ml (0-0.045) Laboratory results per my review. Medications Administered Medications (Trade) Dose Ordered Sig/Flavio Route Start Time Stop Time Status Last Admin Dose Admin Sodium Chloride 500 ml @ 999 mls/hr Q31M STAT IV 11/10/17 09:39 11/10/17 10:09 DC 11/10/17 10:02 999 MLS/HR Aspirin (Aspirin Chew) 324 mg NOW STAT PO 11/10/17 09:40 11/10/17 09:42 DC 11/10/17 10:07 324 MG Nitroglycerin (Nitrostat Tab) 0.4 mg Q5M PRN SL 11/10/17 09:45 11/10/17 14:18 DC 11/10/17 10:43 0.4 MG Albuterol Sulfate (Ventolin 0.083% 2.5MG/3ML Neb) 2.5 mg NOW STAT INH 11/10/17 10:33 11/10/17 10:35 DC 11/10/17 10:43 2.5 MG ECG Per My Interpretation Indication: chest pain, SOB/dyspnea Rate (beats per minute): 91 Rhythm: sinus rhythm Findings: other (poor baseline in inferior, non-specific ST changes in lateral and anterior) Comparison ECG Date: 10/19/17 Change: Lateral ST changes are new ED Course ED COURSE: Vital signs were reviewed and showed hypertensive The patients medical record was reviewed The above diagnostic studies were performed and reviewed. ED treatments and interventions as stated above. 0933: The patient was evaluated in room B4B. A complete history and physical examination was performed. 0939: Ordered Sodium Chloride 500 ml @ 999 mls/hr IV. 0940: Ordered Aspirin 324 mg PO. 0945: Ordered Nitroglycerin 0.4 mg SL. 1033: Ordered Albuterol Sulfate 2.5 g INH. 1037: I updated the patient on her test results. The patient is resting comfortably. 1051: The patient's chest pain is down to 1/10 after nitro 1105: I reviewed the patient's case with Dr. Collazo. He will evaluate the patient for further management. 1128: Upon reevaluation, the patient is resting comfortably.I discussed my findings with the patient and she understands and agrees with the treatment plan. Based on the patients age, coexisting illnesses, exam and lab findings the decision to treat as an inpatient was made. The patient remained stable while under my care. The patient will be evaluated for further management. Medical Decision Differential diagnoses includes but is not limited to acute coronary syndrome, myocardial infarction, pericarditis, pulmonary embolus, aortic dissection, pneumonia, pneumothorax, musculoskeletal, shingles, esophageal. Patient is an 86-year-old male that presents to ER for intermittent chest pain shortness of breath. Chest pain has been worse since yesterday. She also has reproducible muscle skeletal mid back pain. CBC along with BMP was unremarkable. Troponin was negative. EKG with questionable nonspecific lateral ST wave changes. D-dimer was negative. Chest x-ray and thoracic spine were unremarkable. Patient and family were updated at bedside. Patient was given albuterol and nitroglycerin initially. She had complete resolution of her chest pain. She was updated at bedside and will be observed overnight. Medication Reconcilliation Current Medication List: was personally reviewed by me Blood Pressure Screening Patient's blood pressure: Elevated blood pressure Blood pressure disposition: Elevated BP felt to be situational Consults Time Called: 1100 Consulting Physician: Dr. Collazo Returned Call: 1105 I reviewed the patient's case with Dr. Collazo. He will evaluate the patient for further management. Impression Primary Impression: Precordial chest pain Additional Impressions: Musculoskeletal back pain Shortness of breath Scribe Attestation The scribe's documentation has been prepared under my direction and personally reviewed by me in its entirety. I confirm that the note above accurately reflects all work, treatment, procedures, and medical decision making performed by me. Departure Information Dispostion Being Evaluated By Hospitalist Referrals Scar Parker M.D. (PCP) Patient Instructions My [facility] Problem Qualifiers
[2017-11-10 16:17] VITALS: BP 134/69; PULSE 81; TEMP 36.8; O2SAT 94
--- NOTE | 2017-11-10 17:39 | CARDIOLOGY CONSULTATION ---
DATE OF CONSULTATION: 11/10/2017 PERTINENT HISTORY: Mrs. Gleason is an 86-year-old white female with a complex past medical history who was admitted earlier today after a chest pain syndrome. This consultation was ordered to assist in her cardiac management. The patient was in her usual state of health until approximately 7:00 or 8:00 this morning. She was walking out of her bedroom and had the abrupt onset of a substernal chest pressure radiating to her mid back. This is with associated shortness of breath but no nausea, vomiting, or diaphoresis. The patient took 3 sublingual nitroglycerin tablets without relief. She was brought to the Emergency Room by ambulance. Her pain eventually resolved spontaneously. Total duration of her discomfort was 1 hour. The patient has never had a prior episode as described above. She does carry a history of coronary artery disease, however, has never had a cardiac catheterization. The patient is quite deconditioned and debilitated. She is now moving around her apartment with a wheelchair. She is participating in physical therapy for her gait dysfunction. Arrangements are currently underway to move the patient to [facility] for her permanent residence. The patient has explained that she is not interested in an invasive workup or thoracic surgery. Currently, the patient is resting comfortably in bed without complaints. PAST MEDICAL HISTORY: 1. Presumed coronary artery disease. 2. Hypertension. 3. Hypercholesterolemia. 4. Mild left ventricular hypertrophy. 5. Diastolic dysfunction. 6. Chronic obstructive pulmonary disease. 7. History of CVA. 8. Peripheral vascular disease. 9. Possible vascular dementia. 10. Esophageal reflux. 11. Gastroparesis. 12. Polyneuropathy. 13. Osteoporosis. 14. DJD. 15. Chronic low back pain. 16. Intraocular lens implants. 17. Hysterectomy. 18. Chronic alcoholic steatohepatitis. 19. Vitamin D deficiency. 20. Frequent falls. 21. Gait dysfunction. MEDICATIONS: 1. Diltiazem 240 mg daily. 2. Hyzaar 50/12.5 daily. 3. Aspirin 81 mg per day. 4. Plavix 75 mg per day. 5. Magnesium oxide 400 mg b.i.d. 6. Heparin 5000 units subQ q. 12 hours. 7. Dilantin ER 100 mg t.i.d. 8. Neurontin 400 mg b.i.d. 9. Protonix 40 mg b.i.d. 10. Singulair 10 mg daily. ALLERGIES: 1. ATORVASTATIN. 2. SIMVASTATIN. 3. ZETIA. 4. CLONIDINE. SOCIAL HISTORY: The patient lives alone in an apartment in [place]. She will be moving to [facility] in the near future. Does not use tobacco or alcohol. FAMILY HISTORY: Positive for coronary artery disease in her father and brother. REVIEW OF SYSTEMS: A 10-point review of systems is negative except for that described above. PHYSICAL EXAMINATION: GENERAL: This is a well-developed, well-nourished elderly white female lying supine in bed without complaints. VITAL SIGNS: Blood pressure is 164/74 with a regular pulse of 82. Respiratory rate is 18. The patient is afebrile at 36.8 degrees Celsius. Saturation 95% on room air. HEENT: Negative. NECK: Supple with full carotid upstrokes. No obvious bruits. Jugular venous pressure is flat at 90 degrees. There is no thyromegaly. CARDIOVASCULAR: Reveals a regular rhythm with a normal S1 and S2. A 2/6 basal systolic ejection murmur is noted. No S3, S4. LUNGS: Clear without rales, rhonchi, or wheezes. ABDOMEN: Obese without bruits. EXTREMITIES: Reveal intact radial artery pulses bilaterally. Trace pretibial edema is noted. LABORATORY AND IMAGING DATA: CBC notes hemoglobin 11.3, hematocrit 34.4, white count 9.4, and platelet count 294,000. Electrolytes notes sodium 139, potassium 3.7, chloride 105, bicarbonate 27, BUN 70, creatinine 0.93, and glucose 112. Troponin I level is less than 0.015. CK is 52 with an MB fraction of 1.2. D-dimer is normal at 380. EKG notes sinus rhythm with nonspecific ST-T wave abnormality. No change compared with tracing done 10/19/2017. Chest x-ray shows no acute disease. IMPRESSION: Mrs. Gleason was admitted with a chest pain syndrome which lasted for at least 60 minutes. Fortunately, her initial troponin is undetectable. There are no acute changes on her echocardiogram. It would be reasonable to proceed with a complete echocardiogram. She explains that she is not interested in an invasive workup, nor she consider a thoracic surgery. She seems much too frail and debilitated to undertake thoracic surgery. It may be best to follow conservative medical care without any invasive testing. PLAN: 1. Continue usual outpatient medications as you are. 2. Agree with serial troponin determinations. 3. Complete echocardiogram. 4. Will discuss stress testing with the patient tomorrow. Favor conservative care.
[2017-11-10 20:00] VITALS: O2SAT 94
[2017-11-10] MEDS: HEPARIN SOD 5000 UNIT/0.5 ML CARP SQ SCH (21:00)
[2017-11-10] MEDS: PANTOprazole SOD 40 MG TAB PO SCH (21:01)
[2017-11-10] MEDS: GABAPENTIN 400 MG CAP PO SCH (21:01)
[2017-11-10 21:12] VITALS: BP 159/53; PULSE 85; TEMP 36.8; O2SAT 99
[2017-11-10 23:51] VITALS: BP 136/55; PULSE 83; TEMP 36.7; O2SAT 95
[2017-11-11] VITALS: O2SAT 94
[2017-11-11 04:00] VITALS: O2SAT 94
[2017-11-11 04:18] VITALS: BP 140/63; PULSE 85; TEMP 36.7; O2SAT 93
[2017-11-11] MEDS: BREO ELLIPTA: ORDER AWAITING ACTION SCH (07:02)
[2017-11-11] MEDS: PANTOprazole SOD 40 MG TAB PO SCH (08:25)
[2017-11-11] MEDS: GABAPENTIN 400 MG CAP PO SCH (08:25)
[2017-11-11] MEDS: PHENYTOIN SODIUM ER 100 MG CAP PO SCH (08:26)
[2017-11-11] MEDS: HEPARIN SOD 5000 UNIT/0.5 ML CARP SQ SCH (08:29)
[2017-11-11 08:30] VITALS: BP 124/58; PULSE 76; TEMP 36.9; O2SAT 95
[2017-11-11] MEDS ORDERED: FLUTICASONE PROPIONATE NA SPR 16 GM BTL NAE SCH (09:00)
[2017-11-11] MEDS ORDERED: MONTELUKAST SOD 10 MG TAB PO SCH (09:00)
[2017-11-11] MEDS ORDERED: ASPIRIN 81 MG ECTAB PO SCH (09:00)
[2017-11-11] MEDS ORDERED: MAGNESIUM OXIDE 400 MG TAB PO SCH (09:00)
[2017-11-11] MEDS ORDERED: DILTIAZEM HCL 240 MG CAPCR PO SCH (09:00)
[2017-11-11] MEDS ORDERED: CLOPIDOGREL BISULFATE 75 MG TAB PO SCH (09:00)
[2017-11-11] MEDS ORDERED: LOSARTAN/HCTZ 50-12.5 EA TAB PO SCH (09:00)
--- NOTE | 2017-11-11 09:47 | ECHOCARDIOGRAM REPORT ---
*NOTICE TO RECEIVING CONSTITUTION PARTY AGENCY This information is strictly Confidential and protected under [place] law. [place] law prohibits you from making any further disclosure of this information unless further disclosure is expressly permitted by the written consent of the person to whom it pertains or is authorized by law. A general authorization for the release of medical or other information is not sufficient for this purpose. Hospital accepts no responsibility if the information is made available to any other person, INCLUDING THE PATIENT. Interpretation Summary * Conclusions -- * Left ventricular systolic function is normal. * No regional wall motion abnormalities noted. * Ejection Fraction = 55-60%. * There is mild concentric left ventricular hypertrophy. * Grade I diastolic dysfunction, (abnormal relaxation pattern). * There is mild tricuspid regurgitation. Procedure Details * A complete two-dimensional transthoracic echocardiogram was performed (2D, M-mode, Doppler and color flow Doppler). Left Ventricle * The left ventricle is normal in size. * There is mild concentric left ventricular hypertrophy. * Left ventricular systolic function is normal. * Ejection Fraction = 55-60%. * No regional wall motion abnormalities noted. Right Ventricle * The right ventricle is normal size. * The right ventricular systolic function is normal as assessed by tricuspid annular plane systolic excursion (TAPSE) (normal >1.5 cm). Atria * The left atrium is mildly dilated. * Right atrial size is normal. * No ASD detected; PFO is not assessed. Mitral Valve * The mitral valve anatomy is normal. * There is no mitral valve stenosis. * There is trace mitral regurgitation. Tricuspid Valve * The tricuspid valve anatomy is normal. * There is no tricuspid stenosis. * There is mild tricuspid regurgitation. Aortic Valve * The aortic valve is not well visualized. * The aortic valve opens well. * Aortic valve sclerosis mild, without significant aortic valvular stenosis. * No hemodynamically significant valvular aortic stenosis. * There is no significant aortic regurgitation. Pulmonic Valve * The pulmonary valve is not well seen, but the Doppler examination is normal without significant regurgitation or stenosis. Great Vessels * The aortic root is normal size. * The pulmonary is not well visualized. Pericardium/Pleural * There is no pericardial effusion. Great Vessels * Normal inferior vena cava size and collapsability with sniff indicates a normal right atrial pressure of 3 mmHg Left Ventricular Diastolic Function * Grade I diastolic dysfunction, (abnormal relaxation pattern). MMode 2D Measurements and Calculations IVSd 1.0 cm IVSs 1.2 cm LVIDd 3.6 cm LVIDs 1.9 cm LVPWd 0.93 cm LVPWs 1.3 cm IVS/LVPW 1.1 FS 47.3 % EDV(Teich) 55.5 ml ESV(Teich) 11.4 ml EF(Teich) 79.5 % EDV(cubed) 47.8 ml ESV(cubed) 7.0 ml EF(cubed) 85.3 % % IVS thick 22.8 % % LVPW thick 37.4 % LV mass(C)d 104.5 grams LV mass(C)dI 57.7 grams/m\S\2 LV mass(C)s 67.2 grams LV mass(C)sI 37.1 grams/m\S\2 SV(Teich) 44.1 ml SI(Teich) 24.4 ml/m\S\2 SV(cubed) 40.8 ml SI(cubed) 22.5 ml/m\S\2 Ao root diam 3.1 cm Ao root area 7.5 cm\S\2 ACS 1.5 cm LA dimension 4.1 cm LA/Ao 1.3 EDV(MOD-sp4) 73.0 ml ESV(MOD-sp4) 33.0 ml EF(MOD-sp4) 54.8 % EDV(MOD-sp2) 58.0 ml ESV(MOD-sp2) 23.0 ml EF(MOD-sp2) 60.3 % SV(MOD-sp4) 40.0 ml SI(MOD-sp4) 22.1 ml/m\S\2 SV(MOD-sp2) 35.0 ml SI(MOD-sp2) 19.3 ml/m\S\2 Doppler Measurements and Calculations MV E max sofy 83.6 cm/sec MV A max sofy 106.8 cm/sec MV E/A 0.78 MV P1/2t max sofy 90.6 cm/sec MV P1/2t 82.1 msec MVA(P1/2t) 2.7 cm\S\2 MV dec slope 323.0 cm/sec\S\2 MV dec time 0.29 sec Ao V2 max 144.5 cm/sec Ao max PG 8.3 mmHg Ao max PG (full) 1.7 mmHg LV V1 max PG 6.7 mmHg LV V1 max 129.1 cm/sec PA V2 max 74.8 cm/sec PA max PG 2.2 mmHg TR max sofy 262.4 cm/sec
--- NOTE | 2017-11-11 10:28 | Discharge Instructions ---
Discharge Instructions Date of Service Nov 11, 2017. Admission Reason for Admission: Chest Pain Discharge Discharge Diagnosis / Problem: Chest pain Discharge Goals Goal(s): Decrease discomfort, Improve function, Diagnostic testing Activity Recommendations Activity Limitations: resume your previous activity (as tolerated) . Instructions / Follow-Up Instructions / Follow-Up You were admitted to the hospital after presenting with chest pain and shortness of breath. You underwent a cardiac work up which included an echocardiogram, or ultrasound of the heart, serial cardiac enzymes, and an evaluation by the agricultural plow operator. Your tests returned normal. As your pain has resolved, you are now medically stable for discharge. Medications: *No changes have been made to your medications. Please continue to take as prescribed. Follow up: *You have been scheduled to follow up with your primary care provider. Please seek medical attention if you experience fevers, chills, sweats, dizziness/lightheadedness, loss of consciousness, chest pain, shortness of breath, nausea, vomiting, numbness or tingling. Current Hospital Diet Patient's current hospital diet: AHA Diet (Heart Healthy), Diabetes Type 2 Diet Discharge Diet Recommended Diet: AHA Diet (Heart Healthy), Diabetes Type 2 Diet Procedures Procedures Performed: Echocardiogram Pending Studies Studies pending at discharge: no Laboratory Results Hemoglobin A1c Test 09/18/17 14:38 Range/Units Estimated Average Glucose 148 mg/dl Hemoglobin A1c 6.8 H 4.5-5.6 % Lipid Panel Test 09/18/17 14:38 Range/Units Triglycerides Level 106 0-150 mg/dl Cholesterol Level 227 H 0-200 mg/dl HDL Cholesterol 89 mg/dl Cholesterol/HDL Ratio 2.6 LDL Cholesterol, Calculated 117 mg/dl Medical Emergencies . Who to Call and When: Medical Emergencies: If at any time you feel your situation is an emergency, please call 911 immediately. . Non-Emergent Contact Non-Emergency issues call your: Primary Care Provider Call Non-Emergent contact if: you have a fever, your pain is not controlled, your pain is worsening, your pain is unusual for you, your pain is concerning you, you have any medication questions . Past History Medical & Surgical History: (1) Chest pain . "Provider Documentation" section prepared by Madeline Soto. .
[2017-11-11 12:01] VITALS: BP 124/58; PULSE 76; TEMP 36.9; O2SAT 95
--- NOTE | 2017-11-11 12:32 | CARDIOLOGY PROGRESS NOTE ---
DATE: 11/11/2017 SUBJECTIVE: Mrs. Gleason was resting comfortably in the bedside chair without complaints of chest pain or dyspnea. She has been ambulatory within her room. No exertional angina pectoris. OBJECTIVE: VITAL SIGNS: Blood pressure 124/58 with a regular pulse of 76. Respiratory rate is 18. The patient is afebrile at 36.9 degree Celsius. Saturations 95% on room air. NECK: Supple with full carotid upstrokes. There are no carotid bruits. Jugular venous pressure is flat at 90 degrees. There is no thyromegaly. CARDIOVASCULAR: Reveals a regular rhythm with a normal S1 and S2. No S3, S4, or murmurs are noted. LUNGS: Clear without rales, rhonchi, or wheezes. ABDOMEN: Obese without bruits. EXTREMITIES: Reveal intact radial pulses bilaterally. Trace pretibial edema is noted. DATA: Four separate troponin I levels are undetectable less than 0.015. 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 Echocardiogram notes normal left ventricular systolic function without wall motion abnormalities. Ejection fraction of 55%-60%. There is mild LVH with evidence of diastolic dysfunction. Mild tricuspid regurgitation is also noted. IMPRESSION AND PLAN: 1. Chest pain syndrome -- not likely myocardial ischemia. She did have 60 minutes of symptoms and no detectable troponin I level. Her echocardiogram notes normal left ventricular systolic function and evidence of mild LVH with diastolic dysfunction. We would not proceed with a dobutamine stress test as the patient has no interest in considering thoracic surgery if necessary. 2. Hypertension -- with mild LVH and evidence of diastolic dysfunction. 3. Hypercholesterolemia. 4. COPD. 5. History of CVA. 6. Peripheral vascular disease. 7. Deconditioning -- patient will be moving at the [facility] in the near future. She is unable to function alone at home. 8. Disposition -- stable for hospital discharge.
--- NOTE | 2017-11-11 15:29 | Discharge Summary ---
Discharge Summary Date of Service Nov 11, 2017. Discharge Summary Admission Date: Nov 10, 2017 at 12:25 Discharge Date: Nov 11, 2017 Discharge Disposition: Home with services Principal Diagnosis: Chest pain Problems/Secondary Diagnoses: CAD, HTN, HLD, diastolic dysfunction, h/o CVA, DM II, COPD, seizure disorder, dementia, neuropathy, GERD Immunizations: Have You Had Influenza Vaccine: Yes Influenza Vaccine Date: Apr 15, 2012 History of Tetanus Vaccine?: Yes Tetanus Immunization Date: Mar 31, 2009 History of Pneumococcal: Yes Pneumococcal Date: Jan 14, 2012 History of Hepatitis B Vaccine: No Procedures: Echocardiogram: Interpretation Summary n Conclusions -- n Left ventricular systolic function is normal. n No regional wall motion abnormalities noted. n Ejection Fraction = 55-60%. n There is mild concentric left ventricular hypertrophy. n Grade I diastolic dysfunction, (abnormal relaxation pattern). n There is mild tricuspid regurgitation. Procedure Details A complete two-dimensional transthoracic echocardiogram was performed (2D, M -mode, Doppler and color flow Doppler). Left Ventricle The left ventricle is normal in size. There is mild concentric left ventricular hypertrophy. Left ventricular systolic function is normal. Ejection Fraction = 55-60%. No regional wall motion abnormalities noted. Right Ventricle * The right ventricle is normal size. * The right ventricular systolic function is normal as assessed by tricuspid annular plane systolic excursion (TAPSE) (normal >1.5 cm). Atria * The left atrium is mildly dilated. * Right atrial size is normal. * No ASD detected; PFO is not assessed. Mitral Valve * The mitral valve anatomy is normal. * There is no mitral valve stenosis. * There is trace mitral regurgitation. Tricuspid Valve * The tricuspid valve anatomy is normal. * There is no tricuspid stenosis. * There is mild tricuspid regurgitation. Aortic Valve * The aortic valve is not well visualized. * The aortic valve opens well. * Aortic valve sclerosis mild, without significant aortic valvular stenosis. * No hemodynamically significant valvular aortic stenosis. * There is no significant aortic regurgitation. Pulmonic Valve * The pulmonary valve is not well seen, but the Doppler examination is normal without significant regurgitation or stenosis. Great Vessels * The aortic root is normal size. * The pulmonary is not well visualized. Pericardium/Pleural * There is no pericardial effusion. Great Vessels * Normal inferior vena cava size and collapsability with sniff indicates a normal right atrial pressure of 3 mmHg Left Ventricular Diastolic Function * Grade I diastolic dysfunction, (abnormal relaxation pattern). Consultations: Cardiology Medication Reconciliation Continued Medications: Acetaminophen Tab (Tylenol) 325 Mg Tab 650 MG PO Q6 PRN for Pain or Fever, TAB Albuterol Hfa (Ventolin Hfa) 200 Puffs/23530 Mcg Aers 2-4 PUFFS INH Q6H PRN for Shortness of Breath, #1 INHALER Albuterol Sulf (Proventil 0.083% 2.5MG/3ML) 2.5 Mg/3 Ml Nebu 2.5 MG INH Q9T-T1D PRN for SOB/Wheezing, EA Calcium Carbonate (Calcium 600) 600 Mg Tab 1 TAB PO BID Cholecalciferol (Vitamin D3) 2,000 Unit Cap 2000 MG PO WK, CAP EVERY FRIDAY Clopidogrel (Plavix) 75 Mg Tab 75 MG PO QAM Cyanocobalamin (Vitamin B-12) 1,000 Mcg Tab 1000 MCG PO BID Diltiazem HCl Coated Beads (Diltiazem HCl ER) 240 Mg Tab 240 MG PO QAM Fluticasone Furoate-Vilanterol (Breo Ellipta 200-25 Mcg/INH) 1 Inh Inh 1 PUFF INH QAM Fluticasone Propionate (Nasal) (Flonase Allergy Relief) 50 Mcg/Act Spr 2 SPRAYS [place] DAILY Gabapentin (Neurontin) 400 Mg Cap 400 MG PO BID, CAP Hctz/Losartan (Hyzaar 12.5MG/50MG) Tab 1 TAB PO QAM, TAB Magnesium Oxide (Mag-Ox) 400 Mg Tab 400 MG PO QAM, TAB Montelukast Sodium (Singulair) 10 Mg Tab 10 MG PO QAM Nitroglycerin (Nitrostat) 0.4 Mg Tab 0.4 MG SL PRN/UD, #100 TAB 3 Refills NEEDED FOR CHEST PAIN : ONE TABLET UNDER THE TONGUE EVERY 5 MINUTES UP TO 3 DOSES. Omeprazole (Prilosec) 20 Mg Cap 20 MG PO BID Phenytoin Sodium (Dilantin) 100 Mg Cap 100 MG PO TID Potassium Chloride (Potassium Chloride Er) 10 Meq Tab 20 MEQ PO QAM Discharge Exam Patient reports feeling well. She denies any recurrence of chest pain or shortness of breath. She does report a productive cough with mostly clear, at times yellow streaked mucus that started 1 day ago. She denies any wheezing. The patient denies fevers, chills, sweats, chest pain, palpitations, claudication, wheezing, shortness of breath, nausea, vomiting, abdominal pain, dysuria, hematuria, urinary retention, paralysis, weakness, numbness and tingling. Constitutional: No fever, No chills, No sweats Eyes: No worsening of vision, No eye pain, No diplopia ENT: No hearing loss, No nasal symptoms, No trouble swallowing Respiratory: +Productive cough. No wheezing, No shortness of breath Cardiovascular: No chest pain, No claudication, No palpitations Abdomen: No pain, No nausea, No vomiting Musculoskeletal: No joint pain, No muscle pain, No swelling Genitourinary - Female: No dysuria, No urinary retention, No hematuria Neurologic: No paralysis, No weakness, No numbness/tingling Integumentary: No rash, No itch, No color change General appearance: Well-developed, well-nourished, no apparent distress Head: Normocephalic, atraumatic Eyes: Normal inspection, PERRL, EOMI ENT: Normal ENT inspection, hearing grossly normal, pharynx normal Neck: Supple, no JVD, trachea midline Respiratory/Chest: Lungs clear to auscultation, normal breath sounds, no respiratory distress Cardiovascular: +Systolic murmur. Regular rate & rhythm, no gallop Abdomen/GI: Normal bowel sounds, non-tender, soft Extremities/Musculoskeletal: Normal inspection, no calf tenderness, no pedal edema Neurological/Psych: Alert, normal mood/affect, oriented x 3 Skin: Normal color, warm/dry, no rash Hospital Course 86 y/o female with a history of CAD, HTN, HLD, diastolic dysfunction, h/o CVA, DM II, COPD, seizure disorder, dementia, neuropathy, and GERD who presents with chest pain and shortness of breath. Chest pain, ACS r/o -Admit to telemetry for observation. No acute events overnight. Pt in SR with HR 70s-80s -Troponin negative x 4 -Resting echo shows LVEF of 55-60%. No WMA. Mild LVH. Grade I diastolic dysfunction. Mild mitral regurgitation -Cardiology consulted, appreciate recs: Chest pain not likely myocardial ischemia. Echocardiogram notes normal LVEF and evidence of mild LVH with diastolic dysfunction. We would not proceed with a dobutamine stress test as the patient has no interest in considering thoracic surgery if necessary. Stable for d/c from cardiac standpoint. CAD, HTN, HLD, h/o CVA--stable -Continue Plavix, diltiazem 240 mg PO qd, HCTZ/losartan 12.5/50 mg PO qd DM II--no current DM meds at home, diet controlled -BSGs largely adequately controlled while inpt -HgbA1c 6.8 on 09/18 Asthma/COPD--stable, no wheezing on exam -Continue Breo inhaler, Flonase, and Singulair Seizure disorder, neuropathy--stable -Continue gabapentin 400 mg PO BID, Dilantin 100 mg PO TID DVT prophylaxis -Heparin 5000 units SC q12h -DAKOTA mata and Ang Code Status -Level I, FULL RESUSCITATION STATUS Total Time Spent: Greater than 30 minutes This includes examination of the patient, discharge planning, medication reconciliation, and communication with other providers. Discharge Instructions Please refer to the electronic Patient Visit Report (Discharge Instructions) for additional information. Additional Copies To Scar Parker M.D.; GERMÁN PATEL
== END 2017-11-11 12:30 | disposition home or self-care (01) ==
LOC: EDBD 09:22 → C.EDB 09:23 → C.2E 12:25 → ENRESERV 12:37
PROVIDERS: ADMIT Internal Medicine; ATTEND Internal Medicine
DX: R07.2 Precordial pain (principal); I25.10 Atherosclerotic heart disease of native coronary artery without angina pectoris; I10 Essential (primary) hypertension; E78.5 Hyperlipidemia, unspecified; I51.7 Cardiomegaly; J44.9 Chronic obstructive pulmonary disease, unspecified; Z86.73 Personal history of transient ischemic attack (TIA), and cerebral infarction without residual deficits; K21.9 Gastro-esophageal reflux disease without esophagitis; G40.909 Epilepsy, unspecified, not intractable, without status epilepticus; M54.5 Low back pain; E11.9 Type 2 diabetes mellitus without complications; I73.9 Peripheral vascular disease, unspecified; Z87.442 Personal history of urinary calculi; Z82.49 Family history of ischemic heart disease and other diseases of the circulatory system; Z80.0 Family history of malignant neoplasm of digestive organs; Z79.02 Long term (current) use of antithrombotics/antiplatelets; Z88.8 Allergy status to other drugs, medicaments and biological substances; Z79.82 Long term (current) use of aspirin

== ENCOUNTER 2018-01-04 09:29 | Emergency (ER) | payer OTHER, MEDICARE ==
[~2018-01-04] VITALS: Ht 157.5 cm; Wt 70.6 kg
[~2018-01-04 09:29] MED LIST changes: -ACET-749 PO
[2018-01-04 09:33] VITALS: TEMP 36.2; Ht 157.5 cm; Wt 70.6 kg
--- NOTE | 2018-01-04 09:41 | EMERGENCY ROOM VISIT NOTE ---
History Report prepared by Kathrine: Salma Pulido Under the Supervision of: Dr. Raphael Llamas M.D. 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 As per EMS, she was getting ready for christianity at home and was walking down the hallway when she tripped and fell to the ground. They report she has a hematoma and midline back pain. The patient reports she has head pain but denies any LOC. 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 A total of ten systems were reviewed and were otherwise negative. 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, systemic arterial (11) ICH (intracerebral hemorrhage) (12) Kidney stones (13) Peripheral vascular disease (14) Pneumonia (15) Right sided weakness (16) Vascular dementia Family History Diabetes mellitus FH: cancer FH: heart disease FHx: gallbladder disease Hypertension Social History Smoking Status: Never Smoker Alcohol Use: none Drug Use: none Marital Status: Housing Status: lives alone Occupation Status: retired Current/Historical Medications Scheduled Calcium Carbonate (Calcium 600), 1 TAB PO BID Cholecalciferol (Vitamin D3), 2,000 MG PO WK Clopidogrel (Plavix), 75 MG PO QAM Cyanocobalamin (Vitamin B-12), 1,000 MCG PO DAILY@1200 Diltiazem HCl Coated Beads (Diltiazem HCl ER), 240 MG PO QAM Fluticasone Furoate-Vilanterol (Breo Ellipta 200-25 Mcg/INH), 1 PUFF INH QAM Fluticasone Propionate (Nasal) (Flonase Allergy Relief), 2 SPRAYS [place] DAILY Gabapentin (Neurontin), 400 MG PO BID Hctz/Losartan (Hyzaar 12.5MG/50MG), 1 TAB PO QAM Magnesium Oxide (Mag-Ox), 400 MG PO QAM Montelukast Sodium (Singulair), 10 MG PO QAM Nitroglycerin (Nitrostat), 0.4 MG SL PRN/UD Omeprazole (Prilosec), 20 MG PO BID Phenytoin Sodium (Dilantin), 100 MG PO TID Potassium Chloride (Potassium Chloride Er), 20 MEQ PO QAM Scheduled PRN Acetaminophen Tab (Tylenol), 650 MG PO Q6 PRN for Pain or Fever Albuterol Hfa (Ventolin Hfa), 2-4 PUFFS INH Q6H PRN for Shortness of Breath Albuterol Sulf (Proventil 0.083% 2.5MG/3ML), 2.5 MG INH [id number] PRN for SOB/ Wheezing Allergies Coded Allergies: Atorvastatin (Verified Allergy, Mild, UNSURE, 01/04/18) Ezetimibe (Verified Allergy, Mild, UNSURE, 01/04/18) Alendronate (Verified Allergy, Unknown, UNKN, 01/04/18) Benazepril (Verified Allergy, Unknown, UNSURE, 01/04/18) Clonidine (Verified Allergy, Unknown, UNSURE, 01/04/18) Ibandronic Acid (Verified Allergy, Unknown, UNKN, 01/04/18) Simvastatin (Verified Allergy, Unknown, OK TO TRY CRESTOR PER [id number], ) Physical Exam Vital Signs Date Time Temp Pulse Resp B/P (MAP) Pulse Ox O2 Delivery O2 Flow Rate FiO2 01/04/18 11:22 87 16 133/71 96 Room Air 01/04/18 09:52 95 01/04/18 09:33 36.2 96 18 192/88 98 Room Air Physical Exam Physical Exam GENERAL: She is oriented to person, place, and time. She appears well- developed and well-nourished. She does not appear distressed. ____ HENT: Exam performed. Head: Normocephalic. Right Ear: External ear normal. No mastoid tenderness. Left Ear: External ear normal. No mastoid tenderness. Mouth/Throat: The oropharynx is clear and moist. No trismus in the jaw. No dental abscesses or uvula swelling. No oropharyngeal exudate or tonsillar abscesses. ____ EYES: Conjunctivae and EOM are normal. Pupils are equal, round, and reactive to light. Right eye exhibits no discharge. Left eye exhibits no discharge. No scleral icterus. ____ NECK: Normal range of motion. Neck supple. No JVD present. No spinous process tenderness present. No carotid bruit present. No rigidity. No tracheal deviation and normal range of motion present. No Brudzinski's sign and no Kernig 's sign noted. ____ CV: Normal rate, regular rhythm, normal heart sounds and intact distal pulses. There is no peripheral edema. Palpable radial pulses bue. ____ PULM/CHEST: Effort normal and breath sounds normal. No respiratory distress. No stridor. She has no wheezes. She has no rales. Chest Wall: She exhibits no tenderness. ____ ABD: The abdomen is soft. Bowel sounds are normal. She has no distension. No mass is present. There is no tenderness. There is no rebound, no guarding, no Elizabeth's sign and no tenderness at McBurney's point. Rovsig negative MUSC/SKEL: Normal range of motion. There is no peripheral edema, tenderness or deformity.Pain on palpation of C, T, and L spine. Pelvis is stable. LYMPH: No cervical adenopathy. ____ NEURO: She is alert and oriented to person, place, and time. She has normal strength. No cranial nerve deficit or sensory deficit. Coordination and gait normal. GCS eye subscore is 4. GCS verbal subscore is 5. GCS motor subscore is 6. Cerebellar tests wnl. ____ SKIN: Skin is warm and dry. She is not diaphoretic. ____ PSYCH: She has a normal mood and affect. Her behavior is normal. Judgment and thought content normal. ____ Medical Decision & Procedures ER Provider Diagnostic Interpretation: Radiology results as stated below per my review and radiologist interpretation: THORACIC SPINE 3 VIEWS ROUTINE CLINICAL HISTORY: Back pain following fall. COMPARISON STUDY: Thoracic spine radiographs November 10, 2017. FINDINGS: Alignment of the thoracic spine is anatomic thymic. No acute thoracic spine fracture is identified. There is moderate anterior osteophytosis of the thoracic spine. Appearance is unchanged. IMPRESSION: 1. No acute thoracic spine fracture or subluxation. 2. Moderate anterior osteophytosis of the thoracic spine. Electronically signed by: Mahesh Chew M.D. 01/04/2018 11:20 AM L-SPINE MIN 4 VIEWS ROUTINE CLINICAL HISTORY: Back pain following fall. COMPARISON: Lumbar spine radiograph October 19, 2017. FINDINGS: There is slight leftward curvature of the lumbar spine. No acute fracture within the lumbar spine is identified. There is moderate multilevel facet arthrosis and mild to moderate multilevel degenerative disc disease. The appearance of the lumbar spine is unchanged. There is extensive vascular calcification. IMPRESSION: 1. No acute lumbar spine fracture or subluxation. 2. Moderate multilevel degenerative disc disease and facet arthrosis. Electronically signed by: Mahesh Chew M.D. 01/04/2018 11:[address] OF THE HEAD WITHOUT CONTRAST CLINICAL HISTORY: Fall. COMPARISON STUDY: Head CT October 19, 2017. TECHNIQUE: Helical axial images of the head were obtained without IV contrast. Automated exposure control was utilized for the study. A dose lowering technique was utilized adhering to the principles of ALARA. FINDINGS: No acute intracranial hemorrhage, midline shift or mass affect is present. Ventricular system is stable. Basilar cisterns are patent. There are no extra-axial collections. White matter hypodensity suggests small vessel disease. There are no findings to suggest acute dural sinus thrombosis or acute territorial infarct. There is no calvarial fracture. There is mild ethmoid sinus mucosal thickening. IMPRESSION: No acute intracranial findings. Electronically signed by: Mahesh Chew M.D. 01/04/2018 10:[address] OF THE CERVICAL SPINE WITHOUT CONTRAST CLINICAL HISTORY: Fall. COMPARISON STUDY: CT of the cervical spine October 19, 2017. TECHNIQUE: Helical axial images of the cervical spine were obtained without IV contrast. Sagittal and coronal reconstructions were viewed. A dose lowering technique was utilized adhering to the principles of ALARA. FINDINGS: Alignment of the cervical spine is anatomic. Craniocervical junction is intact. There is no acute cervical spine fracture or prevertebral edema. Facet joints are intact. Severe multilevel facet arthrosis. There is mild multilevel degenerative disc disease. Degenerative changes at the C1-C2 articulation are noted. Appearance of the cervical spine is unchanged. IMPRESSION: No acute cervical spine fracture or subluxation. Electronically signed by: Mahesh Chew M.D. 01/04/2018 10:22 AM PELVIS 1 OR 2 VIEW ROUTINE CLINICAL HISTORY: Fall. COMPARISON STUDY: Pelvis radiograph October 19, 2017. FINDINGS: The sacroiliac joints and symphysis pubis are intact. There is no acute fracture within the pelvis or hips. There is extensive vascular calcification. There is mild osteoarthritis of both hips. IMPRESSION: No acute fracture within the pelvis or hips. Electronically signed by: Mahesh Chew M.D. 01/04/2018 12:42 PM CHEST ONE VIEW PORTABLE CLINICAL HISTORY: Fall. COMPARISON STUDY: Chest CT November 05, 2017 and chest radiograph November 10, 2017. FINDINGS: Lung volumes are normal. There is no pneumothorax or pleural effusion. Linear left basilar opacity is suggestive of atelectasis or scarring. Cardiomediastinal silhouette is stable. No consolidation is present. IMPRESSION: No acute cardiopulmonary findings. Electronically signed by: Mahesh Chew M.D. 01/04/2018 12:41 PM Medications Administered Medications (Trade) Dose Ordered Sig/Flavio Route Start Time Stop Time Status Last Admin Dose Admin Morphine Sulfate (MoRPHine SULFATE INJ) 4 mg NOW STAT IM 01/04/18 09:57 01/04/18 09:59 DC 01/04/18 10:15 4 MG Ondansetron HCl (Zofran Odt) 4 mg ONE ONCE PO 01/04/18 10:00 01/04/18 10:01 DC 01/04/18 10:15 4 MG Procedure Bedside FAST exam performed with ultrasound. Views were obtained in the hepatorenal subxyphoid splenorenal and suprapubic windows. No free fluid in the abdomen. No pericardial tamponade. ED Course 0931: The patient was evaluated in room B10. A complete history and physical exam was performed. 0957: Ordered Zofran Odt 4 mg PO, Morphine Sulfate 4 mg IM 1300: Vital signs stable. Imaging within normal limits. Her family is at bedside and agrees with the plan. DISCHARGE - Plan of care discussed with patient and questions answered. The patient was given both verbal and printed discharge instructions. The patient verbalized understanding and ability to comply. The patient is to seek outpatient follow up as noted in the discharge instructions. The patient verbalized understanding and ability to comply. The patient is discharged in stable condition. The patient was instructed to return for worsening symptoms. Medical Decision Vital signs stable. Imaging within normal limits. Her family is at bedside and agrees with the plan. DISCHARGE - Plan of care discussed with patient and questions answered. The patient was given both verbal and printed discharge instructions. The patient verbalized understanding and ability to comply. The patient is to seek outpatient follow up as noted in the discharge instructions. The patient verbalized understanding and ability to comply. The patient is discharged in stable condition. The patient was instructed to return for worsening symptoms. Medication Reconcilliation Current Medication List: was personally reviewed by me Blood Pressure Screening Patient's blood pressure: Elevated blood pressure Blood pressure disposition: Elevated BP felt to be situational Impression Primary Impression: Fall Scribe Attestation The scribe's documentation has been prepared under my direction and personally reviewed by me in its entirety. I confirm that the note above accurately reflects all work, treatment, procedures, and medical decision making performed by me. The chart was completed utilizing [employer] Speech voice recognition software. Grammatical errors, random word insertions, pronoun errors, and incomplete sentences are an occasional consequence of this system due to software limitations, ambient noise, and hardware issues. Any formal questions or concerns about the content, text, or information contained within the body of this dictation should be directly addressed to the physician for clarification. Departure Information Dispostion Home / Self-Care Referrals Scar Parker M.D. (PCP) Forms HOME CARE DOCUMENTATION FORM, IMPORTANT VISIT INFORMATION Problem Qualifiers Primary Impression: Fall Encounter type: initial encounter Qualified Codes: W19.XXXA - Unspecified fall, initial encounter
[2018-01-04] MEDS ORDERED: MoRPHine SULFATE 4 MG/ML 1 ML CARP\\VIAL IM STA (09:57)
[2018-01-04] MEDS ORDERED: ONDANSETRON 4MG OD TAB PO ONE (10:00)
--- NOTE | 2018-01-04 10:18 | DIAGNOSTIC IMAGING REPORT ---
CT OF THE HEAD WITHOUT CONTRAST CLINICAL HISTORY: Fall. COMPARISON STUDY: Head CT October 19, 2017. TECHNIQUE: Helical axial images of the head were obtained without IV contrast. Automated exposure control was utilized for the study. A dose lowering technique was utilized adhering to the principles of ALARA. FINDINGS: No acute intracranial hemorrhage, midline shift or mass affect is present. Ventricular system is stable. Basilar cisterns are patent. There are no extra-axial collections. White matter hypodensity suggests small vessel disease. There are no findings to suggest acute dural sinus thrombosis or acute territorial infarct. There is no calvarial fracture. There is mild ethmoid sinus mucosal thickening. IMPRESSION: No acute intracranial findings. Electronically signed by: Mahesh Chew M.D. 01/04/2018 10:17 AM Dictated Date/Time: 01/04/2018 10:15 AM
--- NOTE | 2018-01-04 10:23 | DIAGNOSTIC IMAGING REPORT ---
CT OF THE CERVICAL SPINE WITHOUT CONTRAST CLINICAL HISTORY: Fall. COMPARISON STUDY: CT of the cervical spine October 19, 2017. TECHNIQUE: Helical axial images of the cervical spine were obtained without IV contrast. Sagittal and coronal reconstructions were viewed. A dose lowering technique was utilized adhering to the principles of ALARA. FINDINGS: Alignment of the cervical spine is anatomic. Craniocervical junction is intact. There is no acute cervical spine fracture or prevertebral edema. Facet joints are intact. Severe multilevel facet arthrosis. There is mild multilevel degenerative disc disease. Degenerative changes at the C1-C2 articulation are noted. Appearance of the cervical spine is unchanged. IMPRESSION: No acute cervical spine fracture or subluxation. Electronically signed by: Mahesh Chew M.D. 01/04/2018 10:22 AM Dictated Date/Time: 01/04/2018 10:19 AM
[2018-01-04 11:22] VITALS: BP 133/71; PULSE 87; O2SAT 96
--- NOTE | 2018-01-04 11:22 | DIAGNOSTIC IMAGING REPORT ---
THORACIC SPINE 3 VIEWS ROUTINE CLINICAL HISTORY: Back pain following fall. COMPARISON STUDY: Thoracic spine radiographs November 10, 2017. FINDINGS: Alignment of the thoracic spine is anatomic thymic. No acute thoracic spine fracture is identified. There is moderate anterior osteophytosis of the thoracic spine. Appearance is unchanged. IMPRESSION: 1. No acute thoracic spine fracture or subluxation. 2. Moderate anterior osteophytosis of the thoracic spine. Electronically signed by: Mahesh Chew M.D. 01/04/2018 11:20 AM Dictated Date/Time: 01/04/2018 11:18 AM
--- NOTE | 2018-01-04 11:23 | DIAGNOSTIC IMAGING REPORT ---
L-SPINE MIN 4 VIEWS ROUTINE CLINICAL HISTORY: Back pain following fall. COMPARISON: Lumbar spine radiograph October 19, 2017. FINDINGS: There is slight leftward curvature of the lumbar spine. No acute fracture within the lumbar spine is identified. There is moderate multilevel facet arthrosis and mild to moderate multilevel degenerative disc disease. The appearance of the lumbar spine is unchanged. There is extensive vascular calcification. IMPRESSION: 1. No acute lumbar spine fracture or subluxation. 2. Moderate multilevel degenerative disc disease and facet arthrosis. Electronically signed by: Mahesh Chew M.D. 01/04/2018 11:22 AM Dictated Date/Time: 01/04/2018 11:20 AM
--- NOTE | 2018-01-04 12:42 | DIAGNOSTIC IMAGING REPORT ---
CHEST ONE VIEW PORTABLE CLINICAL HISTORY: Fall. COMPARISON STUDY: Chest CT November 05, 2017 and chest radiograph November 10, 2017. FINDINGS: Lung volumes are normal. There is no pneumothorax or pleural effusion. Linear left basilar opacity is suggestive of atelectasis or scarring. Cardiomediastinal silhouette is stable. No consolidation is present. IMPRESSION: No acute cardiopulmonary findings. Electronically signed by: Mahesh Chew M.D. 01/04/2018 12:41 PM Dictated Date/Time: 01/04/2018 12:40 PM
--- NOTE | 2018-01-04 12:43 | DIAGNOSTIC IMAGING REPORT ---
PELVIS 1 OR 2 VIEW ROUTINE CLINICAL HISTORY: Fall. COMPARISON STUDY: Pelvis radiograph October 19, 2017. FINDINGS: The sacroiliac joints and symphysis pubis are intact. There is no acute fracture within the pelvis or hips. There is extensive vascular calcification. There is mild osteoarthritis of both hips. IMPRESSION: No acute fracture within the pelvis or hips. Electronically signed by: Mahesh Chew M.D. 01/04/2018 12:42 PM Dictated Date/Time: 01/04/2018 12:41 PM
== END 2018-01-04 13:28 | disposition home or self-care (01) ==
LOC: EDBD 09:29 → C.EDB 09:30
DX: M54.9 Dorsalgia, unspecified (principal); W01.10XA Fall on same level from slipping, tripping and stumbling with subsequent striking against unspecified object, initial encounter; J45.909 Unspecified asthma, uncomplicated; E11.9 Type 2 diabetes mellitus without complications; I10 Essential (primary) hypertension; Z79.51 Long term (current) use of inhaled steroids; Z79.899 Other long term (current) drug therapy; Z88.8 Allergy status to other drugs, medicaments and biological substances

== ENCOUNTER → 2018-03-17 | Outpatient (CLI) | payer OTHER, MEDICARE ==
[2018-03-17 10:41] LABS: BASO % 0.4 %; BASO ABS # 0.04 K/uL (0-0.2); EOS % 1.8 %; EOS ABS # 0.18 K/uL (0-0.5); HEMATOCRIT 33.5 % (37-47); HEMOGLOBIN 10.7 g/dL (12.0-16.0); IG# 0.05 K/uL (0.00-0.02); LYMPH % 31.7 %; LYMPH ABS # 3.08 K/uL (1.2-3.4); MEAN CELL VOLUME 81.3 fL (80-100); MEAN CORPUSCULAR HGB CONC 31.9 g/dl (32-36); MEAN PLATELET VOLUME 9.9 fL (7.4-10.4); MONO % 13.9 %; MONO ABS # 1.35 K/uL (0.11-0.59); NEUT % 51.7 %; NEUT ABS # 5.03 K/uL (1.4-6.5); PLATELET COUNT 337 K/uL (130-400); RED CELL DISTRIBUTION WIDTH CV 14.4 % (11.5-14.5); RED CELL DISTRIBUTION WIDTH SD 42.8 fL (36.4-46.3); WHITE BLOOD COUNT 9.73 K/uL (4.8-10.8)
[2018-03-17 11:25] LABS: ALBUMIN 2.8 gm/dl (3.4-5.0); ALKALINE PHOSPHATASE 139 U/L (45-117); ALT/SGPT 17 U/L (12-78); AST/SGOT 17 U/L (15-37); BLOOD UREA NITROGEN 16 mg/dl (7-18); CALCIUM 5.5 mg/dl (8.5-10.1); CARBON DIOXIDE 24 mmol/L (21-32); CREATININE 0.69 mg/dl (0.60-1.20); GLUCOSE 124 mg/dl (70-99); POTASSIUM 5.8 mmol/L (3.5-5.1); SODIUM 139 mmol/L (136-145); TOTAL PROTEIN 5.9 gm/dl (6.4-8.2)
== END ==
LOC: C.LABCC 08:46
PROVIDERS: ATTEND Internal Medicine
DX: I10 Essential (primary) hypertension (principal)

== ENCOUNTER → 2018-03-18 | Outpatient (CLI) | payer OTHER, MEDICARE ==
[2018-03-18 10:10] LABS: BLOOD UREA NITROGEN 18 mg/dl (7-18); CALCIUM 8.3 mg/dl (8.5-10.1); CARBON DIOXIDE 27 mmol/L (21-32); CREATININE 0.72 mg/dl (0.60-1.20); GLUCOSE 130 mg/dl (70-99); SODIUM 141 mmol/L (136-145)
== END ==
LOC: C.LABCC 08:50
PROVIDERS: ATTEND Internal Medicine
DX: E83.52 Hypercalcemia (principal); E55.9 Vitamin D deficiency, unspecified; D64.9 Anemia, unspecified

== ENCOUNTER → 2018-03-24 | Outpatient (CLI) | payer OTHER, MEDICARE ==
[2018-03-24 08:54] LABS: BASO % 0.3 %; BASO ABS # 0.03 K/uL (0-0.2); EOS % 2.5 %; EOS ABS # 0.28 K/uL (0-0.5); HEMATOCRIT 36.6 % (37-47); HEMOGLOBIN 11.6 g/dL (12.0-16.0); IG# 0.04 K/uL (0.00-0.02); LYMPH % 33.2 %; LYMPH ABS # 3.77 K/uL (1.2-3.4); MEAN CELL VOLUME 81.7 fL (80-100); MEAN CORPUSCULAR HEMOGLOBIN 25.9 pg (25-34); MEAN CORPUSCULAR HGB CONC 31.7 g/dl (32-36); MEAN PLATELET VOLUME 9.5 fL (7.4-10.4); MONO % 12.3 %; NEUT % 51.3 %; NEUT ABS # 5.84 K/uL (1.4-6.5); PLATELET COUNT 395 K/uL (130-400); RED CELL DISTRIBUTION WIDTH CV 14.5 % (11.5-14.5); RED CELL DISTRIBUTION WIDTH SD 43.4 fL (36.4-46.3); WHITE BLOOD COUNT 11.36 K/uL (4.8-10.8)
== END ==
LOC: C.LABCC 08:23
PROVIDERS: ATTEND Internal Medicine
DX: E78.5 Hyperlipidemia, unspecified (principal)

== ENCOUNTER 2018-09-09 10:51 | Inpatient (IN) ==
[2018-09-09] MEDS ORDERED: ALBUTEROL 0.083% NEBU SOLN 3 ML VIAL INH STA (11:05)
[2018-09-09] MEDS ORDERED: LEVOFLOXACIN/D5W 750 MG/150 ML BAG IV STA (11:05)
[2018-09-09] MEDS ORDERED: SODIUM CHLORIDE 0.9% 1000ML 1,000 ML IV SCH (11:15)
[2018-09-09 11:20] LABS: Basophils # (auto) 0.03 K/uL (0-0.2); Basophils % (auto) 0.2 %; Eosinophils # (auto) 0.13 K/uL (0-0.5); Hematocrit (blood only) 36.8 % (37-47); Hemoglobin 11.7 g/dL (12.0-16.0); Immature Granulocytes # (auto) 0.07 K/uL (0.00-0.02); Immature Granulocytes % (auto) 0.5 %; Lymphocytes # (auto) 3.99 K/uL (1.2-3.4); Lymphocytes % (auto) 30.7 %; Mean Corpuscular Hgb Conc 31.8 g/dL (32-36); Mean Corpuscular Volume 80.9 fL (80-100); Mean Platelet Volume 9.3 fL (7.4-10.4); Monocytes # (auto) 2.38 K/uL (0.11-0.59); Monocytes % (auto) 18.3 %; Neutrophils # (auto) 6.38 K/uL (1.4-6.5); Neutrophils % (auto) 49.3 %; Platelet Count 380 K/uL (130-400); RDW Coefficient of Variation 15.6 % (11.5-14.5); RDW Standard Deviation 45.7 fL (36.4-46.3); Red Blood Count 4.55 M/uL (4.2-5.4); White Blood Count 12.98 K/uL (4.8-10.8)
[2018-09-09 11:28] LABS: Base Excess VBG 0.5 mEq/L; HCO3 VBG 26 mmol/L; Oxygen Saturation VBG < 60.0 %; PCO2 VBG 45 mmHg (38-50); PO2 VBG 29 mmHg; pH VBG 7.38 (7.36-7.41)
[2018-09-09 11:38] LABS: Alanine Aminotransferase 19 U/L (12-78); Albumin Level 3.1 gm/dl (3.4-5.0); Aspartate Aminotransferase 14 U/L (15-37); BUN Creatinine Ratio 17.8 (10-20); Blood Urea Nitrogen 13 mg/dl (7-18); Calcium 8.6 mg/dl (8.5-10.1); Carbon Dioxide 26 mmol/L (21-32); Chloride 106 mmol/L (98-107); Creatinine Clr Calc Pharmacy 59.7 ml/min; Est GFR (Non-African American) 77.7; Glucose 182 mg/dl (70-99); Potassium 3.3 mmol/L (3.5-5.1); Sodium 138 mmol/L (136-145)
[2018-09-09 11:43] LABS: Albumin Globulin Ratio 0.8 (0.9-2); Alkaline Phosphatase 186 U/L (45-117); Bilirubin,Total 0.2 mg/dl (0.2-1); Total Protein 7.1 gm/dl (6.4-8.2); Troponin I < 0.015 ng/ml (0-0.045)
--- NOTE | 2018-09-09 11:49 | XRay Report ---
XR chest 1V portable CLINICAL HISTORY: Dyspnea COMPARISON STUDY: 05/31/2018 FINDINGS: The cardiac and mediastinal contours are normal. There is no evidence of focal pulmonary co nsolidation. There is no evidence of failure. No pleural effusions are visualized.[ There is minor le ft basilar atelectasis/scarring IMPRESSION: No active disease in the chest. Electronically signed by: Wes Zelaya M.D. 09/09/2018 11:48 AM
[2018-09-09 12:01] LABS: INR 1.1 (0.9-1.1); Partial Thromboplastin Ratio 0.9; Partial Thromboplastin Time 24.5 Seconds (21.0-31.0); Prothrombin Time 10.7 Seconds (9.0-12.0)
[2018-09-09 12:06] LABS: Influenza A virus by PCR Neg for Influ A (Neg); Influenza B virus by PCR Neg for Influ B (Neg)
[2018-09-09 13:18] LABS: Appearance Urine Cloudy (Clear); Bacteria Urine Automated 3+ (Negative); Bilirubin Urine Negative (Negative); Color Urine Dark Yellow; Glucose Urine UA 1+ (Negative); Ketones Urine Negative (Negative); Leukocyte Esterase Urine Negative (Negative); Nitrite Urine Positive (Negative); Protein Urine Negative (Negative); Specific Gravity Urine 1.022 (1.000-1.030); Urobilinogen Urine Negative (Negative)
--- NOTE | 2018-09-09 16:33 | Emergency Department Note ---
Entered by Efrain Pelayo acting as a scribe for History of Present Illness General Chief complaint: Chest Pain Stated complaint: SOB with Cough Time Seen by Provider: 09/09/18 10:53 Source: patient and other (Nurse) History of Present Illness Provider complaint: Chest Pain/SOB Onset (ago): day(s) (2) Location: chest Pain Consistency: + constant (chest pain) and + other (worsening) Current Pain Intensity: 3 Exacerbated By: + other (chest pain is worse with coughing) Associated symptoms: + chest pain and + cough Treatments prior to arrival: none The patient is an 87 year old female who presents to the Emergency Room with complaints of worsening shortness of breath. The patient notes that she first developed chest pain about 2 weeks ago which has been constant. She then subsequently developed a persistent cough and shortness of breath about two days ago. The patient does not wear oxygen at baseline, but was started on 2L today by EMS prior to arrival. She presents from [facility] who administered a DuoNeb treatment today. EMS administered a second treatment while en route. The patient notes a history of COPD and believes that is causing her symptoms today. Nursing staff adds that she received 324 of Aspirin and 2 Nitro tablets from EMS prehospital, which improved her chest pain from a 7/10 to a 3/10 in severity. The patient notes that her chest pain is worsened by coughing. Home Medications Home Medications Medication Instructions Recorded Confirmed Type acetaminophen 650 mg PO Q6H PRN 04/24/18 09/09/18 History albuterol sulfate [Ventolin HFA] 2 puff INHALATION Q6 PRN 04/24/18 09/09/18 History bisacodyl [Dulcolax (bisacodyl)] 10 mg NV DAILY PRN 04/24/18 09/09/18 History calcium carbonate [Calcium 600] 1,200 mg PO DAILY 04/24/18 09/09/18 History cholecalciferol (vitamin D3) 2,000 unit PO DAILY 04/24/18 09/09/18 History [Vitamin D3] clopidogrel 75 mg PO QAM 04/24/18 09/09/18 History cyanocobalamin (vitamin B-12) 1,000 mcg PO DAILY 04/24/18 09/09/18 History diltiazem HCl 240 mg PO QAM 04/24/18 09/09/18 History fluticasone [Flonase Allergy 2 spray INTRANASAL QAM 04/24/18 09/09/18 History Relief] [id number] 1 inh INHALATION QAM 04/24/18 09/09/18 History [Trelegy Ellipta] gabapentin 400 mg PO BID 04/24/18 09/09/18 History losartan 50 mg PO QAM 04/24/18 09/09/18 History magnesium hydroxide [Milk of 30 ml PO DAILY PRN 04/24/18 09/09/18 History Magnesia] magnesium oxide 400 mg PO DAILY 04/24/18 09/09/18 History montelukast 10 mg PO QAM 04/24/18 09/09/18 History nitroglycerin 1 tab SUBLINGUAL UD PRN 04/24/18 09/09/18 History omeprazole 1 tab PO BID 04/24/18 09/09/18 History phenytoin sodium extended 100 mg PO TID 04/24/18 09/09/18 History potassium chloride 20 meq PO QAM 04/24/18 09/09/18 History sodium phosphates [Fleet Enema] 118 ml NV DAILY PRN 04/24/18 09/09/18 History hydrocodone-acetaminophen 1 tab PO Q6H PRN 05/31/18 09/09/18 History hydrocodone-acetaminophen 2 tab PO Q6H PRN 05/31/18 09/09/18 History benzocaine-menthol [Cepacol Sore 1 lozenge/day PO Q2H PRN 09/09/18 09/09/18 History Throat (bennie-men)] multivitamin [Multiple Vitamins] 1 tab PO QAM 09/09/18 09/09/18 History Allergies Allergy/AdvReac Type Severity Reaction Status Date / Time atorvastatin Allergy Mild UNSURE Verified 09/09/18 12:27 ezetimibe Allergy Mild UNSURE Verified 09/09/18 12:27 alendronate sodium Allergy Unknown UNKN Verified 09/09/18 12:27 benazepril Allergy Unknown UNSURE Verified 09/09/18 12:27 clonidine Allergy Unknown UNSURE Verified 09/09/18 12:27 rosuvastatin [From Crestor] Allergy Unknown Unknown Verified 09/09/18 12:27 simvastatin Allergy Unknown OK TO TRY Verified 09/09/18 12:27 CRESTOR PER [id number] verapamil Allergy Unknown Unknown Verified 09/09/18 12:27 Ibandronic Acid Allergy Unknown UNKN Uncoded 09/09/18 12:27 Past Med/Surg History Medical History Heart disease (Chronic) Asthma (Chronic) Emphysema (Chronic) TIA (transient ischemic attack) (Acute) 01/2014 Peripheral neuropathy (Acute) COPD (chronic obstructive pulmonary disease) Carotid artery disease Diabetes mellitus, type 2 CURRENTLY NO MEDS Diabetic polyneuropathy GERD (gastroesophageal reflux disease) Hyperlipidemia NO MEDS CURRENTLY Hypertension Kidney stones Non-alcoholic fatty liver disease Osteoarthritis Osteoporosis Pulmonary nodule Seizure disorder ON PHENYTOIN Skin cancer Vitamin D deficiency Surgical History H/O abdominal hysterectomy H/O cataract extraction H/O umbilical hernia repair Family History Brother Family history of diabetes mellitus Social History Current Living Situation: Prison Current Living Situation Comment: PT RESIDENT AT [facility] Feels Safe at Home: Yes Smoking Status: Never smoker Second Hand Exposure: Yes Hx Alcohol Use: No Hx Substance Use: No Beliefs That Will Affect Care: None Preferred Language: Argentine Review of Systems See HPI for pertinent positives & negatives. and A total of 10 systems reviewed and were otherwise negative Physical Exam Vital Signs Vital Signs - 24 hr 09/09/18 10:45 09/09/18 10:56 09/09/18 11:01 Temperature 36.9 C Temperature Source Oral Sepsis Recent Fever Within 48 Hours No Sepsis New/Unexplained Change in Mental Status No Sepsis Action Taken by Nursing No Action Required Pulse Rate 113 H 112 H 112 H Respiratory Rate 20 32 H 29 H Respiratory Effort / Characteristics Spontaneous Labored Short of Breath Respiratory Depth Shallow Respiratory Pattern Rapid/Shallow Blood Pressure 171/96 H 171/96 H Blood Pressure Mean 121 121 Blood Pressure Position Lying Pulse Oximetry 94 95 96 Oxygen Delivery Method Nasal Cannula Oxygen Flow Rate 2 09/09/18 11:06 09/09/18 12:01 09/09/18 12:02 Temperature Temperature Source Sepsis Recent Fever Within 48 Hours Sepsis New/Unexplained Change in Mental Status Sepsis Action Taken by Nursing Pulse Rate 112 H 122 H 122 H Respiratory Rate 32 H 31 H 29 H Respiratory Effort / Characteristics Respiratory Depth Respiratory Pattern Blood Pressure 173/63 H 170/71 H Blood Pressure Mean 99 104 Blood Pressure Position Pulse Oximetry 95 94 96 Oxygen Delivery Method Oxygen Flow Rate 09/09/18 12:31 09/09/18 13:01 Temperature Temperature Source Sepsis Recent Fever Within 48 Hours Sepsis New/Unexplained Change in Mental Status Sepsis Action Taken by Nursing Pulse Rate 113 H 110 H Respiratory Rate 29 H 27 H Respiratory Effort / Characteristics Respiratory Depth Respiratory Pattern Blood Pressure Blood Pressure Mean Blood Pressure Position Pulse Oximetry 97 95 Oxygen Delivery Method Oxygen Flow Rate GENERAL: Sitting up in bed, alert, well appearing, well nourished, no distress, non-toxic. On nasal cannula. Persistent cough on exam. EYE EXAM: normal conjunctiva. OROPHARYNX: no exudate, no erythema, lips, buccal mucosa, and tongue normal and mucous membranes are moist NECK: supple, no nuchal rigidity, no adenopathy, non-tender LUNGS: Persistent moist cough on exam. Diffuse wheezing throughout with poor air movement bilaterally. HEART: Tachycardic. no murmurs, S1 normal and S2 normal ABDOMEN: abdomen soft, non-tender, normo-active bowel, sounds, no masses, no rebound or guarding. BACK: Back is symmetrical on inspection and there is no deformity, no midline tenderness, no CVA tenderness. SKIN: no rashes and no bruising UPPER EXTREMITIES: upper extremities are grossly normal. LOWER EXTREMITIES: No pitting edema. Calves are equal bilaterally. NEURO EXAM: Normal sensorium, cranial nerves II-XII grossly intact, normal speech, no gross weakness of arms, no gross weakness of legs. Course ED COURSE: Vital signs were reviewed and showed hypertension and tachycardia. The patients medical record was reviewed The above diagnostic studies were performed and reviewed. ED treatments and interventions as stated above. 1101: The patient was evaluated in room C6. A complete history and physical examination was performed. 1421: I reviewed the patient's case with Dr. Alegria [facility] Hospitalist. He will evaluate the patient for further management. I discussed my findings with the patient and she understands and agrees with the treatment plan. Based on the patients age, coexisting illnesses, exam and lab findings the decision to treat as an inpatient was made. The patient remained stable while under my care. The patient will be evaluated for further management. Administered Medications Discontinued Medications Albuterol (Ventolin 0.083% 2.5mg/3ml) 5 mg INH NOW STA Stop: 09/09/18 11:06 Last Admin: 09/09/18 11:16 Dose: 5 mg Levofloxacin/Dextrose (Levaquin/D5w) 750 mg in 150 mls @ 100 mls/hr IV NOW STA Stop: 09/09/18 12:34 Last Infusion: 09/09/18 12:27 Dose: 0 mls/hr Admin: 09/09/18 11:16 Dose: 100 mls/hr Sodium Chloride (Nss 1000ml) 1,000 mls @ 999 mls/hr IV .Q1H1M PATIENCE Stop: 09/09/18 12:15 Last Infusion: 09/09/18 12:28 Dose: 0 mls/hr Admin: 09/09/18 11:16 Dose: 999 mls/hr Medical Decision Making Differential Diagnosis Differential diagnosis: Etiologies such as infections, reactive airway disease, COPD, pneumonia, pleural effusion, pulmonary edema, ARDS, pneumothorax, CHF, cardiac ischemia, cardiac tamponade, dysrhythmia, anemia, pulmonary embolism, musculoskeletal, gastrointestinal process, as well as others were entertained. Medical Records Attestation: I reviewed the patient's medical records. Home Medications Current Medication List: was personally reviewed by me Laboratory Data Attestation: I reviewed the patient's lab results. Result diagrams: 09/09/18 11:00 09/09/18 11:00 Lab Results 09/09/18 09/09/18 09/09/18 Range/Units 11:00 11:00 11:00 WBC 12.98 H (4.8-10.8) K/uL RBC 4.55 (4.2-5.4) M/uL Hgb 11.7 L (12.0-16.0) g/dL Hct 36.8 L (37-47) % MCV 80.9 (80-100) fL MCH 25.7 (25-34) pg MCHC 31.8 L (32-36) g/dL RDW Std Deviation 45.7 (36.4-46.3) fL RDW Coeff of Ruslan 15.6 H (11.5-14.5) % Plt Count 380 (130-400) K/uL MPV 9.3 (7.4-10.4) fL Immature Gran % (Auto) 0.5 % Neut % (Auto) 49.3 % Lymph % (Auto) 30.7 % [place] % (Auto) 18.3 % Eos % (Auto) 1.0 % Baso % (Auto) 0.2 % Immature Gran # (Auto) 0.07 H (0.00-0.02) K/uL Neut # (Auto) 6.38 (1.4-6.5) K/uL Lymph # (Auto) 3.99 H (1.2-3.4) K/uL [place] # (Auto) 2.38 H (0.11-0.59) K/uL Eos # (Auto) 0.13 (0-0.5) K/uL Baso # (Auto) 0.03 (0-0.2) K/uL PT Cancelled INR Cancelled APTT Cancelled PTT Ratio Cancelled VBG pH (7.36-7.41) VBG pCO2 (38-50) mmHg VBG pO2 mmHg VBG HCO3 mmol/L VBG O2 Saturation % VBG Base Excess mEq/L Barometric Pressure mm/Hg Sodium 138 (136-145) mmol/L Potassium 3.3 L (3.5-5.1) mmol/L Chloride 106 (98-107) mmol/L Carbon Dioxide 26 (21-32) mmol/L Anion Gap 6.0 (3-11) BUN 13 (7-18) mg/dl Creatinine 0.71 (0.6-1.2) mg/dl Est Cr Clr Drug Dosing 59.7 ml/min Est GFR ( Amer) 90.0 Est GFR (Non-Af Amer) 77.7 BUN/Creatinine Ratio 17.8 (10-20) Glucose 182 H (70-99) mg/dl Calcium 8.6 (8.5-10.1) mg/dl Total Bilirubin 0.2 (0.2-1) mg/dl AST 14 L (15-37) U/L ALT 19 (12-78) U/L Alkaline Phosphatase 186 H (45-117) U/L Troponin I < 0.015 (0-0.045) ng/ml Total Protein 7.1 (6.4-8.2) gm/dl Albumin 3.1 L (3.4-5.0) gm/dl Globulin 4.0 (2.5-4.0) gm/dl Albumin/Globulin Ratio 0.8 L (0.9-2) Urine Color Urine Appearance (Clear) Urine pH (4.5-7.5) Ur Specific [place] (1.000-1.030) Urine Protein (Negative) Urine Glucose (UA) (Negative) Urine Ketones (Negative) Urine Blood (Negative) Urine Nitrite (Negative) Urine Bilirubin (Negative) Urine Urobilinogen (Negative) Ur Leukocyte Esterase (Negative) Urine WBC (Auto) (0-5) /hpf Urine RBC (Auto) (0-4) /hpf U Hyaline Cast (Auto) (0-5) /lpf U Epithel Cells (Auto) (0-5) /lpf Urine Bacteria (Auto) (Negative) Influenza Type A (PCR) (Neg) Influenza Type B (PCR) (Neg) 09/09/18 09/09/18 09/09/18 Range/Units 11:06 11:16 11:39 WBC (4.8-10.8) K/uL RBC (4.2-5.4) M/uL Hgb (12.0-16.0) g/dL Hct (37-47) % MCV (80-100) fL MCH (25-34) pg MCHC (32-36) g/dL RDW Std Deviation (36.4-46.3) fL RDW Coeff of Ruslan (11.5-14.5) % Plt Count (130-400) K/uL MPV (7.4-10.4) fL Immature Gran % (Auto) % Neut % (Auto) % Lymph % (Auto) % [place] % (Auto) % Eos % (Auto) % Baso % (Auto) % Immature Gran # (Auto) (0.00-0.02) K/uL Neut # (Auto) (1.4-6.5) K/uL Lymph # (Auto) (1.2-3.4) K/uL [place] # (Auto) (0.11-0.59) K/uL Eos # (Auto) (0-0.5) K/uL Baso # (Auto) (0-0.2) K/uL PT 10.7 INR 1.1 APTT 24.5 PTT Ratio 0.9 VBG pH 7.38 (7.36-7.41) VBG pCO2 45 (38-50) mmHg VBG pO2 29 mmHg VBG HCO3 26 mmol/L VBG O2 Saturation < 60.0 % VBG Base Excess 0.5 mEq/L Barometric Pressure 727.7 mm/Hg Sodium (136-145) mmol/L Potassium (3.5-5.1) mmol/L Chloride (98-107) mmol/L Carbon Dioxide (21-32) mmol/L Anion Gap (3-11) BUN (7-18) mg/dl Creatinine (0.6-1.2) mg/dl Est Cr Clr Drug Dosing ml/min Est GFR ( Amer) Est GFR (Non-Af Amer) BUN/Creatinine Ratio (10-20) Glucose (70-99) mg/dl Calcium (8.5-10.1) mg/dl Total Bilirubin (0.2-1) mg/dl AST (15-37) U/L ALT (12-78) U/L Alkaline Phosphatase (45-117) U/L Troponin I (0-0.045) ng/ml Total Protein (6.4-8.2) gm/dl Albumin (3.4-5.0) gm/dl Globulin (2.5-4.0) gm/dl Albumin/Globulin Ratio (0.9-2) Urine Color Urine Appearance (Clear) Urine pH (4.5-7.5) Ur Specific [place] (1.000-1.030) Urine Protein (Negative) Urine Glucose (UA) (Negative) Urine Ketones (Negative) Urine Blood (Negative) Urine Nitrite (Negative) Urine Bilirubin (Negative) Urine Urobilinogen (Negative) Ur Leukocyte Esterase (Negative) Urine WBC (Auto) (0-5) /hpf Urine RBC (Auto) (0-4) /hpf U Hyaline Cast (Auto) (0-5) /lpf U Epithel Cells (Auto) (0-5) /lpf Urine Bacteria (Auto) (Negative) Influenza Type A (PCR) Neg for Influ A (Neg) Influenza Type B (PCR) Neg for Influ B (Neg) 09/09/18 Range/Units 13:00 WBC (4.8-10.8) K/uL RBC (4.2-5.4) M/uL Hgb (12.0-16.0) g/dL Hct (37-47) % MCV (80-100) fL MCH (25-34) pg MCHC (32-36) g/dL RDW Std Deviation (36.4-46.3) fL RDW Coeff of Ruslan (11.5-14.5) % Plt Count (130-400) K/uL MPV (7.4-10.4) fL Immature Gran % (Auto) % Neut % (Auto) % Lymph % (Auto) % [place] % (Auto) % Eos % (Auto) % Baso % (Auto) % Immature Gran # (Auto) (0.00-0.02) K/uL Neut # (Auto) (1.4-6.5) K/uL Lymph # (Auto) (1.2-3.4) K/uL [place] # (Auto) (0.11-0.59) K/uL Eos # (Auto) (0-0.5) K/uL Baso # (Auto) (0-0.2) K/uL PT INR APTT PTT Ratio VBG pH (7.36-7.41) VBG pCO2 (38-50) mmHg VBG pO2 mmHg VBG HCO3 mmol/L VBG O2 Saturation % VBG Base Excess mEq/L Barometric Pressure mm/Hg Sodium (136-145) mmol/L Potassium (3.5-5.1) mmol/L Chloride (98-107) mmol/L Carbon Dioxide (21-32) mmol/L Anion Gap (3-11) BUN (7-18) mg/dl Creatinine (0.6-1.2) mg/dl Est Cr Clr Drug Dosing ml/min Est GFR ( Amer) Est GFR (Non-Af Amer) BUN/Creatinine Ratio (10-20) Glucose (70-99) mg/dl Calcium (8.5-10.1) mg/dl Total Bilirubin (0.2-1) mg/dl AST (15-37) U/L ALT (12-78) U/L Alkaline Phosphatase (45-117) U/L Troponin I (0-0.045) ng/ml Total Protein (6.4-8.2) gm/dl Albumin (3.4-5.0) gm/dl Globulin (2.5-4.0) gm/dl Albumin/Globulin Ratio (0.9-2) Urine Color Dark Yellow Urine Appearance Cloudy H (Clear) Urine pH 5.0 (4.5-7.5) Ur Specific [place] 1.022 (1.000-1.030) Urine Protein Negative (Negative) Urine Glucose (UA) 1+ H (Negative) Urine Ketones Negative (Negative) Urine Blood 1+ H (Negative) Urine Nitrite Positive H (Negative) Urine Bilirubin Negative (Negative) Urine Urobilinogen Negative (Negative) Ur Leukocyte Esterase Negative (Negative) Urine WBC (Auto) 1-5 (0-5) /hpf Urine RBC (Auto) 0-4 (0-4) /hpf U Hyaline Cast (Auto) 1-5 (0-5) /lpf U Epithel Cells (Auto) 10-20 H (0-5) /lpf Urine Bacteria (Auto) 3+ H (Negative) Influenza Type A (PCR) (Neg) Influenza Type B (PCR) (Neg) Imaging Data Attestation: I personally reviewed and interpreted this imaging study as follows : Radiologist's Impression: XR chest 1V portable CLINICAL HISTORY: Dyspnea COMPARISON STUDY: 05/31/2018 FINDINGS: The cardiac and mediastinal contours are normal. There is no evidence of focal pulmonary consolidation. There is no evidence of failure. No pleural effusions are visualized.[ There is minor left basilar atelectasis/scarring IMPRESSION: No active disease in the chest. Electronically signed by: Wes Zelaya M.D. 09/09/2018 11:48 AM ECG Data Attestation: I personally reviewed and interpreted this ECG as follows: Indication: chest pain and SOB/dyspnea Rate (beats per minute): 115 Rhythm: sinus tachycardia Findings: + other (Normal axis) and + nonspecific-ST abn (inferior) Blood Pressure Blood Pressure Findings: Elevated blood pressure Blood Pressure Disposition: further management by hospitalist ZANE Narrative Patient is an 87-year-old female who presents from [facility] for shortness of breath. She was found to be slightly hypoxic and started on 2 L nasal cannula. She does have a history of COPD and asthma. She has had a cough for the past 2 weeks was been getting worse. On exam she does have diffuse rhonchi bilaterally. She was slightly tachycardic at 110. Respiratory rate was elevated at 27. She was slightly hypertensive. Labs show a leukocytosis of 13, 000. INR was unremarkable. BMP shows mild hypokalemia at 3.3. LFTs troponin are unremarkable. UA does suggest a UTI. She was given IV Levaquin, neb treatments and updated bedside. She was admitted for further workup. Impression & Plan COPD exacerbation Discharge Plan Visit Data Chief Complaint: Chest Pain Stated Complaint: SOB with Cough Other Complaint: Shortness of Breath/Dyspnea ED Provider: Justin Anderson Discharge Problem: COPD exacerbation Patient Disposition: Being Evaluated by Hospitalist Forms Stand Alone Forms: [facility] Prescriptions Prescriptions: No Action losartan 50 mg Tablet 50 mg PO QAM RF: 0 gabapentin 400 mg Capsule 400 mg PO BID RF: 0 cyanocobalamin (vitamin B-12) 1,000 mcg Tablet 1,000 mcg PO DAILY RF: 0 diltiazem HCl 240 mg Capsule,Extended Release 24 Hr 240 mg PO QAM RF: 0 potassium chloride 10 mEq Tablet Extended Release 20 meq PO QAM RF: 0 phenytoin sodium extended 100 mg Capsule 100 mg PO TID RF: 0 clopidogrel 75 mg Tablet 75 mg PO QAM RF: 0 calcium carbonate [Calcium 600] 600 mg calcium (1,500 mg) Tablet 1,200 mg PO DAILY RF: 0 magnesium hydroxide [Milk of Magnesia] 400 mg/5 mL Suspension 30 ml PO DAILY PRN (Reason: Constipation) RF: 0 bisacodyl [Dulcolax (bisacodyl)] 10 mg Suppository 10 mg NV DAILY PRN (Reason: Constipation) RF: 0 sodium phosphates [Fleet Enema] 19-7 gram/118 mL Enema 118 ml NV DAILY PRN (Reason: Constipation) RF: 0 nitroglycerin 0.4 mg Tablet, Sublingual 1 tab Sublingual UD PRN (Reason: Angina) RF: 0 montelukast 10 mg Tablet 10 mg PO QAM RF: 0 albuterol sulfate [Ventolin HFA] 90 mcg/actuation Hfa Aerosol Inhaler 2 puff INHALATION Q6 PRN (Reason: Shortness Of Breath Or Wheezing) RF: 0 fluticasone [Flonase Allergy Relief] 50 mcg/actuation Clever,Suspension 2 spray INTRANASAL QAM RF: 0 acetaminophen 325 mg Capsule 650 mg PO Q6H PRN (Reason: pain/fever) RF: 0 cholecalciferol (vitamin D3) [Vitamin D3] 2,000 unit Tablet 2,000 unit PO DAILY RF: 0 magnesium oxide 400 mg Capsule 400 mg PO DAILY RF: 0 xagzbhbjzws-kxtadhpln-yqwtjdch [Trelegy Ellipta] 100-62.5-25 mcg Blister With Device 1 inh INHALATION QAM RF: 0 omeprazole 20 mg Tablet,Disintegrat, Delay Rel 1 tab PO BID RF: 0 hydrocodone-acetaminophen 5-325 mg Tablet 1 tab PO Q6H PRN (Reason: Pain) RF: 0 hydrocodone-acetaminophen 5-325 mg Tablet 2 tab PO Q6H PRN (Reason: Pain) RF: 0 multivitamin [Multiple Vitamins] Tablet 1 tab PO QAM RF: 0 benzocaine-menthol [Cepacol Sore Throat (bennie-men)] 15-3.6 mg Lozenge 1 lozenge/day PO Q2H PRN (Reason: Sore Throat) RF: 0 Referrals Referrals: Hema Ren [Primary Care Provider] - The scribe's documentation has been prepared under my direction and personally reviewed by me in its entirety. I confirm that the note above accurately reflects all work, treatment, procedures, and medical decision making performed by me.
[2018-09-09] MEDS ORDERED: IOVERSOL 100ml IV PRN (17:04)
[2018-09-09] MEDS ORDERED: ACETAMINOPHEN 325 MG TAB PO PRN (17:20)
[2018-09-09] MEDS ORDERED: HYDROCODONE/ACETAMOPHEN 5/325MG TAB PO PRN (17:20)
[2018-09-09] MEDS ORDERED: POLYETHYLENE (MIRALAX) 17 GM PACK PO PRN (17:20)
[2018-09-09] MEDS ORDERED: ONDANSETRON INJ 2 MG/ML 2 ML VIAL IV PRN (17:20)
--- NOTE | 2018-09-09 17:23 | CT Scan Report ---
CT angio chest PE protocol CT DOSE: 321.59 mGy.cm HISTORY: 87 years-old Female with dyspnea, tachycardia, chest pain. Acute shortness of breath with tachycardia and chest pain TECHNIQUE: Multiple CTA images of the chest were obtained after the intravenous administration of 94 ml Optiray 320. Coronal and sagittal MIPS were obtained from the axial data set and were submitted f or review. All measurements were obtained according to NASCET criteria. A dose lowering technique wa s utilized adhering to the principles of ALARA. COMPARISON: Chest radiograph of same day, CT chest 11/05/2017. FINDINGS: CTA: Heart is upper limits of normal in size. No pericardial effusion. Three-vessel distribution of gambino ry arterial calcifications. No thoracic aortic aneurysm or dissection. Moderate mixed plaque informat ion about the thoracic aorta. Patency of the imaged great vessels. Eccentric nonocclusive filling def ects are noted about the left main pulmonary artery extending into the lobar, and segmental branches of the left lower lobe and lingula. No acute occlusive evidence of pulmonary thromboembolic disease. CT CHEST: Hypodense 1.0 cm nodule about the right thyroid lobe with adjacent calcifications. Nonspecific mildly enlarged 11 mm right hilar lymph node. Mildly enlarged subcarinal lymph nodes measure up to 10 mm. T hese findings are nonspecific. No pneumothorax or pleural effusion. Mild to moderate bilateral bronch ial wall thickening. Bibasilar reticular and groundglass opacities are suggestive of atelectasis/scar ring. There are no suspicious pulmonary nodules or masses identified. Unchanged 2 mm solid nodule abo ut the posterior segment right upper lobe on image 187 series 4. The previously described 8 mm ground glass nodule of the right upper lobe is no longer present. 3 mm solid nodule the posterior segment ri ght upper lobe on image 27 series 4 appears new from comparison. 4 mm subpleural nodule of the basal left lower lobe on image 113 series 4 also appears new. No lobar airspace consolidation to suggest pn eumonia. Central airways appear patent. Cholelithiasis. No acute process of the imaged upper abdomen. Soft tissues and breast parenchyma appe ar unremarkable. Bones appear to be intact. IMPRESSION: 1. 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 2. No acute occlusive pulmonary emboli identified. 3. Mild to moderate bilateral bronchial wall thickening suggestive of bronchitis. 4. Mild right hilar and subcarinal adenopathy, likely reactive. 5. Resolution of the previously described 8 mm groundglass nodule of the right upper lobe. New 3 mm r ight upper lobe and 4 mm left lower lobe solid pulmonary nodules. Please refer to below summary of Fleischner criteria recommendations for follow-up of incidental CT n odules (Bryon Rosales, Guidelines for management of small pulmonary nodules detected on CT scans: A sta tement from the Fleischner Society, Radiology 237: [id number].) SOLID NODULES Multiple nodules size: <6 mm * Low risk patients: no routine follow-up * high risk patients: optional CT at 12 months Note: newly detected indeterminate nodule in persons 35 years of age or older. * Low risk patients: minimal or absent history of smoking and/or other known risk factors * high risk patients: history of smoking or of other known risk factors (e.g. first degree relative with lung cancer, or exposure to asbestos, radon, uranium) * if a nodule up to 8 mm is partly solid or is ground glass further follow-up is required after 24 m onths to exclude possible slow growing adenocarcinoma (TELMA) The above report was generated using voice recognition software. It may contain grammatical, syntax o r spelling errors. Electronically signed by: Edwin Rich M.D. 09/09/2018 5:22 PM
[2018-09-09] MEDS ORDERED: Heparin IV Standard *NO* Bolus IV ONE (17:40)
--- NOTE | 2018-09-09 17:49 | History & Physical Report ---
Date of Service September 09, 2018 Assessment & Plan (1) Pulmonary embolism: diagnosed on CTA lungs on 09/09 left main pulmonary artery, described as chronic and non-occlussive patient says she has had shortness of breath for two weeks now no known history of PE or DVT so reasonable to think this was etiology will start heparin drip will need to determine Coumadin vs NOAC no DVT seen on bilateral dopplers (2) COPD exacerbation: bronchiolitis on imaging treat with SoluMedrol 40 q12, Levaquin 750 q24 due to productive cough hold on Albuterol due to tachycardia use ipratropium nebulizers q8 eventually transition to Prednisone and Levaquin PO (3) Acute respiratory failure with hypoxia: due to PE and COPD exacerbation treat both and try to titrate oxygen as tolerated (4) Chest pain: worse with deep breath, likely pleuritic with PE treat PE repeate troponin in the AM to rule out ACS but there is other etiology for pain (5) Peripheral neuropathy: Gabapentin (6) GERD (gastroesophageal reflux disease): PPI (7) HTN (hypertension): Losartan and Diltiazem History of Present Illness Chief Complaint: I've felt short of breath for two weeks Primary Care Provider: Formerly [facility] 87 yo female with history of COPD and HTN, presented to the ED c/o two weeks of progressive shortness of breath. She says that her breathing has gotten significantly worse the past week to the point that she is short of breath at rest. She says that at baseline she does not have much activity, she is a fall risk, but the past two weeks whenever she was moving she felt short of breath. She has had an associated cough and some substernal chest pain worse with breathing. Yesterday she was placed on 2L NC due some hypoxia. Her cough was initially productive of yellow sputum, never saw blood, but now the mucous is very thick and difficult to bring up, feels like she has phlegm in the back of her throat constantly. She typically does not have chest pain. As described, it is pleuritic, does not radiate. In the ED she was tachycardic, tachypnic, in mild distress. CXR did not show any acute process which did not correlate with how she examined, obviously in some distress. ABG showed near normal CO2 level, even slightly high which seemed odd for how fast she was breathing. Checked CTA chest that showed left pulmonary artery and left segmental PE, described as non-occlussive and chronic but she has no history of such. The CT also showed some bronchiolitis. Patient denies leg pain or swelling, has no personl h/o VTE. She does say that her brother had a blood clot in the past. Allergies Allergy/AdvReac Type Severity Reaction Status Date / Time atorvastatin Allergy Mild UNSURE Verified 09/09/18 12:27 ezetimibe Allergy Mild UNSURE Verified 09/09/18 12:27 alendronate sodium Allergy Unknown UNKN Verified 09/09/18 12:27 benazepril Allergy Unknown UNSURE Verified 09/09/18 12:27 clonidine Allergy Unknown UNSURE Verified 09/09/18 12:27 rosuvastatin [From Crestor] Allergy Unknown Unknown Verified 09/09/18 12:27 simvastatin Allergy Unknown OK TO TRY Verified 09/09/18 12:27 CRESTOR PER [id number] verapamil Allergy Unknown Unknown Verified 09/09/18 12:27 Ibandronic Acid Allergy Unknown UNKN Uncoded 09/09/18 12:27 Home Medications Home Medications Medication Instructions Recorded Confirmed Type acetaminophen 650 mg PO Q6H PRN 04/24/18 09/09/18 History albuterol sulfate [Ventolin HFA] 2 puff INHALATION Q6 PRN 04/24/18 09/09/18 History bisacodyl [Dulcolax (bisacodyl)] 10 mg AR DAILY PRN 04/24/18 09/09/18 History calcium carbonate [Calcium 600] 1,200 mg PO DAILY 04/24/18 09/09/18 History cholecalciferol (vitamin D3) 2,000 unit PO DAILY 04/24/18 09/09/18 History [Vitamin D3] clopidogrel 75 mg PO QAM 04/24/18 09/09/18 History cyanocobalamin (vitamin B-12) 1,000 mcg PO DAILY 04/24/18 09/09/18 History diltiazem HCl 240 mg PO QAM 04/24/18 09/09/18 History fluticasone [Flonase Allergy 2 spray INTRANASAL QAM 04/24/18 09/09/18 History Relief] bpenjpaaete-nvyviguiu-vzbcmpnt 1 inh INHALATION QAM 04/24/18 09/09/18 History [Trelegy Ellipta] gabapentin 400 mg PO BID 04/24/18 09/09/18 History losartan 50 mg PO QAM 04/24/18 09/09/18 History magnesium hydroxide [Milk of 30 ml PO DAILY PRN 04/24/18 09/09/18 History Magnesia] magnesium oxide 400 mg PO DAILY 04/24/18 09/09/18 History montelukast 10 mg PO QAM 04/24/18 09/09/18 History nitroglycerin 1 tab SUBLINGUAL UD PRN 04/24/18 09/09/18 History omeprazole 1 tab PO BID 04/24/18 09/09/18 History phenytoin sodium extended 100 mg PO TID 04/24/18 09/09/18 History potassium chloride 20 meq PO QAM 04/24/18 09/09/18 History sodium phosphates [Fleet Enema] 118 ml AR DAILY PRN 04/24/18 09/09/18 History hydrocodone-acetaminophen 1 tab PO Q6H PRN 05/31/18 09/09/18 History hydrocodone-acetaminophen 2 tab PO Q6H PRN 05/31/18 09/09/18 History benzocaine-menthol [Cepacol Sore 1 lozenge/day PO Q2H PRN 09/09/18 09/09/18 History Throat (bennie-men)] multivitamin [Multiple Vitamins] 1 tab PO QAM 09/09/18 09/09/18 History Past Med/Surg History Medical History Heart disease (Chronic) Asthma (Chronic) Emphysema (Chronic) TIA (transient ischemic attack) (Acute) 01/2014 Peripheral neuropathy (Acute) COPD (chronic obstructive pulmonary disease) Carotid artery disease Diabetes mellitus, type 2 CURRENTLY NO MEDS Diabetic polyneuropathy GERD (gastroesophageal reflux disease) Hyperlipidemia NO MEDS CURRENTLY Hypertension Kidney stones Non-alcoholic fatty liver disease Osteoarthritis Osteoporosis Pulmonary nodule Seizure disorder ON PHENYTOIN Skin cancer Vitamin D deficiency Surgical History H/O abdominal hysterectomy H/O cataract extraction H/O umbilical hernia repair Family History Brother Family history of diabetes mellitus Pulmonary embolism Social History Current Living Situation: Long Term Current Living Situation Comment: PT RESIDENT AT [facility] Other Information That Helps Us Care for You: No Feels Safe at Home: Yes Smoking Status: Never smoker Do You Dip or Chew Tobacco: No Second Hand Exposure: No Hx Alcohol Use: No Hx Substance Use: No Beliefs That Will Affect Care: None Preferred Language: Latvian Communication Ability: Effective Shipping Weigher Required: No Review of Systems All systems reviewed & are unremarkable except as noted in HPI & below Constitutional: + fatigue and + weakness Respiratory: + cough, + chest congestion, + dyspnea, + dyspnea on exertion, + pain on inspiration, + pain with cough, + sputum production and + wheezing; no hemoptysis Cardiovascular: + chest pain; no syncope and no edema Physical Exam 2 Vital Signs (Past 24 Hours): Last Vital Signs Temp 36.9 C 09/09/18 10:45 Pulse 110 H 09/09/18 13:01 Resp 27 H 09/09/18 13:01 BP 170/71 H 09/09/18 12:02 Pulse Ox 95 09/09/18 13:01 Constitutional: WD/WN, vitals as above + acute distress (mild respiratory distress, tachypnic), + ill appearing and + well hydrated Eyes: PERRL, conjunctivae normal, anicteric sclerae ENMT: external ear and nose normal, oropharynx normal Neck: trachea midline, no thyromegaly Respiratory: + respiratory distress, + labored breathing, + uses accessory muscles and + cough Auscultation: + rhonchi; no wheezes Cardiovascular: Rate/Rhythm: regular rhythm and + tachycardic Heart Sounds : normal S1 and normal S2; no murmur Vessels: normal peripheral pulses; no JVD Extremities: no pedal edema Gastrointestinal (Abdomen): normal bowel sounds, soft, nontender, no hepatosplenomegaly Musculoskeletal: no cyanosis or clubbing, extremities motor strength 5/5 Skin: no rashes, warm and dry Neurologic: patellar DTR's 2+ bilat, sensation intact and PERRL, EOMI, accommodation nl, no face palsy, no dysarthria Psychiatric: A+Ox3, euthymic affect Lymphatic: no cervical or axillary lymphadenopathy Results & Data Laboratory Results Laboratory Results - last 24 hr 09/09/18 09/09/18 09/09/18 11:00 11:00 11:00 WBC 12.98 H RBC 4.55 Hgb 11.7 L Hct 36.8 L MCV 80.9 MCH 25.7 MCHC 31.8 L RDW Std Deviation 45.7 RDW Coeff of Ruslan 15.6 H Plt Count 380 MPV 9.3 Immature Gran % (Auto) 0.5 Neut % (Auto) 49.3 Lymph % (Auto) 30.7 [place] % (Auto) 18.3 Eos % (Auto) 1.0 Baso % (Auto) 0.2 Immature Gran # (Auto) 0.07 H Neut # (Auto) 6.38 Lymph # (Auto) 3.99 H Logan # (Auto) 2.38 H Eos # (Auto) 0.13 Baso # (Auto) 0.03 PT Cancelled INR Cancelled APTT Cancelled PTT Ratio Cancelled VBG pH VBG pCO2 VBG pO2 VBG HCO3 VBG O2 Saturation VBG Base Excess Barometric Pressure Sodium 138 Potassium 3.3 L Chloride 106 Carbon Dioxide 26 Anion Gap 6.0 BUN 13 Creatinine 0.71 Est Cr Clr Drug Dosing 59.7 Est GFR ( Amer) 90.0 Est GFR (Non-Af Amer) 77.7 BUN/Creatinine Ratio 17.8 Glucose 182 H Calcium 8.6 Total Bilirubin 0.2 AST 14 L ALT 19 Alkaline Phosphatase 186 H Troponin I < 0.015 Total Protein 7.1 Albumin 3.1 L Globulin 4.0 Albumin/Globulin Ratio 0.8 L Urine Color Urine Appearance Urine pH Ur Specific [place] Urine Protein Urine Glucose (UA) Urine Ketones Urine Blood Urine Nitrite Urine Bilirubin Urine Urobilinogen Ur Leukocyte Esterase Urine WBC (Auto) Urine RBC (Auto) U Hyaline Cast (Auto) U Epithel Cells (Auto) Urine Bacteria (Auto) Nasal Screen MRSA (PCR) Influenza Type A (PCR) Influenza Type B (PCR) 09/09/18 09/09/18 09/09/18 11:06 11:16 11:39 WBC RBC Hgb Hct MCV MCH MCHC RDW Std Deviation RDW Coeff of Ruslan Plt Count MPV Immature Gran % (Auto) Neut % (Auto) Lymph % (Auto) [place] % (Auto) Eos % (Auto) Baso % (Auto) Immature Gran # (Auto) Neut # (Auto) Lymph # (Auto) Logan # (Auto) Eos # (Auto) Baso # (Auto) PT 10.7 INR 1.1 APTT 24.5 PTT Ratio 0.9 VBG pH 7.38 VBG pCO2 45 VBG pO2 29 VBG HCO3 26 VBG O2 Saturation < 60.0 VBG Base Excess 0.5 Barometric Pressure 727.7 Sodium Potassium Chloride Carbon Dioxide Anion Gap BUN Creatinine Est Cr Clr Drug Dosing Est GFR ( Amer) Est GFR (Non-Af Amer) BUN/Creatinine Ratio Glucose Calcium Total Bilirubin AST ALT Alkaline Phosphatase Troponin I Total Protein Albumin Globulin Albumin/Globulin Ratio Urine Color Urine Appearance Urine pH Ur Specific [place] Urine Protein Urine Glucose (UA) Urine Ketones Urine Blood Urine Nitrite Urine Bilirubin Urine Urobilinogen Ur Leukocyte Esterase Urine WBC (Auto) Urine RBC (Auto) U Hyaline Cast (Auto) U Epithel Cells (Auto) Urine Bacteria (Auto) Nasal Screen MRSA (PCR) Influenza Type A (PCR) Neg for Influ A Influenza Type B (PCR) Neg for Influ B 09/09/18 09/09/18 13:00 Unknown WBC RBC Hgb Hct MCV MCH MCHC RDW Std Deviation RDW Coeff of [place]lan Plt Count MPV Immature Gran % (Auto) Neut % (Auto) Lymph % (Auto) [place] % (Auto) Eos % (Auto) Baso % (Auto) Immature Gran # (Auto) Neut # (Auto) Lymph # (Auto) [place] # (Auto) Eos # (Auto) Baso # (Auto) PT INR APTT PTT Ratio VBG pH VBG pCO2 VBG pO2 VBG HCO3 VBG O2 Saturation VBG Base Excess Barometric Pressure Sodium Potassium Chloride Carbon Dioxide Anion Gap BUN Creatinine Est Cr Clr Drug Dosing Est GFR ( Amer) Est GFR (Non-Af Amer) BUN/Creatinine Ratio Glucose Calcium Total Bilirubin AST ALT Alkaline Phosphatase Troponin I Total Protein Albumin Globulin Albumin/Globulin Ratio Urine Color Dark Yellow Urine Appearance Cloudy H Urine pH 5.0 Ur Specific [place] 1.022 Urine Protein Negative Urine Glucose (UA) 1+ H Urine Ketones Negative Urine Blood 1+ H Urine Nitrite Positive H Urine Bilirubin Negative Urine Urobilinogen Negative Ur Leukocyte Esterase Negative Urine WBC (Auto) 1-5 Urine RBC (Auto) 0-4 U Hyaline Cast (Auto) 1-5 U Epithel Cells (Auto) 10-20 H Urine Bacteria (Auto) 3+ H Nasal Screen MRSA (PCR) Negative Influenza Type A (PCR) Influenza Type B (PCR) Diagnostic Findings US venous doppler LE BI HISTORY: Pain. Edema. leg swelling and pain COMPARISON STUDY: None. FINDINGS: There is normal compressibility, flow, and augmentation within the bilateral lower extremity deep venous systems. The mid right femoral vein shows a component of venous scarring considered chronic. IMPRESSION: No DVT within the right or left lower extremity. Chronic venous scarring right leg. CT angiogram chest PE protocol IMPRESSION: 1. Chronic appearing nonocclusive pulmonary emboli of the left main pulmonary artery, lobar and segmental branches of the left lower lobe and lingula. 2. No acute occlusive pulmonary emboli identified. 3. Mild to moderate bilateral bronchial wall thickening suggestive of bronchitis. 4. Mild right hilar and subcarinal adenopathy, likely reactive. 5. Resolution of the previously described 8 mm groundglass nodule of the right upper lobe. New 3 mm right upper lobe and 4 mm left lower lobe solid pulmonary nodules. Code Status & VTE Plan Code Status full code but patient states she would not want "to be left on machines"
[2018-09-09] MEDS ORDERED: HEPARIN STANDARD DEXTROSE 25,000 UNITS/500 ML IV SCH (18:00)
[2018-09-09] MEDS ORDERED: HEPARIN IV BOLUS 5,000 UNITS in SYRINGE 0 ML IV ONE (18:31)
[2018-09-09] MEDS ORDERED: ENOXAPARIN INJ 40 MG/0.4 ML SYR SQ SCH (21:00)
[2018-09-09] MEDS: PANTOprazole 40 MG TAB PO SCH (21:33)
[2018-09-09] MEDS: GABAPENTIN 400 MG CAP PO SCH (21:33)
[2018-09-09] MEDS: methylPREDNISolone 40 MG in SYRINGE 0 ML IV SCH (21:33)
--- NOTE | 2018-09-09 21:35 | Ultrasound Report ---
US venous doppler LE BI HISTORY: Pain. Edema. leg swelling and pain COMPARISON STUDY: None. FINDINGS: There is normal compressibility, flow, and augmentation within the bilateral lower extremit y deep venous systems. The mid right femoral vein shows a component of venous scarring considered chr onic. IMPRESSION: No DVT within the right or left lower extremity. Chronic venous scarring right leg. The above report was generated using voice recognition software. It may contain grammatical, syntax or spelling errors. Electronically signed by: Davonte Chilel M.D. 09/09/2018 9:33 PM
[2018-09-09] MEDS ORDERED: ALBUT/IPRATROP 3MG/0.5MG NEB 3 ML VIAL NEB PRN (22:31)
[2018-09-09] MEDS: IPRATROPIUM BROMIDE NEB SOLN 0.02% 2.5 ML VIAL NEB SCH (23:03)
[2018-09-09] MEDS ORDERED: INFLUENZA ADMINISTRATION CHARGE ONE (23:30)
[2018-09-09] MEDS ORDERED: PNEUMOCOCCAL ADMINISTRATION CHARGE ONE (23:30)
[2018-09-09] MEDS ORDERED: PNEUMOCOCCAL POLYSACCHARIDES 25 MCG/0.5 ML VIAL/SYR IM ONE (23:30)
[2018-09-09] MEDS ORDERED: INFLUENZA VACCINE HIGH DOSE 65+ 0.5 ML SYR IM ONE (23:30)
[2018-09-09] MEDS: PHENYTOIN SODIUM ER 100 MG CAP PO SCH (23:58)
[2018-09-10 01:33] LABS: Partial Thromboplastin Ratio 1.5; Partial Thromboplastin Time 40.3 Seconds (21.0-31.0)
[2018-09-10] MEDS ORDERED: HEPARIN IV BOLUS 5,000 UNITS in SYRINGE 0 ML IV ONE (01:45)
[2018-09-10] MEDS: IPRATROPIUM BROMIDE NEB SOLN 0.02% 2.5 ML VIAL NEB SCH ×3 (06:59→23:31)
[2018-09-10 08:19] LABS: Basophils # (auto) 0.02 K/uL (0-0.2); Basophils % (auto) 0.2 %; Eosinophils # (auto) 0.01 K/uL (0-0.5); Eosinophils % (auto) 0.1 %; Hematocrit (blood only) 38.5 % (37-47); Immature Granulocytes # (auto) 0.08 K/uL (0.00-0.02); Lymphocytes # (auto) 2.34 K/uL (1.2-3.4); Lymphocytes % (auto) 27.9 %; Mean Corpuscular Hgb Conc 31.2 g/dL (32-36); Mean Corpuscular Volume 81.2 fL (80-100); Mean Platelet Volume 9.3 fL (7.4-10.4); Monocytes # (auto) 1.06 K/uL (0.11-0.59); Monocytes % (auto) 12.6 %; Neutrophils # (auto) 4.87 K/uL (1.4-6.5); Neutrophils % (auto) 58.2 %; Platelet Count 332 K/uL (130-400); RDW Coefficient of Variation 15.6 % (11.5-14.5); RDW Standard Deviation 46.4 fL (36.4-46.3); Red Blood Count 4.74 M/uL (4.2-5.4); White Blood Count 8.38 K/uL (4.8-10.8)
[2018-09-10 08:44] LABS: Calcium 8.8 mg/dl (8.5-10.1); Creatinine Clr Calc Pharmacy 67.1 ml/min; Est GFR (African American) 96.9; Est GFR (Non-African American) 83.6; Potassium 4.1 mmol/L (3.5-5.1)
[2018-09-10 08:53] LABS: Partial Thromboplastin Time 156.4 Seconds (21.0-31.0)
[2018-09-10] MEDS: methylPREDNISolone 40 MG in SYRINGE 0 ML IV SCH ×2 (08:54→20:41)
[2018-09-10] MEDS: LOSARTAN POTASSIUM 50 MG TAB PO SCH (08:59)
[2018-09-10] MEDS: POTASSIUM CHLORIDE 10 MEQ TABCR PO SCH (09:00)
[2018-09-10] MEDS: PANTOprazole 40 MG TAB PO SCH ×2 (09:01→20:42)
[2018-09-10] MEDS: MAGNESIUM OXIDE 400 MG TAB PO SCH (09:01)
[2018-09-10] MEDS: CLOPIDOGREL BISULFATE 75 MG TAB PO SCH (09:01)
[2018-09-10] MEDS: dilTIAZem ER 120 MG CAPCR PO SCH (09:02)
[2018-09-10] MEDS: GABAPENTIN 400 MG CAP PO SCH ×2 (09:02→20:41)
[2018-09-10] MEDS: PHENYTOIN SODIUM ER 100 MG CAP PO SCH ×3 (09:03→20:41)
[2018-09-10] MEDS: MONTELUKAST SODIUM 10 MG TABLET PO SCH (09:03)
[2018-09-10 10:30] LABS: Troponin I 0.17 ng/ml (0-0.045)
[2018-09-10] MEDS: LEVOFLOXACIN/D5W 750 MG/150 ML BAG IV SCH (12:02)
[2018-09-10 12:30] LABS: Partial Thromboplastin Ratio 2.3
[2018-09-10 12:40] LABS: Partial Thromboplastin Time 59.1 Seconds (21.0-31.0)
--- NOTE | 2018-09-10 15:58 | Family Medicine Progress Note ---
Date of Service September 10, 2018 Assessment & Plan (1) Pulmonary embolism: -diagnosed on CTA lungs on 08/13. Appears to be an unprovoked PE -started on heparin drip but transitioned to Lovenox 1 mg/kg q12h today. -pt on phenytoin so NOAC use CI. Also affects warfarin but warfarin level can be monitored and adjusted so might be better alternative if extensive anticoagulation needed. Lovenox can be continued upon discharge if only 3 months required. Will discuss with pt once length of treatment determined. -Based on no prior screening hx, panCT might be necessary to determine cause of PE and as a result length of treatment. no DVT seen on bilateral dopplers (2) COPD exacerbation: bronchiolitis on imaging treat with SoluMedrol 40 q12, Levaquin 750 q24 due to productive cough (will monitor qtc and get chest pt to help with mucus) hold on Albuterol due to tachycardia use ipratropium nebulizers q8 eventually transition to Prednisone and Levaquin PO (3) Acute respiratory failure with hypoxia: due to PE and COPD exacerbation treat both and try to titrate oxygen as tolerated (4) Chest pain: resolving, increased troponin noted. Likely due to heart strain. -Echo ordered for further eval. will continue to trend trops. (5) Peripheral neuropathy: Gabapentin (6) GERD (gastroesophageal reflux disease): PPI (7) HTN (hypertension): Losartan and Diltiazem Supervising Physician Co-Signing Physician Notes Patient seen and examined at the bedside with Dr. Owusu. Agree with history, exam findings, assessment and plan of care as outlined with the following updates/changes: In brief, Ms Gleason is a very pleasant 87 year old female with hx of HTN, COPD , DM (diet controlled) admitted with new PE. Reviewed H&P. Vitals reviewed. On 3L NC O2 at the time of exam. Breathing comfortably. Diminished breath sounds. No wheezing, but soft, coarse breath sounds. Unsure of last date for recommended cancer screenings. 1. PE, unprovoked. Heparin gtt?lovenox 1mg/kg q12h. Not able to do NOAC due to concomitant phenytoin use. Could potentially do Coumadin, although interaction with Coumadin and phenytoin as well. Can consider sosa-CT to look for occult malignancy, given that she has not had preventative health cancer screenings in several decades, but not sure this would change the big picture for her. Bilateral LE dopplers negative for DVT. Check echo for heart strain. Wean O2 as able. 2. COPD exacerbation. Continue solumedrol, but would switch to pred fairly quickly. Consider switch to azithro given asymptomatic from dirty UA. 3. Elevated troponin. Chest pain is pleuritic in nature. Likely the mild elevation in troponin is secondary to PE. Will repeat and if flat or decreasing , would not investigate further unless new or worsening symptoms. Other chronic issues stable. Home medications continued. Subjective Ms. Gleason states that she would like some help coughing up the mucus. Denies SOB or chest pain currently. Has had poor screening in terms of mammogram, colonoscopy or pap. States that she is familiar with coumadin usage as brother was on it. Review of Systems All systems reviewed & are unremarkable except as noted in HPI & below Physical Exam 2 Vital Signs (Past 24 Hours): Last Vital Signs Temp 36.8 C 09/10/18 15:32 Pulse 84 09/10/18 15:32 Resp 20 09/10/18 15:32 BP 152/82 H 09/10/18 15:32 Pulse Ox 93 09/10/18 15:32 General: Alert, oriented. No acute distress siiting upright with bed elevated. HEENT: NC/AT, PERRLA, EOMI, oropharynx moist. Chest: Nontender to palpation. CV: RRR, Normal s1, s2. No murmurs appreciated Resp: Breath sounds decreased Extremities: No edema. Results & Data Laboratory Results Laboratory Results - last 24 hr 09/09/18 09/10/18 09/10/18 Unknown 01:05 08:06 WBC 8.38 RBC 4.74 Hgb 12.0 Hct 38.5 MCV 81.2 MCH 25.3 MCHC 31.2 L RDW Std Deviation 46.4 H RDW Coeff of Ruslan 15.6 H Plt Count 332 MPV 9.3 Immature Gran % (Auto) 1.0 Neut % (Auto) 58.2 Lymph % (Auto) 27.9 [place] % (Auto) 12.6 Eos % (Auto) 0.1 Baso % (Auto) 0.2 Immature Gran # (Auto) 0.08 H Neut # (Auto) 4.87 Lymph # (Auto) 2.34 [place] # (Auto) 1.06 H Eos # (Auto) 0.01 Baso # (Auto) 0.02 APTT 40.3 H PTT Ratio 1.5 Sodium Potassium Chloride Carbon Dioxide Anion Gap BUN Creatinine Est Cr Clr Drug Dosing Est GFR ( Amer) Est GFR (Non-Af Amer) BUN/Creatinine Ratio Glucose Calcium Troponin I Nasal Screen MRSA (PCR) Negative 09/10/18 09/10/18 09/10/18 08:06 08:06 11:53 WBC RBC Hgb Hct MCV MCH MCHC RDW Std Deviation RDW Coeff of Ruslan Plt Count MPV Immature Gran % (Auto) Neut % (Auto) Lymph % (Auto) [place] % (Auto) Eos % (Auto) Baso % (Auto) Immature Gran # (Auto) Neut # (Auto) Lymph # (Auto) [place] # (Auto) Eos # (Auto) Baso # (Auto) APTT 156.4 H* 59.1 H* PTT Ratio 6.0 2.3 Sodium 138 Potassium 4.1 D Chloride 104 Carbon Dioxide 27 Anion Gap 7.0 BUN 10 Creatinine 0.59 L Est Cr Clr Drug Dosing 67.1 Est GFR ( Amer) 96.9 Est GFR (Non-Af Amer) 83.6 BUN/Creatinine Ratio 17.0 Glucose 151 H Calcium 8.8 Troponin I 0.170 H* Nasal Screen MRSA (PCR) Medications Administered Home Medications acetaminophen 650 mg PO Q6H PRN 04/24/18 [History Confirmed 09/09/18] albuterol sulfate [Ventolin HFA] 2 puff INHALATION Q6 PRN 04/24/18 [History Confirmed 09/09/18] bisacodyl [Dulcolax (bisacodyl)] 10 mg MO DAILY PRN 04/24/18 [History Confirmed 09/09/18] calcium carbonate [Calcium 600] 1,200 mg PO DAILY 04/24/18 [History Confirmed ] cholecalciferol (vitamin D3) [Vitamin D3] 2,000 unit PO DAILY 04/24/18 [History Confirmed 09/09/18] clopidogrel 75 mg PO QAM 04/24/18 [History Confirmed 09/09/18] cyanocobalamin (vitamin B-12) 1,000 mcg PO DAILY 04/24/18 [History Confirmed ] diltiazem HCl 240 mg PO QAM 04/24/18 [History Confirmed 09/09/18] fluticasone [Flonase Allergy Relief] 2 spray INTRANASAL QAM 04/24/18 [History Confirmed 09/09/18] keazsvwnehb-jrqzrenbq-xjptnrxk [Trelegy Ellipta] 1 inh INHALATION QAM 04/24/18 [ History Confirmed 09/09/18] gabapentin 400 mg PO BID 04/24/18 [History Confirmed 09/09/18] losartan 50 mg PO QAM 04/24/18 [History Confirmed 09/09/18] magnesium hydroxide [Milk of Magnesia] 30 ml PO DAILY PRN 04/24/18 [History Confirmed 09/09/18] magnesium oxide 400 mg PO DAILY 04/24/18 [History Confirmed 09/09/18] montelukast 10 mg PO QAM 04/24/18 [History Confirmed 09/09/18] nitroglycerin 1 tab SUBLINGUAL UD PRN 04/24/18 [History Confirmed 09/09/18] omeprazole 1 tab PO BID 04/24/18 [History Confirmed 09/09/18] phenytoin sodium extended 100 mg PO TID 04/24/18 [History Confirmed 09/09/18] potassium chloride 20 meq PO QAM 04/24/18 [History Confirmed 09/09/18] sodium phosphates [Fleet Enema] 118 ml MO DAILY PRN 04/24/18 [History Confirmed 09/09/18] hydrocodone-acetaminophen 1 tab PO Q6H PRN 05/31/18 [History Confirmed 09/09/18] hydrocodone-acetaminophen 2 tab PO Q6H PRN 05/31/18 [History Confirmed 09/09/18] benzocaine-menthol [Cepacol Sore Throat (bennie-men)] 1 lozenge/day PO Q2H PRN [History Confirmed 09/09/18] multivitamin [Multiple Vitamins] 1 tab PO QAM 09/09/18 [History Confirmed ] Active Medications Acetaminophen (Tylenol) 650 mg PO Q4H PRN PRN Reason: Pain or Fever Stop: 10/09/18 17:19 Hydrocodone Bitart/Acetaminophen ([place] 5/325) 1 tab PO Q6H PRN PRN Reason: Pain Stop: 09/23/18 17:19 Albuterol (Duoneb) 3 ml NEB Q4R PRN PRN Reason: dyspnea or wheezing Stop: 10/10/18 00:00 Clopidogrel Bisulfate (Plavix) 75 mg PO QAM [facility] Stop: 10/10/18 08:59 Last Admin: 09/10/18 09:01 Dose: 75 mg Diltiazem HCl (Tiazac) 240 mg PO DAILY [facility] Stop: 10/10/18 08:59 Last Admin: 09/10/18 09:02 Dose: 240 mg Enoxaparin Sodium (Lovenox) 70 mg SQ Q12 [facility] Stop: 10/10/18 16:59 Gabapentin (Neurontin) 400 mg PO BID [facility] Stop: 10/09/18 20:59 Last Admin: 09/10/18 09:02 Dose: 400 mg Levofloxacin/Dextrose (Levaquin/D5w) 750 mg in 150 mls @ 100 mls/hr IV Q24H [facility] Stop: 09/15/18 12:29 Last Admin: 09/10/18 12:02 Dose: 100 mls/hr Methylprednisolone 40 mg/ (Syringe) 0.64 mls @ 1.5 mls/min IV Q12 [facility] Stop: 10/09/18 20:59 Last Admin: 09/10/18 08:54 Dose: 1.5 mls/min Ioversol (Optiray 320 100ml) 94 ml IV ONCE PRN PRN Reason: Interaction Checking Stop: 09/13/18 17:03 Last Admin: 09/09/18 17:04 Dose: 94 ml Ipratropium [place] (Atrovent 0.02% 0.5mg/2.5ml) 0.5 mg NEB Q8R [facility] Stop: 10/10/18 00:00 Last Admin: 09/10/18 15:24 Dose: 0.5 mg Losartan Potassium (Cozaar) 50 mg PO QAM [facility] Stop: 10/10/18 08:59 Last Admin: 09/10/18 08:59 Dose: 50 mg Magnesium Oxide (Mag-Ox) 400 mg PO DAILY [facility] Stop: 10/10/18 08:59 Last Admin: 09/10/18 09:01 Dose: 400 mg Montelukast Sodium (Singulair) 10 mg PO QAM [facility] Stop: 10/10/18 08:59 Last Admin: 09/10/18 09:03 Dose: 10 mg Ondansetron HCl (Zofran) 4 mg IV Q6H PRN PRN Reason: Nausea Stop: 10/09/18 17:19 Pantoprazole Sodium (Protonix) 40 mg PO BID [facility] Stop: 10/09/18 20:59 Last Admin: 09/10/18 09:01 Dose: 40 mg Phenytoin Sodium (Dilantin Er) 100 mg PO TID [facility] Stop: 10/09/18 20:59 Last Admin: 09/10/18 13:29 Dose: 100 mg Polyethylene Glycol (Miralax Powder Packet) 17 gm PO DAILY PRN PRN Reason: Constipation Stop: 10/09/18 17:19 Potassium Chloride (Klor-Con M10) 20 meq PO QAM [facility] Stop: 10/10/18 08:59 Last Admin: 09/10/18 09:00 Dose: 20 meq Resident Activity Tracking Resident Involvement: Resident Care Provided Care Provided: Adult Hospital Medicine
[2018-09-10] MEDS: ENOXAPARIN 80 MG/0.8 ML SYR SQ SCH (17:14)
[2018-09-11 05:33] LABS: Basophils # (auto) 0.02 K/uL (0-0.2); Basophils % (auto) 0.2 %; Hematocrit (blood only) 35.6 % (37-47); Hemoglobin 11.4 g/dL (12.0-16.0); Immature Granulocytes # (auto) 0.06 K/uL (0.00-0.02); Immature Granulocytes % (auto) 0.6 %; Lymphocytes # (auto) 1.93 K/uL (1.2-3.4); Lymphocytes % (auto) 18.5 %; Mean Corpuscular Volume 81.5 fL (80-100); Mean Platelet Volume 9.3 fL (7.4-10.4); Monocytes # (auto) 1.23 K/uL (0.11-0.59); Monocytes % (auto) 11.8 %; Neutrophils % (auto) 68.9 %; Platelet Count 314 K/uL (130-400); RDW Coefficient of Variation 15.4 % (11.5-14.5); RDW Standard Deviation 45.6 fL (36.4-46.3); Red Blood Count 4.37 M/uL (4.2-5.4); White Blood Count 10.44 K/uL (4.8-10.8)
[2018-09-11 05:50] LABS: BUN Creatinine Ratio 23.8 (10-20); Calcium 8.6 mg/dl (8.5-10.1); Est GFR (African American) 88.5; Est GFR (Non-African American) 76.4; Potassium 4.2 mmol/L (3.5-5.1)
[2018-09-11] MEDS: IPRATROPIUM BROMIDE NEB SOLN 0.02% 2.5 ML VIAL NEB SCH ×3 (07:01→23:21)
[2018-09-11] MEDS: MONTELUKAST SODIUM 10 MG TABLET PO SCH (08:12)
[2018-09-11] MEDS: MAGNESIUM OXIDE 400 MG TAB PO SCH (08:12)
[2018-09-11] MEDS: LOSARTAN POTASSIUM 50 MG TAB PO SCH (08:13)
[2018-09-11] MEDS: ENOXAPARIN 80 MG/0.8 ML SYR SQ SCH ×2 (08:13→20:47)
[2018-09-11] MEDS: GABAPENTIN 400 MG CAP PO SCH ×2 (08:13→20:47)
[2018-09-11] MEDS: CLOPIDOGREL BISULFATE 75 MG TAB PO SCH (08:13)
[2018-09-11] MEDS: PANTOprazole 40 MG TAB PO SCH ×2 (08:13→20:47)
[2018-09-11] MEDS: dilTIAZem ER 120 MG CAPCR PO SCH (08:13)
[2018-09-11] MEDS: POTASSIUM CHLORIDE 10 MEQ TABCR PO SCH (08:15)
[2018-09-11] MEDS: PHENYTOIN SODIUM ER 100 MG CAP PO SCH ×3 (08:15→20:47)
[2018-09-11] MEDS: methylPREDNISolone 40 MG in SYRINGE 0 ML IV SCH (08:15)
[2018-09-11 08:21] LABS: Estimated Average Glucose 157 mg/dl
[2018-09-11] MEDS: LEVOFLOXACIN/D5W 750 MG/150 ML BAG IV SCH (11:38)
[2018-09-11] MEDS: INSULIN ASPART 100 UNITS/ML 3 ML PEN SC SCH ×3 (12:03→20:46)
--- NOTE | 2018-09-11 17:42 | Family Medicine Progress Note ---
Date of Service September 11, 2018 Assessment & Plan (1) Pulmonary embolism: 87yo with unprovoked PE with Hx of HTN, DMII (usually diet controlled), COPD. -diagnosed on CTA lungs on 08/13. Appears to be an unprovoked PE -on Lovenox 1 mg/kg q12h today. -pt on phenytoin for hx of seizures so NOAC use CI. Also affects warfarin but warfarin level can be monitored and adjusted so might be better alternative if extensive anticoagulation needed. Pt states she prefers Lovenox for treatment which can be continued upon discharge if only 3 months required. -No sosa screening necessary. no DVT seen on bilateral dopplers (2) COPD exacerbation: bronchiolitis on imaging Switch today to PO prednisone and Azithromycin from Solumedrol and Levaquin hold on Albuterol due to tachycardia use ipratropium nebulizers q8 (3) Acute respiratory failure with hypoxia: due to PE and COPD exacerbation titrate oxygen as tolerated (4) Chest pain: resolving, increased troponin noted. Likely due to heart strain. -Echo ordered for further eval. will continue to trend trops. (5) Peripheral neuropathy: Gabapentin (6) GERD (gastroesophageal reflux disease): PPI (7) HTN (hypertension): Losartan and Diltiazem (8) Constipation: Started on colace and miralax. Supervising Physician Co-Signing Physician Notes Attending attestation Pt seen and examined in concert with Dr. Owusu. In agreement with the documented findings as noted in the resident documentation with any exceptions or additions as noted here. Overall, feels that breathing has improved. Denies urinary symptoms at this time. Feeling mildly constipated today, no bowel movement since 2 days prior. On examination, S1/S2 nl RRR no MCG. CTAB but with decreased breath sounds throughout. Abd is NT/ND, BS +ve. Unprovoked PE � after discussion with patient, will continue lovenox SQ injections over transition to warfarin for 3 months, to be discussed further at follow up. COPD with acute exacerbation � wean O2 as tolerated. Convert abx to PO azithromycin. Convert to PO prednisone Constipation � bowel regimen w/ Colace and miralax. Elevated troponin � downtrending without recurrence of symptoms. Likely pleuritic chest pain 2/2 COPD and PE. Else as with resident documentation. Subjective Ms Poorman states that she's doing better. Denies chest pain, SOB, dysuria, hematuria. Also states she's constipated. Review of Systems All systems reviewed & are unremarkable except as noted in HPI & below Physical Exam 2 Vital Signs (Past 24 Hours): Last Vital Signs Temp 36.6 C 09/11/18 15:46 Pulse 78 09/11/18 15:46 Resp 20 09/11/18 15:46 BP 129/51 L 09/11/18 15:46 Pulse Ox 95 09/11/18 15:46 General: Alert, oriented. No acute distress siiting upright with bed elevated. HEENT: NC/AT, PERRLA, EOMI, oropharynx moist. Chest: Nontender to palpation. CV: RRR, Normal s1, s2. No murmurs appreciated Resp: Breath sounds decreased Extremities: No edema Results & Data Laboratory Results Laboratory Results - last 24 hr 09/11/18 09/11/18 09/11/18 05:21 05:21 05:21 WBC 10.44 RBC 4.37 Hgb 11.4 L Hct 35.6 L MCV 81.5 MCH 26.1 MCHC 32.0 RDW Std Deviation 45.6 RDW Coeff of [place] 15.4 H Plt Count 314 MPV 9.3 Immature Gran % (Auto) 0.6 Neut % (Auto) 68.9 Lymph % (Auto) 18.5 [place] % (Auto) 11.8 Eos % (Auto) 0.0 Baso % (Auto) 0.2 Immature Gran # (Auto) 0.06 H Neut # (Auto) 7.20 H Lymph # (Auto) 1.93 [place] # (Auto) 1.23 H Eos # (Auto) 0.00 Baso # (Auto) 0.02 Sodium 139 Potassium 4.2 Chloride 108 H Carbon Dioxide 27 Anion Gap 4.0 BUN 17 D Creatinine 0.72 Est Cr Clr Drug Dosing 55.0 Est GFR ( Amer) 88.5 Est GFR (Non-Af Amer) 76.4 BUN/Creatinine Ratio 23.8 H Glucose 192 H POC Glucose Estimat Average Glucose 157 Hemoglobin A1c 7.1 H Calcium 8.6 09/11/18 09/11/18 16:31 20:24 WBC RBC Hgb Hct MCV MCH MCHC RDW Std Deviation RDW Coeff of [place] Plt Count MPV Immature Gran % (Auto) Neut % (Auto) Lymph % (Auto) [place] % (Auto) Eos % (Auto) Baso % (Auto) Immature Gran # (Auto) Neut # (Auto) Lymph # (Auto) [place] # (Auto) Eos # (Auto) Baso # (Auto) Sodium Potassium Chloride Carbon Dioxide Anion Gap BUN Creatinine Est Cr Clr Drug Dosing Est GFR ( Amer) Est GFR (Non-Af Amer) BUN/Creatinine Ratio Glucose POC Glucose 183 H 163 H Estimat Average Glucose Hemoglobin A1c Calcium Medications Administered Home Medications acetaminophen 650 mg PO Q6H PRN 04/24/18 [History Confirmed 09/09/18] albuterol sulfate [Ventolin HFA] 2 puff INHALATION Q6 PRN 04/24/18 [History Confirmed 09/09/18] bisacodyl [Dulcolax (bisacodyl)] 10 mg [place] DAILY PRN 04/24/18 [History Confirmed 09/09/18] calcium carbonate [Calcium 600] 1,200 mg PO DAILY 04/24/18 [History Confirmed ] cholecalciferol (vitamin D3) [Vitamin D3] 2,000 unit PO DAILY 04/24/18 [History Confirmed 09/09/18] clopidogrel 75 mg PO QAM 04/24/18 [History Confirmed 09/09/18] cyanocobalamin (vitamin B-12) 1,000 mcg PO DAILY 04/24/18 [History Confirmed ] diltiazem HCl 240 mg PO QAM 04/24/18 [History Confirmed 09/09/18] fluticasone [Flonase Allergy Relief] 2 spray INTRANASAL QAM 04/24/18 [History Confirmed 09/09/18] [id number] [Trelegy Ellipta] 1 inh INHALATION QAM 04/24/18 [ History Confirmed 09/09/18] gabapentin 400 mg PO BID 04/24/18 [History Confirmed 09/09/18] losartan 50 mg PO QAM 04/24/18 [History Confirmed 09/09/18] magnesium hydroxide [Milk of Magnesia] 30 ml PO DAILY PRN 04/24/18 [History Confirmed 09/09/18] magnesium oxide 400 mg PO DAILY 04/24/18 [History Confirmed 09/09/18] montelukast 10 mg PO QAM 04/24/18 [History Confirmed 09/09/18] nitroglycerin 1 tab SUBLINGUAL UD PRN 04/24/18 [History Confirmed 09/09/18] omeprazole 1 tab PO BID 04/24/18 [History Confirmed 09/09/18] phenytoin sodium extended 100 mg PO TID 04/24/18 [History Confirmed 09/09/18] potassium chloride 20 meq PO QAM 04/24/18 [History Confirmed 09/09/18] sodium phosphates [Fleet Enema] 118 ml [place] DAILY PRN 04/24/18 [History Confirmed 09/09/18] hydrocodone-acetaminophen 1 tab PO Q6H PRN 05/31/18 [History Confirmed 09/09/18] hydrocodone-acetaminophen 2 tab PO Q6H PRN 05/31/18 [History Confirmed 09/09/18] benzocaine-menthol [Cepacol Sore Throat (bennie-men)] 1 lozenge/day PO Q2H PRN [History Confirmed 09/09/18] multivitamin [Multiple Vitamins] 1 tab PO QAM 09/09/18 [History Confirmed ] Active Medications Acetaminophen (Tylenol) 650 mg PO Q4H PRN PRN Reason: Pain or Fever Stop: 10/09/18 17:19 Hydrocodone Bitart/Acetaminophen ([place] 5/325) 1 tab PO Q6H PRN PRN Reason: Pain Stop: 09/23/18 17:19 Albuterol (Duoneb) 3 ml NEB Q4R PRN PRN Reason: dyspnea or wheezing Stop: 10/10/18 00:00 Last Admin: 09/10/18 19:49 Dose: 3 ml [facility]ith[facility] ([facility]) [facility] [place] Stop: 09/16/18 08:59 Clopidogrel Bisulfate (Plavix) 75 mg PO QAM [facility] Stop: 10/10/18 08:59 Last Admin: 09/11/18 08:13 Dose: 75 mg Diltiazem HCl (Tiazac) 240 mg PO DAILY [facility] Stop: 10/10/18 08:59 Last Admin: 09/11/18 08:13 Dose: 240 mg Docusate Sodium (Colace) 100 mg PO BID [facility] Stop: 10/11/18 20:59 Last Admin: 09/11/18 20:47 Dose: 100 mg Enoxaparin Sodium (Lovenox) 70 mg SQ Q12 [facility] Stop: 10/10/18 16:59 Last Admin: 09/11/18 20:47 Dose: 70 mg Gabapentin (Neurontin) 400 mg PO BID [facility] Stop: 10/09/18 20:59 Last Admin: 09/11/18 20:47 Dose: 400 mg Insulin Aspart (Novolog Flexpen) 0 units SC ACHS [facility] Stop: 10/11/18 11:29 Last Admin: 09/11/18 20:46 Dose: Not Given Ioversol (Optiray 320 100ml) 94 ml IV ONCE PRN PRN Reason: Interaction Checking Stop: 09/13/18 17:03 Last Admin: 09/09/18 17:04 Dose: 94 ml Ipratropium [place] (Atrovent 0.02% 0.5mg/2.5ml) 0.5 mg NEB Q8R [facility] Stop: 10/10/18 00:00 Last Admin: 09/11/18 23:21 Dose: Not Given Losartan Potassium (Cozaar) 50 mg PO QAM [facility] Stop: 10/10/18 08:59 Last Admin: 09/11/18 08:13 Dose: 50 mg Magnesium Oxide (Mag-Ox) 400 mg PO DAILY [facility] Stop: 10/10/18 08:59 Last Admin: 09/11/18 08:12 Dose: 400 mg Montelukast Sodium (Singulair) 10 mg PO QAM [facility] Stop: 10/10/18 08:59 Last Admin: 09/11/18 08:12 Dose: 10 mg Ondansetron HCl (Zofran) 4 mg IV Q6H PRN PRN Reason: Nausea Stop: 10/09/18 17:19 Pantoprazole Sodium (Protonix) 40 mg PO BID [facility] Stop: 10/09/18 20:59 Last Admin: 09/11/18 20:47 Dose: 40 mg Phenytoin Sodium (Dilantin Er) 100 mg PO TID [facility] Stop: 10/09/18 20:59 Last Admin: 09/11/18 20:47 Dose: 100 mg Polyethylene Glycol (Miralax Powder Packet) 17 gm PO DAILY [facility] Stop: 10/12/18 08:59 Potassium Chloride (Klor-Con M10) 20 meq PO QAM [facility] Stop: 10/10/18 08:59 Last Admin: 09/11/18 08:15 Dose: 20 meq Prednisone (Prednisone) 40 mg PO DAILY [facility] Stop: 10/12/18 08:59
[2018-09-11] MEDS: DOCUSATE SODIUM 100 MG CAP PO SCH (20:47)
[2018-09-12 06:15] LABS: Basophils # (auto) 0.03 K/uL (0-0.2); Basophils % (auto) 0.3 %; Eosinophils # (auto) 0.04 K/uL (0-0.5); Eosinophils % (auto) 0.4 %; Hematocrit (blood only) 36.1 % (37-47); Hemoglobin 11.3 g/dL (12.0-16.0); Immature Granulocytes # (auto) 0.08 K/uL (0.00-0.02); Immature Granulocytes % (auto) 0.7 %; Lymphocytes # (auto) 4.35 K/uL (1.2-3.4); Lymphocytes % (auto) 38.5 %; Mean Corpuscular Hgb Conc 31.3 g/dL (32-36); Mean Corpuscular Volume 81.5 fL (80-100); Mean Platelet Volume 9.6 fL (7.4-10.4); Monocytes # (auto) 1.47 K/uL (0.11-0.59); Neutrophils # (auto) 5.34 K/uL (1.4-6.5); Neutrophils % (auto) 47.1 %; Platelet Count 343 K/uL (130-400); RDW Coefficient of Variation 15.4 % (11.5-14.5); RDW Standard Deviation 45.4 fL (36.4-46.3); Red Blood Count 4.43 M/uL (4.2-5.4); White Blood Count 11.31 K/uL (4.8-10.8)
[2018-09-12 06:48] LABS: BUN Creatinine Ratio 31.4 (10-20); Calcium 8.8 mg/dl (8.5-10.1); Creatinine Clr Calc Pharmacy 55.7 ml/min; Est GFR (African American) 91.6; Potassium 3.7 mmol/L (3.5-5.1)
[2018-09-12] MEDS: IPRATROPIUM BROMIDE NEB SOLN 0.02% 2.5 ML VIAL NEB SCH ×2 (07:15→14:15)
[2018-09-12] MEDS: PHENYTOIN SODIUM ER 100 MG CAP PO SCH ×2 (08:14→14:12)
[2018-09-12] MEDS: DOCUSATE SODIUM 100 MG CAP PO SCH (08:14)
[2018-09-12] MEDS: LOSARTAN POTASSIUM 50 MG TAB PO SCH (08:15)
[2018-09-12] MEDS: ENOXAPARIN 80 MG/0.8 ML SYR SQ SCH (08:15)
[2018-09-12] MEDS: POTASSIUM CHLORIDE 10 MEQ TABCR PO SCH (08:15)
[2018-09-12] MEDS: MAGNESIUM OXIDE 400 MG TAB PO SCH (08:16)
[2018-09-12] MEDS: MONTELUKAST SODIUM 10 MG TABLET PO SCH (08:17)
[2018-09-12] MEDS: GABAPENTIN 400 MG CAP PO SCH (08:17)
[2018-09-12] MEDS: PANTOprazole 40 MG TAB PO SCH (08:17)
[2018-09-12] MEDS: dilTIAZem ER 120 MG CAPCR PO SCH (08:17)
[2018-09-12] MEDS: CLOPIDOGREL BISULFATE 75 MG TAB PO SCH (08:17)
[2018-09-12] MEDS: INSULIN ASPART 100 UNITS/ML 3 ML PEN SC SCH ×3 (08:19→17:10)
[2018-09-12] MEDS ORDERED: POLYETHYLENE (MIRALAX) 17 GM PACK PO SCH (09:00)
[2018-09-12] MEDS ORDERED: AZITHROMYCIN 250 MG TAB PO SCH (09:00)
[2018-09-12] MEDS ORDERED: predniSONE 10 MG TABLET PO SCH (09:00)
--- NOTE | 2018-09-12 19:47 | History & Physical Bridge Note ---
Date of Service September 12, 2018 History & Physical Bridge Note For full attending documentation, see attestation from discharge summary. Pt seen and examined at bedside. Continually improving shortness of breath at rest and with activity. On examination, S1/S2 nl RRR, decreased breath sounds throughout without wheezing. Abd NT/ND BS+ve Pulmonary embolism, left main � continue lovenox for 3 month course COPD with acute exacerbation � steroid taper from prednisone 40mg, continue albuterol and resume home inhaler therapy. Complete azithromycin course.
--- NOTE | 2018-09-12 19:58 | Discharge Summary ---
Date of Service September 12, 2018 Admission HPI Per Admitting Provider 87 yo female with history of COPD and HTN, presented to the ED c/o two weeks of progressive shortness of breath. She says that her breathing has gotten significantly worse the past week to the point that she is short of breath at rest. She says that at baseline she does not have much activity, she is a fall risk, but the past two weeks whenever she was moving she felt short of breath. She has had an associated cough and some substernal chest pain worse with breathing. Yesterday she was placed on 2L NC due some hypoxia. Her cough was initially productive of yellow sputum, never saw blood, but now the mucous is very thick and difficult to bring up, feels like she has phlegm in the back of her throat constantly. She typically does not have chest pain. As described, it is pleuritic, does not radiate. In the ED she was tachycardic, tachypnic, in mild distress. CXR did not show any acute process which did not correlate with how she examined, obviously in some distress. ABG showed near normal CO2 level, even slightly high which seemed odd for how fast she was breathing. Checked CTA chest that showed left pulmonary artery and left segmental PE, described as non-occlussive and chronic but she has no history of such. The CT also showed some bronchiolitis. Patient denies leg pain or swelling, has no personl h/o VTE. She does say that her brother had a blood clot in the past. Principal Diagnosis Unprovoked PE Discharge Exam Constitutional WD/WN, vitals as above Eyes PERRL, conjunctivae normal, anicteric sclerae ENMT external ear and nose normal, oropharynx normal Respiratory decreased breath sounds b/l Cardiovascular RRR, no murmur, no edema Gastrointestinal (Abdomen) normal bowel sounds, soft, nontender, no hepatosplenomegaly Skin no rashes, warm and dry Psychiatric A+Ox3, euthymic affect Discharge Data Allergies Allergy/AdvReac Type Severity Reaction Status Date / Time atorvastatin Allergy Mild UNSURE Verified 09/09/18 12:27 ezetimibe Allergy Mild UNSURE Verified 09/09/18 12:27 alendronate sodium Allergy Unknown UNKN Verified 09/09/18 12:27 benazepril Allergy Unknown UNSURE Verified 09/09/18 12:27 clonidine Allergy Unknown UNSURE Verified 09/09/18 12:27 rosuvastatin [From Crestor] Allergy Unknown Unknown Verified 09/09/18 12:27 simvastatin Allergy Unknown OK TO TRY Verified 09/09/18 12:27 CRESTOR PER [id number] verapamil Allergy Unknown Unknown Verified 09/09/18 12:27 Ibandronic Acid Allergy Unknown UNKN Uncoded 09/09/18 12:27 Consultations 09/09/18 14:22 ED Decision to Admit Stat 09/09/18 17:20 Consult Case Management - Discharge Planning Routine Ordered Studies 09/09/18 15:29 CT angio chest PE protocol Urgent 09/09/18 19:11 US venous doppler LE Routine Hospital Course (1) Pulmonary embolism: 87 yo female with history of COPD, Asthma, DM2, OA, Seizures, and HTN presented to [facility] ER 09/09 with two weeks of progressive shortness of breath and chest pain. She says that her breathing had gotten significantly worse the past week to the point that she was short of breath at rest. She is a [facility] resident and was placed on 2L NC due some hypoxia. Her cough was initially productive of yellow sputum, never saw blood, but on admission the mucous is very thick and difficult to bring up, feels like she has phlegm in the back of her throat constantly. In the ED she was tachycardic, tachypnic, in mild distress. CXR did not show any acute process. ABG showed near normal CO2 level. CTA chest showed left pulmonary artery and left segmental PE, described as non-occlussive and chronic, and also showed some bronchiolitis. Pt was treated with IV Levaquin and nebs and was admitted. The following is the medical course/management during her stay here: 1)Pulmonary embolism: -given Lovenox 1 mg/kg q12h -pt on phenytoin for hx of seizures so NOAC use was contraindicated. -No sosa screening done during stay -no DVT seen on bilateral dopplers 2) COPD exacerbation -Initially on IV Solumedrol and Levaquin, eventually switched to PO prednisone and Azithromycin - Albuterol held due to tachycardia -use ipratropium nebulizers q8 3) Chest pain: -resolved, increased troponin (peak 0.1). Likely due to heart strain. -recommend Echo for further eval in future 4) Peripheral neuropathy -managed with home Gabapentin 5) GERD -managed with home PPI 6) HTN -manage with home Losartan and Diltiazem 7) Constipation -given colace and miralax DVT prophylaxis through Lovenox. Pt instructed to continue Lovenox for 3 months after discharged. Additionally will continue oral steroids (prednisone) and oral antibiotic (azithromycin). Prednisone taper as follows: 3 days of 40 mg, 3 days of 30 mg, 3 days of 20 mg, and 3 days of 10 mg. Will take azithromycin for 5 days. Pt will continue to use your albuterol inhaler when returned home. At time of d/c, pt had no other acute concerns or complaints. Total Time Total Time Spent Total Time Spent (In Minutes): 30 min Discharge Plan Discharge Items Patient Disposition: Trans Resident Long-Term Care Reason For Visit: COPD EXACERBATION,CHEST PAIN Discharge Diagnosis: Unprovoked PE, COPD Exacerbation Discharge Goals: Decrease discomfort and Improve function Activity: Per 'Additional Instructions' section Lifting: Gradually increase as tolerated Non-emergency contact: Primary Care Provider Call non-emergency contact if: you have any medication questions and your symptoms worsen Diet: Carb Consistent or DM2 Addtl Provider Instructions: You were admitted for an unprovoked Pulmonary Embolism. Imaging done here showed a PE in the L main pulmonary artery. You were treated with Lovenox, which you will continue to take for 3 months after you are discharged. You were also admitted for a COPD exacerbation. You were initally treated with IV steroids and IV antibiotics. These will be transitioned to oral steroids ( prednisone) and oral antibiotic (azithromycin). You will do a prednisone taper as follows: 3 days of 40 mg, 3 days of 30 mg, 3 days of 20 mg, and 3 days of 10 mg. You will take the azithromycin for 5 days. You were given nebulizer breathing treatment as well. You will continue to use your albuterol inhaler when returned home. Prescriptions: New prednisone 10 mg Tablet 40 mg PO DAILY 12 Days Qty: 48 RF: 0 azithromycin [Zithromax] 250 mg Tablet 250 mg PO QAM 5 Days Qty: 5 RF: 0 enoxaparin [Lovenox] 80 mg/0.8 mL syringe 70 mg SQ Q12H Qty: 0.8 RF: 0 azithromycin 250 mg tablet 250 mg PO DAILY 5 Days Qty: 5 RF: 0 prednisone 10 mg tablet 10 mg PO DAILY Qty: 30 RF: 0 enoxaparin [Lovenox] 80 mg/0.8 mL syringe 70 mg SQ Q12H Qty: 0.8 RF: 0 Continue losartan 50 mg Tablet 50 mg PO QAM RF: 0 gabapentin 400 mg Capsule 400 mg PO BID RF: 0 cyanocobalamin (vitamin B-12) 1,000 mcg Tablet 1,000 mcg PO DAILY RF: 0 diltiazem HCl 240 mg Capsule,Extended Release 24 Hr 240 mg PO QAM RF: 0 potassium chloride 10 mEq Tablet Extended Release 20 meq PO QAM RF: 0 phenytoin sodium extended 100 mg Capsule 100 mg PO TID RF: 0 clopidogrel 75 mg Tablet 75 mg PO QAM RF: 0 calcium carbonate [Calcium 600] 600 mg calcium (1,500 mg) Tablet 1,200 mg PO DAILY RF: 0 magnesium hydroxide [Milk of Magnesia] 400 mg/5 mL Suspension 30 ml PO DAILY PRN (Reason: Constipation) RF: 0 bisacodyl [Dulcolax (bisacodyl)] 10 mg Suppository 10 mg [place] DAILY PRN (Reason: Constipation) RF: 0 sodium phosphates [Fleet Enema] 19-7 gram/118 mL Enema 118 ml [place] DAILY PRN (Reason: Constipation) RF: 0 nitroglycerin 0.4 mg Tablet, Sublingual 1 tab Sublingual UD PRN (Reason: Angina) RF: 0 montelukast 10 mg Tablet 10 mg PO QAM RF: 0 albuterol sulfate [Ventolin HFA] 90 mcg/actuation Hfa Aerosol Inhaler 2 puff INHALATION Q6 PRN (Reason: Shortness Of Breath Or Wheezing) RF: 0 fluticasone [Flonase Allergy Relief] 50 mcg/actuation [place],Suspension 2 spray INTRANASAL QAM RF: 0 acetaminophen 325 mg Capsule 650 mg PO Q6H PRN (Reason: pain/fever) RF: 0 cholecalciferol (vitamin D3) [Vitamin D3] 2,000 unit Tablet 2,000 unit PO DAILY RF: 0 magnesium oxide 400 mg Capsule 400 mg PO DAILY RF: 0 [id number]-[id number] [Trelegy Ellipta] 100-62.5-25 mcg Blister With Device 1 inh INHALATION QAM RF: 0 omeprazole 20 mg Tablet,Disintegrat, Delay Rel 1 tab PO BID RF: 0 hydrocodone-acetaminophen 5-325 mg Tablet 1 tab PO Q6H PRN (Reason: Pain) RF: 0 hydrocodone-acetaminophen 5-325 mg Tablet 2 tab PO Q6H PRN (Reason: Pain) RF: 0 multivitamin [Multiple Vitamins] Tablet 1 tab PO QAM RF: 0 benzocaine-menthol [Cepacol Sore Throat (bennie-men)] 15-3.6 mg Lozenge 1 lozenge/day PO Q2H PRN (Reason: Sore Throat) RF: 0 Stand-Alone Forms: [facility] Discharge Orders: Discharge Order (Routine); Ordered 09/12/18 Ordered By: Heath Ross Admission Data Admit Date/Time: 09/09/18 15:10 Attending Provider: Jorge Rogers Admit Provider: Mohsen Alegria Primary Care Provider: Hema Ren Other Providers: Mohsen Alegria Service: Telemetry Other Interventions: Discharge Summary Assessment (RN) Last Done: 09/12/18 17:19 DC Date/Time DO NOT enter until pt leaves facility: 09/12/18 17:34 Supervising Physician Co-Signing Physician Notes Attending attestation Pt seen and examined in concert with Dr. Ross. In agreement with the documented findings as noted in the resident documentation with any exceptions or additions as noted here. Continually improving shortness of breath at rest and with activity approaching baseline. On examination, S1/S2 nl RRR, decreased breath sounds throughout without wheezing. Abd NT/ND BS+ve Pulmonary embolism, left main � continue lovenox for 3 month course COPD with acute exacerbation � steroid taper from prednisone 40mg, continue albuterol and resume home inhaler therapy. Complete azithromycin course. Else per resident documentation as noted. Resident Activity Tracking Resident Involvement: Resident Care Provided Care Provided: Adult Hospital Medicine
== END 2018-09-12 17:34 | DRG 175 ==
LOC: ED 10:51 → SUATTDRO 15:10 → 2E 15:10

== ENCOUNTER 2018-12-17 13:20 | Inpatient (IN) ==
--- OUTSIDE RECORDS SUMMARY | 2018-12-17 13:25 | External Medical Summary | Continuity of Care Document ---
:1930 Author Name Avis Noe, Provider Address Unavailable Unavailable , Care Team Providers Name Role Phone Unavailable Unavailable Unavailable Irina Drew PA-C Unavailable [email or web address] Chelsea Leach PA-C Unavailable [email or web address] Solange Gaytan PA-C Unavailable [email or web address] Jennifer Parker M.D.. Unavailable [email or web address] CORNELIUS Noe, Jennifer Unavailable Unavailable BADER, A Unavailable Unavailable WOOD, E Unavailable Unavailable Rosamilia Unavailable Unavailable ESDRAS, R Unavailable Unavailable Oseguera Unavailable Unavailable HEIMER, L Unavailable Unavailable FILI, G Unavailable Unavailable Unavailable Unavailable Unavailable Problems Hypertrophied Common Ventricle (745.3) Speech Language Aphasia (784.3) Increased urinary frequency (788.41) (R35.0) Hemorrhoids (455.6) (K64.9) Joint pain, hip (719.45) (M25.559) Weight loss (783.21) (R63.4) Toe joint pain (719.47) (M25.579) Tricuspid regurgitation (397.0) (I07.1) Hypertensive heart disease (402.90) (I11.9) Head injury (959.01) (S09.90XA) Degeneration of intervertebral disc (722.6) Pyelonephritis (590.80) (N12) Limb pain (729.5) (M79.609) Tachycardia (785.0) (R00.0) Vomiting (787.03) (R11.10) Cellulitis of leg (682.6) (L03.119) Radiculopathy (729.2) (M54.10) Bradycardia (427.89) (R00.1) Acid reflux (530.81) (K21.9) Rash, drug (693.0) (L27.0) Lumbar back pain (724.2) (M54.5) Injury of thumb, left (959.5) (S69.92XA) Carotid artery plaque (433.10) (I65.29) Abnormal MRI of head (793.0) (R93.0) TIA (transient ischemic attack) (435.9) (G45.9) Tremor (781.0) (R25.1) Vascular dementia (290.40) (F01.50) Peripheral vascular disease (443.9) (I73.9) Dysphagia (787.20) (R13.10) Vitamin B12 deficiency (266.2) (E53.8) Constipation (564.00) (K59.00) Abdominal pain (789.00) (R10.9) Fecal retention (564.00) (K59.00) History of abdominal pain (V13.89) (Z87.898) Status: Resolved Dysfunction of both eustachian tubes (381.81) (H69.83) Arteriosclerosis of carotid artery (433.10) (I65.29) Hypomagnesemia (275.2) (E83.42) Muscle weakness (728.87) (M62.81) Lumbosacral radiculopathy at L4 (724.4) (M54.17) Lower back pain (724.2) (M54.5) Leukocytosis (288.60) (D72.829) Hypokalemia (276.8) (E87.6) Peptic ulcer (533.90) (K27.9) Chest pain (786.50) (R07.9) Nausea with vomiting (787.01) (R11.2) Transient cerebral ischemic attack (435.9) (G45.9) 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) (I69.920) Diabetes mellitus (250.00) (E11.9) Stroke syndrome Gait disturbance (781.2) (R26.9) Asthma (493.90) (J45.909) Fall (E888.9) (W19.XXXA) Fatty liver (571.8) (K76.0) Peripheral neuropathy (356.9) (G62.9) Hypertension (401.9) (I10) Hyperlipidemia (272.4) (E78.5) Cough (786.2) (R05) Bronchitis (490) (J40) COPD, moderate (496) (J44.9) Vitamin D deficiency (268.9) (E55.9) Paronychia of toe of right foot (681.11) (L03.031) Urinary tract infection (599.0) (N39.0) UTI (urinary tract infection) (599.0) (N39.0) Hematuria (599.70) (R31.9) Edema (782.3) (R60.9) Pulmonary nodule (793.11) (R91.1) Urinary incontinence (788.30) (R32) Mental status change (780.97) (R41.82) Weakness (780.79) (R53.1) Osteoporosis (733.00) (M81.0) Allergic rhinitis (477.9) (J30.9) Pneumonia (486) (J18.9) Anemia (285.9) (D64.9) Chest wall pain (786.52) (R07.89) Spinal stenosis of lumbar region (724.02) (M48.061) Headache (784.0) (R51) Seizures (780.39) (R56.9) Neck pain (723.1) (M54.2) Lumbar radiculopathy (724.4) (M54.16) Thoracic back pain (724.1) (M54.6) Myalgia (729.1) (M79.10) Intracranial hemorrhage (432.9) (I62.9) Sciatica of left side without back pain (724.3) (M54.32) Lower extremity weakness (729.89) (R29.898) Disc degeneration, lumbar (722.52) (M51.36) Convulsion, non-epileptic (780.39) (R56.9) Malignant neoplasm (199.1) (C80.1) Closed fracture (829.0) (T14.8XXA) Allergies and Adverse Reactions Boniva TABS (Allergy) Calan TABS (Allergy) Reaction: Other Clonidine and derivs (Allergy) Reaction: Other Crestor TABS (Allergy) Reaction: Myalgia Fosamax TABS (Allergy) Lipitor TABS (Allergy) Reaction: Myalgia , Other Zetia TABS (Allergy) Zocor TABS (Allergy) Medications dilTIAZem HCl ER Coated Beads 240 MG Ora l Capsule Extended Release 24 Hour; TAKE 1 CAPSULE DAILY. JAMMIE Drew Start: 31-Aug-2015 Quantity: 90 Refills: 3 OneTouch Ultra System w/Device Kit; Check blood sugar once daily JAMMIE Leach Start: 07-Oct-2013 Quantity: 1 A. Refills: 0 OneTouch Ultra Blue In Vitro Strip; testing TID JDUY Drew Start: 04-Oct-2013 Quantity: 300 Refills: 3 Phenytoin Sodium Extended 100 MG Oral Capsule; TAKE 1 CAPSULE 3 times daily JAMMIE Drew Start: 13-Oct-2017 Quantity: 90 Refills: 5 OneTouch UltraSoft Lancets; check blood sugar twice da thien JAMMIE Leach Start: 30-Nov-2014 Quantity: 1 A. 100 Miscellaneous Delmer x Refills: 5 Clopidogrel Bisulfate 75 MG Oral Tablet; TAKE 1 TABLET BY MOUTH EVERY DAY JAMMIE Drew Start: 16-May-2010 Quantity: 90 Refills: 3 Breo Ellipta 200-25 MCG/INH Inhalation A erosol Powder Breath Activated; INHALE 1 PUFFS Daily JAMMIE Leach Start: 20-Mar-2016 Quantity: 1 A. 28 Inhaler Pack Refills: 5 Incruse Ellipta 62.5 MCG/INH Inhalation Aerosol Powder Breath Activated; INHALE 1 PUFF DAILY. Hasmukh Parker Start: 03-Mar-2017 Quantity: 1 30 Inhaler Pack Refills: 5 Albuterol Sulfate (2.5 MG/3ML) 0.083% In halation Nebulization Solution; USE 1 UNIT DOSE IN NEBULIZER EVERY 4 TO 6 HOURS NEEDED. JAMMIE Drew Start: 22-Feb-2013 Quantity: 1 3 ML Plas Cont (30 P las Conts) Refills: 5 Acetaminophen TABS; 650mg po q46hr prn mild pain/fever , M.D . Refills: 0 Fluticasone Propionate 50 MCG/ACT Nasal Suspension; USE 2 SPRAYS IN EACH NOSTRIL ONCE DAILY JAMMIE Leach Start: 14-Nov-2016 Quantity: 1 A. 16 GM Bottle Refills: 5 Montelukast Sodium 10 MG Oral Tablet; TAKE 1 TABLET BY MOUTH EVERY DAY JAMMIE Drew Start: 16-Oct-2017 Quantity: 30 Refills: 5 Vitamin D 1000 UNIT Oral Tablet; TAKE 2 TABLET Daily Hasmukh Keith Start: 19-Sep-2017 Refills: 0 Nitroglycerin 0.4 MG Sublingual Tablet S ublingual; 0.4mg sl ud prn for chest pain , M.D. Refills: 0 Calcium 600 MG Oral Tablet; Take 2 Tablets Daily (1200 mg/ D ay) , M.DRandy Start: 02-Oct-2015 Refills: 0 Gabapentin 400 MG Oral Capsule; TAKE 1 CAPSULE TWICE D AILY. JAMMIE Drew Start: 19-Sep-2017 Quantity: 60 Refills: 5 Losartan Potassium 50 MG Oral Tablet; TAKE 1 TABLET DA THIEN. JAMMIE Drew Start: 29-May-2017 Quantity: 90 Refills: 3 Magnesium Oxide 400 MG Oral Tablet; TAKE 1 TABLET DAILY. JAMMIE Dominique Start: 15-Aug-2015 Quantity: 90 Refills: 3 ProAir HFA 108 (90 Base) MCG/ACT Inhalat ion Aerosol Solution; INHALE 2 PUFFS 4 times daily as needed JAMMIE Drew Start: 07-Oct-2014 Quantity: 1 8.5 GM Inhaler Refills: 5 Vitamin B-12 1000 MCG Oral Tablet; TAKE 1 TABLET DAILY DIRECTED. JAMMIE Gaytan Start: 31-Jan-2014 Refills: 0 Omeprazole 20 MG Oral Capsule Delayed Release; TAKE ON E CAPSULE TWICE A DAY JAMMIE Drew Start: 19-Sep-2017 Quantity: 60 Refills: 3 Potassium Chloride ER 10 MEQ Oral Capsul e Extended Release; TAKE 2 CAPSULES DAILY. JAMMIE Drew Start: 20-Aug-2017 Quantity: 60 Refills: 5 Procedures History of Hysterectomy Status: Complete d History of Cataract Surgery Status: Comp leted History of Colonoscopy (Fiberoptic) Stat us: Completed History of Umbilical hernia Status: Comp leted Immunizations Influenza Pneumococcal polysaccharide vaccine, 23 valent Td On: 11-Sep-1995 Pneumococcal polysaccharide vaccine, 23 valent On: 8 Influenza On: Apr-2009 Influenza On: 19-Apr-2011 16:44 Lot #: [id number], [employer] Influenza On: 29-Apr-2012 14:12 Lot #: [id number], [employer] Fluzone High-Dose Intramuscular Suspension On: 06-Jun-2014 Prevnar 13 Intramuscular Suspension 1 On: 20-Sep-2014 11:56 Lot #: [id number], PFIZER [place] Influenza On: 05-Jul-2015 Fluzone High-Dose Intramuscular Suspension On: 21-May-2016 1 6:11 Lot #: [id number], [employer]UR Fluzone High-Dose Intramuscular Suspension On: 06-May-2017 1 1:08 Lot #: [id number], [employer]UR Family History Mother No pertinent family history (V49.89) (Z78.9) Status: Active Father No pertinent family history (V49.89) (Z78.9) Status: Active Sibling No pertinent family history (V49.89) (Z78.9) Status: Active Social History - Smoking Status Never smoker Plan of Treatment Planned Observations Planned Goals not documented Results No Known Results Results not documented Encounters Appointment; Irina rDew PA-C 28-Nov-2017 11:30 Encounter Diagnosis: Problem not documented Appointment; Vascular, Studies SC1 24-Nov-2017 13:00 Encounter Diagnosis: Problem not documented Appointment; Scar Parker M.D. 19-Nov-2017 14:30 Encounter Diagnosis: Problem not documented Appointment; Suzanne Rollins CRNP 22-Oct-2017 15:00 Encounter Diagnosis: Problem not documented Appointment; Irina Drew PA-C 18-Sep-2017 14:00 Encounter Diagnosis: Problem not documented Appointment; Irina Drew PA-C 18-Aug-2017 14:00 Encounter Diagnosis: Problem not documented Appointment; Scar Parker M.D. 12-Aug-2017 11:10 Encounter Diagnosis: Problem not documented Appointment; Emeli Leach PA-C 29-Jul-2017 15:30 Encounter Diagnosis: Problem not documented Appointment; Irina Drew PA-C 22-Jul-2017 13:15 Encounter Diagnosis: Problem not documented Appointment; Irina Drew PA-C 01-Jul-2017 11:30 Encounter Diagnosis: Problem not documented Appointment; Irina Drew PA-C 23-Jun-2017 11:30 Encounter Diagnosis: Problem not documented Appointment; Irina Drew PA-C 29-May-2017 12:00 Encounter Diagnosis: Problem not documented Appointment; Irina Drew PA-C 06-May-2017 11:00 Encounter Diagnosis: Problem not documented Appointment; Irina Drew PA-C 25-Mar-2017 8:30 Encounter Diagnosis: Problem not documented Appointment; Scar Parker M.D. 03-Mar-2017 11:30 Encounter Diagnosis: Problem not documented Appointment; Pulmonary, Funct Testing 21-Feb-2017 10:45 Encounter Diagnosis: Problem not documented Appointment; Irina Drew PA-C 14-Feb-2017 11:30 Encounter Diagnosis: Problem not documented
[2018-12-17 14:11] LABS: Basophils # (auto) 0.01 K/uL (0-0.2); Basophils % (auto) 0.1 %; Eosinophils # (auto) 0.01 K/uL (0-0.5); Eosinophils % (auto) 0.1 %; Hematocrit (blood only) 32.5 % (37-47); Hemoglobin 10.3 g/dL (12.0-16.0); Immature Granulocytes % (auto) 1.5 %; Lymphocytes # (auto) 4.03 K/uL (1.2-3.4); Lymphocytes % (auto) 30.9 %; Mean Corpuscular Hgb Conc 31.7 g/dL (32-36); Mean Corpuscular Volume 78.5 fL (80-100); Mean Platelet Volume 9.3 fL (7.4-10.4); Monocytes # (auto) 1.06 K/uL (0.11-0.59); Monocytes % (auto) 8.1 %; Neutrophils # (auto) 7.72 K/uL (1.4-6.5); Neutrophils % (auto) 59.3 %; Platelet Count 426 K/uL (130-400); RDW Coefficient of Variation 15.2 % (11.5-14.5); RDW Standard Deviation 43.9 fL (36.4-46.3); Red Blood Count 4.14 M/uL (4.2-5.4); White Blood Count 13.03 K/uL (4.8-10.8)
[2018-12-17 14:19] LABS: Albumin Level 3.2 gm/dl (3.4-5.0); BUN Creatinine Ratio 14.5 (10-20); Calcium 8.9 mg/dl (8.5-10.1); Creatinine Clr Calc Pharmacy 47.2 ml/min; Est GFR (African American) 73.5; Est GFR (Non-African American) 63.4; Potassium 3.6 mmol/L (3.5-5.1)
[2018-12-17 14:22] LABS: Bilirubin,Total 0.2 mg/dl (0.2-1); Globulin 3.3 gm/dl (2.5-4.0); Total Protein 6.5 gm/dl (6.4-8.2)
[2018-12-17] MEDS ORDERED: ALBUT/IPRATROP 3MG/0.5MG NEB 3 ML VIAL NEB STA (14:22)
--- NOTE | 2018-12-17 15:17 | XRay Report ---
XR chest 1V portable CLINICAL HISTORY: Shortness of breath COMPARISON STUDY: 09/09/2018 FINDINGS: The heart is borderline enlarged. There is no lobar consolidation. There is no overt failur e. There is equivocal slight interstitial thickening.[ There are no cystic or pleural effusions IMPRESSION: 1. No evidence of focal pulmonary consolidation 2. Equivocal subtle interstitial thickening. While this may be related to technical factors, one carlos eduardo ot exclude minimal pulmonary vascular congestion or a subtle interstitial inflammatory process. Clini dino and radiographic follow-up is recommended. Electronically signed by: Wes Zelaya M.D. 12/17/2018 3:16 PM
[2018-12-17] MEDS ORDERED: IOVERSOL 100ml IV PRN (15:37)
--- NOTE | 2018-12-17 15:49 | CT Scan Report ---
CT abd pelvis IV con only CLINICAL HISTORY: Generalized abdominal pain COMPARISON STUDY: March 2016 TECHNIQUE: The patient was scanned in a dynamic helical fashion during intravenous administration of 94 cc of Optiray 320. A dose lowering technique was utilized adhering to the principles of ALARA. CT DOSE: 585.50 mGy.cm FINDINGS: Lower chest: There is lower lobe bronchial wall thickening and dependent atelectatic change. Liver: The contrast-enhanced liver is normal in size, contour, and attenuation. There is no intrahepa tic biliary ductal dilatation. The hepatic veins and portal veins are patent. Gallbladder: There is an equivocal noncalcified gallstone present. Spleen: Normal in size and attenuation. Pancreas: Unremarkable. Adrenal glands: Unremarkable. Kidneys: There is symmetric renal cortical enhancement. The kidneys are normal in size without hydron ephrosis. Bowel: There are no transition zones indicate bowel obstruction. There is colonic diverticulosis. The re are no acute peridiverticular inflammatory changes. There is no evidence of acute appendicitis. Peritoneum: There is no intraperitoneal free air or abdominal ascites. Vasculature: There is no evidence for abdominal aortic aneurysm. There are moderate atheromatous patel ges present within the aorta and abdominal branch vessels. Adenopathy: None. Pelvic viscera: The uterus appears surgically absent Skeletal structures: There is a right-sided rectus sheath mass/hematoma measuring 18 x 12 x 4 cm. IMPRESSION: 1. 18 x 12 x 4 cm right rectus sheath mass, consistent with a hematoma 2. No evidence of bowel obstruction. No evidence of free air 3. No evidence of acute appendicitis. No evidence of acute diverticulitis. Electronically signed by: Wes Zleaya M.D. 12/17/2018 3:48 PM
[2018-12-17] MEDS ORDERED: SODIUM CHLORIDE 0.9% 1000ML 1,000 ML IV SCH (16:00)
--- NOTE | 2018-12-17 16:55 | Surgery Consultation ---
Date of Consultation December 17, 2018 Assessment & Plan (1) Rectus sheath hematoma: pt is a 87b year-old female who presents to Er with 3 days history right side abdominal pain, CT scan dx right side rectus sheath hematoma. H/H 10.3/32.5(12/17/2018), H/H 11.3/36.1(09/12/2018) IMP: right side rectus sheath hematoma Plan, recommend : hospitalist admit pt to hospital no surgical indication at now, conservative treatment, hold plavix per- hospitalist repeat H/H in am will F/U D/W ER attending History of Present Illness History of Present Illness pt is a 87 year-old female who presents to ER with 3 days history right side abdominal pain, pt denies nausea, no vomiting, no diarrhea, no fever, no weakness, no dizziness. the pain started 3 days ago, now pt's abdominal pain level 3/10. pt is on plavix, last BM yesterday, pt had CT scan at ER dx - CT abdomen: 1. 18 x 12 x 4 cm right rectus sheath mass, consistent with a hematoma 2. No evidence of bowel obstruction. No evidence of free air 3. No evidence of acute appendicitis. No evidence of acute diverticulitis. Allergies Allergy/AdvReac Type Severity Reaction Status Date / Time atorvastatin Allergy Mild UNSURE Verified 12/17/18 15:08 ezetimibe Allergy Mild UNSURE Verified 12/17/18 15:08 alendronate sodium Allergy Unknown UNKN Verified 12/17/18 15:08 benazepril Allergy Unknown UNSURE Verified 12/17/18 15:08 clonidine Allergy Unknown UNSURE Verified 12/17/18 15:08 rosuvastatin [From Crestor] Allergy Unknown Unknown Verified 12/17/18 15:08 simvastatin Allergy Unknown OK TO TRY Verified 12/17/18 15:08 CRESTOR PER [id number] verapamil Allergy Unknown Unknown Verified 12/17/18 15:08 Ibandronic Acid Allergy Unknown UNKN Uncoded 12/17/18 15:08 Home Medications Home Medications Medication Instructions Recorded Confirmed Type Fleet Enema 118 ml NH DAILY PRN 04/24/18 12/17/18 History Trelegy Ellipta 1 inh INHALATION QAM 04/24/18 12/17/18 History acetaminophen 650 mg PO Q6H PRN 04/24/18 12/17/18 History albuterol sulfate [Ventolin HFA] 2 puff INHALATION Q6 PRN 04/24/18 12/17/18 History bisacodyl [Dulcolax (bisacodyl)] 10 mg NH DAILY PRN 04/24/18 12/17/18 History calcium carbonate [Calcium 600] 1,200 mg PO DAILY 04/24/18 12/17/18 History cholecalciferol (vitamin D3) 2,000 unit PO DAILY 04/24/18 12/17/18 History [Vitamin D3] clopidogrel 75 mg PO QAM 04/24/18 12/17/18 History cyanocobalamin (vitamin B-12) 1,000 mcg PO DAILY 04/24/18 12/17/18 History diltiazem HCl 240 mg PO QAM 04/24/18 12/17/18 History fluticasone propionate [Flonase 2 spray INTRANASAL QAM 04/24/18 12/17/18 History Allergy Relief] gabapentin 400 mg PO BID 04/24/18 12/17/18 History losartan 50 mg PO QAM 04/24/18 12/17/18 History magnesium hydroxide [Milk of 30 ml PO DAILY PRN 04/24/18 12/17/18 History Magnesia] magnesium oxide 400 mg PO DAILY 04/24/18 12/17/18 History montelukast 10 mg PO QAM 04/24/18 12/17/18 History nitroglycerin 1 tab SUBLINGUAL UD PRN 04/24/18 12/17/18 History omeprazole 1 tab PO BID 04/24/18 12/17/18 History phenytoin sodium extended 100 mg PO TID 04/24/18 12/17/18 History potassium chloride 20 meq PO QAM 04/24/18 12/17/18 History hydrocodone-acetaminophen 1 tab PO Q6H PRN 05/31/18 12/17/18 History hydrocodone-acetaminophen 2 tab PO Q6H PRN 05/31/18 12/17/18 History Cepacol Sore Throat (bennie-men) 1 lozenge/day PO Q2H PRN 09/09/18 12/17/18 History multivitamin [Multiple Vitamins] 1 tab PO QAM 09/09/18 12/17/18 History prednisone 10 mg PO DAILY #30 tab 09/12/18 12/17/18 Rx azithromycin 250 mg PO QAM 12/17/18 12/17/18 History azithromycin 500 mg PO .ONE TIME 12/17/18 12/17/18 History enoxaparin 70 mg SUBCUT Q12H 12/17/18 12/17/18 History ipratropium-albuterol 3 ml INHALATION Q4H PRN 12/17/18 12/17/18 History prednisone 50 mg PO 1100 12/17/18 12/17/18 History prednisone 60 mg PO 1100 12/17/18 12/17/18 History pseudoephedrine-guaifenesin 1 tab PO Q12H PRN 12/17/18 12/17/18 History [Mucinex D Maximum Strength] Patient History Medical History Heart disease (Chronic) Asthma (Chronic) Emphysema (Chronic) TIA (transient ischemic attack) (Acute) 01/2014 Peripheral neuropathy (Acute) COPD (chronic obstructive pulmonary disease) Carotid artery disease Diabetes mellitus, type 2 CURRENTLY NO MEDS Diabetic polyneuropathy GERD (gastroesophageal reflux disease) Hyperlipidemia NO MEDS CURRENTLY Hypertension Kidney stones Non-alcoholic fatty liver disease Osteoarthritis Osteoporosis Pulmonary nodule Seizure disorder ON PHENYTOIN Skin cancer Vitamin D deficiency Surgical History H/O abdominal hysterectomy H/O cataract extraction H/O umbilical hernia repair Family History Brother Family history of diabetes mellitus Pulmonary embolism Social History Preferred Language: Latvian Communication Ability: Effective Beliefs That Will Affect Care: None marital status: / Current Living Situation: Intermediate Current Living Situation Comment: PT RESIDENT AT [facility] Feels Safe at Home: Yes Smoking Status: Never smoker Second Hand Exposure: No Hx Alcohol Use: No Hx Substance Use: No Review of Systems Review of Systems: All systems reviewed & are unremarkable except as noted in HPI & below Constitutional: as per Subjective / HPI Ear, Nose, Mouth, Throat: as per Subjective / HPI Respiratory: COPD, asthma Cardiovascular: Additional Comments: PE, HLD, HTN, TIA Gastrointestinal: + abdominal pain GERD Genitourinary: as per Subjective / HPI Integumentary: as per Subjective / HPI Neurologic: as per Subjective / HPI Psychiatric: as per Subjective / HPI Endocrine: as per Subjective / HPI Hematologic / Lymphatic: as per Subjective / HPI Physical Exam Constitutional: WD/WN, vitals as above well developed and well nourished ENMT: external ear and nose normal, oropharynx normal Neck: trachea midline, no thyromegaly Respiratory: normal respiratory effort, lungs clear to auscultation + respiratory distress Cardiovascular: RRR, no murmur, no edema Rate/Rhythm: regular rate and regular rhythm Heart Sounds: normal S1 and normal S2 Gastrointestinal (Abdomen): Percussion/Palpation: abdomen soft some tenderness at right side abdomen, no rebound pain, feels mass on right side abdomen, size about [id number], no redness, no pulse on the mass, Skin: no rashes, warm and dry Neurologic: patellar DTR's 2+ bilat, sensation intact Psychiatric: Orientation: alert and oriented x 3 Lymphatic: no cervical or axillary lymphadenopathy Results & Data Vital Signs (Past 12 Hours) Vital Signs Temp Pulse Pulse Resp BP BP Pulse Ox 12/17/18 16:00 82 26 H 115/47 L 99 12/17/18 15:41 89 20 134/56 L 99 12/17/18 15:01 87 24 116/75 99 12/17/18 14:30 91 H 27 H 124/58 L 95 12/17/18 14:00 94 H 30 H 132/55 L 95 12/17/18 13:43 95 H 26 H 119/46 L 97 12/17/18 13:20 36.5 C 97 H 25 H 149/85 H 92 Laboratory Results Abnormal lab results 12/17/18 12/17/18 12/17/18 Range/Units 13:40 13:40 15:02 WBC 13.03 H (4.8-10.8) K/uL RBC 4.14 L (4.2-5.4) M/uL Hgb 10.3 L (12.0-16.0) g/dL Hct 32.5 L (37-47) % MCV 78.5 L (80-100) fL MCH 24.9 L (25-34) pg MCHC 31.7 L (32-36) g/dL RDW Coeff of Ruslan 15.2 H (11.5-14.5) % Plt Count 426 H (130-400) K/uL Immature Gran # (Auto) 0.20 H (0.00-0.02) K/uL Neut # (Auto) 7.72 H (1.4-6.5) K/uL Lymph # (Auto) 4.03 H (1.2-3.4) K/uL Mobile # (Auto) 1.06 H (0.11-0.59) K/uL Chloride 108 H (98-107) mmol/L Glucose 253 H (70-99) mg/dl Lactate 2.8 H* (0.4-2.0) mmol/L Alkaline Phosphatase 119 H (45-117) U/L Albumin 3.2 L (3.4-5.0) gm/dl Diagnostic Findings CT abd pelvis IV con only CLINICAL HISTORY: Generalized abdominal pain COMPARISON STUDY: March 2016 TECHNIQUE: The patient was scanned in a dynamic helical fashion during intravenous administration of 94 cc of Optiray 320. A dose lowering technique was utilized adhering to the principles of ALARA. CT DOSE: 585.50 mGy.cm FINDINGS: Lower chest: There is lower lobe bronchial wall thickening and dependent atelectatic change. Liver: The contrast-enhanced liver is normal in size, contour, and attenuation. There is no intrahepatic biliary ductal dilatation. The hepatic veins and portal veins are patent. Gallbladder: There is an equivocal noncalcified gallstone present. Spleen: Normal in size and attenuation. Pancreas: Unremarkable. Adrenal glands: Unremarkable. Kidneys: There is symmetric renal cortical enhancement. The kidneys are normal in size without hydronephrosis. Bowel: There are no transition zones indicate bowel obstruction. There is colonic diverticulosis. There are no acute peridiverticular inflammatory changes. There is no evidence of acute appendicitis. Peritoneum: There is no intraperitoneal free air or abdominal ascites. Vasculature: There is no evidence for abdominal aortic aneurysm. There are moderate atheromatous changes present within the aorta and abdominal branch ve ssels. Adenopathy: None. Pelvic viscera: The uterus appears surgically absent Skeletal structures: There is a right-sided rectus sheath mass/hematoma measuring 18 x 12 x 4 cm. IMPRESSION: 1. 18 x 12 x 4 cm right rectus sheath mass, consistent with a hematoma 2. No evidence of bowel obstruction. No evidence of free air 3. No evidence of acute appendicitis. No evidence of acute diverticulitis. (1) Rectus sheath hematoma Encounter type: initial encounter Qualified Code(s): S30.1XXA - Contusion of abdominal wall, initial encounter
[2018-12-17 16:56] LABS: Prothrombin Time 10.7 Seconds (9.0-12.0)
--- NOTE | 2018-12-17 17:17 | History & Physical Report ---
Date of Service December 17, 2018 Assessment & Plan (1) Rectus sheath hematoma: History of Present Illness Chief Complaint: hematoma Primary Care Provider: [facility] 87 y/o F residing at [facility] - Hx COPD, HTN, HLD, GERD, TIA, seizures, PE 09/09/18 - currently anticoagulated with BID Lovenox. Presents with progressive abdominal pain and an abdominal hematoma. A CT of the abdomen demonstrated a large rectus sheath hematoma. She has not had nausea, vomiting, diarrhea or fevers. She was being treated at [facility] for a COPD exacerbation. The pt received narcotics in the ER and was unable to provide any comprehensive information although she was fully oriented when I was able to keep her awake. PMH: 1) COPD 2) HTN 3) Neuropathy 4) Seizure disorder 5) TIA 6) HTN 7) HLD 8) PE 08/2018 9) GERD Surgical: Hysterectomy, umbilical hernia Social: Distant smoking history - no ETOH Family: DM, PE Allergies Allergy/AdvReac Type Severity Reaction Status Date / Time atorvastatin Allergy Mild UNSURE Verified 12/17/18 15:08 ezetimibe Allergy Mild UNSURE Verified 12/17/18 15:08 alendronate sodium Allergy Unknown UNKN Verified 12/17/18 15:08 benazepril Allergy Unknown UNSURE Verified 12/17/18 15:08 clonidine Allergy Unknown UNSURE Verified 12/17/18 15:08 rosuvastatin [From Crestor] Allergy Unknown Unknown Verified 12/17/18 15:08 simvastatin Allergy Unknown OK TO TRY Verified 12/17/18 15:08 CRESTOR PER [id number] verapamil Allergy Unknown Unknown Verified 12/17/18 15:08 Ibandronic Acid Allergy Unknown UNKN Uncoded 12/17/18 15:08 Home Medications Home Medications Medication Instructions Recorded Confirmed Type Fleet Enema 118 ml MA DAILY PRN 04/24/18 12/17/18 History Trelegy Ellipta 1 inh INHALATION QAM 04/24/18 12/17/18 History acetaminophen 650 mg PO Q6H PRN 04/24/18 12/17/18 History albuterol sulfate [Ventolin HFA] 2 puff INHALATION Q6 PRN 04/24/18 12/17/18 History bisacodyl [Dulcolax (bisacodyl)] 10 mg MA DAILY PRN 04/24/18 12/17/18 History calcium carbonate [Calcium 600] 1,200 mg PO DAILY 04/24/18 12/17/18 History cholecalciferol (vitamin D3) 2,000 unit PO DAILY 04/24/18 12/17/18 History [Vitamin D3] clopidogrel 75 mg PO QAM 04/24/18 12/17/18 History cyanocobalamin (vitamin B-12) 1,000 mcg PO DAILY 04/24/18 12/17/18 History diltiazem HCl 240 mg PO QAM 04/24/18 12/17/18 History fluticasone propionate [Flonase 2 spray INTRANASAL QAM 04/24/18 12/17/18 History Allergy Relief] gabapentin 400 mg PO BID 04/24/18 12/17/18 History losartan 50 mg PO QAM 04/24/18 12/17/18 History magnesium hydroxide [Milk of 30 ml PO DAILY PRN 04/24/18 12/17/18 History Magnesia] magnesium oxide 400 mg PO DAILY 04/24/18 12/17/18 History montelukast 10 mg PO QAM 04/24/18 12/17/18 History nitroglycerin 1 tab SUBLINGUAL UD PRN 04/24/18 12/17/18 History omeprazole 1 tab PO BID 04/24/18 12/17/18 History phenytoin sodium extended 100 mg PO TID 04/24/18 12/17/18 History potassium chloride 20 meq PO QAM 04/24/18 12/17/18 History hydrocodone-acetaminophen 1 tab PO Q6H PRN 05/31/18 12/17/18 History hydrocodone-acetaminophen 2 tab PO Q6H PRN 05/31/18 12/17/18 History Cepacol Sore Throat (bennie-men) 1 lozenge/day PO Q2H PRN 09/09/18 12/17/18 Hist ory multivitamin [Multiple Vitamins] 1 tab PO QAM 09/09/18 12/17/18 History prednisone 10 mg PO DAILY #30 tab 09/12/18 12/17/18 Rx azithromycin 250 mg PO QAM 12/17/18 12/17/18 History azithromycin 500 mg PO .ONE TIME 12/17/18 12/17/18 History enoxaparin 70 mg SUBCUT Q12H 12/17/18 12/17/18 History ipratropium-albuterol 3 ml INHALATION Q4H PRN 12/17/18 12/17/18 History prednisone 50 mg PO 1100 12/17/18 12/17/18 History prednisone 60 mg PO 1100 12/17/18 12/17/18 History pseudoephedrine-guaifenesin 1 tab PO Q12H PRN 12/17/18 12/17/18 History [Mucinex D Maximum Strength] Past Med/Surg History Medical History Heart disease (Chronic) Asthma (Chronic) Emphysema (Chronic) TIA (transient ischemic attack) (Acute) 01/2014 Peripheral neuropathy (Acute) COPD (chronic obstructive pulmonary disease) Carotid artery disease Diabetes mellitus, type 2 CURRENTLY NO MEDS Diabetic polyneuropathy GERD (gastroesophageal reflux disease) Hyperlipidemia NO MEDS CURRENTLY Hypertension Kidney stones Non-alcoholic fatty liver disease Osteoarthritis Osteoporosis Pulmonary nodule Seizure disorder ON PHENYTOIN Skin cancer Vitamin D deficiency Surgical History H/O abdominal hysterectomy H/O cataract extraction H/O umbilical hernia repair Family History Brother Family history of diabetes mellitus Pulmonary embolism Social History Preferred Language: Urdu Communication Ability: Effective Beliefs That Will Affect Care: None marital status: / Current Living Situation: Alf Current Living Situation Comment: PT RESIDENT AT [facility] Feels Safe at Home: Yes Smoking Status: Never smoker Second Hand Exposure: No Hx Alcohol Use: No Hx Substance Use: No Review of Systems Review of Systems: Could not provide detailed ROS due to somnolence Physical Exam Physical Exam: General: Somnolent, elderly F - no distress ENT: No erythema or exudates, no thrush Eyes: AMY, EOMI Head and neck: Normocephalic, atraumatic, No JVD, neck is supple. Chest/heart: Nontender, S1,2, RRR, no murmurs, no gallops Lungs: BL wheezing is present Abdomen: Hematoma at LLQ Neuro: Oriented when awake - can follow commands - no focal deficits Musculoskeletal: No joint inflammation, muscle tenderness, FROM Skin: No acute rashes or ulcers - hematoma over LLQ Extremities: No clubbing, cyanosis, edema Results & Data Vital Signs (Past 12 Hours) Vital Signs Temp Pulse Pulse Resp BP BP Pulse Ox 12/17/18 16:00 82 26 H 115/47 L 99 12/17/18 15:41 89 20 134/56 L 99 12/17/18 15:01 87 24 116/75 99 12/17/18 14:30 91 H 27 H 124/58 L 95 12/17/18 14:00 94 H 30 H 132/55 L 95 12/17/18 13:43 95 H 26 H 119/46 L 97 12/17/18 13:20 97.7 F 97 H 25 H 149/[address] abdomen: 1. 18 x 12 x 4 cm right rectus sheath mass, consistent with a hematoma 2. No evidence of bowel obstruction. No evidence of free air 3. No evidence of acute appendicitis. No evidence of acute diverticulitis. Supervising Physician Co-Signing Physician Notes 87 y/o F residing at [facility] - Hx COPD, HTN, HLD, GERD, TIA, seizures, PE 09/09/18 - currently anticoagulated with BID Lovenox. Presents with progressive abdominal pain and an abdominal hematoma. A CT of the abdomen demonstrated a large rectus sheath hematoma. She has not had nausea, vomiting, diarrhea or fevers. She was being treated at [facility] for a COPD exacerbation. The pt received narcotics in the ER and was unable to provide any comprehensive information although she was fully oriented when I was able to keep her awake. 1) Rectus sheath hematoma - sugery consulted, trend Hb, monitor on telemetry overnight - Lovenox held - should likely transition to COumadin to avoid injections going forward. 2) COPD exacerbation - will keep her on PO steroids, PO Zithro, nebs and 02 presently - may need more aggressive treatment - she is wheezing but does not c/o SOB. 3) Hx TIA - resume Plavix when hematoma is resolving 4) Seizure disorder - cont Phenytoin 5) HTN - cont Losartan Full code - SCDs Total time for this admit including review of labs, meds, records - discussion with pt and ER attending and surgeon - 36 min (1) Rectus sheath hematoma Encounter type: initial encounter Qualified Code(s): S30.1XXA - Contusion of abdominal wall, initial encounter
--- NOTE | 2018-12-17 17:48 | Emergency Department Note ---
ED Visit Note I took a history and physical from the patient. I coordinated management of the patient with Dr. Nieves . : Rectus sheath hematoma Qualifiers: Encounter type: initial encounter Qualified Code(s): S30.1XXA - Contusion of abdominal wall, initial encounter Abdominal pain Qualifiers: Abdominal location: unspecified location Qualified Code(s): R10.9 - Unspecified abdominal pain
--- NOTE | 2018-12-17 18:21 | Emergency Department Note ---
Entered by Nirmal Ross acting as a scribe for Steven Nieves MD History of Present Illness General Chief complaint: Abdominal Pain Stated complaint: Abd pain, distention LLQ Time Seen by Provider: 12/17/18 14:02 Source: patient Limitations: no limitations History of Present Illness Onset (ago): day(s) 3 Location: abdomen Pain Consistency: + constant Maximum Pain Intensity: 4 Quality: + sharp Exacerbated By: + other (coughing) Associated symptoms: + denies other symptoms (blood in stool, diarrhea, constipation, hematuria, vaginal bleeding), + cough (yellow sputum), + shortness of breath and + weakness; no fever/chills and no loss of appetite The patient is a 87 white female w/ PMHx HTN, GERD, PE, COPD exacerbation, esophageal dysphagia, peripheral neuropathy, heart disease, asthma, emphysema, TIA, and acute respiratory failure with hypoxia who presents to the ED w/ CC of constant and sharp lower abdominal pain beginning 3 days ago. The patient states her abdominal pain is worse when she coughs. She states she gets very tired. She notes she has thick yellow sputum with her cough. She notes she had SOB for the past 3 days. She notes she never had this kind of pain before. The patient denies blood in stool, diarrhea, constipation, pain with urination, hematuria, fever, chills, vaginal bleeding, and change in appetite. The patient states she is receiving shots for blood clots in her stomach. Home Medications Home Medications Medication Instructions Recorded Confirmed Type Fleet Enema 118 ml IA DAILY PRN 04/24/18 12/17/18 History Trelegy Ellipta 1 inh INHALATION QAM 04/24/18 12/17/18 History acetaminophen 650 mg PO Q6H PRN 04/24/18 12/17/18 History albuterol sulfate [Ventolin HFA] 2 puff INHALATION Q6 PRN 04/24/18 12/17/18 History bisacodyl [Dulcolax (bisacodyl)] 10 mg IA DAILY PRN 04/24/18 12/17/18 History calcium carbonate [Calcium 600] 1,200 mg PO DAILY 04/24/18 12/17/18 History cholecalciferol (vitamin D3) 2,000 unit PO DAILY 04/24/18 12/17/18 History [Vitamin D3] clopidogrel 75 mg PO QAM 04/24/18 12/17/18 History cyanocobalamin (vitamin B-12) 1,000 mcg PO DAILY 04/24/18 12/17/18 History diltiazem HCl 240 mg PO QAM 04/24/18 12/17/18 History fluticasone propionate [Flonase 2 spray INTRANASAL QAM 04/24/18 12/17/18 History Allergy Relief] gabapentin 400 mg PO BID 04/24/18 12/17/18 History losartan 50 mg PO QAM 04/24/18 12/17/18 History magnesium hydroxide [Milk of 30 ml PO DAILY PRN 04/24/18 12/17/18 History Magnesia] magnesium oxide 400 mg PO DAILY 04/24/18 12/17/18 History montelukast 10 mg PO QAM 04/24/18 12/17/18 History nitroglycerin 1 tab SUBLINGUAL UD PRN 04/24/18 12/17/18 History omeprazole 1 tab PO BID 04/24/18 12/17/18 History phenytoin sodium extended 100 mg PO TID 04/24/18 12/17/18 History potassium chloride 20 meq PO QAM 04/24/18 12/17/18 History hydrocodone-acetaminophen 1 tab PO Q6H PRN 05/31/18 12/17/18 History hydrocodone-acetaminophen 2 tab PO Q6H PRN 05/31/18 12/17/18 History Cepacol Sore Throat (bennie-men) 1 lozenge/day PO Q2H PRN 09/09/18 12/17/18 History multivitamin [Multiple Vitamins] 1 tab PO QAM 09/09/18 12/17/18 History prednisone 10 mg PO DAILY #30 tab 09/12/18 12/17/18 Rx azithromycin 250 mg PO QAM 12/17/18 12/17/18 History azithromycin 500 mg PO .ONE TIME 12/17/18 12/17/18 History enoxaparin 70 mg SUBCUT Q12H 12/17/18 12/17/18 History ipratropium-albuterol 3 ml INHALATION Q4H PRN 12/17/18 12/17/18 History prednisone 50 mg PO 1100 12/17/18 12/17/18 History prednisone 60 mg PO 1100 12/17/18 12/17/18 History pseudoephedrine-guaifenesin 1 tab PO Q12H PRN 12/17/18 12/17/18 History [Mucinex D Maximum Strength] Allergies Allergy/AdvReac Type Severity Reaction Status Date / Time atorvastatin Allergy Mild UNSURE Verified 12/17/18 15:08 ezetimibe Allergy Mild UNSURE Verified 12/17/18 15:08 alendronate sodium Allergy Unknown UNKN Verified 12/17/18 15:08 benazepril Allergy Unknown UNSURE Verified 12/17/18 15:08 clonidine Allergy Unknown UNSURE Verified 12/17/18 15:08 rosuvastatin [From Crestor] Allergy Unknown Unknown Verified 12/17/18 15:08 simvastatin Allergy Unknown OK TO TRY Verified 12/17/18 15:08 CRESTOR PER [id number] verapamil Allergy Unknown Unknown Verified 12/17/18 15:08 Ibandronic Acid Allergy Unknown UNKN Uncoded 12/17/18 15:08 Past Med/Surg History Medical History Heart disease (Chronic) Asthma (Chronic) Emphysema (Chronic) TIA (transient ischemic attack) (Acute) 01/2014 Peripheral neuropathy (Acute) COPD (chronic obstructive pulmonary disease) Carotid artery disease Diabetes mellitus, type 2 CURRENTLY NO MEDS Diabetic polyneuropathy GERD (gastroesophageal reflux disease) Hyperlipidemia NO MEDS CURRENTLY Hypertension Kidney stones Non-alcoholic fatty liver disease Osteoarthritis Osteoporosis Pulmonary nodule Seizure disorder ON PHENYTOIN Skin cancer Vitamin D deficiency Surgical History H/O abdominal hysterectomy H/O cataract extraction H/O umbilical hernia repair Family History Brother Family history of diabetes mellitus Pulmonary embolism Social History Preferred Language: Chilean Communication Ability: Effective Chief Operating Officer Required: No Beliefs That Will Affect Care: None marital status: / Current Living Situation: Retirement Current Living Situation Comment: PT RESIDENT AT [facility] Other Information That Helps Us Care for You: No Feels Safe at Home: Yes Safety Concerns: Feels Safe At This Time Smoking Status: Former smoker Do You Dip or Chew Tobacco: No Smoking End Date: distant smoking history Second Hand Exposure: No Tobacco Cessation Education Requested by Patient: No Hx Alcohol Use: No Hx Substance Use: No Review of Systems See HPI for pertinent positives & negatives. and A total of 10 systems reviewed and were otherwise negative Physical Exam Vital Signs Vital Signs - 24 hr 12/17/18 13:20 12/17/18 13:43 12/17/18 14:00 Temperature 36.5 C Temperature Source Oral Sepsis Recent Fever Within 48 Hours No Sepsis New/Unexplained Change in Mental Status No Sepsis Action Taken by Nursing No Action Required Pulse Rate 97 H 94 H Pulse Rate [Apical] 95 H Pulse Rate [Brachial] Pulse Rate from SpO2 Sensor 94 H Pulse Rhythm Regular Pulse Rhythm [Apical] Pulse Strength [Apical] Respiratory Rate 25 H 26 H 30 H Respiratory Effort / Characteristics Labored Short of Breath SOB on Exertion Tripoding Respiratory Depth Respiratory Pattern Blood Pressure 149/85 H 132/55 L Blood Pressure [Left Arm] 119/46 L Blood Pressure [Right Arm] Blood Pressure Mean 106 80 Blood Pressure Mean [Left Arm] 70 Blood Pressure Mean [Right Arm] Blood Pressure Position Sitting Blood Pressure Position [Left Arm] Lying Blood Pressure Position [Right Arm] Pulse Oximetry 92 97 95 Oxygen Delivery Method Room Air Nasal Cannula Nasal Cannula Oxygen Flow Rate 2 2 12/17/18 14:30 12/17/18 15:01 12/17/18 15:41 Temperature Temperature Source Sepsis Recent Fever Within 48 Hours Sepsis New/Unexplained Change in Mental Status Sepsis Action Taken by Nursing Pulse Rate 91 H 87 89 Pulse Rate [Apical] Pulse Rate [Brachial] Pulse Rate from SpO2 Sensor 91 H 89 90 Pulse Rhythm Pulse Rhythm [Apical] Pulse Strength [Apical] Respiratory Rate 27 H 24 20 Respiratory Effort / Characteristics Respiratory Depth Respiratory Pattern Blood Pressure 124/58 L 116/75 134/56 L Blood Pressure [Left Arm] Blood Pressure [Right Arm] Blood Pressure Mean 80 88 82 Blood Pressure Mean [Left Arm] Blood Pressure Mean [Right Arm] Blood Pressure Position Blood Pressure Position [Left Arm] Blood Pressure Position [Right Arm] Pulse Oximetry 95 99 99 Oxygen Delivery Method Nasal Cannula Nasal Cannula Nasal Cannula Oxygen Flow Rate 2 2 2 12/17/18 16:00 12/17/18 16:30 12/17/18 17:00 Temperature Temperature Source Sepsis Recent Fever Within 48 Hours Sepsis New/Unexplained Change in Mental Status Sepsis Action Taken by Nursing Pulse Rate 82 87 84 Pulse Rate [Apical] Pulse Rate [Brachial] Pulse Rate from SpO2 Sensor 82 87 84 Pulse Rhythm Pulse Rhythm [Apical] Pulse Strength [Apical] Respiratory Rate 26 H 24 24 Respiratory Effort / Characteristics Respiratory Depth Respiratory Pattern Blood Pressure 115/47 L 122/65 133/45 L Blood Pressure [Left Arm] Blood Pressure [Right Arm] Blood Pressure Mean 69 84 74 Blood Pressure Mean [Left Arm] Blood Pressure Mean [Right Arm] Blood Pressure Position Blood Pressure Position [Left Arm] Blood Pressure Position [Right Arm] Pulse Oximetry 99 96 96 Oxygen Delivery Method Room Air Room Air Room Air Oxygen Flow Rate 12/17/18 17:30 12/17/18 17:55 12/17/18 18:00 Temperature Temperature Source Sepsis Recent Fever Within 48 Hours Sepsis New/Unexplained Change in Mental Status Sepsis Action Taken by Nursing Pulse Rate 81 81 Pulse Rate [Apical] Pulse Rate [Brachial] Pulse Rate from SpO2 Sensor 80 81 Pulse Rhythm Pulse Rhythm [Apical] Pulse Strength [Apical] Respiratory Rate 21 24 Respiratory Effort / Characteristics Spontaneous SOB on Exertion Respiratory Depth Normal Respiratory Pattern Apnea Tachypnea Blood Pressure 129/54 L 127/48 L Blood Pressure [Left Arm] Blood Pressure [Right Arm] Blood Pressure Mean 79 74 Blood Pressure Mean [Left Arm] Blood Pressure Mean [Right Arm] Blood Pressure Position Blood Pressure Position [Left Arm] Blood Pressure Position [Right Arm] Pulse Oximetry 97 97 Oxygen Delivery Method Room Air Nasal Cannula Room Air Oxygen Flow Rate 2 12/17/18 18:24 12/17/18 19:12 12/18/18 00:22 Temperature 36.5 C Temperature Source Oral Sepsis Recent Fever Within 48 Hours Sepsis New/Unexplained Change in Mental Status Sepsis Action Taken by Nursing Pulse Rate 81 82 Pulse Rate [Apical] 87 Pulse Rate [Brachial] Pulse Rate from SpO2 Sensor Pulse Rhythm Pulse Rhythm [Apical] Regular Pulse Strength [Apical] Normal Respiratory Rate 24 20 Respiratory Effort / Characteristics Non-Labored Spontaneous Respiratory Depth Normal Respiratory Pattern Regular Blood Pressure 127/48 L Blood Pressure [Left Arm] Blood Pressure [Right Arm] 153/70 H Blood Pressure Mean Blood Pressure Mean [Left Arm] Blood Pressure Mean [Right Arm] 97 Blood Pressure Position Blood Pressure Position [Left Arm] Blood Pressure Position [Right Arm] Lying Pulse Oximetry 97 100 Oxygen Delivery Method Room Air Nasal Cannula Oxygen Flow Rate 2 12/18/18 07:42 12/18/18 07:44 12/18/18 08:00 Temperature 36.9 C Temperature Source Oral Sepsis Recent Fever Within 48 Hours Sepsis New/Unexplained Change in Mental Status Sepsis Action Taken by Nursing Pulse Rate 80 Pulse Rate [Apical] Pulse Rate [Brachial] 80 Pulse Rate from SpO2 Sensor Pulse Rhythm Pulse Rhythm [Apical] Pulse Strength [Apical] Respiratory Rate 16 Respiratory Effort / Characteristics Non-Labored Spontaneous Respiratory Depth Normal Respiratory Pattern Regular Blood Pressure Blood Pressure [Left Arm] Blood Pressure [Right Arm] 145/57 H Blood Pressure Mean Blood Pressure Mean [Left Arm] Blood Pressure Mean [Right Arm] 86 Blood Pressure Position Blood Pressure Position [Left Arm] Blood Pressure Position [Right Arm] Lying Pulse Oximetry 97 Oxygen Delivery Method Nasal Cannula Nasal Cannula Oxygen Flow Rate 2 2 12/18/18 11:30 Temperature 36.9 C Temperature Source Oral Sepsis Recent Fever Within 48 Hours Sepsis New/Unexplained Change in Mental Status Sepsis Action Taken by Nursing Pulse Rate Pulse Rate [Apical] Pulse Rate [Brachial] 95 H Pulse Rate from SpO2 Sensor Pulse Rhythm Pulse Rhythm [Apical] Pulse Strength [Apical] Respiratory Rate 16 Respiratory Effort / Characteristics Respiratory Depth Respiratory Pattern Blood Pressure Blood Pressure [Left Arm] Blood Pressure [Right Arm] 124/65 Blood Pressure Mean Blood Pressure Mean [Left Arm] Blood Pressure Mean [Right Arm] 84 Blood Pressure Position Blood Pressure Position [Left Arm] Blood Pressure Position [Right Arm] Lying Pulse Oximetry 99 Oxygen Delivery Method Nasal Cannula Oxygen Flow Rate 2 GENERAL: Mild and comfortable in appearance. Nasal cannula in place. EYE EXAM: Normal conjunctiva. PERRL, no anisocoria and EOM's grossly intact w/o pain OROPHARYNX: No exudate, posterior pharynx is clear, no tonsillar/uvular deviation or swelling. NECK: Supple, no nuchal rigidity, no adenopathy, non-tender. No signs of meningismus. LUNGS: Mild diffuse wheezing throughout. Normal chest wall mechanics. HEART: Normal sinus rhythm, no MRG. ABDOMEN: Mild diffuse tenderness throughout over the anterior abdomen with mild guarding. No rebound. SKIN: No rashes and no bruising. UPPER EXTREMITIES: Upper extremities are grossly normal. LOWER EXTREMITIES: No pitting edema. No calf pain. NEURO EXAM: GCS 14 opens eyes to voice. Cranial nerves II-XII grossly intact, normal speech, moves all 4 extremities on command w/o issue. Course 1415: Dr. Manuel Ivan, ED resident, saw the patient and evaluated him under my supervision. 1600: Dr. Ivan spoke with Dr. Fitzpatrick, [facility]. He will evaluate the patient for further management. 1602: Dr. Ivan spoke with Dr. Flor, General surgery. He recommends admitting the patient and said he will evaluate the patient in the ER. 1605: Dr. Ivan spoke with Dr. Garnica, hematology. She states watch for hemodynamic instability. She states when hemoglobin is stable you can consider give the patient Coumadin. She states no Protamine needs to be given at this time. Administered Medications Hydrocodone Bitart/Acetaminophen ([place] 5/325) 1 tab PO Q6H PRN PRN Reason: Pain Stop: 12/31/18 18:43 Last Admin: 12/18/18 09:30 Dose: 1 tab Documented by: [id number] Admin: 12/18/18 06:28 Dose: 1 tab Documented by: [id number] Azithromycin (Zithromax) 250 mg PO QAM [facility] Stop: 12/25/18 08:59 Last Admin: 12/18/18 09:30 Dose: 250 mg Documented by: [id number] Cyanocobalamin (Vitamin B-12) 1,000 mcg PO DAILY [facility] Stop: 01/17/19 08:59 Last Admin: 12/18/18 09:30 Dose: 1,000 mcg Documented by: [id number] Diltiazem HCl (Cardizem Cd) 240 mg PO QAM [facility] Stop: 01/17/19 08:59 Last Admin: 12/18/18 09:31 Dose: 240 mg Documented by: [id number] Gabapentin (Neurontin) 400 mg PO BID [facility] Stop: 01/16/19 20:59 Last Admin: 12/18/18 09:30 Dose: 400 mg Documented by: [id number] Admin: 12/17/18 20:50 Dose: 400 mg Documented by: [id number] Losartan Potassium (Cozaar) 50 mg PO QAM [facility] Stop: 01/17/19 08:59 Last Admin: 12/18/18 09:31 Dose: 50 mg Documented by: [id number] Magnesium Oxide (Mag-Ox) 400 mg PO DAILY [facility] Stop: 01/17/19 08:59 Last Admin: 12/18/18 09:30 Dose: 400 mg Documented by: [id number] Miscellaneous (Order Awaiting Action) 1 ea N/A QS [facility] Stop: 01/17/19 00:00 Last Admin: 12/18/18 07:35 Dose: Not Given Documented by: [id number] Admin: 12/17/18 23:43 Dose: Not Given Documented by: [id number] Montelukast Sodium (Singulair) 10 mg PO QAM [facility] Stop: 01/17/19 08:59 Last Admin: 12/18/18 09:30 Dose: 10 mg Documented by: [id number] Pantoprazole Sodium (Protonix) 40 mg PO BID [facility] Stop: 01/16/19 20:59 Last Admin: 12/18/18 09:30 Dose: 40 mg Documented by: [id number] Admin: 12/17/18 20:50 Dose: 40 mg Documented by: [id number] Phenytoin Sodium (Dilantin Er) 100 mg PO TID [facility] Stop: 01/16/19 20:59 Last Admin: 12/18/18 09:31 Dose: 100 mg Documented by: [id number] Admin: 12/17/18 20:51 Dose: 100 mg Documented by: [id number] Potassium Chloride (Klor-Con M10) 20 meq PO QAM [facility] Stop: 01/17/19 08:59 Last Admin: 12/18/18 09:30 Dose: 20 meq Documented by: [id number] Prednisone (Prednisone) 50 mg PO DAILY [facility] Stop: 01/17/19 08:59 Last Admin: 12/18/18 09:30 Dose: 50 mg Documented by: [id number] Discontinued Medications Albuterol (Duoneb) 3 ml NEB NOW STA Stop: 12/17/18 14:23 Last Admin: 12/17/18 14:49 Dose: 3 ml Documented by: [id number] Sodium Chloride (Nss 1000ml) 1,000 mls @ 999 mls/hr IV .Q1H1M [facility] Stop: 12/17/18 17:00 Last Infusion: 12/17/18 17:08 Dose: 0 mls/hr Documented by: [id number] Admin: 12/17/18 16:00 Dose: 999 mls/hr Documented by: [id number] Ioversol (Optiray 320 100ml) 94 ml IV ONCE PRN PRN Reason: Interaction Checking Stop: 12/21/18 15:36 Last Admin: 12/17/18 15:38 Dose: 94 ml Documented by: [id number] Medical Decision Making Medical Records Attestation: I reviewed the patient's medical records. Home Medications Current Medication List: was personally reviewed by me Laboratory Data Attestation: I reviewed the patient's lab results. Result diagrams: 12/18/18 01:45 12/18/18 08:07 Lab Results 12/17/18 12/17/18 12/17/18 Range/Units 13:40 13:40 13:40 WBC 13.03 H (4.8-10.8) K/uL RBC 4.14 L (4.2-5.4) M/uL Hgb 10.3 L (12.0-16.0) g/dL Hct 32.5 L (37-47) % MCV 78.5 L (80-100) fL MCH 24.9 L (25-34) pg MCHC 31.7 L (32-36) g/dL RDW Std Deviation 43.9 (36.4-46.3) fL RDW Coeff of Ruslan 15.2 H (11.5-14.5) % Plt Count 426 H (130-400) K/uL MPV 9.3 (7.4-10.4) fL Immature Gran % (Auto) 1.5 % Neut % (Auto) 59.3 % Lymph % (Auto) 30.9 % Humphreys % (Auto) 8.1 % Eos % (Auto) 0.1 % Baso % (Auto) 0.1 % Immature Gran # (Auto) 0.20 H (0.00-0.02) K/uL Neut # (Auto) 7.72 H (1.4-6.5) K/uL Lymph # (Auto) 4.03 H (1.2-3.4) K/uL Humphreys # (Auto) 1.06 H (0.11-0.59) K/uL Eos # (Auto) 0.01 (0-0.5) K/uL Baso # (Auto) 0.01 (0-0.2) K/uL PT (9.0-12.0) Seconds INR (0.9-1.1) VBG pH VBG pCO2 VBG pO2 VBG HCO3 VBG O2 Saturation VBG Base Excess Barometric Pressure Sodium 142 (136-145) mmol/L Potassium 3.6 (3.5-5.1) mmol/L Chloride 108 H (98-107) mmol/L Carbon Dioxide 24 (21-32) mmol/L Anion Gap 9.0 (3-11) BUN 12 (7-18) mg/dl Creatinine 0.84 (0.6-1.2) mg/dl Est Cr Clr Drug Dosing 47.2 ml/min Est GFR ( Amer) 73.5 Est GFR (Non-Af Amer) 63.4 BUN/Creatinine Ratio 14.5 (10-20) Glucose 253 H (70-99) mg/dl Lactate (0.4-2.0) mmol/L Calcium 8.9 (8.5-10.1) mg/dl Total Bilirubin 0.2 (0.2-1) mg/dl AST 19 (15-37) U/L ALT 23 (12-78) U/L Alkaline Phosphatase 119 H (45-117) U/L Troponin I < 0.015 (0-0.045) ng/ml Total Protein 6.5 (6.4-8.2) gm/dl Albumin 3.2 L (3.4-5.0) gm/dl Globulin 3.3 (2.5-4.0) gm/dl Albumin/Globulin Ratio 1.0 (0.9-2) Lipase 112 (73-393) U/L 12/17/18 12/17/18 12/17/18 Range/Units 15:02 15:55 16:41 WBC (4.8-10.8) K/uL RBC (4.2-5.4) M/uL Hgb (12.0-16.0) g/dL Hct (37-47) % MCV (80-100) fL MCH (25-34) pg MCHC (32-36) g/dL RDW Std Deviation (36.4-46.3) fL RDW Coeff of Ruslan (11.5-14.5) % Plt Count (130-400) K/uL MPV (7.4-10.4) fL Immature Gran % (Auto) % Neut % (Auto) % Lymph % (Auto) % Humphreys % (Auto) % Eos % (Auto) % Baso % (Auto) % Immature Gran # (Auto) (0.00-0.02) K/uL Neut # (Auto) (1.4-6.5) K/uL Lymph # (Auto) (1.2-3.4) K/uL Humphreys # (Auto) (0.11-0.59) K/uL Eos # (Auto) (0-0.5) K/uL Baso # (Auto) (0-0.2) K/uL PT 10.7 (9.0-12.0) Seconds INR 1.0 (0.9-1.1) VBG pH Cancelled VBG pCO2 Cancelled VBG pO2 Cancelled VBG HCO3 Cancelled VBG O2 Saturation Cancelled VBG Base Excess Cancelled Barometric Pressure Cancelled Sodium (136-145) mmol/L Potassium (3.5-5.1) mmol/L Chloride (98-107) mmol/L Carbon Dioxide (21-32) mmol/L Anion Gap (3-11) BUN (7-18) mg/dl Creatinine (0.6-1.2) mg/dl Est Cr Clr Drug Dosing ml/min Est GFR ( Amer) Est GFR (Non-Af Amer) BUN/Creatinine Ratio (10-20) Glucose (70-99) mg/dl Lactate 2.8 H* (0.4-2.0) mmol/L Calcium (8.5-10.1) mg/dl Total Bilirubin (0.2-1) mg/dl AST (15-37) U/L ALT (12-78) U/L Alkaline Phosphatase (45-117) U/L Troponin I (0-0.045) ng/ml Total Protein (6.4-8.2) gm/dl Albumin (3.4-5.0) gm/dl Globulin (2.5-4.0) gm/dl Albumin/Globulin Ratio (0.9-2) Lipase (73-393) U/L 12/17/18 12/17/18 12/18/18 Range/Units 19:14 21:49 01:45 WBC (4.8-10.8) K/uL RBC (4.2-5.4) M/uL Hgb 9.6 L 9.5 L 9.2 L (12.0-16.0) g/dL Hct (37-47) % MCV (80-100) fL MCH (25-34) pg MCHC (32-36) g/dL RDW Std Deviation (36.4-46.3) fL RDW Coeff of Ruslan (11.5-14.5) % Plt Count (130-400) K/uL MPV (7.4-10.4) fL Immature Gran % (Auto) % Neut % (Auto) % Lymph % (Auto) % Humphreys % (Auto) % Eos % (Auto) % Baso % (Auto) % Immature Gran # (Auto) (0.00-0.02) K/uL Neut # (Auto) (1.4-6.5) K/uL Lymph # (Auto) (1.2-3.4) K/uL Humphreys # (Auto) (0.11-0.59) K/uL Eos # (Auto) (0-0.5) K/uL Baso # (Auto) (0-0.2) K/uL PT (9.0-12.0) Seconds INR (0.9-1.1) VBG pH VBG pCO2 VBG pO2 VBG HCO3 VBG O2 Saturation VBG Base Excess Barometric Pressure Sodium (136-145) mmol/L Potassium (3.5-5.1) mmol/L Chloride (98-107) mmol/L Carbon Dioxide (21-32) mmol/L Anion Gap (3-11) BUN (7-18) mg/dl Creatinine (0.6-1.2) mg/dl Est Cr Clr Drug Dosing ml/min Est GFR ( Amer) Est GFR (Non-Af Amer) BUN/Creatinine Ratio (10-20) Glucose (70-99) mg/dl Lactate (0.4-2.0) mmol/L Calcium (8.5-10.1) mg/dl Total Bilirubin (0.2-1) mg/dl AST (15-37) U/L ALT (12-78) U/L Alkaline Phosphatase (45-117) U/L Troponin I (0-0.045) ng/ml Total Protein (6.4-8.2) gm/dl Albumin (3.4-5.0) gm/dl Globulin (2.5-4.0) gm/dl Albumin/Globulin Ratio (0.9-2) Lipase (73-393) U/L 12/18/18 12/18/18 Range/Units 08:07 08:07 WBC (4.8-10.8) K/uL RBC (4.2-5.4) M/uL Hgb (12.0-16.0) g/dL Hct (37-47) % MCV (80-100) fL MCH (25-34) pg MCHC (32-36) g/dL RDW Std Deviation (36.4-46.3) fL RDW Coeff of Ruslan (11.5-14.5) % Plt Count (130-400) K/uL MPV (7.4-10.4) fL Immature Gran % (Auto) % Neut % (Auto) % Lymph % (Auto) % Humphreys % (Auto) % Eos % (Auto) % Baso % (Auto) % Immature Gran # (Auto) (0.00-0.02) K/uL Neut # (Auto) (1.4-6.5) K/uL Lymph # (Auto) (1.2-3.4) K/uL Humphreys # (Auto) (0.11-0.59) K/uL Eos # (Auto) (0-0.5) K/uL Baso # (Auto) (0-0.2) K/uL PT (9.0-12.0) Seconds INR (0.9-1.1) VBG pH VBG pCO2 VBG pO2 VBG HCO3 VBG O2 Saturation VBG Base Excess Barometric Pressure Sodium 144 (136-145) mmol/L Potassium 3.8 (3.5-5.1) mmol/L Chloride 112 H (98-107) mmol/L Carbon Dioxide 26 (21-32) mmol/L Anion Gap 7.0 (3-11) BUN 12 (7-18) mg/dl Creatinine 0.57 L (0.6-1.2) mg/dl Est Cr Clr Drug Dosing 70.4 ml/min Est GFR ( Amer) 98.0 Est GFR (Non-Af Amer) 84.5 BUN/Creatinine Ratio 20.1 H (10-20) Glucose 124 H (70-99) mg/dl Lactate 1.1 (0.4-2.0) mmol/L Calcium 8.6 (8.5-10.1) mg/dl Total Bilirubin (0.2-1) mg/dl AST (15-37) U/L ALT (12-78) U/L Alkaline Phosphatase (45-117) U/L Troponin I (0-0.045) ng/ml Total Protein (6.4-8.2) gm/dl Albumin (3.4-5.0) gm/dl Globulin (2.5-4.0) gm/dl Albumin/Globulin Ratio (0.9-2) Lipase (73-393) U/L Imaging Data Radiologist's Impression: Radiology results as stated below per my review and the radiologist's interpretation: XR chest 1V portable CLINICAL HISTORY: Shortness of breath COMPARISON STUDY: 09/09/2018 FINDINGS: The heart is borderline enlarged. There is no lobar consolidation. There is no overt failure. There is equivocal slight interstitial thickening.[ There are no cystic or pleural effusions IMPRESSION: 1. No evidence of focal pulmonary consolidation 2. Equivocal subtle interstitial thickening. While this may be related to technical factors, one cannot exclude minimal pulmonary vascular congestion or a subtle interstitial inflammatory process. Clinical and radiographic follow-up is recommended. Electronically signed by: Wes Zelaya M.D. 12/17/2018 3:[address] abd pelvis IV con only CLINICAL HISTORY: Generalized abdominal pain COMPARISON STUDY: March 2016 TECHNIQUE: The patient was scanned in a dynamic helical fashion during intravenous administration of 94 cc of Optiray 320. A dose lowering technique was utilized adhering to the principles of ALARA. CT DOSE: 585.50 mGy.cm FINDINGS: Lower chest: There is lower lobe bronchial wall thickening and dependent atelectatic change. Liver: The contrast-enhanced liver is normal in size, contour, and attenuation. There is no intrahepatic biliary ductal dilatation. The hepatic veins and portal veins are patent. Gallbladder: There is an equivocal noncalcified gallstone present. Spleen: Normal in size and attenuation. Pancreas: Unremarkable. Adrenal glands: Unremarkable. Kidneys: There is symmetric renal cortical enhancement. The kidneys are normal in size without hydronephrosis. Bowel: There are no transition zones indicate bowel obstruction. There is colonic diverticulosis. There are no acute peridiverticular inflammatory changes. There is no evidence of acute appendicitis. Peritoneum: There is no intraperitoneal free air or abdominal ascites. Vasculature: There is no evidence for abdominal aortic aneurysm. There are moderate atheromatous changes present within the aorta and abdominal branch vessels. Adenopathy: None. Pelvic viscera: The uterus appears surgically absent Skeletal structures: There is a right-sided rectus sheath mass/hematoma measuring 18 x 12 x 4 cm. IMPRESSION: 1. 18 x 12 x 4 cm right rectus sheath mass, consistent with a hematoma 2. No evidence of bowel obstruction. No evidence of free air 3. No evidence of acute appendicitis. No evidence of acute diverticulitis. Electronically signed by: Wes Zelaya M.D. 12/17/2018 3:48 PM Blood Pressure Blood Pressure Findings: Elevated blood pressure Blood Pressure Disposition: further management by hospitalist ZANE Hudson The patient is a 87 white female w/ PMHx HTN, GERD, PE, COPD exacerbation, esophageal dysphagia, peripheral neuropathy, heart disease, asthma, emphysema, TIA, and acute respiratory failure with hypoxia who presents to the ED w/ CC of constant and sharp lower abdominal pain beginning 3 days ago. Differential diagnosis: Etiologies such as appendicitis, diverticulitis, PUD, biliary pathology, UTI, pancreatitis, obstruction, mesenteric ischemia, aortic pathology, infections, inflammatory bowel disease, renal colic, as well as others were entertained. Patient was seen and evaluated after being seen and evaluated by the resident physician. Patient does have associated shortness of breath coarse breath sounds possibly consistent with a COPD exacerbation. The patient also does have mild diffuse abdominal discomfort. Patient did have blood work completed along with a chest x-ray and CT the abdomen pelvis. Patient's chest x-ray does not show any focal consolidation. Patient CT the abdomen pelvis does show a concern for a rectus sheath hematoma. The resident physician did speak with the on- call general surgeon who was to evaluate the patient the bedside. I also instructed the resident physician to page Dr. Danika vazquez who is with hematology as the patient does have a history of using Lovenox and would like some additional recommendations as to whether or not the patient should receive protamine. He did speak with the on-call operations management professionals who did not recommend protamine at this time. Recommended continuing to monitor for hemodynamic instability as well as blood counts. Patient was further discussed with the hospitalist who accepted the patient was going to be seen by the general surgeon in the emergency department. Patient was admitted to the medicine service. Impression & Plan Rectus sheath hematoma, COPD exacerbation, Abdominal pain Critical Care Time I have personally spent greater than 40 minutes of critical care time in direct management of this patient. This includes bedside care, interpretation of diagnostic studies, and testing, discussion with consultants, patient, and family members, and other require inpatient management activities. This [] minutes is in excess of all separately billable procedures. Critical Care Time: Yes Total Critical Care Time: 40 Discharge Plan Visit Data *Final* Discharge Date/Time: 12/17/18 18:24 Chief Complaint: Abdominal Pain Stated Complaint: Abd pain, distention LLQ ED Provider: Steven Nieves ED Midlevel Provider: Manuel Ivan Discharge Problem: Rectus sheath hematoma, COPD exacerbation, Abdominal pain Patient Disposition: Admitted As Inpatient Discharge Instructions Interventions: ED Discharge Assessment Last Done: 12/17/18 18:24 Discharge Problem: Rectus sheath hematoma Qualifiers: Encounter type: initial encounter Qualified Code(s): S30.1XXA - Contusion of abdominal wall, initial encounter Abdominal pain Qualifiers: Abdominal location: unspecified location Qualified Code(s): R10.9 - Unspecified abdominal pain The scribe's documentation has been prepared under my direction and personally reviewed by me in its entirety. I confirm that the note above accurately re flects all work, treatment, procedures, and medical decision making performed by me.
[2018-12-17] MEDS ORDERED: MAGNESIUM HYDROXIDE SUSP 30 ML UDC PO PRN (18:44)
[2018-12-17] MEDS ORDERED: NITROGLYCERIN SL 0.4 MG/TAB TAB SL PRN (18:44)
[2018-12-17] MEDS ORDERED: ACETAMINOPHEN 325 MG TAB PO PRN (18:44)
[2018-12-17] MEDS ORDERED: PSEUDOEPHEDRINE GUAIFENESIN PO PRN (18:44)
[2018-12-17] MEDS ORDERED: BISACODYL 10 MG SUPP PR PRN (18:44)
[2018-12-17] MEDS ORDERED: SOD PHOSPHATE/SOD BIPHOSPHATE ENEMA 132 ML BTL PR PRN (18:44)
[2018-12-17] MEDS ORDERED: ALBUTEROL HFA 8 GM INHALER INH PRN (18:44)
[2018-12-17] MEDS ORDERED: COUGH DROP (SUGAR FREE) LOZ 24 LOZ/1 BOX BUCCAL PRN (18:44)
[2018-12-17] MEDS: PANTOprazole 40 MG TAB PO SCH (20:50)
[2018-12-17] MEDS: GABAPENTIN 400 MG CAP PO SCH (20:50)
[2018-12-17] MEDS: PHENYTOIN SODIUM ER 100 MG CAP PO SCH (20:51)
[2018-12-17] MEDS: [UNRECOGNIZED DRUG - OTHER] SCH (23:43)
[2018-12-18] MEDS: HYDROCODONE/ACETAMOPHEN 5/325MG TAB PO PRN ×3 (06:28→23:35)
--- NOTE | 2018-12-18 06:39 | Surgery Progress Note ---
Date of Service pt is stable overnight, not increase abdominal pain, pt denies nausea, no vomiting, last BM yesterday, December 18, 2018 Assessment & Plan (1) Rectus sheath hematoma: pt is a 87b year-old female who presents to Er with 3 days history right side abdominal pain, CT scan dx right side rectus sheath hematoma. H/H 10.3/32.5(12/17/2018), H/H 11.3/36.1(09/12/2018) IMP: right side rectus sheath hematoma Plan, recommend : hospitalist admit pt to hospital no surgical indication at now, conservative treatment, hold plavix per- hospitalist repeat H/H in am will F/U D/W ER attending 12/18/2018 6:38AM continue conservative treatment, enhanced environmental operator surgeon will cover this weekend. Physical Exam Constitutional: WD/WN, vitals as above well developed and well nourished ENMT: external ear and nose normal, oropharynx normal Neck: trachea midline, no thyromegaly Respiratory: normal respiratory effort, lungs clear to auscultation + respiratory distress Cardiovascular: RRR, no murmur, no edema Rate/Rhythm: regular rate and regular rhythm Heart Sounds: normal S1 and normal S2 Gastrointestinal (Abdomen): some tenderness at right side abdomen, no rebound pain, feel hemotoma at right side abdomen, size is not increased Skin: no rashes, warm and dry Neurologic: patellar DTR's 2+ bilat, sensation intact Psychiatric: Orientation: alert and oriented x 3 Lymphatic: no cervical or axillary lymphadenopathy Results & Data Vital Signs (Past 12 Hours) Vital Signs Temp Pulse Pulse Resp BP Pulse Ox 12/18/18 00:22 82 12/17/18 19:12 36.5 C 87 20 153/70 H 100 (1) Rectus sheath hematoma Encounter type: initial encounter Qualified Code(s): S30.1XXA - Contusion of abdominal wall, initial encounter
[2018-12-18] MEDS: [UNRECOGNIZED DRUG - OTHER] SCH ×3 (07:35→23:31)
[2018-12-18 08:41] LABS: BUN Creatinine Ratio 20.1 (10-20); Calcium 8.6 mg/dl (8.5-10.1); Creatinine Clr Calc Pharmacy 70.4 ml/min; Est GFR (Non-African American) 84.5; Potassium 3.8 mmol/L (3.5-5.1)
[2018-12-18] MEDS: predniSONE 50 MG TAB PO SCH (09:30)
[2018-12-18] MEDS: MONTELUKAST SODIUM 10 MG TABLET PO SCH (09:30)
[2018-12-18] MEDS: GABAPENTIN 400 MG CAP PO SCH ×2 (09:30→20:25)
[2018-12-18] MEDS: POTASSIUM CHLORIDE 10 MEQ TABCR PO SCH (09:30)
[2018-12-18] MEDS: AZITHROMYCIN 250 MG TAB PO SCH (09:30)
[2018-12-18] MEDS: CYANOCOBALAMIN 500 MCG TABLET (VITAMIN B-12) PO SCH (09:30)
[2018-12-18] MEDS: MAGNESIUM OXIDE 400 MG TAB PO SCH (09:30)
[2018-12-18] MEDS: PANTOprazole 40 MG TAB PO SCH ×2 (09:30→20:26)
[2018-12-18] MEDS: dilTIAZem HCL 240 MG CAPCR PO SCH (09:31)
[2018-12-18] MEDS: PHENYTOIN SODIUM ER 100 MG CAP PO SCH ×3 (09:31→20:25)
[2018-12-18] MEDS: LOSARTAN POTASSIUM 50 MG TAB PO SCH (09:31)
--- NOTE | 2018-12-18 23:51 | Hospitalist Progress Note ---
Date of Service December 18, 2018 Assessment & Plan (1) Rectus sheath hematoma: 87 y/o F residing at [facility] - Hx COPD, HTN, HLD, GERD, TIA, seizures, PE 09/09/18 - currently anticoagulated with BID Lovenox. Presents with progressive abdominal pain and an abdominal hematoma. A CT of the abdomen demonstrated a large rectus sheath hematoma. She has not had nausea, vomiting, diarrhea or fevers. She was being treated at [facility] for a COPD exacerbation. The pt received narcotics in the ER and was unable to provide any comprehensive information although she was fully oriented when I was able to keep her awake. 1) Rectus sheath hematoma - sugery consulted, trend Hb, monitor on telemetry overnight - Lovenox held - should likely transition to COumadin to avoid injections going forward. Appreciate surgical input. 2) COPD exacerbation - will keep her on PO steroids, PO Zithro, nebs and 02 presently. At this moment will continue current treatment. May switch to IV steroids in AM if no significant improvement. 3) Hx TIA - resume Plavix when hematoma is resolving 4) Seizure disorder - cont Phenytoin 5) HTN - cont Losartan Full code - SCDs Subjective Patient is arousable. but is a poor historian. Unable to obtain much history. Review of Systems Review of Systems: Unobtainable due to mental health condition Physical Exam Physical Exam: General: Somnolent but awakens with verbal stimuli, elderly F - no distress ENT: No erythema or exudates, no thrush Eyes: AMY, EOMI Head and neck: Normocephalic, atraumatic, No JVD, neck is supple. Chest/heart: Nontender, S1,2, RRR, no murmurs, no gallops Lungs: BL wheezing is present Abdomen: Hematoma at LLQ Neuro: Oriented when awake - can follow commands - no focal deficits Musculoskeletal: No joint inflammation, muscle tenderness, FROM Skin: No acute rashes or ulcers - hematoma over LLQ Extremities: No clubbing, cyanosis, edema Results & Data Vital Signs (Past 12 Hours) Vital Signs Temp Pulse Resp BP Pulse Ox 12/18/18 23:00 36.5 C 75 18 148/76 H 97 12/18/18 19:37 36.8 C 83 16 123/72 97 12/18/18 15:57 36.8 C 83 16 110/67 95 (1) Rectus sheath hematoma Encounter type: initial encounter Qualified Code(s): S30.1XXA - Contusion of abdominal wall, initial encounter
--- NOTE | 2018-12-19 06:18 | Progress Note ---
Date of Service December 19, 2018 Assessment & Plan (1) Rectus sheath hematoma: check H/H- try to have her walk expect discomfort over hematoma monitor for ongoing bleeding Encounter type: initial encounter Qualified Code(s): S30.1XXA - Contusion of abdominal wall, initial encounter Subjective resting comfortably Physical Exam Physical Exam: some Rt abd tenderness- expected over hematoma some distention Results & Data Vital Signs (Past 12 Hours) Vital Signs Temp Pulse Pulse Resp BP BP Pulse Ox 12/19/18 03:58 36.5 C 71 18 146/73 H 99 12/19/18 00:21 72 12/18/18 23:00 36.5 C 75 18 148/76 H 97 12/18/18 19:37 36.8 C 83 16 123/72 97
[2018-12-19 06:35] LABS: Basophils # (auto) 0.02 K/uL (0-0.2); Basophils % (auto) 0.2 %; Eosinophils # (auto) 0.06 K/uL (0-0.5); Eosinophils % (auto) 0.5 %; Hematocrit (blood only) 30.3 % (37-47); Hemoglobin 9.5 g/dL (12.0-16.0); Immature Granulocytes # (auto) 0.37 K/uL (0.00-0.02); Immature Granulocytes % (auto) 2.9 %; Lymphocytes # (auto) 4.57 K/uL (1.2-3.4); Lymphocytes % (auto) 36.2 %; Mean Corpuscular Hgb Conc 31.4 g/dL (32-36); Mean Corpuscular Volume 79.1 fL (80-100); Mean Platelet Volume 9.2 fL (7.4-10.4); Monocytes % (auto) 12.7 %; Neutrophils # (auto) 6.02 K/uL (1.4-6.5); Neutrophils % (auto) 47.5 %; Platelet Count 342 K/uL (130-400); RDW Coefficient of Variation 15.2 % (11.5-14.5); Red Blood Count 3.83 M/uL (4.2-5.4); White Blood Count 12.64 K/uL (4.8-10.8)
[2018-12-19] MEDS: ALBUT/IPRATROP 3MG/0.5MG NEB 3 ML VIAL INH PRN ×2 (08:37→23:55)
[2018-12-19] MEDS: predniSONE 50 MG TAB PO SCH (08:59)
[2018-12-19] MEDS: dilTIAZem HCL 240 MG CAPCR PO SCH (08:59)
[2018-12-19] MEDS: CYANOCOBALAMIN 500 MCG TABLET (VITAMIN B-12) PO SCH (08:59)
[2018-12-19] MEDS: MAGNESIUM OXIDE 400 MG TAB PO SCH (08:59)
[2018-12-19] MEDS: DOCUSATE SODIUM/SENNA 50/8.6MG TAB PO SCH ×2 (08:59→20:03)
[2018-12-19] MEDS: GABAPENTIN 400 MG CAP PO SCH ×2 (08:59→20:03)
[2018-12-19] MEDS: POTASSIUM CHLORIDE 10 MEQ TABCR PO SCH (08:59)
[2018-12-19] MEDS: AZITHROMYCIN 250 MG TAB PO SCH (08:59)
[2018-12-19] MEDS: MONTELUKAST SODIUM 10 MG TABLET PO SCH (08:59)
[2018-12-19] MEDS: PHENYTOIN SODIUM ER 100 MG CAP PO SCH ×3 (09:00→20:03)
[2018-12-19] MEDS: LOSARTAN POTASSIUM 50 MG TAB PO SCH (09:00)
[2018-12-19] MEDS: PANTOprazole 40 MG TAB PO SCH ×2 (09:00→20:03)
[2018-12-19] MEDS: [UNRECOGNIZED DRUG - OTHER] SCH ×3 (09:00→23:26)
[2018-12-19] MEDS: cefTRIAXone SODIUM 1,000 MG in DEXTROSE 5% 50 ML IV SCH (14:34)
[2018-12-19] MEDS: methylPREDNISolone 40 MG in SYRINGE 0 ML IV SCH (20:03)
--- NOTE | 2018-12-19 22:22 | Hospitalist Progress Note ---
Date of Service December 19, 2018 Assessment & Plan (1) Rectus sheath hematoma: 87 y/o F residing at [facility] - Hx COPD, HTN, HLD, GERD, TIA, seizures, PE 09/09/18 - currently anticoagulated with BID Lovenox. Presents with progressive abdominal pain and an abdominal hematoma. A CT of the abdomen demonstrated a large rectus sheath hematoma. She has not had nausea, vomiting, diarrhea or fevers. She was being treated at [facility] for a COPD exacerbation. The pt received narcotics in the ER and was unable to provide any comprehensive information although she was fully oriented when I was able to keep her awake. 1) Rectus sheath hematoma - sugery consulted, trend Hb, monitor on telemetry overnight - Lovenox held - should likely transition to COumadin to avoid injections going forward. Appreciate surgical input. 2) COPD exacerbation - Switched to IV steroids, and placed on ceftriaxone, continue PO Zithro, nebs and 02 presently. Will closely monitorr as patient requires large amounts of oxygen and is wheezing still. 3) Hx TIA - resume Plavix when hematoma is resolving 4) Seizure disorder - cont Phenytoin 5) HTN - cont Losartan Full code - SCDs Spent 35 minutes in management of patient. This included discussion with family. Subjective Patient appears SOB. She does state she feels better than when she first came in. D/W nursing staff, she is more awake as well. Review of Systems Review of Systems: All systems reviewed & are unremarkable except as noted in HPI & below Physical Exam Physical Exam: General: elderly F - no distress ENT: No erythema or exudates, no thrush Eyes: AMY, EOMI Head and neck: Normocephalic, atraumatic, No JVD, neck is supple. Chest/heart: Nontender, S1,2, RRR, no murmurs, no gallops Lungs: BL wheezing is present Abdomen: Hematoma at LLQ Neuro: Awake - can follow commands - no focal deficits Musculoskeletal: No joint inflammation, muscle tenderness, FROM Skin: No acute rashes or ulcers - hematoma over LLQ Extremities: No clubbing, cyanosis, edema Results & Data Vital Signs (Past 12 Hours) Vital Signs Temp Pulse Pulse Resp BP BP Pulse Ox 12/19/18 19:34 36.3 C L 73 20 115/68 98 12/19/18 16:00 36.7 C 73 73 22 121/70 98 12/19/18 12:00 36.8 C 104 H 24 136/70 93 (1) Rectus sheath hematoma Encounter type: initial encounter Qualified Code(s): S30.1XXA - Contusion of abdominal wall, initial encounter
[2018-12-19] MEDS: HYDROCODONE/ACETAMOPHEN 5/325MG TAB PO PRN (23:46)
--- NOTE | 2018-12-20 05:58 | Progress Note ---
Date of Service December 20, 2018 Assessment & Plan (1) Rectus sheath hematoma: cont to monitor no surgical intervention needed at present Encounter type: initial encounter Qualified Code(s): S30.1XXA - Contusion of abdominal wall, initial encounter Subjective vitals stable- no acute chgs Physical Exam Physical Exam: abd softer, no evidence of expanding hematoma Results & Data Vital Signs (Past 12 Hours) Vital Signs Temp Pulse Pulse Resp BP Pulse Ox 12/20/18 03:50 36.4 C L 73 18 117/63 98 12/19/18 23:58 67 12/19/18 23:55 80 22 12/19/18 23:15 36.6 C 80 24 160/69 H 95 12/19/18 19:34 36.3 C L 73 20 115/68 98
[2018-12-20] MEDS: CYANOCOBALAMIN 500 MCG TABLET (VITAMIN B-12) PO SCH (08:04)
[2018-12-20] MEDS: GABAPENTIN 400 MG CAP PO SCH ×2 (08:04→20:09)
[2018-12-20] MEDS: MAGNESIUM OXIDE 400 MG TAB PO SCH (08:04)
[2018-12-20] MEDS: PANTOprazole 40 MG TAB PO SCH ×2 (08:04→20:09)
[2018-12-20] MEDS: DOCUSATE SODIUM/SENNA 50/8.6MG TAB PO SCH ×2 (08:04→20:09)
[2018-12-20] MEDS: PHENYTOIN SODIUM ER 100 MG CAP PO SCH ×3 (08:04→20:09)
[2018-12-20] MEDS: AZITHROMYCIN 250 MG TAB PO SCH (08:04)
[2018-12-20] MEDS: MONTELUKAST SODIUM 10 MG TABLET PO SCH (08:05)
[2018-12-20] MEDS: dilTIAZem HCL 240 MG CAPCR PO SCH (08:05)
[2018-12-20] MEDS: POTASSIUM CHLORIDE 10 MEQ TABCR PO SCH (08:05)
[2018-12-20] MEDS: [UNRECOGNIZED DRUG - OTHER] SCH ×3 (08:05→23:35)
[2018-12-20] MEDS: LOSARTAN POTASSIUM 50 MG TAB PO SCH (08:05)
[2018-12-20] MEDS: methylPREDNISolone 40 MG in SYRINGE 0 ML IV SCH ×2 (10:02→20:09)
[2018-12-20] MEDS: cefTRIAXone SODIUM 1,000 MG in DEXTROSE 5% 50 ML IV SCH (13:24)
[2018-12-20] MEDS: HYDROCODONE/ACETAMOPHEN 5/325MG TAB PO PRN (19:15)
--- NOTE | 2018-12-20 22:37 | Hospitalist Progress Note ---
Date of Service December 20, 2018 Assessment & Plan (1) Rectus sheath hematoma: 87 y/o F residing at [facility] - Hx COPD, HTN, HLD, GERD, TIA, seizures, PE 09/09/18 - currently anticoagulated with BID Lovenox. Presents with progressive abdominal pain and an abdominal hematoma. A CT of the abdomen demonstrated a large rectus sheath hematoma. She has not had nausea, vomiting, diarrhea or fevers. She was being treated at [facility] for a COPD exacerbation. The pt received narcotics in the ER and was unable to provide any comprehensive information although she was fully oriented when I was able to keep her awake. 1) Rectus sheath hematoma - sugery consulted, trend Hb, monitor on telemetry overnight - Lovenox held - should likely transition to COumadin to avoid injections going forward. Appreciate surgical input. Holding anticoag at the moment. Dont anticipate needing to bridge patient, can discharge on coumadin and monitor as outpatient. 2) COPD exacerbation - Switched to IV steroids on 12/19, and placed on ceftriaxone, continue PO Zithro, nebs and 02 presently. Patient is feeling better today. 3) Hx TIA - resume Plavix when hematoma is resolving 4) Seizure disorder - cont Phenytoin 5) HTN - cont Losartan Full code - SCDs Spent 25 minutes in management of patient. Subjective Patient reports feeling much better today. Patient appears less short of breath. Patient denies fever, chill,s nausea, vomiting. Review of Systems Review of Systems: All systems reviewed & are unremarkable except as noted in HPI & below Physical Exam Physical Exam: General: Somnolent but awakens with verbal stimuli, elderly F - no distress ENT: No erythema or exudates, no thrush Eyes: AMY, EOMI Head and neck: Normocephalic, atraumatic, No JVD, neck is supple. Chest/heart: Nontender, S1,2, RRR, no murmurs, no gallops Lungs: No wheezing, clear Abdomen: Hematoma at LLQ Neuro: Awake - can follow commands - no focal deficits Musculoskeletal: No joint inflammation, muscle tenderness, FROM Skin: No acute rashes or ulcers - hematoma over LLQ Extremities: No clubbing, cyanosis, edema Results & Data Vital Signs (Past 12 Hours) Vital Signs Temp Pulse Pulse Resp BP Pulse Ox 12/20/18 19:56 36.6 C 78 20 148/69 H 98 12/20/18 16:05 36.5 C 69 20 126/74 98 12/20/18 16:00 67 12/20/18 12:00 36.7 C 83 22 120/49 L 100 (1) Rectus sheath hematoma Encounter type: initial encounter Qualified Code(s): S30.1XXA - Contusion of abdominal wall, initial encounter
[2018-12-21] MEDS: [UNRECOGNIZED DRUG - OTHER] SCH (07:25)
[2018-12-21] MEDS: DOCUSATE SODIUM/SENNA 50/8.6MG TAB PO SCH (08:04)
[2018-12-21] MEDS: POTASSIUM CHLORIDE 10 MEQ TABCR PO SCH (08:04)
[2018-12-21] MEDS: dilTIAZem HCL 240 MG CAPCR PO SCH (08:04)
[2018-12-21] MEDS: MAGNESIUM OXIDE 400 MG TAB PO SCH (08:04)
[2018-12-21] MEDS: CYANOCOBALAMIN 500 MCG TABLET (VITAMIN B-12) PO SCH (08:04)
[2018-12-21] MEDS: LOSARTAN POTASSIUM 50 MG TAB PO SCH (08:04)
[2018-12-21] MEDS: GABAPENTIN 400 MG CAP PO SCH (08:04)
[2018-12-21] MEDS: AZITHROMYCIN 250 MG TAB PO SCH (08:04)
[2018-12-21] MEDS: PANTOprazole 40 MG TAB PO SCH (08:04)
[2018-12-21] MEDS: PHENYTOIN SODIUM ER 100 MG CAP PO SCH ×2 (08:04→13:39)
[2018-12-21] MEDS: MONTELUKAST SODIUM 10 MG TABLET PO SCH (08:04)
[2018-12-21] MEDS ORDERED: methylPREDNISolone 40 MG in SYRINGE 0 ML IV SCH (09:00)
--- NOTE | 2018-12-21 13:05 | Discharge Summary ---
Date of Service December 21, 2018 Admission HPI Per Admitting Provider 87 y/o F residing at [facility] - Hx COPD, HTN, HLD, GERD, TIA, seizures, PE 09/09/18 - currently anticoagulated with BID Lovenox. Presents with progressive abdominal pain and an abdominal hematoma. A CT of the abdomen demonstrated a large rectus sheath hematoma. She has not had nausea, vomiting, diarrhea or fevers. She was being treated at [facility] for a COPD exacerbation. The pt received narcotics in the ER and was unable to provide any comprehensive information although she was fully oriented when I was able to keep her awake. PMH: 1) COPD 2) HTN 3) Neuropathy 4) Seizure disorder 5) TIA 6) HTN 7) HLD 8) PE 08/2018 9) GERD Surgical: Hysterectomy, umbilical hernia Social: Distant smoking history - no ETOH Family: DM, PE Admission Exam Per Admitting Provider Physical Exam Physical Exam: General: Somnolent, elderly F - no distress ENT: No erythema or exudates, no thrush Eyes: AMY, EOMI Head and neck: Normocephalic, atraumatic, No JVD, neck is supple. Chest/heart: Nontender, S1,2, RRR, no murmurs, no gallops Lungs: BL wheezing is present Abdomen: Hematoma at LLQ Neuro: Oriented when awake - can follow commands - no focal deficits Musculoskeletal: No joint inflammation, muscle tenderness, FROM Skin: No acute rashes or ulcers - hematoma over LLQ Extremities: No clubbing, cyanosis, edema Principal Diagnosis Rectus sheath hematoma Discharge Exam Constitutional WD/WN, vitals as above Eyes PERRL, conjunctivae normal, anicteric sclerae ENMT external ear and nose normal, oropharynx normal Neck trachea midline, no thyromegaly Respiratory normal respiratory effort and + cough; no respiratory distress, no labored breathing and no stridor Auscultation: + rhonchi (slight, clear with cough); no wheezes Cardiovascular RRR, no murmur, no edema Gastrointestinal (Abdomen) Inspection/Auscultation: abdomen normal to inspection and normal bowel sounds; abdomen not distended Percussion/Palpation: + abdomen tender (over hematoma) and abdomen soft; no guarding and abdomen not rigid Musculoskeletal no cyanosis or clubbing, extremities motor strength 5/5 Skin no rashes, warm and dry Neurologic patellar DTR's 2+ bilat, sensation intact and PERRL, EOMI, accommodation nl, no face palsy, no dysarthria Psychiatric A+Ox3, euthymic affect Lymphatic no cervical or axillary lymphadenopathy Discharge Data Allergies Allergy/AdvReac Type Severity Reaction Status Date / Time atorvastatin Allergy Mild UNSURE Verified 12/17/18 15:08 ezetimibe Allergy Mild UNSURE Verified 12/17/18 15:08 alendronate sodium Allergy Unknown UNKN Verified 12/17/18 15:08 benazepril Allergy Unknown UNSURE Verified 12/17/18 15:08 clonidine Allergy Unknown UNSURE Verified 12/17/18 15:08 rosuvastatin [From Crestor] Allergy Unknown Unknown Verified 12/17/18 15:08 simvastatin Allergy Unknown OK TO TRY Verified 12/17/18 15:08 CRESTOR PER [id number] verapamil Allergy Unknown Unknown Verified 12/17/18 15:08 Ibandronic Acid Allergy Unknown UNKN Uncoded 12/17/18 15:08 Consultations 12/17/18 16:08 ED Decision to Admit Stat 12/17/18 16:12 ED Decision to Admit Stat 12/17/18 18:44 Consult General Surgery Stat Ordered Studies 12/17/18 14:22 CT abd pelvis IV con only Stat Hospital Course (1) Rectus sheath hematoma: patient had been on Lovenox injections for PE coughing with her COPD could have caused the spontaneous hematoma general surgery saw patient, no intervention needed Hb stable at 9.5 no further Lovenox, will use Coumadin follow INR at SNF (2) COPD exacerbation: much improved on IV Solu Medrol and antibiotics and nebulizers completed Zithromax while admitted continue a few more days of Augmentin complete slow Prednisone taper (3) Constipation: resolved (4) HTN (hypertension): BP stable, 129/72 on day of d/c continue Losartan (5) GERD (gastroesophageal reflux disease): no symptoms (6) Acute respiratory failure with hypoxia: initially requiring oxygen on day of discharge saturations were 99% on 3L removed oxygen for 30 minutes, her saturations were 91% on room air, no distress can use oxygen as needed at [place] but no current requirements (7) TIA (transient ischemic attack): safe to resume Plavix (8) Pulmonary embolism: h/o PE, will use Coumadin now instead of Lovenox Total Time Total Time Spent Total Time Spent (In Minutes): 35 minutes Total Time Includes: Examination of the Patient, Discharge Planning and Medication Reconciliation Discharge Plan Discharge Items Patient Disposition: Transfer [facility] Reason For Visit: RECTUS SHEETH HEMATOMA Discharge Diagnosis: Rectus sheath hematoma COPD exacerbation Condition: Good Discharge Goals: Improve disease control and Improve function Activity: Resume your previous activity Non-emergency contact: Primary Care Provider Call non-emergency contact if: you have any medication questions, your symptoms worsen, your pain is not controlled and you have a fever Follow-up/Referrals: [place] [Primary Care Provider] - Diet: Heart Healthy Addtl Provider Instructions: Medications: - COUMADIN: will start on 5mg daily starting tomorrow, follow INR with provider at [facility] - AUGMENTIN: take twice a day, next dose due this evening, take 7 doses total - PREDNISONE: 50mg daily starting tomorrow, taper by 10mg every 5 days until completed Rectus sheath hematoma could have been due to coughing while on Lovenox no surgical intervention needed, Hb stable at 9.5, pain is much improved safe to resume anticoagulation per surgery, recommend Coumadin COPD exacerbation: productive cough but lungs clear, no distress, she feels a lot better overall Prednisone taper as above treated with Zithromax (finished course) and Rocephin IV will change to Augmentin for 7 more doses since cough is productive FOLLOW UP - physician at [facility] this week need to check INR per protocol at [facility] Prescriptions: New prednisone 10 mg tablet 50 mg PO UD 25 Days Qty: 75 RF: 0 amoxicillin-pot clavulanate 875-125 mg tablet 1 tab PO Q12H Qty: 7 RF: 0 hydrocodone-acetaminophen 5-325 mg Tablet 1 tab PO Q6H PRN (Reason: Pain) Qty: 10 RF: 0 hydrocodone-acetaminophen 5-325 mg Tablet 2 tab PO Q6H PRN (Reason: Pain) Qty: 10 RF: 0 warfarin [Coumadin] 5 mg tablet 5 mg PO DAILY Qty: 30 RF: 0 Continued losartan 50 mg Tablet 50 mg PO QAM RF: 0 gabapentin 400 mg Capsule 400 mg PO BID RF: 0 cyanocobalamin (vitamin B-12) 1,000 mcg Tablet 1,000 mcg PO DAILY RF: 0 diltiazem HCl 240 mg Capsule,Extended Release 24 Hr 240 mg PO QAM RF: 0 potassium chloride 10 mEq Tablet Extended Release 20 meq PO QAM RF: 0 phenytoin sodium extended 100 mg Capsule 100 mg PO TID RF: 0 clopidogrel 75 mg Tablet 75 mg PO QAM RF: 0 calcium carbonate [Calcium 600] 600 mg calcium (1,500 mg) Tablet 1,200 mg PO DAILY RF: 0 magnesium hydroxide [Milk of Magnesia] 400 mg/5 mL Suspension 30 ml PO DAILY PRN (Reason: Constipation) RF: 0 bisacodyl [Dulcolax (bisacodyl)] 10 mg Suppository 10 mg OH DAILY PRN (Reason: Constipation) RF: 0 Fleet Enema 19-7 gram/118 mL Enema 118 ml OH DAILY PRN (Reason: Constipation) RF: 0 nitroglycerin 0.4 mg Tablet, Sublingual 1 tab Sublingual UD PRN (Reason: Angina) RF: 0 montelukast 10 mg Tablet 10 mg PO QAM RF: 0 albuterol sulfate [Ventolin HFA] 90 mcg/actuation Hfa Aerosol Inhaler 2 puff INHALATION Q6 PRN (Reason: Shortness Of Breath Or Wheezing) RF: 0 fluticasone propionate [Flonase Allergy Relief] 50 mcg/actuation [place],Suspension 2 spray INTRANASAL QAM RF: 0 acetaminophen 325 mg Capsule 650 mg PO Q6H PRN (Reason: pain/fever) RF: 0 cholecalciferol (vitamin D3) [Vitamin D3] 2,000 unit Tablet 2,000 unit PO DAILY RF: 0 magnesium oxide 400 mg Capsule 400 mg PO DAILY RF: 0 Trelegy Ellipta 100-62.5-25 mcg Blister With Device 1 inh INHALATION QAM RF: 0 omeprazole 20 mg Tablet,Disintegrat, Delay Rel 1 tab PO BID RF: 0 multivitamin [Multiple Vitamins] Tablet 1 tab PO QAM RF: 0 Cepacol Sore Throat (bennie-men) 15-3.6 mg Lozenge 1 lozenge/day PO Q2H PRN (Reason: Sore Throat) RF: 0 ipratropium-albuterol 0.5 mg-3 mg(2.5 mg base)/3 mL solution for nebulization 3 ml inhalation Q4H PRN (Reason: Shortness Of Breath) RF: 0 Mucinex D Maximum Strength 120-1,200 mg Tablet Extended Release 12 Hr 1 tab PO Q12H PRN (Reason: Urinary Retention) RF: 0 Discontinued prednisone 10 mg tablet 10 mg PO DAILY Qty: 30 RF: 0 azithromycin 250 mg tablet 250 mg PO QAM RF: 0 prednisone 20 mg Tablet 60 mg PO 1100 RF: 0 prednisone 50 mg tablet 50 mg PO 1100 RF: 0 enoxaparin 80 mg/0.8 mL syringe 70 mg subcut Q12H RF: 0 azithromycin 500 mg Tablet 500 mg PO .ONE TIME RF: 0 Stand-Alone Forms: [facility] Discharge Orders: Discharge Order (Routine); Ordered 12/21/18 Ordered By: Mohsen Alegria Skilled Items Patient informed of condition?: Yes DNR: No Discharge Level of Care: Skilled Communicable Disease: No Discharge Prognosis: Improving Admission Data Admit Date/Time: 12/17/18 17:03 Attending Provider: Mohsen Alegria Admit Provider: Sudarshan Fitzpatrick Primary Care Provider: Hema Ren Other Providers: Sudarshan Fitzpatrick ; Azael Flor Service: Telemetry Medical Other Interventions: Discharge Summary Assessment (RN) Last Done: 12/21/18 15:20 DC Date/Time DO NOT enter until pt leaves facility: 12/21/18 15:48
[2018-12-21] MEDS: cefTRIAXone SODIUM 1,000 MG in DEXTROSE 5% 50 ML IV SCH (13:39)
== END 2018-12-21 15:48 | DRG 605 ==
LOC: ED 13:20 → SUATTDRO 17:03 → 2N 17:03